=== PATIENT | female | born 1960 | race Caucasian/White ===

== ENCOUNTER → 2017-12-16 13:56 | Outpatient (CLI) | payer OTHER, SELFPAY | PROVIDERS: Family Provider Family Medicine; PCP Family Medicine; Visit Provider Family Medicine | DX: R42 Dizziness and giddiness (principal); R53.1 Weakness; D64.9 Anemia, unspecified ==

== ENCOUNTER → 2017-12-17 09:29 | Outpatient (CLI) | payer OTHER, SELFPAY ==
[2017-12-17 12:10] LABS: Hemoglobin 9.2 g/dl (12.0-15.0); Mean Corp Hgb Conc 31.7 g/gl (32-36); Mean Corpuscular Hgb 28.9 pg (27.0-32.0); Mean Corpuscular Volume 91.2 fL (81-99); Mean Platelet Vol. 8.9 fl (6.2-12.0); Platelet Count 584 K/mm3 (150-450); RBC Distribution Width CV 14.3 % (11.6-14.6); Red Blood Count 3.18 M/mm3 (4.2-5.4); White Blood Count 8.4 K/mm3 (4.4-11.0)
[2017-12-17 12:11] LABS: ALB/GLOB Ratio 0.7 RATIO (0.9-2.4); AST(SGOT) 22 U/L (15-37); Alanine Aminotransfer ALT/SGPT 26 U/L (13-56); Albumin, Serum 2.9 g/dL (3.2-5.0); Alkaline Phosphatase 78 U/L (45-117); Anion Gap 8 (5-15); BUN 7 mg/dL (7-18); BUN/Creat Ratio 10.5 RATIO (10-20); Calcium,Total 8.9 mg/dL (8.5-10.1); Chloride 101 mmol/L (98-107); Creatinine, Serum 0.67 mg/dL (0.55-1.02); EST Glomerular Filtration Rate 96 mL/min (>60); Est Glom Filt Rate - Afr Amer 116 mL/min (>60); Glucose 115 mg/dL (74-106); Potassium 3.9 mmol/L (3.5-5.1); Protein, Total 6.9 g/dL (6.4-8.2); Sodium Level 139 mmol/L (136-145)
[2017-12-17 12:12] LABS: Differential Indicated MANUAL DIFF; POSITIVE COUNT YES; POSITIVE DIFFERENTIAL NO; POSITIVE MORPHOLOGY YES
[2017-12-17 12:50] LABS: Lymphocyte 36 % (19-41); Monocyte 8 % (0-10); Neutrophil-Segmented 56 % (47-70); Total Cells Counted 100 (MANUAL DIFF)
[2017-12-17 12:51] LABS: Hypochromasia 1+; Platelet Estimate ADEQUATE (ADEQ)
[2017-12-17 12:53] LABS: Absolute Neutrophil Count 4.7 X10^3/uL (2.0-7.7)
[2017-12-18 14:52] LABS: Pathologist Review Reviewed
== END ==
PROVIDERS: Family Provider Family Medicine; PCP Family Medicine; Visit Provider Family Medicine
DX: R42 Dizziness and giddiness (principal); D64.9 Anemia, unspecified; R53.1 Weakness
CPT/HCPCS: 36415; 80053; 85025

== ENCOUNTER → 2018-03-07 16:25 | Outpatient (CLI) | payer OTHER, SELFPAY ==
--- NOTE | 2018-03-07 16:30 | RAD_ITS ---
STUDY: X-RAY - LEFT KNEE REASON FOR EXAM: Female, 58 years old. Pain TECHNIQUE: Four view(s) of the knee were obtained. COMPARISON: None. FINDINGS: The distal femur is unremarkable. The proximal tibia is unremarkable. Normal medial femorotibial compartment. Normal lateral femorotibial compartment. Normal patellofemoral articulation. There is no fullness above the patella. The soft tissue structures are unremarkable. RAD/Knee 4 or More Views IMPRESSION: No significant abnormalities are seen radiographically in the left knee. Electronically Signed: Ann Moralez MD at 19:34 EDT Tel Direct: [phone], Service support ,
--- NOTE | 2018-03-07 16:30 | RAD_ITS ---
STUDY: X-RAY - RIGHT KNEE REASON FOR EXAM: Female, 58 years old. Pain TECHNIQUE: Four view(s) of the knee were obtained. COMPARISON: None. FINDINGS: The distal femur is unremarkable. The proximal tibia is unremarkable. Normal medial femorotibial compartment. Normal lateral femorotibial compartment. Normal patellofemoral articulation. There is no fullness above the patella. The soft tissue structures are unremarkable. RAD/Knee 4 or More Views IMPRESSION: No significant abnormalities are seen radiographically in the right knee. Electronically Signed: Ann Moralez MD at 19:33 EDT Tel Direct: [phone], Service support ,
== END ==
PROVIDERS: Family Provider Family Medicine; PCP Family Medicine; Referring Provider Family Medicine; Visit Provider Family Medicine
DX: M25.561 Pain in right knee (principal); M25.562 Pain in left knee
CPT/HCPCS: 73564

== ENCOUNTER → 2018-03-28 14:31 | Outpatient (CLI) | payer OTHER, SELFPAY ==
--- NOTE | 2018-03-28 14:36 | RAD_ITS ---
STUDY: X-RAY - LUMBAR SPINE REASON FOR EXAM: Female, 58 years old. Low back pain TECHNIQUE: 5 view(s) of the lumbar spine were obtained. COMPARISON: None FINDINGS: Normal lumbar lordosis. There is no substantial scoliosis. There is a normal alignment of the vertebrae. Normal vertebral bodies and endplates. Normal disc space heights. The soft tissue structures are unremarkable. RAD/L/S Spine Min 4 Views IMPRESSION: Normal x-ray examination of the lumbar spine. Electronically Signed: Klever Aldrich MD at 17:02 EST , Service support ,
== END ==
PROVIDERS: Family Provider Family Medicine; PCP Family Medicine; Referring Provider Family Medicine; Visit Provider Family Medicine
DX: M54.5 Low back pain (principal)
CPT/HCPCS: 72110

== ENCOUNTER → 2018-04-09 07:10 | Outpatient (CLI) | payer OTHER, SELFPAY ==
--- NOTE | 2018-04-09 07:12 | CT_ITS ---
STUDY: CT CHEST WITHOUT CONTRAST REASON FOR EXAM: Female, 58 years old. Pulmonary nodule follow-up RADIATION DOSAGE (If Supplied By Facility): CTDIvol = ( 16.55 ) mGy, DLP = ( 599.66 ) mGycm TECHNIQUE: Transaxial imaging was performed without the administration of intravenous contrast material. Multiplanar coronal and sagittal images were reformatted. Individualized dose optimization techniques were used for this CT. COMPARISON: 07/19/2016 FINDINGS: 3 mm partially calcified nodule in the right upper lobe on axial image 42 is compatible with a granuloma, stable. No noncalcified pulmonary nodules are detected. There is no demonstrated pleural abnormality. Normal heart and pericardium. Normal mediastinum. Normal hilar regions. Normal unenhanced pulmonary arteries. Normal aorta arch and descending thoracic aorta. There are multi-level degenerative changes of the thoracic spine. Diminished density throughout the visualized liver compatible with hepatic steatosis, stable. Probable parapelvic cyst of the left kidney is partially visualized. CT/Chest without Contrast IMPRESSION: 1. Since 07/19/2016, stable exam. No new or enlarging pulmonary nodule. Electronically Signed: Jon Briones MD at 6:38 EST , Service support ,
[2018-04-09 08:19] LABS: Erythrocyte Sedimentation Rate 5 mm/hr (0-30)
[2018-04-09 08:21] LABS: Absolute Lymphocyte Count 2.45 X10^3/ul (0.83-4.51); Absolute Neutrophil Count 2.7 X10^3/uL (2.0-7.7); Basophil# 0.06 X10^3/uL; Eosinophil# 0.12 X10^3/uL; Hematocrit 36.8 % (37-47); Hemoglobin 12.1 g/dl (12.0-15.0); Lymphocyte # 2.45 X10^3/ul (4.0); Lymphocyte % 41.2 % (19-41); Mean Corp Hgb Conc 32.9 g/gl (32-36); Mean Corpuscular Hgb 27.3 pg (27.0-32.0); Mean Corpuscular Volume 83.1 fL (81-99); Mean Platelet Vol. 9.7 fl (6.2-12.0); Monocyte# 0.57 X10^3/uL; Monocyte% 9.6 % (0-10); Neutrophil # 2.74 X10^3/uL (2.7-7.7); Platelet Count 358 K/mm3 (150-450); RBC Distribution Width CV 16.1 % (11.6-14.6); RBC Distribution Width SD 48.5 fl (35.1-43.9); Red Blood Count 4.43 M/mm3 (4.2-5.4)
[2018-04-09 08:22] LABS: POSITIVE COUNT NO; POSITIVE DIFFERENTIAL NO; POSITIVE MORPHOLOGY NO
[2018-04-09 08:34] LABS: Hemoglobin A1c 6.4 % (4.2-6.3)
[2018-04-09 09:14] LABS: BUN 16 mg/dL (7-18); Creatinine, Serum 0.66 mg/dL (0.55-1.02); Glucose 101 mg/dL (74-106)
[2018-04-09 09:15] LABS: AST(SGOT) 20 U/L (15-37); Alanine Aminotransfer ALT/SGPT 33 U/L (13-56); Albumin, Serum 3.5 g/dL (3.2-5.0); Alkaline Phosphatase 102 U/L (45-117); Anion Gap 10 (5-15); BUN/Creat Ratio 24.1 RATIO (10-20); CRP 6.37 mg/L (0.0-3.0); Calcium,Total 8.6 mg/dL (8.5-10.1); Chloride 111 mmol/L (98-107); Cholesterol 187 mg/dL (200); EST Glomerular Filtration Rate 97 mL/min (>60); Est Glom Filt Rate - Afr Amer 117 mL/min (>60); Ferritin 37 ng/mL (8-252); Globulin 3.5 g/dL (2.2-4.2); High Density Lipoprotein 58 mg/dL; Iron 85 ug/dL (50-170); Potassium 4.1 mmol/L (3.5-5.1); Sodium Level 144 mmol/L (136-145); T4 Free Direct 1.34 ng/dL (0.76-1.46); Thyroid Stim Hormone (TSH) 0.88 uIU/mL (0.358-3.74); Triglycerides 101 mg/dL; Very Low Density Lipoprotein 20 mg/dL (5-40)
[2018-04-09 10:00] LABS: T3 Total - Triiodothyronine 1.26 ng/mL (0.6-1.81); Vitamin B12 829 pg/mL (211-911); Vitamin D,25 Hydroxy 24.3 ng/mL (29.95-100.01)
== END ==
PROVIDERS: Family Provider Family Medicine; PCP Family Medicine; Referring Provider Family Medicine; Visit Provider Family Medicine
DX: R91.1 Solitary pulmonary nodule (principal); E03.9 Hypothyroidism, unspecified; E11.9 Type 2 diabetes mellitus without complications; R53.83 Other fatigue; M79.10 Myalgia, unspecified site; M25.50 Pain in unspecified joint
CPT/HCPCS: 36415; 71250; 80053; 80061; 82306; 82607; 82728; 82746; 83036; 83540; 84439; 84443; 84480; 85025; 85652; 86140

== ENCOUNTER 2018-04-28 17:00 | Outpatient (RCR) | payer OTHER, SELFPAY ==
--- NOTE | 2018-03-26 11:06 | HP.PTEVAL ---
Patient's Visit Information SHIVA JHAVERI is a 58 year old F referred to Physical Therapy by SUSAN Lagos with a diagnosis of B KRZYSZTOF. Date of Evaluation: 03/26/18 Physical Therapist: Bob Montes PT, - Visit Plan Frequency: 2-3x /Week Duration: 3 Weeks Plan: B LE strengthening, core stab ex's, stick roll out to B ant hips, and HEP - Subjective Subjective: Pt reports she had R THR performed in October of 2017, and then L THR performed in November of 2017. Pt reports she has had extensive PT until January of 2018. Pt reports she returned to work, and was doing well until recently. Pt reports pain has returned and is severe at this time. Pt reports she is constantly taking pain meds to control her pain, but it only takes the edge off her pain. Pt reports she had an anterior approach on B hips. Pt reports she is becoming weaker each day. Pt reports difficulty with car transfers, and rolling over in bed. Pt also notes difficulty with getting into her shower. Pt notes she has pain that begins at her incisions, and extends to her ankles. Pt reports she does have mild LBP on occasion. Pt reports she has had xrays to rule out B knee OA. Sleep diff secondary to pain. 5/10 pain at rest, but pain is usually a constant 8/10 - Pain B hips Pain Intensity (Out of 10): 5 Pain Intensity Range: 8 - Objective Neuro: B LE sensation is WNL to light touch. B patellar reflex= 2/3. MMT: B hip flex and abd= 4-/5 and are painful with testing. L knee flex= 4/5 and provokes L gluteal pain. All other LE MMT 5/5 throughout. ROM: B LE's are WFL. Gait: Pt ambulates with a wobble gait pattern. Pt is able to ambulate 640' until being limited by anterior hip pain B. L/S ROM: Repeated movements had NE on B LE pain. - Goals Goal 1:: Decrease B hip pain x 50% to aid with sleep Goal Time Frame: 2-4 Weeks Goal 2:: Increase B hip strength x 1 grade to aid with ambulation Goal Time Frame: 2-4 Weeks Goal 3:: I with HEP Goal Time Frame: 2-4 Weeks - Rehabilitation Potential Physical Therapy Diagnosis: Pt has B hip pain and weakness secondary to B KRZYSZTOF Rehabilitation Potential: Good - Anticipated Interventions Patient/Client Instruction: Educate patient on: Condition, Plan of Care For the Purpose of:: To improve self management Therapeutic Exercise to Include: Strength training, Endurance training, Balance training, Flexibilty training, Active ROM, Dynamic Lumbar Stabilization For the Purpose of:: To decrease pain, To improve muscle performance and motor function Cryotherapy (ice pack, ice massage): Yes For the Purpose of:: To decrease pain Thank you for the opportunity to evaluate your patient. For Medicare and Medicare HMO plans, please review the plan of care and approve it. It will need to be FAXED BACK to us at [phone] for Medicare purposes. Please let me know if there are questions or concerns regarding this plan of care. Physician Signature: Date:
--- NOTE | 2018-06-11 07:46 | HP.PT.NRP ---
HP - Discharge Summary (1) - Patient Information SHIVA JHAVERI was seen in my office for initial evaluation on 03/26/18. The following Plan of Care was established for this patient: Initial Frequency: 2-3x /Week Initial Duration: 3 Weeks - Anticipated Interventions Patient/Client Instruction: Educate patient on: Condition, Plan of Care For the Purpose of:: To improve self management Therapeutic Exercise to Include: Strength training, Endurance training, Balance training, Flexibilty training, Active ROM, Dynamic Lumbar Stabilization For the Purpose of:: To decrease pain, To improve muscle performance and motor function Cryotherapy (ice pack, ice massage): Yes For the Purpose of:: To decrease pain This patient was last seen in our office . Pertinent comments regarding their Physical therapy will appear below: Pt was treated for B KRZYSZTOF for 8 PT visits through the date of 04/28/18. Pt has not returned since that date and is therefore discontinued at this time. At this point I will be discontinuing this patient from physical therapy. I would be happy to see this patient again in the future if found appropriate by the physician. Thank you! Bob Montes, PT, ATC
== END 2018-04-28 19:00 | disposition home or self-care (01) ==
LOC: PT 17:00
PROVIDERS: Family Provider Family Medicine; PCP Family Medicine; Referring Provider Physician Assistant Surgical; Visit Provider Physician Assistant Surgical
DX: Z96.642 Presence of left artificial hip joint (principal); Z96.641 Presence of right artificial hip joint
CPT/HCPCS: 97110; 97162

== ENCOUNTER → 2018-06-06 07:28 | Outpatient (CLI) | payer OTHER, SELFPAY ==
--- NOTE | 2018-06-06 07:45 | MRI_ITS ---
STUDY: MR LOWER EXTREMITY JOINT WITHOUT CONTRAST LEFT REASON FOR EXAM: Female, 58 years old. Left hip pain status post THR. TECHNIQUE: Multiplanar acquisitions were performed without contrast. COMPARISON: None. FINDINGS: Evaluation of the hips is extremely limited due to the presence of bilateral hip replacements. Visualized pelvic structures are unremarkable. Susceptibility artifact degrades imaging of the proximal humeral shafts bilaterally. There is otherwise no marrow signal abnormality. There is no evidence of fracture or bone contusion. Muscle architecture about the left hip is normal. There is no mass, cyst, or hematoma. Biceps femoris, semitendinosus and semimembranosus tendon origins are unremarkable. Iliopsoas and gluteus muscles are unremarkable. There is no soft tissue mass or cyst. MRI/Lower Ext Joint Only (Routine) IMPRESSION: Limited due to artifact from bilateral hip replacements. There is no demonstrated abnormality. Electronically Signed: Hillary Hsu MD at 21:23 EST Tel , Service support ,
--- OUTSIDE RECORDS SUMMARY | 2018-08-10 14:33 | XMS RPT_ITS ---
:1960 Author Organization OHIP Care Team Providers Name Role Phone KENA SEGOVIA, MILAD Jeff Attending Unavailable MALYS DO, DR. NICOLE Jeff Primary Care Unavailable MILAD ESCUDERO MD Admitting Unavailable SHAJI BLUM MD Consulting Unavailable MD. JOEL COLÓN MD. Consulting Unavailable AURELIA MILTON DO Consulting Unavailable MILAD ECSUDERO MD Attending Unavailable MALYS DO, DR. NICOLE Jeff Primary Care Unavailable MILAD ESCUDERO MD Attending Unavailable JOANNAYS DO, DR. NICOLE Jeff Primary Care Unavailable KATARZYNA THOMPSON, . JOEL Lau Consulting Unavailable MILAD ESCUDERO MD Admitting Unavailable MILAD ESCUDERO MD Attending Unavailable MALYS DO, DR. NICOLE Jeff Primary Care Unavailable MILAD ESCUDERO MD Referring Unavailable Malys, Nicole Attending Unavailable Malys, Nicole Referring Unavailable Malys, Nicole Primary Care Unavailable Eshenaur, Edmundo PA-C Attending Unavailable Malys, Nicole Primary Care Unavailable Eshenaur, Edmundo PA-C Referring Unavailable Malys, Nicole Attending Unavailable Malys, Nicole Primary Care Unavailable Malys, Nicole Attending Unavailable Malys, Nicole Referring Unavailable Malys, Nicole Primary Care Unavailable Malys, Nicole Attending Unavailable Malys, Nicole Referring Unavailable Malys, Nicole Primary Care Unavailable Malys, Nicole Attending Unavailable Malys, Nicole Referring Unavailable Malys, Nicole Primary Care Unavailable Malys, Nicole Attending Unavailable Malys, Nicole Primary Care Unavailable PROBLEMS PROBLEMS DATE TYPE CONDITION / CODE ATTENDING STATUS SOURCE 06/11/2018 Unknown Z96.642 - Eshenaur, Active [place] [facility] Edmundo [facility]C [facility] Repository Z96.642(ICD-10) 06/11/2018 Unknown Z96.641 - Eshenaur, Active [place] [facility] Edmundo PA-C [facility] / Repository Z96.641(ICD-10) 03/28/2018 Unknown M54.5 - Low back Malys, Nicole Active [place] pain / Community M54.5(ICD-10) Hospital Repository 03/07/2018 Unknown M25.561 - Pain in Nicole Moreno Active [place] right knee / Community M25.561(ICD-10) Hospital Repository 03/07/2018 Unknown M25.562 - Pain in Josh, Nicole Active [place] left knee / Community M25.562(ICD-10) Hospital Repository 12/19/2017 Unknown R42 - Dizziness Malalberto, Nicole Active [place] and giddiness / Community R42(ICD-10) Hospital Repository 12/17/2017 Unknown R53.1 - Weakness Josh, Nicole Active [place] / R53.1(ICD-10) [facility] Repository 12/17/2017 Unknown D64.9 - Anemia, Joannays, Nicole Active [place] unspecified / Community D64.9(ICD-10) Hospital Repository PROCEDURES PROCEDURES No Procedure Records FoundRESULTS RESULTS LOWER EXT JOINT ONLY Observed: 06/06/2018 Status: F Source: [place] (ROUTINE) 7:40 AM [facility] REPOSITORY [facility] Imaging Services [address] [place] [id number] Lower Ext Joint Only (Routine) MR#: [id number] Acct: [id number] Name: SHIVA JHAVERI Rep #: [id number] : 1960 F 58 From: Hillary Hsu MD PCP: Nicole Moreno DO Status: REG CLI Study: Lower Ext Joint Only (Routine) Date of Exam: 06/06/18 Exam# [id number] Ordering Dr: Nicole Moreno DO STUDY: MR LOWER EXTREMITY JOINT WITHOUT CONTRAST LEFT REASON FOR EXAM: Female, 58 years old. Left hip pain status post THR. TECHNIQUE: Multiplanar acquisitions were performed without contrast. COMPARISON: None. FINDINGS: Evaluation of the hips is extremely limited due to the presence of bilateral hip replacements. Visualized pelvic structures are unremarkable. Susceptibility artifact degrades imaging of the proximal humeral shafts bilaterally. There is otherwise no marrow signal abnormality. There is no evidence of fracture or bone contusion. Muscle architecture about the left hip is normal. There is no mass, cyst, or hematoma. Biceps femoris, semitendinosus and semimembranosus tendon origins are unremarkable. Iliopsoas and gluteus muscles are unremarkable. There is no soft tissue mass or cyst. MRI/Lower Ext Joint Only (Routine) IMPRESSION: Limited due to artifact from bilateral hip replacements. There is no demonstrated abnormality. Electronically Signed: Hillary Hsu MD at 21:23 EST Tel , Service support , CC: Nicole Moreno DO Blindmaker: Signed ERYTHROCYTE SED RATE Collected: 04/09/2018 Status: F Source: [place] 7:36 AM [facility] REPOSITORY TYPE CODE TESTS RESULT OUT OF RANGE REFERENCE UNITS LAB L102.0000 0-30 mm/hr Normal SED RATE 5 Performed By: #### L101.9900, L100.0100 #### [facility] [address] [place], [address] CBC W/DIFF, AUTOMATED Collected: 04/09/2018 Status: F Source: [place] 7:36 AM [facility] REPOSITORY TYPE CODE TESTS RESULT OUT OF RANGE REFERENCE UNITS LAB L100.1000 4.4-11.0 K/mm3 Normal WBC 6.0 LAB L100.1200 4.2-5.4 M/mm3 Normal RBC 4.43 LAB L100.1300 12.0-15.0 g/dl Normal HGB 12.1 LAB L100.1400 37-47 % Low HCT 36.8 LAB L100.1500 81-99 fL Normal MCV 83.1 LAB L100.1600 27.0-32.0 pg Normal MCH 27.3 LAB L100.1700 32-36 g/gl Normal MCHC 32.9 LAB L100.1810 11.6-14.6 % High RDW CV 16.1 LAB L100.1820 35.1-43.9 fl High RDW SD 48.5 LAB L100.1900 150-450 K/mm3 Normal PLT 358 LAB L100.2000 6.2-12.0 fl Normal MPV 9.7 LAB L100.2100 47-70 % Low NEUT% 46.0 LAB L100.2200 19-41 % High LY% 41.2 LAB L100.2300 0-10 % Normal MONO% 9.6 LAB L100.2400 0-5 % Normal EO% 2.0 LAB L100.2500 0-1 % Normal BASO% 1.0 LAB L100.2550 0.0-0.9 % Normal IM GRAN % 0.200 Result Comment: IG% - Immature Granulocytes (promyelocytes, myelocytes and metamyelocytes) > 1% indicates that a LEFT SHIFT is Present. LAB L100.2620 2.0-7.7 X10 3/uL Normal Absolute Neut 2.7 LAB L100.2720 0.83-4.51 X10 3/ul Normal Absolute Lymph 2.45 Performed By: #### L101.9900, L100.0100 #### [facility] [address] [place], [place], [address] HEMOGLOBIN A1C Collected: 04/09/2018 Status: F Source: [place] 7:36 AM [facility] REPOSITORY TYPE CODE TESTS RESULT OUT OF RANGE REFERENCE UNITS LAB L501.9985 4.2-6.3 % High HGB A1C 6.4 Performed By: #### L501.9985 #### [facility] [address] [place], [address] COMPREHENSIVE METABOLIC Collected: 04/09/2018 Status: F Source: [facility] 7:36 AM [facility] REPOSITORY Order Comment: Is Patient Taking Vitamins or Folic Acid Supplements? N TYPE CODE TESTS RESULT OUT OF RANGE REFERENCE UNITS LAB L501.0100 74-106 mg/dL Normal GLU 101 Result Comment: Fasting Glucose result from 100 to 125 mg/dL suggests IMPAIRED HOMEOSTASIS per A.D.A. criteria. Please note revised GLUCOSE reference range effective 2017. LAB L501.1000 7-18 mg/dL Normal BUN 16 LAB L501.1100 0.55-1.02 mg/dL Normal CREAT,SERUM 0.66 Result Comment: The validity of the calculated GFR AND GFRAA in patients over 70 years has not been determined. Clinical correlation is essential. LAB L501.1110 >60 mL/min Normal EST GFR 97 Result Comment: Non- GFR Calc LAB L501.1115 >60 mL/min Normal EST GFR - AA 117 Result Comment: GFR Calc LAB L501.1300 10-20 RATIO High BUN/CRE 24.1 LAB L501.1500 6.4-8.2 g/dL T Normal PROT 7.0 LAB L501.1800 3.2-5.0 g/dL Normal ALB 3.5 LAB L501.1950 2.2-4.2 g/dL Normal GLOB 3.5 LAB L501.2000 0.9-2.4 RATIO Normal A/G 1.0 LAB L501.2200 8.5-10.1 mg/dL CA Normal 8.6 LAB L501.4100 15-37 U/L Normal AST 20 LAB L501.4305 45-117 U/L Normal ALK P 102 LAB L501.4405 13-56 U/L Normal ALT 33 LAB L501.4600 0.20-1.00 mg/dL T Normal BILI 0.40 LAB L501.5300 136-145 mmol/L NA Normal 144 LAB L501.5600 3.5-5.1 mmol/L K Normal 4.1 LAB L501.5900 98-107 mmol/L High CL 111 LAB L501.6100 21.0-32.0 mmol/L Normal CO2 23.0 LAB L501.6200 5-15 Normal GAP 10 Performed By: #### L500.4050, L500.4100, L501.6710, L501.9520, L503.6150, L503.6550, L506.0250, L506.0400 #### [facility] [address] [place], [address] LIPID PROFILE Collected: 04/09/2018 Status: F Source: [place] 7:36 AM [facility] REPOSITORY Order Comment: Is Patient Taking Vitamins or Folic Acid Supplements? N TYPE CODE TESTS RESULT OUT OF RANGE REFERENCE UNITS LAB L501.4900 200 mg/dL Normal CHOL 187 Result Comment: <200 mg/dL Desirable 200-240 mg/dL Borderline >240 mg/dL High Risk LAB L501.5000 mg/dL Normal TRIG 101 Result Comment: The drugs N-Acetylcysteine and Metamizole may falsely depress this assay. Serum Triglycerides Reference Interval Normal <150 mg/dL Borderline high 150 - 199 mg/dL High 200 - 499 mg/dL Very High > or = 500 mg/dL LAB L501.6400 mg/dL Normal HDL 58 Result Comment: The drugs N-Acetylcysteine and Metamizole may falsely depress this assay. Reference Range HDL <40 mg/dL Low HDL Cholesterol HDL >or= 60 mg/dL High HDL Cholesterol LAB L501.6500 0-130 mg/dL Normal LDL 109 LAB L501.6600 5-40 mg/dL Normal VLDL 20 Performed By: #### L500.4050, L500.4100, L501.6710, L501.9520, L503.6150, L503.6550, L506.0250, L506.0400 #### [facility] [address] [place], [place], [id number] CRP Collected: 04/09/2018 Status: F Source: [place] 7:36 AM [facility] REPOSITORY Order Comment: Is Patient Taking Vitamins or Folic Acid Supplements? N TYPE CODE TESTS RESULT OUT OF RANGE REFERENCE UNITS LAB L501.6710 0.0-3.0 mg/L High 6.37 C-REACTIVE PROT Result Comment: C-Reactive Protein (CRP) provides useful information for the diagnosis, therapy and monitoring of inflammatory processes and associated diseases. For the evaluation of Relative Risk for Cardiovascular Disease, a High Sensitivity CRP (HSCRP) should be ordered. Performed By: #### L500.4050, L500.4100, L501.6710, L501.9520, L503.6150, L503.6550, L506.0250, L506.0400 #### [facility] [address] [place], [place], [id number] THYROID STIM HORMONE Collected: 04/09/2018 Status: F Source: [place] (TSH) 7:36 AM [facility] REPOSITORY Order Comment: Is Patient Taking Vitamins or Folic Acid Supplements? N TYPE CODE TESTS RESULT OUT OF RANGE REFERENCE UNITS LAB L501.9520 0.358-3.74 uIU/mL Normal TSH 0.88 Performed By: #### L500.4050, L500.4100, L501.6710, L501.9520, L503.6150, L503.6550, L506.0250, L506.0400 #### [facility] [address] [place], [address] IRON Collected: 04/09/2018 Status: F Source: [place] 7:36 AM [facility] REPOSITORY Order Comment: Is Patient Taking Vitamins or Folic Acid Supplements? N TYPE CODE TESTS RESULT OUT OF RANGE REFERENCE UNITS LAB L503.6150 50-170 ug/dL Normal IRON 85 Performed By: #### L500.4050, L500.4100, L501.6710, L501.9520, L503.6150, L503.6550, L506.0250, L506.0400 #### [facility] [address] [place], [address] FERRITIN Collected: 04/09/2018 Status: F Source: [place] 7:36 AM [facility] REPOSITORY Order Comment: Is Patient Taking Vitamins or Folic Acid Supplements? N TYPE CODE TESTS RESULT OUT OF RANGE REFERENCE UNITS LAB L503.6550 8-252 ng/mL Normal FERRITIN 37 Performed By: #### L500.4050, L500.4100, L501.6710, L501.9520, L503.6150, L503.6550, L506.0250, L506.0400 #### [facility] [place], [place], [phone] (784) FOLATES, (FOLIC ACID) Collected: 04/09/2018 Status: F Source: [place] 7:36 AM [facility] REPOSITORY Order Comment: Is Patient Taking Vitamins or Folic Acid Supplements? N TYPE CODE TESTS RESULT OUT OF RANGE REFERENCE UNITS LAB L506.0250 3.1-55.4 ng/mL Normal FOLATES 22.80 Performed By: #### L500.4050, L500.4100, L501.6710, L501.9520, L503.6150, L503.6550, L506.0250, L506.0400 #### [facility] [address] [place], [address] T4 FREE DIRECT Collected: 04/09/2018 Status: F Source: [place] 7:36 AM [facility] REPOSITORY Order Comment: Is Patient Taking Vitamins or Folic Acid Supplements? N TYPE CODE TESTS RESULT OUT OF RANGE REFERENCE UNITS LAB L506.0400 0.76-1.46 ng/dL Normal T4 FREE 1.34 DIRECT Performed By: #### L500.4050, L500.4100, L501.6710, L501.9520, L503.6150, L503.6550, L506.0250, L506.0400 #### [facility] [address] [place], [address] T3 TOTAL - TRIIODOTHYRONINE Collected: 04/09/2018 Status: F Source: [place] 7:36 AM [facility] REPOSITORY TYPE CODE TESTS RESULT OUT OF RANGE REFERENCE UNITS LAB L501.9186 0.6-1.81 ng/mL Normal T3 Total 1.26 Performed By: #### L501.9186, L503.0105, L506.1000 #### [facility] [address] [place], [address] VITAMIN B12 Collected: 04/09/2018 Status: F Source: [place] 7:36 AM [facility] REPOSITORY TYPE CODE TESTS RESULT OUT OF RANGE REFERENCE UNITS LAB L503.0105 211-911 pg/mL Normal Vitamin B12 829 Performed By: #### L501.9186, L503.0105, L506.1000 #### [facility] [address] [place], [address] VITAMIN D,25 HYDROXY Collected: 04/09/2018 Status: F Source: [place] 7:36 AM [facility] REPOSITORY TYPE CODE TESTS RESULT OUT OF REFERENCE UNITS RANGE LAB L506.1000 29.95-100.01 ng/mL Low Vitamin D 24.3 25-OH Result Comment: Vitamin D 25(OH) Status Range Deficiency <20 ng/mL (50nmol/L) Insuffciency 20 - 30 ng/mL (50 - 75 nmol/L) Sufficiency 30 - 100 ng/mL (75 - 250 nmol/L) Toxicity >100 ng/mL (>250 nmol/L) Performed By: #### L501.9186, L503.0105, L506.1000 #### [facility] [address] [place], [address] CHEST WITHOUT Observed: 04/09/2018 Status: F Source: [place] CONTRAST 7:12 AM [facility] REPOSITORY [facility] Imaging Services [address] [place] [address] Chest without Contrast MR#: [id number] Acct: [id number] Name: SHIVA JHAVERI Rep #: [id number] : 1960 F 58 From: Jon Briones MD PCP: Nicole Moreno DO Status: REG CLI Study: Chest without Contrast Date of Exam: 04/09/18 Exam# [id number] Ordering Dr: Nicole Moreno DO STUDY: CT CHEST WITHOUT CONTRAST REASON FOR EXAM: Female, 58 years old. Pulmonary nodule follow-up RADIATION DOSAGE (If Supplied By Facility): CTDIvol = ( 16.55 ) mGy, DLP = ( 599.66 ) mGycm TECHNIQUE: Transaxial imaging was performed without the administration of intravenous contrast material. Multiplanar coronal and sagittal images were reformatted. Individualized dose optimization techniques were used for this CT. COMPARISON: 07/19/2016 FINDINGS: 3 mm partially calcified nodule in the right upper lobe on axial image 42 is compatible with a granuloma, stable. No noncalcified pulmonary nodules are detected. There is no demonstrated pleural abnormality. Normal heart and pericardium. Normal mediastinum. Normal hilar regions. Normal unenhanced pulmonary arteries. Normal aorta arch and descending thoracic aorta. There are multi-level degenerative changes of the thoracic spine. Diminished density throughout the visualized liver compatible with hepatic steatosis, stable. Probable parapelvic cyst of the left kidney is partially visualized. CT/Chest without Contrast IMPRESSION: 1. Since 07/19/2016, stable exam. No new or enlarging pulmonary nodule. Electronically Signed: Jon Briones MD at 6:38 EST , Service support , CC: Nicole Moreno DO Blindmaker: Signed L/S SPINE MIN 4 Observed: 03/28/2018 Status: F Source: [place] VIEWS 2:41 PM [facility] REPOSITORY [facility] Imaging Services [address] [place] [address] L/S Spine Min 4 Views MR#: [id number] Acct: [id number] Name: SHIVA JHAVERI Rep #: [id number] : 1960 F 58 From: Kaitlin Aldrich MD PCP: Nicole Moreno DO Status: REG CLI Study: L/S Spine Min 4 Views Date of Exam: 03/28/18 Exam# [id number] Ordering Dr: Nicole Moreno DO STUDY: X-RAY - LUMBAR SPINE REASON FOR EXAM: Female, 58 years old. Low back pain TECHNIQUE: 5 view(s) of the lumbar spine were obtained. COMPARISON: None FINDINGS: Normal lumbar lordosis. There is no substantial scoliosis. There is a normal alignment of the vertebrae. Normal vertebral bodies and endplates. Normal disc space heights. The soft tissue structures are unremarkable. RAD/L/S Spine Min 4 Views IMPRESSION: Normal x-ray examination of the lumbar spine. Electronically Signed: Klever Aldrich MD at 17:02 EST , Service support , CC: Nicole Moreno DO Blindmaker: Signed INITAL EVALUATION (1) Observed: 03/26/2018 Status: F Source: [place] - PT 11:06 AM [facility] REPOSITORY [facility] [address] [place] [address] Fax REHABILITATION SERVICES INITIAL EVALUATION MR#: [id number] Acct: [id number] Name: SHIVA JHAVERI Rep #: [id number] : 1960 58 From: Bob Montes PT, ATC Referring Dr.: Edmundo DAVIS Status: REG RCR Insurance: [employer] SELF PAY INSURANCE Patient's Visit Information SHIVA JHAVERI is a 58 year old F referred to Physical Therapy by SUSAN Lagos with a diagnosis of B KRZYSZTOF. Date of Evaluation: 03/26/18 Physical Therapist: Bob Montes PT, - Visit Plan Frequency: 2-3x /Week Duration: 3 Weeks Plan: B LE strengthening, core stab ex's, stick roll out to B ant hips, and HEP - Subjective Subjective: Pt reports she had R THR performed in October of 2017, and then L THR performed in November of 2017. Pt reports she has had extensive PT until January of 2018. Pt reports she returned to work, and was doing well until recently. Pt reports pain has returned and is severe at this time. Pt reports she is constantly taking pain meds to control her pain, but it only takes the edge off her pain. Pt reports she had an anterior approach on B hips. Pt reports she is becoming weaker each day. Pt reports difficulty with car transfers, and rolling over in bed. Pt also notes difficulty with getting into her shower. Pt notes she has pain that begins at her incisions, and extends to her ankles. Pt reports she does have mild LBP on occasion. Pt reports she has had xrays to rule out B knee OA. Sleep diff secondary to pain. 5/10 pain at rest, but pain is usually a constant 8/10 - Pain B hips Pain Intensity (Out of 10): 5 Pain Intensity Range: 8 - Objective Neuro: B LE sensation is WNL to light touch. B patellar reflex= 2/3. MMT: B hip flex and abd= 4-/5 and are painful with testing. L knee flex= 4/5 and provokes L gluteal pain. All other LE MMT 5/5 throughout. ROM: B LE's are WFL. Gait: Pt ambulates with a wobble gait pattern. Pt is able to ambulate 640' until being limited by anterior hip pain B. L/S ROM: Repeated movements had NE on B LE pain. - Goals Goal 1:: Decrease B hip pain x 50% to aid with sleep Goal Time Frame: 2-4 Weeks Goal 2:: Increase B hip strength x 1 grade to aid with ambulation Goal Time Frame: 2-4 Weeks Goal 3:: I with HEP Goal Time Frame: 2-4 Weeks - Rehabilitation Potential Physical Therapy Diagnosis: Pt has B hip pain and weakness secondary to B KRZYSZTOF Rehabilitation Potential: Good - Anticipated Interventions Patient/Client Instruction: Educate patient on: Condition, Plan of Care For the Purpose of:: To improve self management Therapeutic Exercise to Include: Strength training, Endurance training, Balance training, Flexibilty training, Active ROM, Dynamic Lumbar Stabilization For the Purpose of:: To decrease pain, To improve muscle performance and motor function Cryotherapy (ice pack, ice massage): Yes For the Purpose of:: To decrease pain Thank you for the opportunity to evaluate your patient. For Medicare and Medicare HMO plans, please review the plan of care and approve it. It will need to be FAXED BACK to us at [phone] for Medicare purposes. Please let me know if there are questions or concerns regarding this plan of care. Physician Signature: Date: <Electronically signed by Bob Montes PT, ATC> 03/26/18 1106 CC: Nicole DAVIS [facility] Signed For Medicare only, by signing this I certify the plan of care. Physicians Signature Date KNEE 4 OR MORE Observed: 03/07/2018 Status: F Source: [place] VIEWS 4:30 PM [facility] Imaging Services [address] [place] [address] Knee 4 or More Views MR#: [id number] Acct: [id number] Name: SHIVA JHAVERI Rep #: [id number] : 1960 F 58 From: Ann Moralez MD PCP: Nicole Moreno DO Status: REG CLI Study: Knee 4 or More Views Date of Exam: 03/07/18 Exam# [id number] Ordering Dr: Nicole Moreno DO STUDY: X-RAY - RIGHT KNEE REASON FOR EXAM: Female, 58 years old. Pain TECHNIQUE: Four view(s) of the knee were obtained. COMPARISON: None. FINDINGS: The distal femur is unremarkable. The proximal tibia is unremarkable. Normal medial femorotibial compartment. Normal lateral femorotibial compartment. Normal patellofemoral articulation. There is no fullness above the patella. The soft tissue structures are unremarkable. RAD/Knee 4 or More Views IMPRESSION: No significant abnormalities are seen radiographically in the right knee. Electronically Signed: Ann Moralez MD at 19:33 EDT Tel Direct: [phone], Service support , CC: Nicole Moreno DO Blindmaker: Signed KNEE 4 OR MORE Observed: 03/07/2018 Status: F Source: [place] VIEWS 4:30 PM [facility] REPOSITORY [facility] Imaging Services [address] [place] [address] Knee 4 or More Views MR#: [id number] Acct: [id number] Name: SHIVA JHAVERI Rep #: [id number] : 1960 F 58 From: Ann Moralez MD PCP: Nicole Moreno DO Status: REG CLI Study: Knee 4 or More Views Date of Exam: 03/07/18 Exam# [id number] Ordering Dr: Nicole Moreno DO STUDY: X-RAY - LEFT KNEE REASON FOR EXAM: Female, 58 years old. Pain TECHNIQUE: Four view(s) of the knee were obtained. COMPARISON: None. FINDINGS: The distal femur is unremarkable. The proximal tibia is unremarkable. Normal medial femorotibial compartment. Normal lateral femorotibial compartment. Normal patellofemoral articulation. There is no fullness above the patella. The soft tissue structures are unremarkable. RAD/Knee 4 or More Views IMPRESSION: No significant abnormalities are seen radiographically in the left knee. Electronically Signed: Ann Moralez MD at 19:34 EDT Tel Direct: [phone], Service support , CC: Nicole Moreno DO Blindmaker: Signed COMPREHENSIVE METABOLIC Collected: 12/17/2017 Status: F Source: [place] 9:43 AM [facility] REPOSITORY TYPE CODE TESTS RESULT OUT OF RANGE REFERENCE UNITS LAB L501.0100 74-106 mg/dL High GLU 115 Result Comment: Fasting Glucose result from 100 to 125 mg/dL suggests IMPAIRED HOMEOSTASIS per A.D.A. criteria. Please note revised GLUCOSE reference range effective 2017. LAB L501.1000 7-18 mg/dL Normal BUN 7 LAB L501.1100 0.55-1.02 mg/dL Normal CREAT,SERUM 0.67 Result Comment: The validity of the calculated GFR AND GFRAA in patients over 70 years has not been determined. Clinical correlation is essential. LAB L501.1110 >60 mL/min Normal EST GFR 96 Result Comment: Non- GFR Calc LAB L501.1115 >60 mL/min Normal EST GFR - AA 116 Result Comment: GFR Calc LAB L501.1300 10-20 RATIO Normal BUN/CRE 10.5 LAB L501.1500 6.4-8.2 g/dL T Normal PROT 6.9 LAB L501.1800 3.2-5.0 g/dL Low ALB 2.9 LAB L501.1950 2.2-4.2 g/dL Normal GLOB 4.0 LAB L501.2000 0.9-2.4 RATIO Low A/G 0.7 LAB L501.2200 8.5-10.1 mg/dL CA Normal 8.9 LAB L501.4100 15-37 U/L Normal AST 22 LAB L501.4305 45-117 U/L Normal ALK P 78 LAB L501.4405 13-56 U/L Normal ALT 26 LAB L501.4600 0.20-1.00 mg/dL T Normal BILI 0.30 LAB L501.5300 136-145 mmol/L NA Normal 139 LAB L501.5600 3.5-5.1 mmol/L K Normal 3.9 LAB L501.5900 98-107 mmol/L CL Normal 101 LAB L501.6100 21.0-32.0 mmol/L Normal CO2 30.0 LAB L501.6200 5-15 Normal GAP 8 Performed By: #### L500.4050 #### [facility] [address] [place], [place], [address] CBC W/DIFF, AUTOMATED Collected: 12/17/2017 Status: C Source: [place] 9:43 AM [facility] REPOSITORY TYPE CODE TESTS RESULT OUT OF REFERENCE UNITS RANGE LAB L100.1000 4.4-11.0 K/mm3 WBC Normal 8.4 LAB L100.1200 4.2-5.4 M/mm3 Low RBC 3.18 LAB L100.1300 12.0-15.0 g/dl Low HGB 9.2 LAB L100.1400 37-47 % Low HCT 29.0 LAB L100.1500 81-99 fL MCV Normal 91.2 LAB L100.1600 27.0-32.0 pg MCH Normal 28.9 LAB L100.1700 32-36 g/gl Low MCHC 31.7 LAB L100.1810 11.6-14.6 % RDW CV Normal 14.3 LAB L100.1820 35.1-43.9 fl RDW SD High 46.0 LAB L100.1900 150-450 K/mm3 PLT High 584 LAB L100.2000 6.2-12.0 fl MPV Normal 8.9 LAB L100.3100 MANUAL DIFF CELLS COUNTED Normal 100 LAB L100.3200 47-70 % SEGS Normal 56 LAB L100.3800 19-41 % LYMPH Normal 36 LAB L100.3900 0-10 % MONOCYTE Normal 8 LAB L100.5500 ADEQ PLT EST Normal ADEQUATE LAB L100.7600 HYPOCHROMASIA Normal 1+ LAB L100.2620 2.0-7.7 X10 3/uL Absolute Neut Normal 4.7 LAB L100.2720 0.83-4.51 X10 3/ul Absolute Lymph Normal 3.00 LAB L100.9900 PATH REV Normal Reviewed Result Comment: Neutrophilic left shift. Normocytic anemia. Thrombocytosis. Clinical correlation necessary. Darci Motta M.D. 12/18/17 AMENDED REPORT 12/18/17 1452 PATH REV previously reported as: September miles Performed By: #### L100.0100 #### [facility] [address] [place] [address]. [place], [address] CBC Collected: 12/11/2017 Status: F Source: [facility] 5:19 AM [facility] EMERGENCY DEPARTMENT REPOSITORY TYPE CODE TESTS RESULT OUT OF REFERENCE UNITS RANGE LAB WBC(LOINC) 4.60-10.80 10 3/mcL WBC 9.70 LAB RBCCT(LOINC 4.20-5.40 10 6/mcL ) Low RBC 2.85 LAB HGB(LOINC) 12.0-16.0 G/dL Low Hgb 8.7 LAB HCT(LOINC) 37.0-47.0 % Low Hct 24.7 LAB MCV(LOINC) 80.0-94.0 fL MCV 86.6 LAB MCH(LOINC) 27.0-31.2 pg MCH 30.5 LAB MCHC(LOINC) 33.0-37.0 G/dL MCHC 35.2 LAB RDW(LOINC) 11.5-14.5 % RDW 14.2 LAB PLT(LOINC) 130-400 10 3/mcL Platelet 296 LAB MPV(LOINC) 7.4-10.4 fL Low MPV 7.1 Performed By: #### CBC, ADIFF, ANEU #### [address] [address] #### BMP, GFR #### [place] [address] .AUTO DIFF Collected: 12/11/2017 Status: F Source: [facility] 5:19 AM [facility] EMERGENCY DEPARTMENT REPOSITORY TYPE CODE TESTS RESULT OUT OF REFERENCE UNITS RANGE LAB MORAIMA(LOINC) 37.0-80.0 % Neutrophil % 75.2 LAB LYM(LOINC) 10.0-50.0 % Lymphocyte % 14.5 LAB MON(LOINC) 1.7-13.0 % Monocyte % 9.8 LAB EO(LOINC) 0.0-7.0 % Eosinophil % 0.2 LAB BAS(LOINC) 0.0-2.5 % Basophil % 0.3 LAB ABLYM(LOIN 0.77-3.85 10 3/mcL C) Lymphocyte, 1.40 Absolute LAB MORRIS(LOINC 0.15-1.00 10 3/mcL ) Monocyte, 0.90 Absolute LAB AEOS(LOINC 0.00-0.40 10 3/mcL ) Eosinophil, 0.00 Absolute LAB ABAS(LOINC 0.00-0.19 10 3/mcL ) Basophil, 0.00 Absolute Performed By: #### CBC, ADIFF, ANEU #### [place] [address] #### BMP, GFR #### [place] [address] .NEUABS Collected: 12/11/2017 Status: F Source: [facility] 5:19 AM [facility] EMERGENCY DEPARTMENT REPOSITORY TYPE CODE TESTS RESULT OUT OF REFERENCE UNITS RANGE LAB ANEU(LOINC) 2.85-6.16 10 3/mcL High Neutrophil, 7.30 Absolute Performed By: #### CBC, ADIFF, ANEU #### [place] [id number] #### BMP, GFR #### [place] [address] BMP Collected: 12/11/2017 Status: F Source: [facility] 5:19 AM [facility] EMERGENCY DEPARTMENT REPOSITORY TYPE CODE TESTS RESULT OUT OF REFERENCE UNITS RANGE LAB GLU(LOINC) 70-105 mg/dL Glucose High Level 135 LAB NA(LOINC) 136-145 mmol/L Sodium Level 142 LAB K(LOINC) 3.5-5.1 mmol/L Potassium Level 3.8 LAB CL(LOINC) 98-107 mmol/L Chloride 106 LAB CO2(LOINC) 22-29 mmol/L CO2 27 LAB EBAL(LOINC mEq/L ) Electrolyte Balance 9.0 LAB BUN(LOINC) 7-18 mg/dL BUN 13 LAB CRE(LOINC) 0.55-1.02 mg/dL Creatinine Lvl (s) 0.62 LAB BC(LOINC) 7-27 ratio BUN/Creatinine 21 Ratio LAB CA(LOINC) 8.4-10.2 mg/dL Calcium Lvl 8.4 Performed By: #### CBC, ADIFF, ANEU #### [facility] [address] [place], [place] [address] #### BMP, GFR #### [facility] [address] [place] [address] .GFR Collected: 12/11/2017 Status: F Source: [facility] 5:19 AM [facility] REPOSITORY TYPE CODE TESTS RESULT OUT OF REFERENCE UNITS RANGE LAB GFRAA(LOINC ml/min/1.73 ) sqm GFR 120 Hong Konger Result Comment: GFR Population mean for , Non- Americans Ages 20-29 = 116 mL/min/1.73 sq.m. Ages 30-39 = 107 mL/min/1.73 sq.m. Ages 40-49 = 99 mL/min/1.73 sq.m. Ages 50-59 = 93 mL/min/1.73 sq.m. Ages 60-69 = 85 mL/min/1.73 sq.m. Ages 70+ = 75 mL/min/1.73 sq.m. Chronic Kidney Disease: Less than 60 mL/min/1.73 square meters End Stage Renal Disease: Less than 15 mL/min/1.73 square meters LAB GFRNO(LOINC) ml/min/1.73sqm GFR Non- 99 Result Comment: GFR Population mean for , Non- Americans Ages 20-29 = 116 mL/min/1.73 sq.m. Ages 30-39 = 107 mL/min/1.73 sq.m. Ages 40-49 = 99 mL/min/1.73 sq.m. Ages 50-59 = 93 mL/min/1.73 sq.m. Ages 60-69 = 85 mL/min/1.73 sq.m. Ages 70+ = 75 mL/min/1.73 sq.m. Chronic Kidney Disease: Less than 60 mL/min/1.73 square meters End Stage Renal Disease: Less than 15 mL/min/1.73 square meters Performed By: #### CBC, ADIFF, ANEU #### [facility] [address] [place], [place] [address] #### BMP, GFR #### [address] [address] XR HIP LEFT W/PELVIS Observed: 12/10/2017 Status: F Source: [employer] 4 VIEWS 11:30 AM [facility] EMERG[facility]PARTMENT REPOSITORY ORIGINAL XR HIP LEFT W/PELVIS 4 VIEWS CLINICAL STATEMENT: Status Post Arthroplasty COMPARISON: None FINDINGS: AP view pelvis: The iliopectineal and ilioischial lines are intact. Bilateral hip arthroplasties noted. There is no fracture. 2 views LEFT hip: The arthroplasty is intact. No malalignment. No osseous abnormality is seen in the [place] LEFT hip. IMPRESSION: 1. Intact LEFT hip arthroplasty. 2. No fracture Interpreted By: Margarito Grewal MD Preliminary Report By: Margarito Grewal MD Electronically Signed By: Margarito Grewal MD Dictated Date: 12/10/2017 11:51:43 AM Prelim Date: 12/10/2017 11:51:43 AM Sign Date: 12/10/2017 11:53:16 AM XR FLUORO 1-2 HRS Observed: 12/10/2017 Status: F Source: [employer] TIME 7:41 AM [facility] EMERGENCY DEPARTMENT REPOSITORY ORIGINAL Images acquired, not reported on this accession number. XR FLUORO 1-2 HRS Observed: 11/13/2017 Status: F Source: [employer] TIME 10:00 AM [facility] EMERGENCY DEPARTMENT REPOSITORY ORIGINAL Images acquired, not reported on this accession number. CBC Collected: 11/13/2017 Status: F Source: [employer] 5:03 AM [facility] EMERGENCY DEPARTMENT REPOSITORY TYPE CODE TESTS RESULT OUT OF REFERENCE UNITS RANGE LAB WBC(LOINC) 4.60-10.80 10 3/mcL High WBC 11.90 LAB RBCCT(LOINC 4.20-5.40 10 6/mcL ) Low RBC 3.27 LAB HGB(LOINC) 12.0-16.0 G/dL Low Hgb 9.7 LAB HCT(LOINC) 37.0-47.0 % Low Hct 28.6 LAB MCV(LOINC) 80.0-94.0 fL MCV 87.3 LAB MCH(LOINC) 27.0-31.2 pg MCH 29.8 LAB MCHC(LOINC) 33.0-37.0 G/dL MCHC 34.1 LAB RDW(LOINC) 11.5-14.5 % RDW 13.9 LAB PLT(LOINC) 130-400 10 3/mcL Platelet 285 LAB MPV(LOINC) 7.4-10.4 fL MPV 7.7 Performed By: #### CBC, ADIFF, ANEU, GFR, BMP #### [address] [address] .AUTO DIFF Collected: 11/13/2017 Status: F Source: [facility] 5:03 [facility] REPOSITORY TYPE CODE TESTS RESULT OUT OF REFERENCE UNITS RANGE LAB MORAIMA(LOINC) 37.0-80.0 % High Neutrophil % 81.6 LAB LYM(LOINC) 10.0-50.0 % Low Lymphocyte % 9.7 LAB MON(LOINC) 1.7-13.0 % Monocyte % 8.6 LAB EO(LOINC) 0.0-7.0 % Eosinophil % 0.0 LAB BAS(LOINC) 0.0-2.5 % Basophil % 0.1 LAB ABLYM(LOIN 0.77-3.85 10 3/mcL C) Lymphocyte, 1.20 Absolute LAB MORRIS(LOINC 0.15-1.00 10 3/mcL ) Monocyte, 1.00 Absolute LAB AEOS(LOINC 0.00-0.40 10 3/mcL ) Eosinophil, 0.00 Absolute LAB ABAS(LOINC 0.00-0.19 10 3/mcL ) Basophil, 0.00 Absolute Performed By: #### CBC, ADIFF, ANEU, GFR, BMP #### [address] [address] .NEUABS Collected: 11/13/2017 Status: F Source: [facility] 5:03 AM [facility] EMERGENCY DEPARTMENT REPOSITORY TYPE CODE TESTS RESULT OUT OF REFERENCE UNITS RANGE LAB ANEU(LOINC) 2.85-6.16 10 3/mcL High Neutrophil, 9.70 Absolute Performed By: #### CBC, ADIFF, ANEU, GFR, BMP #### [facility] [address] [address] .GFR Collected: 11/13/2017 Status: F Source: [employer] 5:03 AM [facility] EMERGENCY DEPARTMENT REPOSITORY TYPE CODE TESTS RESULT OUT OF REFERENCE UNITS RANGE LAB GFRAA(LOINC ml/min/1.73 ) sqm GFR 135 [place]er Result Comment: GFR Population mean for , Non- Americans Ages 20-29 = 116 mL/min/1.73 sq.m. Ages 30-39 = 107 mL/min/1.73 sq.m. Ages 40-49 = 99 mL/min/1.73 sq.m. Ages 50-59 = 93 mL/min/1.73 sq.m. Ages 60-69 = 85 mL/min/1.73 sq.m. Ages 70+ = 75 mL/min/1.73 sq.m. Chronic Kidney Disease: Less than 60 mL/min/1.73 square meters End Stage Renal Disease: Less than 15 mL/min/1.73 square meters LAB GFRNO(LOINC) ml/min/1.73sqm GFR Non- >60 Result Comment: GFR Population mean for , Non- Americans Ages 20-29 = 116 mL/min/1.73 sq.m. Ages 30-39 = 107 mL/min/1.73 sq.m. Ages 40-49 = 99 mL/min/1.73 sq.m. Ages 50-59 = 93 mL/min/1.73 sq.m. Ages 60-69 = 85 mL/min/1.73 sq.m. Ages 70+ = 75 mL/min/1.73 sq.m. Chronic Kidney Disease: Less than 60 mL/min/1.73 square meters End Stage Renal Disease: Less than 15 mL/min/1.73 square meters Performed By: #### CBC, ADIFF, ANEU, GFR, BMP #### [facility] [address] [address] BMP Collected: 11/13/2017 Status: F Source: [facility] 5:03 AM [facility] EMERGENCY DEPARTMENT REPOSITORY TYPE CODE TESTS RESULT OUT OF REFERENCE UNITS RANGE LAB GLU(LOINC) 70-105 mg/dL Glucose High Level 161 LAB NA(LOINC) 136-146 mEq/L Sodium Level 143 LAB K(LOINC) 3.5-5.1 mEq/L Potassium Level 4.3 LAB CL(LOINC) 98-107 mEq/L Chloride High 108 LAB CO2(LOINC) 22-29 mEq/L CO2 29 LAB EBAL(LOINC mEq/L ) Electrolyte Balance 6.0 LAB BUN(LOINC) 7.0-18.0 mg/dL BUN 12.1 LAB CRE(LOINC) 0.6-1.2 mg/dL Creatinine Lvl (s) 0.6 LAB BC(LOINC) 7-27 ratio BUN/Creatinine 20 Ratio LAB CA(LOINC) 8.4-10.2 mg/dL Calcium Lvl 8.6 Performed By: #### CBC, ADIFF, ANEU, GFR, BMP #### [place] [address] XR HIP RIGHT W/PELVIS Observed: 11/12/2017 Status: F Source: [employer] 4 VIEWS 11:50 AM [facility] EMERGENCY DEPARTMENT REPOSITORY ORIGINAL XR HIP RIGHT W/PELVIS 4 VIEWS CLINICAL STATEMENT: Status Post Arthroplasty COMPARISON: None FINDINGS:There is a RIGHT hip prosthesis present. No acute fracture or dislocation is identified. There are postoperative changes to the soft tissues IMPRESSION:Post prosthesis placement Interpreted By: Kelsey Marin MD Preliminary Report By: Kelsey Marin MD Electronically Signed By: Kelsey Marin MD Dictated Date: 11/12/2017 12:02:57 PM Prelim Date: 11/12/2017 12:02:57 PM Sign Date: 11/12/2017 12:03:15 PM CBC Collected: 10/30/2017 Status: F Source: [employer] 4:13 PM [facility] EMERGENCY DEPARTMENT REPOSITORY TYPE CODE TESTS RESULT OUT OF REFERENCE UNITS RANGE LAB WBC(LOINC) 4.60-10.80 10 3/mcL WBC 7.70 LAB RBCCT(LOINC 4.20-5.40 10 6/mcL ) RBC 4.35 LAB HGB(LOINC) 12.0-16.0 G/dL Hgb 12.9 LAB HCT(LOINC) 37.0-47.0 % Hct 38.1 LAB MCV(LOINC) 80.0-94.0 fL MCV 87.4 LAB MCH(LOINC) 27.0-31.2 pg MCH 29.6 LAB MCHC(LOINC) 33.0-37.0 G/dL MCHC 33.9 LAB RDW(LOINC) 11.5-14.5 % RDW 14.3 LAB PLT(LOINC) 130-400 10 3/mcL Platelet 334 LAB MPV(LOINC) 7.4-10.4 fL MPV 7.6 Performed By: #### CBC, ADIFF, ANEU, GFR, BMP #### [address] [address] .AUTO DIFF Collected: 10/30/2017 Status: F Source: [facility] 4:13 PM [facility] EMERGENCY DEPARTMENT REPOSITORY TYPE CODE TESTS RESULT OUT OF REFERENCE UNITS RANGE LAB MORAIMA(LOINC) 37.0-80.0 % Neutrophil % 50.2 LAB LYM(LOINC) 10.0-50.0 % Lymphocyte % 40.2 LAB MON(LOINC) 1.7-13.0 % Monocyte % 7.1 LAB EO(LOINC) 0.0-7.0 % Eosinophil % 1.1 LAB BAS(LOINC) 0.0-2.5 % Basophil % 1.4 LAB ABLYM(LOIN 0.77-3.85 10 3/mcL C) Lymphocyte, 3.10 Absolute LAB MORRIS(LOINC 0.15-1.00 10 3/mcL ) Monocyte, 0.50 Absolute LAB AEOS(LOINC 0.00-0.40 10 3/mcL ) Eosinophil, 0.10 Absolute LAB ABAS(LOINC 0.00-0.19 10 3/mcL ) Basophil, 0.10 Absolute Performed By: #### CBC, ADIFF, ANEU, GFR, BMP #### [address] [address] .NEUABS Collected: 10/30/2017 Status: F Source: [facility] 4:13 PM [facility] EMERGENCY DEPARTMENT REPOSITORY TYPE CODE TESTS RESULT OUT OF REFERENCE UNITS RANGE LAB ANEU(LOINC) 2.85-6.16 10 3/mcL Neutrophil, 3.90 Absolute Performed By: #### CBC, ADIFF, ANEU, GFR, BMP #### [address] [address] .GFR Collected: 10/30/2017 Status: F Source: [employer] 4:13 PM [facility] EMERGENCY DEPARTMENT REPOSITORY TYPE CODE TESTS RESULT OUT OF REFERENCE UNITS RANGE LAB GFRAA(LOINC ml/min/1.73 ) sqm GFR 129 [place] Result Comment: GFR Population mean for , Non- Americans Ages 20-29 = 116 mL/min/1.73 sq.m. Ages 30-39 = 107 mL/min/1.73 sq.m. Ages 40-49 = 99 mL/min/1.73 sq.m. Ages 50-59 = 93 mL/min/1.73 sq.m. Ages 60-69 = 85 mL/min/1.73 sq.m. Ages 70+ = 75 mL/min/1.73 sq.m. Chronic Kidney Disease: Less than 60 mL/min/1.73 square meters End Stage Renal Disease: Less than 15 mL/min/1.73 square meters LAB GFRNO(LOINC) ml/min/1.73sqm GFR Non- >60 Result Comment: GFR Population mean for , Non- Americans Ages 20-29 = 116 mL/min/1.73 sq.m. Ages 30-39 = 107 mL/min/1.73 sq.m. Ages 40-49 = 99 mL/min/1.73 sq.m. Ages 50-59 = 93 mL/min/1.73 sq.m. Ages 60-69 = 85 mL/min/1.73 sq.m. Ages 70+ = 75 mL/min/1.73 sq.m. Chronic Kidney Disease: Less than 60 mL/min/1.73 square meters End Stage Renal Disease: Less than 15 mL/min/1.73 square meters Performed By: #### CBC, ADIFF, ANEU, GFR, BMP #### [facility] [address] [address] BMP Collected: 10/30/2017 Status: F Source: [facility] [employer] 4:13 PM [facility] EMERGENCY DEPARTMENT REPOSITORY TYPE CODE TESTS RESULT OUT OF REFERENCE UNITS RANGE LAB GLU(LOINC) 70-105 mg/dL Glucose Level 103 LAB NA(LOINC) 136-146 mEq/L Sodium Level 138 LAB K(LOINC) 3.5-5.1 mEq/L Potassium Level 3.8 LAB CL(LOINC) 98-107 mEq/L Chloride 102 LAB CO2(LOINC) 22-29 mEq/L CO2 27 LAB EBAL(LOINC mEq/L ) Electrolyte Balance 9.0 LAB BUN(LOINC) 7.0-18.0 mg/dL BUN 12.8 LAB CRE(LOINC) 0.6-1.2 mg/dL Creatinine Lvl (s) 0.6 LAB BC(LOINC) 7-27 ratio BUN/Creatinine 21 Ratio LAB CA(LOINC) 8.4-10.2 mg/dL Calcium Lvl 9.5 Performed By: #### CBC, ADIFF, ANEU, GFR, BMP #### [facility] [place] [address] ALLERGIES ALLERGIES DATE TYPE / CODE NAME / CODE REACTION SEVERITY SOURCE 04/14/2015 Drug hydrocodone Vomiting Unknown [place] Allergy/416 bitartrate/[id number] [facility] 191740([place] [address]([facility] ED CT) Repository 04/14/2015 Drug acetaminophen/F006 Vomiting Unknown [place] Allergy/416 420364(RXNORM) [facility] 421687([facility] ED CT) Repository ENCOUNTERS ENCOUNTERS ADMIT/DISCHARGE ACCOUNT NUMBER ADMITTING ENCOUNTER LOCATION SOURCE CLASS 06/06/2018 [id number] [facility] ding:MRI Repository 04/28/2018/04/28/[id number] ding:PT Repository 04/09/2018 [id number] [facility] ding:CT Repository 03/28/2018 [id number] [facility] ding:RAD.FUT Repository URE 03/07/2018 [id number] [facility] ding:RAD.FUT Repository URE 12/17/2017 [id number] [facility] ding:BFHLAB Repository 12/16/2017 [id number] [facility] ding:LAB.FUT Repository URE 12/13/2017/02/07/20 [id number] Ambulatory BBuilding:ÁNGELA Duckworth [address] [place] [address] Repository 12/10/2017/07/25 [id number] KENA SEGOVIA, Inpatient BBuilding:[facility] [place]. Encounter URRoom: Health 0221Bed: [facility] Repository 11/12/2017/11/14/19 [id number] KENA SEGOVIA, Inpatient BBuilding:[facility] [place]. Encounter URRoom: Health 0231Bed: [facility] Repository 10/30/2017/10/31/19 [id number] Ambulatory [facility] ding:OPRS [facility] Repository PAYERS PAYERS ENCOUNTER GUARANTOR PAYER SUBSCRIBER SOURCE 06/06/2018 SHIVA L Primary SHIVA L [place] [id number] [place] Insurance:AETNAPolicy VANMETERDOB: [facility] [place] Number: [id number] [facility] [address]Wdh: 330 [id number] Repository [phone] () Date:[id number] [address] [place] [address]MF: 06/06/2018 Secondary SHIVA L Red Insurance:[facility] VANMETERDOB: [facility] Number: [id number] [facility] [id number] Repository Date:2018-05-30 06/06/2018 Tertiary NOT GIVENUNK Red Insurance:SELF PAY [facility] ([place], [place]) Number: Effective Repository Date:2018-05-30 04/28/2018 SHIVA L Primary SHIVA L [place] [id number] [place] Insurance:AETNAPolicy [facility]ANMETERDOB[facility] [place] Number: [id number] Hospital [address]Rbk: 330 [id number] Repository [phone] (HP) Date:[id number] [address] [place] [address]HF: 04/28/2018 Secondary NOT GIVENUNK Red Insurance:SELF PAY [facility] ([place], [place]) Number: Effective Repository Date:2018-03-21 04/09/2018 SHIVA L Primary SHIVA L [place] [id number] [place] Insurance:AETNAPolicy VANMETERDOB: [facility] [place] Number: [id number] Hospital [address]Mhr: (330) [id number] Repository [phone] (HP) Date:5229-41-73UA [address] [facility] [place] [address]ZV: 04/09/2018 Secondary NOT GIVENUNK Red Insurance:SELF PAY [facility] Hospital Number: Effective Repository Date:2018-04-02 03/28/2018 SHIVA L Primary SHIVA L [place] [id number] [place] Insurance:AETNAPolicy VANMETERDOB: [facility] [place] Number: [id number] Hospital [address]Xjh: (330) [id number] Repository [phone] (HP) Date:3795-87-79DF [address] [address]ET: 03/28/2018 Secondary NOT GIVENUNK Red Insurance:SELF PAY [facility] Hospital Number: Effective Repository Date:2018-03-12 03/07/2018 SHIVA L Primary SHIVA L [place] [id number] [place] Insurance:AETNAPolicy VANMETERDOB: [facility] [place] Number: [id number] Hospital [address]Gvp: (330) [id number] Repository [phone] (HP) Date:7281-08-18VQ [address] [place] [address]ZJ: 03/07/2018 Secondary NOT GIVENUNK Red Insurance:SELF PAY [facility] Hospital Number: Effective Repository Date:2018-02-28 12/17/2017 SHIVA L Primary SHIVA L [place] [id number] [place] Insurance:AETNAPolicy VANMETERDOB: [facility] [place] Number: [id number] Hospital [address]Rga: (330) [id number] Repository [phone] (HP) Date:6204-92-66LZ [address] [place] [address]LU: 12/17/2017 Secondary NOT GIVENUNK Red Insurance:SELF PAY [facility] ([place], [place]) Number: Effective Repository Date:2017-12-17 12/16/2017 SHIVA L Primary SHIVA L [place] [id number] [place] Insurance:[facility] [place] Number: [id number] Hospital [address]Oib: [phone]) [id number] Repository [phone] (HP) Date:0597-99-77GZ [address] [place] [address]UX: 12/16/2017 Secondary NOT GIVENUNK Red Insurance:SELF PAY [facility] ([place], [place]) Number: Effective Repository Date:2017-12-16 12/13/2017 SHIVA L [facility] Insurance:AETNA VANMETERDOB: [facility] NACPolicy Number: [id number] Repository [place], [id number] [place], [place] [address]Chu: Date:2017-12-11 - [place] [address]Vps: [id number] (HP) Name: [address] ()Tel: [phone] [place], [place] [phone] () [address]RY: 12/10/2017 SHIVA L Primary [facility]IVA L [facility]: Insurance:AETNA VANMETERDOB: [facility] NACPolicy Number: [id number] Repository [place], [id number] [place] [address]Dpo: Date:2017-10-18 - [place] [address]Swh: [id number] (HP) Name:AP [address] ()Tel: [phone] [place], [place] [phone] (WP) [address]XZ: 11/12/2017 SHIVA L Primary SHIVA L [facility]: Insurance:[facility]: [facility] NACPolicy Number: [id number] Repository [place], [id number] [place], [place] [address]Ehe: Date:2017-10-18 - [place] [address]Gat: [id number] (HP) Name:JULY [address] (HP)Tel: [phone] [place] [phone] (WP) [address]GX: 10/30/2017 SHIVA R Primary SHIVA R [facility]: Insurance:[facility]: [facility] NACPolicy Number: [id number] Repository [place], [id number] [place] [address]Doz: Date:2017-10-18 - [place] [address]Bmn: [id number] (HP) Name:JULY [address] BOX (HP)Tel: [phone] [place] [phone] (WP) [address]SO:
== END ==
PROVIDERS: Family Provider Family Medicine; PCP Family Medicine; Referring Provider Family Medicine; Visit Provider Family Medicine
DX: M25.552 Pain in left hip (principal)
CPT/HCPCS: 73721

== ENCOUNTER → 2018-10-01 | Outpatient (CLI) | payer OTHER, SELFPAY ==
[2018-10-01 16:13] LABS: Hemoglobin A1c 6.3 % (4.2-6.3); T4 Free Direct 1.12 ng/dL (0.76-1.46)
[2018-10-01 16:33] LABS: Vitamin B12 875 pg/mL (211-911); Vitamin D,25 Hydroxy 16.6 ng/mL (29.95-100.01)
== END | disposition home or self-care (01) ==
LOC: LAB.FUTURE 14:06
PROVIDERS: Family Provider Family Medicine; PCP Family Medicine; Visit Provider Family Medicine
DX: E03.9 Hypothyroidism, unspecified (principal); E55.9 Vitamin D deficiency, unspecified; E11.9 Type 2 diabetes mellitus without complications; E53.8 Deficiency of other specified B group vitamins
CPT/HCPCS: 36415; 82306; 82607; 83036; 84439; 84443; 84481

== ENCOUNTER → 2018-10-15 | Outpatient (CLI) | payer OTHER, SELFPAY ==
--- NOTE | 2018-10-15 09:05 | RAD_ITS ---
STUDY: X-RAY - LEFT KNEE REASON FOR EXAM: Female, 58 years old. Pain TECHNIQUE: 4 view(s) of the knee. COMPARISON: X-Ray Knee March 07, 2018 FINDINGS: There is no evidence of fracture or dislocation. There are no significant degenerative changes. There are no radiodense foreign bodies. RAD/Knee 4 or More Views IMPRESSION: No fracture or dislocation. Electronically Signed: Keny Govea, at 19:06 EDT Tel , Service support ,
== END | disposition home or self-care (01) ==
LOC: HPRAD 09:04
PROVIDERS: Family Provider Family Medicine; PCP Family Medicine; Referring Provider Orthopaedic Surgery; Visit Provider Orthopaedic Surgery
DX: M25.562 Pain in left knee (principal)
CPT/HCPCS: 73564

== ENCOUNTER → 2018-11-15 | Outpatient (CLI) | payer OTHER, SELFPAY ==
--- NOTE | 2018-11-15 07:27 | MRI_ITS ---
STUDY: MRI LEFT KNEE REASON FOR EXAM: Female, 58 years old. Left knee pain. Previous surgery TECHNIQUE: Standardized fat and water weighted pulse sequences were obtained in all 3 orthogonal planes. COMPARISON: X-ray October 15, 2018 FINDINGS: Normal medial meniscus. Normal hyaline cartilage of the medial femorotibial compartment. Normal medial femoral condyle and tibial plateau. Normal medial collateral ligamentous complex (MCL). Normal distal semimembranosus, gracilis and semitendinosus tendons. There is lateral meniscus tear the posterior horn of the inferior articular surface, series 3 image 31/42. There is truncation and tearing of the body of the lateral meniscus, series 5 image 16/32. There is diffuse, less than 50% thickness articular cartilage loss of the lateral femorotibial compartment. Normal lateral femoral condyle and tibial plateau. Normal proximal tibiofibular articulation. Normal lateral collateral (fibular) ligament. Normal popliteus tendon. Normal biceps femoris tendon. Normal anterior cruciate ligament (ACL). Normal posterior cruciate ligament (PCL). Normal congruent patellofemoral articulation. Normal hyaline cartilage of the patellofemoral compartment. Normal medial and lateral patellar retinaculum. Normal quadriceps tendon. Normal patellar tendon. Normal Hoffa's fat pad. There is a moderate volume joint effusion. There is a 2.8 cm popliteal cyst. There is subcutaneous edema. The otherwise visualized osseous structures are unremarkable. MRI/Lower Ext Joint Only (Routine) IMPRESSION: Lateral meniscus tears. Degenerative changes of the lateral compartment. Joint effusion with popliteal cyst. Electronically Signed: Holger Luciano MD at 14:24 EDT , Service support ,
== END | disposition home or self-care (01) ==
LOC: MRI 07:26
PROVIDERS: Family Provider Family Medicine; PCP Family Medicine; Referring Provider Orthopaedic Surgery; Visit Provider Orthopaedic Surgery
DX: M25.562 Pain in left knee (principal); G90.523 Complex regional pain syndrome I of lower limb, bilateral
CPT/HCPCS: 73721

== ENCOUNTER 2019-01-08 08:15 | Day surgery (SDC) | payer OTHER, SELFPAY ==
[2018-12-29 13:16] VITALS: BMI 40.4
[2019-01-08] VITALS (7 sets, daily range): BP systolic 128–159; BP diastolic 71–85; PULSE 58–77; RESP 16–18; TEMP 36.2–37.2; O2SAT 94–100; BMI 38.7
[2019-01-08] MEDS: Lactated Ringers 1,000 ML 100 ML IV ×2 (08:51→10:50)
--- NOTE | 2019-01-08 09:01 | EKG12_ITS ---
Test Reason : AM EKG Blood Pressure : / mmHG Vent. Rate : 072 BPM Atrial Rate : 072 BPM P-R Int : 178 ms QRS Dur : 152 ms QT Int : 452 ms P-R-T Axes : 054 -08 148 degrees QTc Int : 494 ms Normal sinus rhythm Left bundle branch block Abnormal ECG When compared with ECG of 16-OCT-2009 17:09, Left bundle branch block is now Present Confirmed by REHAN SEGOVIA, CORNELIA ([id number]), department editor ANTONIETTA YEUNG ([id number]) on 01/12/2019 1:38:39 PM Referred By: Rocky Yu Confirmed By:CORNELIA VAN MD
[2019-01-08] MEDS: Cefazolin 2 GM in 0.9% Normal Saline 100 ML IV (10:02)
[2019-01-08] MEDS: Bupiv/Epi 0.25% 30 ML Vial (10:22)
[2019-01-08] MEDS: MethylPREDNISolone Acetate 80 MG/ML Vial (10:40)
[2019-01-08] MEDS: Bupivacaine 0.5% PF 10 ML VIAL (10:40)
[2019-01-08] MEDS: Morphine 4 MG/ML Syringe (10:40)
--- NOTE | 2019-01-08 10:42 | DCINST_ITS ---
Discharge Diet: No Restrictions Weight Bearing Status: Weight bearing as tolerated Call your doctor if you observe: Fever of 101 or Higher, Shortness of breath, Chest pain Suture Line Care: Avoid Pulling/Pushing Additional Instructions: Ice and elevate next 72 hours .keep dressing on clean and dry for 48 hours then may remove begin showering daily but do not submerge in tub or pool. After shower may apply Band-Aids . Encourage knee range of motion weightbearing as tolerated, use crutches until confident in knee then may discontinue. No strenuous activity. When not ambulating keep iced and elevated next 72 hours. Allergies/Adverse Reactions: Allergies hydrocodone Adverse Reaction (Mild, Verified 01/08/19 08:38) unknown angry acetaminophen [From Vicodin] Adverse Reaction (Verified 01/08/19 08:38) Unknown Medications to take at Discharge Albuterol Inhaler [Ventolin Hfa] 1 - 2 puff INHALATION Q4H PRN PRN #1 inhaler 04/17/15 bupropion HCl SR 150 mg tablet,12 hr sustained-release 150 mg PO BID 10/15/18 oxycodone 10 mg tablet 10 mg PO PRN PRN 12/31/18 Cholecalciferol (Vitamin D3) [Vitamin D3] 1,000 unit PO DAILY 01/07/19 Dextroamphetamine/Amphetamine [Adderall 30 mg Tablet] 30 mg PO DAILY 01/07/19 Levalbuterol Tartrate [Xopenex Hfa (SP)] 2 puff INHALATION Q4H 01/07/19 Levothyroxine [Synthroid] 137 mcg PO DAILY 01/07/19 Multivitamin [Daily Multiple Vitamin] 1 ea PO DAILY 01/07/19 Primary Care Physician: Nicole Moreno DO [Primary Care Provider] - Test Results: Test results from this visit will be discussed in further detail at your follow- up appointment, if applicable. Please Follow Up With: Rocky Yu DO - 2 weeks
--- NOTE | 2019-01-08 10:43 | OP.PCM_ITS ---
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 Risk benefits and alternatives of the procedure were reviewed including risk of bleeding infection nerve artery tissue damage need for further surgery continued pain and expected postoperative course. Procedure: The patient was met in the preoperative holding area. The operative extremity was identified by both patient and physician and family and marked. Patient was brought back to the operating room on a wheeled cart and transferred to the operating table in the supine position. Anesthesia was started. A well- padded tourniquet was placed on the operative extremity. A lower extremity leg baker was secured to the operative extremity. The contralateral extremity was well-padded and the end of the bed was flexed to 90 degrees. The patient was prepped and draped in the usual sterile fashion. A timeout was called to ensure the proper patient, procedure, and extremity were being contemplated. 0.5% Marcaine with epinephrine was injected into the planned incisional areas under the skin only. An Esmarch was used to exsanguinate the extremity and the tourniquet was inflated. An 11 blade scalpel was used to make a stab incision in the anterior lateral portal. The arthroscope was inserted into the intercondylar notch and inflow and outflow tubes were attached. Arthroscopic visualization began. The medial compartment was entered. An 18-gauge spinal needle was used to establish the placement for anterior medial portal. An 11 blade scalpel was used to make a stab incision. Blunt probe was inserted followed by a meniscal probe. Small area of grade III chondromalacia medial femoral condyle no meniscal pathology the ACL was found to be intact. The lateral compartment was entered horizontal tearing in the anterior horn body which partial meniscectomy was performed with a shaver small undersurface flap of the posterior horn which was debrided with a shaver there was some degenerative appearance to the posterior root The arthroscope was switched to the medial portal to complete the procedure. The medial and lateral gutters were inspected and were free of loose bodies. The patellofemoral joint was inspected and was free of cartilage pathology. There was good patellar tracking. The knee was thoroughly irrigated and drained. An intra-articular injection with 5 cc 0.5% Marcaine plain 4 mg of morphine and 40 mg of Depo- Medrol was injected intra-articularly. The arthroscope was removed the portals were closed with 3-0 nylon arthroscopic stitches. Followed by Xeroform 4 x 4's ABDs web roll and an Reed wrap. The tourniquet was let down and the drapes were removed. All counts were correct. The patient was brought back to the PACU in stable condition.
--- NOTE | 2019-01-08 10:47 | PCM.HP.BLA ---
History and Physical Date of Admission: 01/08/19 Intake Vital Signs 12/29/18 Body Mass Index (BMI) 40.4 Intake Visit Reasons: left knee Is patient in pain?: Yes Allergies hydrocodone Adverse Reaction (Mild, Verified 12/31/18 15:36) unknown Medications Levothyroxine [Synthroid] 125 mcg PO DAILY 04/14/15 [History Confirmed 12/31/18] Albuterol Inhaler [Ventolin Hfa] 1 - 2 puff INHALATION Q4H PRN PRN #1 inhaler 04/17/15 [Rx Confirmed 12/31/18] Budesonide/Formoterol 80-4.5 [Symbicort 80-4.5 Mcg Inhaler] 1 puff INHALATION BID #1 inhaler 04/17/15 [Rx Confirmed 12/31/18] bupropion HCl SR 150 mg tablet,12 hr sustained-release 150 mg PO BID 10/15/18 [History Confirmed 12/31/18] dextroamphetamine-amphetamine ER 30 mg 24hr capsule,extend release PO #60 cap 12/31/18 [History Confirmed 12/31/18] oxycodone 10 mg tablet 10 mg PO DAILY 12/31/18 [History Confirmed 12/31/18] PFSH Social History (Updated 12/31/18 @ 15:55 by Rocky Yu DO) Smoking Status: Former smoker HPI left knee: Details: Parts of this documentation were recorded by a scribe, this documentation accurately reflects the service provided and the decisions made by me, Rocky Yu DO 12/29/18 0751. SHIVA JHAVERI is a 58 year old F here today for surgery consent. She continues to have pain and weakness. She does have complaints of instability and pain that she can not get relief from. Ortho Exam Right Knee Patella Translation: 1 Left Knee Skin/Wound: No ecchymosis, No erythema, No swelling Homans Sign: No Knee ROM: Yes ROM-Extension -20 to 0, Yes ROM-Flexion 0-140 Examination: No med jt line tenderness, No Lat jt line tenderness, Yes Mihaela's Test (pain with medial) Stability: NML: Anterior Drawer, NML: Valgus 30, NML: Varus 30 Patella Translation: 1 Apprehension with Lateral Translation: No KNEE: unable to preform left hip flexion d/t weakness/pain which also causes pain into her left knee. collateral ligaments intact. Left Hip Skin/Wound: Yes healed (well healed no s/sx of infection), No Ecchymosis, No soft tissue swelling, No Erythema Hip: Absent eccymosis, soft tissue swelling or erythema HIP: Has groin pain with standing light touch causes hypersensitivity shooting up to thigh. Supplemental Info 11/15/2018 MRI left knee: Less than 50% cartilage wear lateral compartment lateral meniscus tear posterior horn and body Assessment & Plan Problems 1. Tear of lateral meniscus of left knee, current, unspecified tear type, subsequent encounter S83.852J Plan Explained that cartilage is not replaceable but surgery will debride the tears and allow for better rom. Gave PT script today to be able to begin after the post op appt. Reviewed the pre-operative plans with the patient. Risks and benefits of the procedure were fully explained, including but not limited to infection, neurovascular injury, continued pain, arthritis, stiffness, need for further surgery, re-injury, DVT, PE, general risks of anesthesia, and loss of limb or life. The patient understands all the risks and does wish to proceed with written consent. Follow up two weeks post op or sooner if pain, swelling, numbness or associated symptoms, or concerns develop. All questions answered. Patient in agreement of plan. Medications New: oxycodone 10 mg PO DAILY dextroamphetamine-amphetamine 30 mg PO Coding Level of Care Code Off vis,est,level 3 Diagnoses Tear of lateral meniscus of left knee, current, unspecified tear type, subsequent encounter S89.192D ??Encounter type: subsequent encounter ??Meniscus of knee: lateral ??Meniscus tear of knee type: unspecified type ??Tear current or old: current I have re-examined the patient. There are no clinical changes since date of exam
== END 2019-01-08 14:21 | disposition home or self-care (01) ==
LOC: SDC 08:15 → AC 08:17
PROVIDERS: Family Provider Family Medicine; PCP Family Medicine; Referring Provider Orthopaedic Surgery; Visit Provider Orthopaedic Surgery
PROC: (CPT 29870; principal; 2019-01-08 09:20)
DX: S83.282A Other tear of lateral meniscus, current injury, left knee, initial encounter (principal); M94.262 Chondromalacia, left knee; X58.XXXA Exposure to other specified factors, initial encounter; Y93.9 Activity, unspecified; Y92.9 Unspecified place or not applicable; J45.909 Unspecified asthma, uncomplicated; G47.30 Sleep apnea, unspecified; G43.909 Migraine, unspecified, not intractable, without status migrainosus; F32.9 Major depressive disorder, single episode, unspecified; E06.9 Thyroiditis, unspecified; Z78.0 Asymptomatic menopausal state; Z86.2 Personal history of diseases of the blood and blood-forming organs and certain disorders involving the immune mechanism; Z87.01 Personal history of pneumonia (recurrent); Z79.899 Other long term (current) drug therapy; Z87.891 Personal history of nicotine dependence
CPT/HCPCS: 01400; 29881; 93005; J7120; J2405

== ENCOUNTER 2019-05-07 17:30 | Outpatient (RCR) | payer OTHER, SELFPAY ==
[2018-12-29 13:16] VITALS: BMI 40.4
[2019-01-23 09:51] VITALS: BMI 38.7
--- NOTE | 2019-01-26 11:58 | HP.PTEVAL ---
Patient's Visit Information SHIVA JHAVERI is a 59 year old F referred to Physical Therapy by Rocky Yu DO with a diagnosis of L knee lateral menisectomy. Date of Evaluation: 01/26/19 Physical Therapist: Bob Montes PT, ATC - Visit Plan Frequency: 2-3x /Week Duration: 4-6 Weeks Plan: L LE stretching and strengthening, balance and proprio, core stab ex's, bike, and HEP - Subjective Findings: DOS: 01/08/19. Pt reports she had L knee pain for approxdimately one year prior to having her L knee partial menisectomy performed. Pt reports she is doing very well since the surgery with the exception of L calf pain which is worsening. No tingling or numbness in in L LE. Sleep difficulty secondary to pain. 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 Pt reports she has significant difficulty with stairs secondary to pain. Pt reports she had B hip replacements years ago. Sleep difficulty secondary to pain. 7/10 pain at rest, 10/10 pain at worst - Pain L knee pain Pain Intensity (Out of 10): 7 Pain Intensity Range: 10 - Objective Neuro: B LE sensation is WNL to light touch. Girth at joint line: R knee 44 cm, L knee 46.5 cm. Observation: Incision's have healed well. No obvious signs of infection. ROM: R knee 0-115, L knee 0-88 degrees. MMT: L knee is 3-/5 and painful. R LE 5/5 throughout - Goals Goal 1:: Decrease L knee pain x 50% to aid with sleep Goal Time Frame: 4-6 Weeks Goal 2:: Increase L knee strength x 1 grade to aid with RTW Goal Time Frame: 4-6 Weeks Goal 3:: Increase L knee flexion ROM x 20 degrees to aid with restoring a more normalized gait pattern Goal Time Frame: 4-6 Weeks Goal 4:: I with HEP Goal Time Frame: 4-6 Weeks - Rehabilitation Potential Physical Therapy Diagnosis: L knee pain, swelling, and weakness secondary to L lateral menisectomy Rehabilitation Potential: Good - Anticipated Interventions Patient/Client Instruction: Educate patient on: Condition, Plan of Care For the Purpose of:: To improve self management Therapeutic Exercise to Include: Strength training, Endurance training, Balance training, Flexibilty training, Gait and locomotor training, Active ROM, Dynamic Lumbar Stabilization For the Purpose of:: To decrease pain, To increase ROM, To improve muscle performance and motor function Cryotherapy (ice pack, ice massage): Yes For the Purpose of:: To decrease pain Thank you for the opportunity to evaluate your patient. For Medicare and Medicare HMO plans, please review the plan of care and approve it. It will need to be FAXED BACK to us at [phone] for Medicare purposes. For Medicare only, by signing this I certify the plan of care. Please let me know if there are questions or concerns regarding this plan of care. Physician Signature: Date:
--- NOTE | 2019-08-04 15:16 | HP.PT.NRP ---
SHIVA JHAVERI was seen in my office for initial evaluation on 01/26/19. The following Plan of Care was established for this patient: Initial Frequency: 2-3x /Week Initial Duration: 4-6 Weeks Patient/Client Instruction: Educate patient on: Condition, Plan of Care For the Purpose of:: To improve self management Therapeutic Exercise to Include: Strength training, Endurance training, Balance training, Flexibilty training, Gait and locomotor training, Active ROM, Dynamic Lumbar Stabilization For the Purpose of:: To decrease pain, To increase ROM, To improve muscle performance and motor function Cryotherapy (ice pack, ice massage): Yes For the Purpose of:: To decrease pain This patient was last seen in our office . Pertinent comments regarding their Physical therapy will appear below: Pt was treated for 18 visits for L knee pain through the date of 05/07/2019. Pt has not returned through todays date, and is therefore discontinued at this time At this point I will be discontinuing this patient from physical therapy. I would be happy to see this patient again in the future if found appropriate by the physician. Thank you! Bob Montes, PT, ATC
== END 2019-05-07 19:00 | disposition home or self-care (01) ==
LOC: PT 17:30
PROVIDERS: Family Provider Family Medicine; PCP Family Medicine; Referring Provider Orthopaedic Surgery; Visit Provider Orthopaedic Surgery
DX: Z98.890 Other specified postprocedural states (principal)
CPT/HCPCS: 97110; 97161

== ENCOUNTER → 2019-05-22 09:48 | Outpatient (CLI) | payer BC, SELFPAY ==
[2019-02-18 15:41] VITALS: BMI 38.7
--- NOTE | 2019-05-22 09:48 | RAD_ITS ---
STUDY: X-RAY - LEFT KNEE REASON FOR EXAM: Female, 59 years old. KNEE PAIN, FALL ONE WEEK AGO TECHNIQUE: 4 view(s) of the knee. COMPARISON: 10/15/2018 FINDINGS: Normal visualized distal femur. Normal visualized proximal tibia and fibula. Normal proximal tibiofibular articulation. Normal medial femorotibial compartment. Normal lateral femorotibial compartment. Normal patellofemoral articulation. There is no demonstrated joint effusion. The soft tissue structures are unremarkable. RAD/Knee 4 or More Views IMPRESSION: Normal x-ray examination of the knee. Electronically Signed: Jon Briones MD ([place]) at 14:26 EST , Service support ,
== END ==
PROVIDERS: Family Provider Family Medicine; PCP Family Medicine; Referring Provider Orthopaedic Surgery; Visit Provider Orthopaedic Surgery
DX: M25.562 Pain in left knee (principal)
CPT/HCPCS: 73564

== ENCOUNTER → 2019-06-11 12:30 | Outpatient (CLI) | payer BC, SELFPAY ==
[2019-06-03 10:27] VITALS: BMI 38.7
[2019-06-11 13:31] LABS: Absolute Lymphocyte Count 3.16 X10^3/uL (0.83-4.51); Absolute Neutrophil Count 4.5 X10^3/uL (2.0-7.7); Basophil# 0.08 X10^3/uL; Basophil% 0.9 % (0-1); Eosinophils% 2.3 % (0-5); Hematocrit 40.8 % (37-47); Hemoglobin 12.9 g/dL (12.0-15.0); Lymphocyte # 3.16 X10^3/ul (4.0); Lymphocyte % 36.9 % (19-41); Mean Corp Hgb Conc 31.6 g/dL (32-36); Mean Corpuscular Hgb 28.5 pg (27.0-32.0); Mean Corpuscular Volume 90.3 fL (81-99); Mean Platelet Vol. 9.7 fl (6.2-12.0); Monocyte# 0.64 X10^3/uL; Monocyte% 7.5 % (0-10); NRBC Flagged by Analyzer 0 % (0-5); Neutrophil # 4.45 X10^3/uL (2.7-7.7); Platelet Count 361 K/mm3 (150-450); RBC Distribution Width CV 14.1 % (11.6-14.6); RBC Distribution Width SD 46.6 fl (35.1-43.9); Red Blood Count 4.52 M/mm3 (4.2-5.4); White Blood Count 8.6 K/mm3 (4.4-11.0)
[2019-06-11 13:48] LABS: Microalbumin,Random Urine 15.3 mg/L (NO RANGE EST.); Microalbumin:Creatinine Ratio 6.3 mg/g CRE (<30 mg/g CRE)
[2019-06-11 14:00] LABS: Hemoglobin A1c 6.6 % (4.2-6.3)
[2019-06-11 14:03] LABS: ALB/GLOB Ratio 1.1 RATIO (0.9-2.4); AST(SGOT) 29 U/L (15-37); Alanine Aminotransfer ALT/SGPT 41 U/L (13-56); Albumin, Serum 3.9 g/dL (3.2-5.0); Alkaline Phosphatase 93 U/L (45-117); Anion Gap 5 (5-15); BUN 15 mg/dL (7-18); BUN/Creat Ratio 17.5 RATIO (10-20); Calcium,Total 9.6 mg/dL (8.5-10.1); Chloride 109 mmol/L (98-107); Cholesterol 279 mg/dL (200); Creatinine, Serum 0.86 mg/dL (0.55-1.02); EST Glomerular Filtration Rate 72 mL/min (>60); Est Glom Filt Rate - Afr Amer 87 mL/min (>60); Free T3 2.2 pg/mL (2.18-3.98); Globulin 3.6 g/dL (2.2-4.2); Glucose 107 mg/dL (74-106); High Density Lipoprotein 87 mg/dL; Protein, Total 7.5 g/dL (6.4-8.2); Sodium Level 142 mmol/L (136-145); Thyroid Stim Hormone (TSH) 9.77 uIU/mL (0.358-3.74); Triglycerides 121 mg/dL; Very Low Density Lipoprotein 24 mg/dL (5-40); Vitamin D,25 Hydroxy 20.4 ng/mL (29.95-100.01)
== END ==
PROVIDERS: PCP Family Medicine; Referring Provider Family Medicine; Visit Provider Family Medicine
DX: E03.9 Hypothyroidism, unspecified (principal); E11.9 Type 2 diabetes mellitus without complications; E55.9 Vitamin D deficiency, unspecified; Z51.81 Encounter for therapeutic drug level monitoring
CPT/HCPCS: 36415; 80053; 80061; 82043; 82306; 82570; 83036; 84443; 84481; 85025

== ENCOUNTER → 2019-10-29 08:29 | Outpatient (CLI) | payer BC, SELFPAY ==
[2019-06-11 17:15] VITALS: BMI 38.7
[2019-10-29 12:36] LABS: AST(SGOT) 22 U/L (15-37); Alanine Aminotransfer ALT/SGPT 53 U/L (13-56); Albumin, Serum 3.4 g/dL (3.2-5.0); Alkaline Phosphatase 77 U/L (45-117); Anion Gap 6 (5-15); BUN 18 mg/dL (7-18); BUN/Creat Ratio 27.3 RATIO (10-20); Chloride 108 mmol/L (98-107); Creatinine, Serum 0.66 mg/dL (0.55-1.02); EST Glomerular Filtration Rate 97 mL/min (>60); Est Glom Filt Rate - Afr Amer 117 mL/min (>60); Free T3 1.8 pg/mL (2.18-3.98); Globulin 3.3 g/dL (2.2-4.2); Glucose 147 mg/dL (74-106); Potassium 3.9 mmol/L (3.5-5.1); Protein, Total 6.7 g/dL (6.4-8.2); Sodium Level 143 mmol/L (136-145); T4 Free Direct 1.37 ng/dL (0.76-1.46); Thyroid Stim Hormone (TSH) 0.03 uIU/mL (0.358-3.74)
== END ==
LOC: BFHLAB 08:31
PROVIDERS: PCP Family Medicine; Visit Provider Family Medicine
DX: E03.9 Hypothyroidism, unspecified (principal); E55.9 Vitamin D deficiency, unspecified; E11.9 Type 2 diabetes mellitus without complications
CPT/HCPCS: 36415; 80053; 82306; 83036; 84439; 84443; 84481

== ENCOUNTER → 2019-11-05 15:29 | Outpatient (CLI) | payer BC, SELFPAY ==
[2019-06-11 17:15] VITALS: BMI 38.7
--- NOTE | 2019-11-05 15:34 | CT_ITS ---
HISTORY: LEFT HIP AND KNEE PAIN S/P HIP REPLACEMENT AND KNEE ARTHROSCOPY TECHNIQUE: Noncontrast bone protocol CT of the left lower extremity without contrast was performed without contrast, imaging from above the hip through the proximal tibia. 2D reformats were performed by the technologist. Number of images including paperwork: [phone]. A radiation dose optimization technique was used for this scan. COMPARISON: Left knee 05/22/2019 FINDINGS: BONES: No acute fracture. JOINTS: No subluxation. Left hip prosthesis. There is some cortical thickening about the femoral stem with some lucency around the lateral aspect of the femoral stem proximally. Findings could be related to loosening or other cause of stress reaction. No periostitis. Small left knee joint effusion. Mild to moderate tricompartmental degenerative changes of the left knee. SOFT TISSUES: Unremarkable. FOREIGN BODY: No radiopaque foreign body. CT/Extremity Lower without Contra IMPRESSION: No acute fracture or subluxation. Cortical thickening about the tip of the femoral stem with some lucency along the lateral aspect of the proximal femoral stem. Correlate for evidence of loosening or stress reaction. Degenerative changes of the left knee. Small left knee joint effusion. Individualized dose optimization techniques were used for this CT. at 0759 Reported and signed by: Lesley Medina MD Electronically Signed: Lesley Medina MD at 7:59 EDT Tel , Service support ,
== END ==
LOC: CT 15:30
PROVIDERS: PCP Family Medicine; Visit Provider Family Medicine
DX: T84.84XA Pain due to internal orthopedic prosthetic devices, implants and grafts, initial encounter (principal); Z96.642 Presence of left artificial hip joint; G89.18 Other acute postprocedural pain; M25.562 Pain in left knee
CPT/HCPCS: 73700

== ENCOUNTER → 2019-11-16 10:34 | Outpatient (CLI) | payer BC, SELFPAY ==
[2019-11-16 07:47] VITALS: BMI 38.7
--- NOTE | 2019-11-16 10:34 | RAD_ITS ---
STUDY: X-RAY - LUMBOSACRAL SPINE REASON FOR EXAM: Female, 59 years old. BILAT HIP PAIN TECHNIQUE: 6 view(s) of the lumbosacral spine were obtained including flexion and extension and oblique views. COMPARISON: None FINDINGS: Normal lumbar lordosis. There is no substantial scoliosis. There is normal alignment of the vertebrae. Spondylolysis at the L1-L2 and L3-L4 levels. Moderate degree of disc space narrowing at the L4-L5 and L5-S1 levels. Facet joint osteoarthritis. Normal bilateral sacral ala, sacroiliac joints, and visualized sacrum. Normal visualized soft tissue structures. RAD/L/S Spine w Bend Min 6 Vw IMPRESSION: Degenerative changes of the spine, as detailed above. Electronically Signed: Ramiro Jang, at 8:44 EDT , Service support ,
== END ==
LOC: HPRAD 10:34
PROVIDERS: PCP Family Medicine; Referring Provider Orthopaedic Surgery; Visit Provider Orthopaedic Surgery
DX: M79.605 Pain in left leg (principal)
CPT/HCPCS: 72114

== ENCOUNTER → 2019-11-26 16:28 | Outpatient (CLI) | payer BC, SELFPAY ==
[2019-11-16 07:47] VITALS: BMI 38.7
[2019-11-26 17:04] LABS: Absolute Lymphocyte Count 3.56 X10^3/uL (0.83-4.51); Absolute Neutrophil Count 3.3 X10^3/uL (2.0-7.7); Basophil# 0.07 X10^3/uL; Basophil% 0.9 % (0-1); Eosinophil# 0.13 X10^3/uL; Eosinophils% 1.7 % (0-5); Hematocrit 38.9 % (37-47); Hemoglobin 12.2 g/dL (12.0-15.0); Lymphocyte # 3.56 X10^3/ul (4.0); Lymphocyte % 45.9 % (19-41); Mean Corp Hgb Conc 31.4 g/dL (32-36); Mean Corpuscular Volume 92.4 fL (81-99); Mean Platelet Vol. 9.3 fl (6.2-12.0); Monocyte# 0.64 X10^3/uL; Monocyte% 8.3 % (0-10); NRBC Flagged by Analyzer 0 % (0-5); Neutrophil # 3.32 X10^3/uL (2.7-7.7); Neutrophil % 42.8 % (47-70); Platelet Count 346 K/mm3 (150-450); RBC Distribution Width SD 50.3 fl (35.1-43.9); Red Blood Count 4.21 M/mm3 (4.2-5.4); White Blood Count 7.8 K/mm3 (4.4-11.0)
[2019-11-26 17:34] LABS: Erythrocyte Sedimentation Rate 7 mm/hr (0-30)
[2019-11-26 17:46] LABS: CRP 5.36 mg/L (0.0-3.0)
== END ==
PROVIDERS: Specialist; PCP Family Medicine; Visit Provider Family Medicine
DX: Z96.642 Presence of left artificial hip joint (principal)
CPT/HCPCS: 36415; 85025; 85652; 86140

== ENCOUNTER → 2019-12-03 09:04 | Outpatient (CLI) | payer BC, SELFPAY ==
[2019-11-16 07:47] VITALS: BMI 38.7
--- NOTE | 2019-12-03 10:00 | RAD_ITS ---
PROCEDURE: Fluoroscopic guided Hip aspiration. DATE: December 03, 2019. INDICATION: Female, 59 years old. Painful prosthetic left hip. PHYSICIAN: Ramiro Jang M.D. MEDICATIONS: 2% lidocaine administered subcutaneously for local anesthesia. ACCESS SITE: Left hip. NEEDLE: 22-gauge spinal needle. FLUOROSCOPY TIME (if supplied): (0:36) minutes/seconds FINDINGS: The risks, benefits, and alternatives to the procedure were explained to the patient. The specific risks of bleeding, infection, and neurovascular injury were detailed and accepted. Witnessed informed consent was obtained. A 22-gauge spinal needle was positioned on the radiographic fluoroscopic localization. Approximately 2 cc of Isovue-300 instilled for localization purposes. No aspirate was obtained. The patient tolerated the procedure well without any immediate complications. RAD/Inj/Asp Jackson Jt Should/Hip/Knee IMPRESSION: No aspirate was obtained from the hip joint. Electronically Signed: Ramiro Jang, at 11:18 EDT , Service support ,
== END ==
PROVIDERS: PCP Family Medicine; Referring Provider Specialist; Visit Provider Specialist
DX: Z96.642 Presence of left artificial hip joint (principal)
CPT/HCPCS: 20610; 77002; Q9967

== ENCOUNTER → 2019-12-09 15:23 | Outpatient (CLI) | payer BC, SELFPAY ==
[2019-11-16 07:47] VITALS: BMI 38.7
[2019-12-09 16:58] LABS: Absolute Lymphocyte Count 2.59 X10^3/uL (0.83-4.51); Absolute Neutrophil Count 3.4 X10^3/uL (2.0-7.7); Basophil# 0.07 X10^3/uL; Eosinophil# 0.14 X10^3/uL; Hematocrit 37.9 % (37-47); Hemoglobin 12.1 g/dL (12.0-15.0); Lymphocyte # 2.59 X10^3/ul (4.0); Lymphocyte % 37.8 % (19-41); Mean Corp Hgb Conc 31.9 g/dL (32-36); Mean Corpuscular Hgb 29.2 pg (27.0-32.0); Mean Corpuscular Volume 91.3 fL (81-99); Mean Platelet Vol. 9.5 fl (6.2-12.0); Monocyte# 0.65 X10^3/uL; Monocyte% 9.5 % (0-10); NRBC Flagged by Analyzer 0 % (0-5); Neutrophil # 3.38 X10^3/uL (2.7-7.7); Neutrophil % 49.3 % (47-70); Platelet Count 340 K/mm3 (150-450); RBC Distribution Width CV 14.1 % (11.6-14.6); RBC Distribution Width SD 47.5 fl (35.1-43.9); Red Blood Count 4.15 M/mm3 (4.2-5.4); White Blood Count 6.9 K/mm3 (4.4-11.0)
[2019-12-09 17:23] LABS: ALB/GLOB Ratio 1.1 RATIO (0.9-2.4); AST(SGOT) 29 U/L (15-37); Alanine Aminotransfer ALT/SGPT 41 U/L (13-56); Albumin, Serum 3.6 g/dL (3.2-5.0); Alkaline Phosphatase 91 U/L (45-117); Anion Gap 3 (5-15); BUN 13 mg/dL (7-18); BUN/Creat Ratio 18.2 RATIO (10-20); Calcium,Total 8.8 mg/dL (8.5-10.1); Chloride 105 mmol/L (98-107); Creatinine, Serum 0.71 mg/dL (0.55-1.02); EST Glomerular Filtration Rate 88 mL/min (>60); Est Glom Filt Rate - Afr Amer 107 mL/min (>60); Free T3 2.9 pg/mL (2.18-3.98); Globulin 3.2 g/dL (2.2-4.2); Glucose 102 mg/dL (74-106); Potassium 3.7 mmol/L (3.5-5.1); Protein, Total 6.8 g/dL (6.4-8.2); Sodium Level 139 mmol/L (136-145); Thyroid Stim Hormone (TSH) 0.33 uIU/mL (0.358-3.74)
[2019-12-10 10:26] LABS: Magnesium 2.1 mg/dL (1.6-2.6)
== END ==
LOC: BFHLAB 15:24
PROVIDERS: PCP Family Medicine; Visit Provider Family Medicine
DX: E03.9 Hypothyroidism, unspecified (principal); D64.9 Anemia, unspecified; Z51.81 Encounter for therapeutic drug level monitoring
CPT/HCPCS: 36415; 80053; 83735; 84443; 84481; 85025

== ENCOUNTER 2019-12-16 09:33 | Inpatient (IN) | payer BC, SELFPAY ==
[2019-11-16 07:47] VITALS: BMI 38.7
--- NOTE | 2019-12-03 23:03 | PCM.HP.BLA ---
History and Physical History and Physical [facility] Patient Name: Altagracia Covarrubias : 1960 From: NOE MILLER PA-C DATE OF SURGERY: 12/16/2019 SCHEDULED PROCEDURE: revision left total hip arthroplasty (posterior approach) HISTORY OF PRESENT ILLNESS: Preoperative history and physical exam was performed on December 03, 2019. 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 Patient also underwent a right total hip arthroplasty on November 12, 2017. Patient appears to be doing okay with her right hip but has had continued pain since postop with her left total hip arthroplasty. Direct anterior approach was used. Patient was in extensive physical therapy with no relief. Patient did undergo cutaneous nerve block by pain management for the hyperparesthesia with the left hip. Patient states she has had continued pain since surgery. There is been no fevers, chills, infections. CT scan was ordered by her primary care physician. X-rays do reveal concern for loosening/subsidence. She continues to get left groin pain that radiates into the knee. She did attempt gabapentin with no relief in symptoms and did not tolerate the medication very well. She has continued pain with weightbearing as well as difficulty with work. She states her right hip is becoming more sore as she is relying on this due to the left hip pain. Patient has also had a second opinion from another provider. After failing conservative measures and discussing treatment options, patient does wish to proceed with a revision left total hip arthroplasty. Aspiration of the left hip was attempted with no aspirate abled to be obtained. Patient currently denies chest pain, fevers chills, shortness of breath, recent infections. REVIEW OF SYSTEMS: ROS: Const: Denies anorexia, anxiety, change in appetite, fever, difficulty sleeping, weight change. CV: Reports irregular heartbeat, but denies chest pain, heart murmur and peripheral vascular disease. Resp: Reports asthma, pneumonia and sleep apnea, but denies cough, shortness of breath, tuberculosis and wheezing. GI: Denies constipation, diarrhea, heartburn, nausea, rectal itching, bloody stools and vomiting. : Denies incontinence. Musculo: Reports leg swelling, pain, trouble walking and weakness. Skin: Reports tattoo, but denies Raynaud's and history of shingles. Neuro: Reports numbness/tingling but denies ambulatory dysfunction, dizziness and tremor. Psych: Denies anxiety, depression, insomnia, mental illness and stress. Kiet/Lymph: Reports bleeding/bruising tendency, but denies anemia and past transfusion. Reviewed and updated. PAST MEDICAL HISTORY: Advance Care Plan: No Advance Directives Effective Date: 10/18/2017 PMH: Medical Problems: Thyroid Disease, Asthma Accidents: None Surgical Hx: Hernia Repair - (1988) Plantar Faciotomy-RT - (2005) LT Knee Arthroscopy - (2014) Hip Replacement RT - (11/12/2017) ANTERIOR [email or web address] LT Meniscus Repair - (01/2019) Anesthesia Complications: Nausea Assistive Devices: Glasses Reviewed and updated. 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 Personal Habits: Cigarette Use: Former.Alcohol: Occasionally.Drug Use: Denies Use.Enjoy Exercising: Exercises 1-3 X/Week. Reviewed, no changes. VITALS: Ht: 62.5 Wt: 226lb 2oz Wt k.570 BMI: 40.7 BP: 150/73 Pulse: 82 Resp: 20 T: 97.8 T: 36.6C ALLERGIES: Vicodin Gabapentin Morphine Codeine MEDICATIONS: Levothyroxine Sodium 125 mcg 1po qday, Voltaren 1 % uad, Oxycodone HCL 10 mg 1po every 6 hours, as needed pain, Tylenol 325 mg prn, Advil 200 mg 4 tablets 1-2x daily as needed, Motrin Ib 200 mg 1 by mouth three times a day, Prozac 40 mg 1po bid PRE-OP EXAM: General appearance:NORMAL Other: Eyes: Conjunctivae and lids: NORMAL Pupils: ERR Ears, Nose, Mouth, and Throat: NORMAL Other: Inspection of lips, teeth and gums: NORMAL Other: Neck: Examination of neck: no masses noted. Respiratory: Assessment of respiratory effort: NORMAL Other: Auscultation of lungs: clear to auscultation no wheezes, rhonchi or rales. Cardiovascular: Auscultation of heart: regular rate and rhythm, no murmurs, gallops or rubs. Exam of carotid arteries: NORMAL Other: Gastrointestinal: Exam of abdomen: soft, nontender, nondistended bowel sounds present. PHYSICAL EXAMINATION: Previous left hip incision is well-healed with no redness or signs of infection. Patient is unable to perform straight single-leg stance on the left side. She has pain with range of motion with pain down the thigh. She does have increased warmth of the left thigh. No significant atrophy appreciated. IMAGING STUDIES: Previous x-rays of the left hip reveal subsidence and gross loosening of the femoral component on the left side. AP pelvis the right hip appears to be stable and well aligned. IMPRESSION: 1. Presence of left total hip arthroplasty with continued pain with aseptic loosening versus infection 2. Asthma 3. Thyroid disease PLAN: Dr. Dylon Wise did discuss and review with the patient all treatment options including surgical versus nonsurgical options. Patient does wish to proceed with the above-stated procedure. Potential risks, benefits, and complications of the procedure were discussed in detail including but not limited to , infection, nerve and blood vessel damage, persistent pain, numbness, tingling, paresthesias, blood clot, pulmonary embolism, and requirement for possible further surgery. The patient expressed full understanding and has no further questions for the doctor. Patient does agree to proceed with the above-stated procedure and has signed the surgery consent form. We discussed the current risks associated with COVID 19. This does include the risk of exposure while in the hospital. Patient was reassured local hospitals have low infection rates and are taking all necessary precautions to avoid exposure to patients. In addition, we discussed strategies that can be used to help limit exposure including those that limit the patient's time in the hospital. Also using strategies to limit the patient's need for continued inpatient services after being discharged from the hospital. Patient was notified that we will need to comply with any screening or testing the hospital wishes to perform or that surgery may be delayed for any positive results. This dictation was created using voice recognition software. Phonetic and/or grammatical errors may exist. ___ I have re-examined the patient. There are no clinical changes since date of exam. ___ See progress notes for changes. ___ Dictated on admission Date: Time: Signature:
[2019-12-16] VITALS (15 sets, daily range): BP systolic 110–199; BP diastolic 45–112; PULSE 76–122; RESP 14–24; TEMP 36.4–36.8; O2SAT 95–100; BMI 40.4
[2019-12-16] MEDS: Celecoxib 200 MG Capsule 400 MG PO (10:19)
[2019-12-16 10:20] LABS: Bedside Glucose 139 mg/dL (70-110)
[2019-12-16] MEDS: Acetaminophen 500 MG Tablet 1000 MG PO ×2 (10:20→21:03)
[2019-12-16] MEDS: Lactated Ringers 1,000 ML 999 ML IV ×2 (10:28→16:05)
[2019-12-16] MEDS: Scopolamine 1mg/72hr Patch 1 PATCH TD (10:30)
[2019-12-16] MEDS: Scopolamine 1mg/72hr Patch 1 PATCH TRANSDERM. (10:31)
[2019-12-16] MEDS: dexAMETHasone 10 MG/ML Vial IV (11:00)
[2019-12-16] MEDS: Cefazolin 2 GM in 0.9% Normal Saline 100 ML IV (11:51)
[2019-12-16] MEDS: Heparin 10,000 UNITS/10 ML Vial 10000 UNITS (14:36)
--- NOTE | 2019-12-16 15:25 | OP.PCM_ITS ---
Report of Operation Date of Procedure: 12/16/19 Pre-Operative Diagnosis: Painful left total hip, aseptic loosening Post-Operative Diagnosis: Painful left total hip, aseptic loosening Surgery/Procedure Performed:: Revision left total hip replacement femoral and acetabular component Description of Surgical Findings:: Stable hip with equal leg lengths on the table. calender machine operator helper: Timur Meyer Type of Anesthesia:: Spinal Anesthesiologist: Edgar Zuñiga Special Medications: 2 g Ancef, 1 g TXA at incision, 1 g TXA closure, 10 mg Decadron, joint cocktail (5 mg Duramorph, 30 mL of 0.5% Ropivicaine, 1000 units of epinephrine, 30 mg of Toradol). Ancef was redosed after 2-1/2 hours from incision Specimen's removed: 3 separate specimens were sent to microbiology Estimated Blood Loss (mL): 400 Fluids Replaced: 1100 mL crystalloid, 125 mL Cell Saver Description of Procedure: Findings: Adequate reduction with stability of the hip and equal leg lengths measured intraoperatively. Components used: 1. Mely mandaeism modular 155 mm x 15 mm stem 2. Fedscreek mandaeism modular 23 mm +10 mm cone body 3. Fedscreek X3 polyethylene liner, alpha code D for MDM liner 4. Mely cobalt-chromium 22.2 mm, +3 mm neck femoral head 5. Fedscreek MDM metal liner Brief history operative indications: 59-year-old female 2 years status post left total replacement. Patient had continued pain. X-rays were consistent with loosening. Infectious work-up was negative. Risks and benefits were discussed with the patient which included but were not limited to blood loss, DVTs, PEs, infection, neurovascular damage, and dislocation. In light of all this patient did agree to proceed with a total hip arthroplasty. Procedure: On the date of procedure the patient's L hip was marked in the preoperative area. Patient was then taken back to the operating room where anesthesia assumed control of the C-spine and airway and administered anesthetic. Patient was transferred to the operating table and placed in the lateral decubitus position with the affected hip up. The patient was secured in the bed with the lateral positioners and leg lengths were checked. The L lower extremity was then prepped out in a sterile fashion using chlorhexidine while the surgeon scrubbed. Upon reentering the room the L lower extremity was draped in the standard orthopedic fashion and the incision was marked. A timeout was called and everyone agreed upon the side, the site, the procedure be performed, antibiotics given, and patient's identity. At this time incision was made through skin, subcutaneous tissue, and fat down to fascia. The fascia was then incised and a Charley retractor was placed. The soft tissue was then cleared from the posterior external rotators and the piriformis was identified. Posterior capsule and structures were then taken down and tagged with a #1 Vicryl. We were careful to follow along the neck of the femur and then along the neck of the prosthesis. The femoral nerve was protected throughout. The retractors were then placed inside the capsule. A complete synovectomy was performed. The hip was then dislocated and the bone trunnion were dissociated using a bone tamp. We then removed the tissue from the shoulder and we were able to remove the femoral stem with pliers. There was no evidence of ingrowth on the ingrowth surface. At this time tissue from the synovectomy and femoral canal were removed and sent for culture. We then directed our attention towards the acetabulum where the acetabular liner was removed as we plan to place an MDM liner for increased ability after the revision posteriorly. Acetabular membrane was then removed. At this time we again directed our attention back towards the femur. And thoroughly debriding the femur we reamed distally to 15 mm for a 15 mm 155 stem. Once this was done we copiously irrigated out the wound with 6 L of normal saline under low-pressure lavage. Once this was completed the 15 mm stem was open and impacted into place. We reamed to 23 mm for the cone body. A +10 cone body was selected based on the depth of the stem. We trialed a 23 mm +10 cone body with a +3 mm femoral head. This gave us adequate leg lengths and stability of the hip. Hip was again dislocated with the help of my therapy administrative assistant. Trial components were removed. Wound was copiously got normal saline. Final components were opened and impacted into place. Trunnion was cleaned and the femoral head was impacted into place. Hip was again reduced. Remained stable with minimal shuck. Leg lengths appeared equal in the lateral cubitus position. 3-minute Betadine lavage was performed. 1 minute chlorhexidine lavage was performed. The posterior capsule and piriformis were repaired through drill holes to the greater trochanter . Closure was then done using #1 Vicryl to close the fascia. The deep fatty tissue was closed with #1 Vicryl interrupted sutures. A 2-0 Vicryl interrupted sutures were used to close the subcutaneous skin. Skin katya were used for final skin closure. A sterile dressing was placed. Patient was awakened by anesthesia and transferred to the [facility]edic [facility]. Patient was then transferred to the PACU for recovery. Postoperative plan: Patient will get 24 hours postop antibiotics. Patient will get in-house physical therapy and will be weight-bear as tolerated. Patient will follow up in office in 2 weeks for a wound check and x-rays. Aspirin 81 mg twice daily for DVT prophylaxis. - Complications No intraoperative complications - Admit VTE Documentation VTE Present on Admission: No VTE Mechan Device Prophylaxis: SCD's, Thigh High JOVAN Hose VTE Pharm Prophylaxis ordered?: Yes
--- NOTE | 2019-12-16 16:00 | RAD_ITS ---
STUDY: X-RAY - PELVIS AND LEFT HIP REASON FOR EXAM: Female, 59 years old. post op left total hip revision TECHNIQUE: 3 views of the pelvis and hip. COMPARISON: None. FINDINGS: There is a non-specific bowel gas pattern. Normal visualized soft tissue structures. Normal bilateral iliac wings, sacroiliac joints and visualized sacrum. Normal bilateral superior and inferior pubic rami. Normal pubic symphysis. Normal bilateral ischial tuberosities. Status post recent left hip arthroplasty with skin katya and subcutaneous emphysema.. RAD/Hip Min 2 Views (Portable) IMPRESSION: Status post recent left hip arthroplasty appear Electronically Signed: Carter Ramos MD at 16:20 EDT Tel , Service support ,
--- NOTE | 2019-12-16 16:36 | EKG12_ITS ---
Test Reason : EKG CHANGE Blood Pressure : / mmHG Vent. Rate : 086 BPM Atrial Rate : 086 BPM P-R Int : 156 ms QRS Dur : 146 ms QT Int : 448 ms P-R-T Axes : 057 -13 138 degrees QTc Int : 536 ms Normal sinus rhythm Left bundle branch block Abnormal ECG When compared with ECG of 08-JAN-2019 09:22, No significant change was found Confirmed by TOMASZ SEGOVIA, HYUN ([id number]), editor school photograph GILBERT LIEBERMAN ([id number]) on 12/23/2019 8:38:51 AM Referred By: Dylon Wise Confirmed By:DHARMESH TOLBERT MD
[2019-12-16] MEDS: Ketorolac 15 MG/ML Vial IV (17:13)
[2019-12-16] MEDS: Lactated Ringers 1,000 ML 125 ML IV (17:21)
--- NOTE | 2019-12-16 18:08 | PCM.PN.HOSP ---
Reason for Visit: Post op revision of left total hip Subjective: Pt is a 59 yo female with pmhx of asthma and hypothyroidism, who underwent a left total hip revision with Dr. Wise today. She had a prolonged operation and her nerve block wore off early in her PACU stay. PACU has had difficulty controlling her pain. She states that the pain is now tolerable and much improved from before, however she still grades it a 10/10. The patient is otherwise doing well. No SOB, cough, fever, chills, nausea, lightheaded, or dizzy. She denies numbness/tingling. Vitals/I&O's: Vital Signs Temp Pulse Resp BP Pulse Ox 97.6 F L 88 16 127/69 H 98 12/16/19 17:45 12/16/19 17:45 12/16/19 17:45 12/16/19 17:45 12/16/19 17:45 Oxygen Flow Rate (L/min) 2 Oxygen Delivery Method Nasal Cannula Weight: 220 lb 14.451 oz Body Mass Index (BMI) 40.4 Intake and Output for Last 24 Hours 12/14/19 12/15/19 12/16/19 23:59 23:59 23:59 Intake Total 2436.00 / 2436.00 Balance 2436.00 / 2436.00 General: Alert, Oriented x3, Cooperative, - - pt in obvious discomfort HEENT: Atraumatic, PERRLA, EOMI, Normocephalic Neck: Supple, No JVD, Negative Carotid Bruits Lungs: Clear to auscultation, Normal air movement Cardiovascular: Regular rate, No murmurs Abdomen: Bowel Sounds Present, Soft, Non Tender Extremities: No edema, Capillary Refill Less than 3 Seconds Skin: No rashes, No breakdown Musculoskeletal: No Tenderness to Palpation of Joints or Extremities, - - distal PMS intact Neurological: Cranial nerves II-XII grossly intact Psych/Mental Status: Normal Affect, Appropriate, Alert and oriented to time, place, person, mood and affect Laboratory Results 12/16/19 10:12: POC Glucose 139 H Current Medications Acetaminophen (Tylenol) 1,000 mg PO Q8 [facility] Albuterol Sulfate (Ventolin Aerosols) 2.5 mg INHALATION Q6HWA.RT [facility] Albuterol Sulfate (Ventolin Aerosols) 2.5 mg INHALATION Q2H PRN PRN PRN Reason: dyspnea, wheezing Aspirin (Aspirin, Baby) 81 mg PO B[facility] Enteral Nutritional Formula (Ensure Surgery) 237 ml PO TIDCM [facility] Famotidine (Pepcid) 20 mg PO DAILY [facility] Fluoxetine HCl (Prozac) 40 mg PO BID [facility] Hydralazine HCl (Apresoline Iv) 10 mg IV Q4H PRN PRN PRN Reason: SBP > 160 Lactated Ringer's () 1,000 mls @ 125 mls/hr IV .Q8H [facility] Last Admin: 12/16/19 17:21 Dose: 125 mls/hr Documented by: Cefazolin Sodium () 1 gm in 50 mls @ 150 mls/hr IV Q8H [facility] Stop: 12/17/19 04:19 Insulin Human Lispro (Humalog Kwikpen (Bk)) 1 - 6 unit SC Q4H PRN PRN; Protocol PRN Reason: BG>/= 180, SEE PROTOCOL Ketorolac Tromethamine (Toradol (Bkc)) 15 mg IV Q6H PRN PRN PRN Reason: Pain Score 1-5/10 Stop: 12/17/19 15:11 Last Admin: 12/16/19 17:13 Dose: 15 mg Documented by: Levothyroxine Sodium (Synthroid) 175 mcg PO DAILY@0600 [facility] Meloxicam (Mobic) 7.5 mg PO BID [facility] Non-Formulary Medication (Cholecalciferol (Vitamin D3) [D3-50]) 50,000 unit PO QWEEK [facility] Ondansetron HCl (Zofran) 4 mg IV Q8H PRN PRN PRN Reason: NAUSEA Promethazine HCl (Phenergan) 12.5 mg IM Q6H PRN PRN; Protocol PRN Reason: NAUSEA/VOMITING Senna/Docusate Sodium (Senokot-S, Antoinette-Colace) 2 tablet PO BID [facility] STROKE Vital Signs/Narrative: Vital Signs Temp Pulse Resp BP Pulse Ox 12/16/19 17:45 97.6 F L 88 16 127/69 H 98 12/16/19 17:30 83 16 142/80 H 100 12/16/19 17:15 82 16 135/68 H 100 12/16/19 17:00 83 16 134/76 H 100 12/16/19 16:45 87 18 151/71 H 100 12/16/19 16:30 91 20 H 154/88 H 100 12/16/19 16:15 95 20 H 137/82 H 100 12/16/19 16:00 93 22 H 183/78 H 100 12/16/19 15:45 122 H 24 H 175/112 H 100 12/16/19 15:39 97.7 F L 83 16 199/100 H 98 Medical Necessity - Tobacco Use Smoking Status: Former smoker Tobacco Use: Non-smoker Assessment/Plan All Active Problems (Last Reviewed 06/11/19 @ 17:[address] Dajuan Call MD) Pneumonia (Acute) 1. osteoarthritis s/p left total hip revision - severe pain. otherwise doing well. care as per dr. Wise. Received periop cefazolin. Recent labs unremarkable 2. Asthma - no exacerbation. Lungs clear. PRN aerosols. Incentive spirometer. 3. Hypothyroidism - synthroid 4. Morbid obesity - will complicate recovery, senior training and development rep consult. DVT ppx: per ortho aspirin 81 bid Thank you for the opportunity to participate in the care of this patient. This patient was seen by Gallo Daniel PA-C under the supervision of Dr. Lai
[2019-12-16] MEDS: HYDROmorphone 1 MG/ML Syringe IV (18:30)
[2019-12-16] MEDS: Ensure Surgery 237 ML LIQUID PO (18:35)
[2019-12-16] MEDS: Albuterol 2.5 MG/3 ML VIAL.NEB. INHALATION (18:55)
[2019-12-16] MEDS: Cefazolin 1 GM/50 ML BAG IV (20:09)
[2019-12-16] MEDS: Famotidine 20 MG Tablet PO (21:01)
[2019-12-16] MEDS: FLUoxetine 20 MG Capsule 40 MG PO (21:03)
[2019-12-16] MEDS: Senna/Docusate Sodium 1 Tablet 2 TABLET PO (21:03)
[2019-12-16] MEDS: Aspirin 81 MG TAB.CHEW PO (21:04)
[2019-12-16] MEDS: fentaNYL 25 MCG Patch TRANSDERM. (21:09)
[2019-12-17] MEDS: Ketorolac 15 MG/ML Vial 30 MG IV ×2 (02:06→08:44)
[2019-12-17 02:10] VITALS: BP 129/55; PULSE 83; RESP 16; TEMP 36.8; O2SAT 98
[2019-12-17] MEDS: Lactated Ringers 1,000 ML 125 ML IV (02:15)
[2019-12-17] MEDS: Cefazolin 1 GM/50 ML BAG IV (04:23)
[2019-12-17 05:40] VITALS: BP 134/47; PULSE 91; RESP 16; TEMP 36.9; O2SAT 93
[2019-12-17] MEDS: Acetaminophen 500 MG Tablet 1000 MG PO ×2 (05:49→13:17)
[2019-12-17] MEDS: Levothyroxine 175 MCG Tablet PO (05:49)
[2019-12-17 06:38] VITALS: PULSE 78; RESP 18; O2SAT 94
[2019-12-17] MEDS: Albuterol 2.5 MG/3 ML VIAL.NEB. INHALATION (06:38)
[2019-12-17 06:49] LABS: Hematocrit 28.9 % (37-47); Hemoglobin 9.5 g/dL (12.0-15.0); Mean Corp Hgb Conc 32.9 g/dL (32-36); Mean Corpuscular Hgb 29.6 pg (27.0-32.0); Mean Platelet Vol. 9.6 fl (6.2-12.0); Platelet Count 277 K/mm3 (150-450); RBC Distribution Width CV 13.9 % (11.6-14.6); RBC Distribution Width SD 45.4 fl (35.1-43.9); Red Blood Count 3.21 M/mm3 (4.2-5.4); White Blood Count 15.3 K/mm3 (4.4-11.0)
[2019-12-17 07:05] LABS: Anion Gap 2 (5-15); BUN 11 mg/dL (7-18); BUN/Creat Ratio 19.9 RATIO (10-20); Calcium,Total 8.1 mg/dL (8.5-10.1); Chloride 106 mmol/L (98-107); Creatinine, Serum 0.55 mg/dL (0.55-1.02); EST Glomerular Filtration Rate 119 mL/min (>60); Est Glom Filt Rate - Afr Amer 143 mL/min (>60); Estimated Creatinine Clearance 86.03 ml/min; Glucose 153 mg/dL (74-106); Potassium 4.1 mmol/L (3.5-5.1); Sodium Level 138 mmol/L (136-145)
--- NOTE | 2019-12-17 07:36 | PCM.PN.ORT ---
Subjective: Patient sitting in chair next to bed sleeping. Patient easy to awake. Patient states her pain is very well managed. Patient denies any chest pain, shortness of breath, calf pain, nausea vomiting. Patient has no other complaints at this time. Patient is ready for discharge home today. Objective: Was clean dry intact. Patient has good plantar flexion dorsiflexion of the bilateral feet. Good flexion-extension of bilateral knees. Neurovascular is otherwise intact. Vital signs labs reviewed noted in the medical record. Patient is afebrile. Patient is in no respiratory distress, speaking in full sentences. - Physical Exam Vitals/I&O's: Vital Signs Temp Pulse Resp BP Pulse Ox 98.5 F 78 18 134/47 H 94 12/17/19 05:40 12/17/19 06:38 12/17/19 06:38 12/17/19 05:40 12/17/19 06:38 Oxygen Flow Rate (L/min) 2 Oxygen Delivery Method Room Air Weight: 100.2 kg Body Mass Index (BMI) 40.4 Intake and Output for Last 24 Hours 12/15/19 12/16/19 12/17/19 23:59 23:59 23:59 Intake Total 2886.00 / 2886.00 2104 / 2104 Output Total 150 / 150 1100 / 1100 Balance 2736.00 / 2736.00 1004 / 1004 General: Alert, Oriented x3, Cooperative HEENT: PERRLA Oral: Moist Mucosa Cardiovascular: Regular rate Neurological: Cranial nerves II-XII grossly intact Psych/Mental Status: Normal Affect, Alert and oriented to time, place, person, mood and affect Laboratory Results 12/16/19 10:12: POC Glucose 139 H 12/17/19 06:22: WBC 15.3 H, RBC 3.21 L, Hgb 9.5 L, Hct 28.9 L, MCV 90.0, MCH 29.6, MCHC 32.9, RDW Std Deviation 45.4 H, RDW Coeff of Annemarie 13.9, Plt Count 277, MPV 9.6 12/17/19 06:22: Sodium 138, Potassium 4.1, Chloride 106, Carbon Dioxide 30.0, Anion Gap 2 L, BUN 11, Creatinine 0.55, Estim Creat Clear Calc 86.03, Est GFR (MDRD) Af Amer 143, Est GFR (MDRD) Non-Af 119, BUN/Creatinine Ratio 19.9, Glucose 153 H, Calcium 8.1 L Current Medications Acetaminophen (Tylenol) 1,000 mg PO Q8 [facility] Last Admin: 12/17/19 05:49 Dose: 1,000 mg Documented by: Albuterol Sulfate (Ventolin Aerosols) 2.5 mg INHALATION Q6HWA.RT [facility] Last Admin: 12/17/19 06:38 Dose: 2.5 mg Documented by: Albuterol Sulfate (Ventolin Aerosols) 2.5 mg INHALATION Q2H PRN PRN PRN Reason: dyspnea, wheezing Aspirin (Aspirin, Baby) 81 mg PO BIDCM [facility] Last Admin: 12/16/19 21:04 Dose: 81 mg Documented by: Enteral Nutritional Formula (Ensure Surgery) 237 ml PO TIDCM [facility] Last Admin: 12/16/19 18:35 Dose: 237 ml Documented by: Ergocalciferol (Vitamin D) 50,000 unit PO Q7D [facility] Famotidine (Pepcid) 20 mg PO BID [facility] Last Admin: 12/16/19 21:01 Dose: 20 mg Documented by: Fentanyl (Duragesic Patch) 25 mcg TRANSDERM. Q3D [facility] Last Admin: 12/16/19 21:09 Dose: 25 mcg Documented by: Fluoxetine HCl (Prozac) 40 mg PO BID [facility] Last Admin: 12/16/19 21:03 Dose: 40 mg Documented by: Hydralazine HCl (Apresoline Iv) 10 mg IV Q4H PRN PRN PRN Reason: SBP > 160 Hydromorphone HCl (Dilaudid Inj) 1 mg IV Q3H PRN PRN PRN Reason: severe pain 6-10/10 Last Admin: 12/16/19 18:30 Dose: 1 mg Documented by: Sodium Chloride () 250 mls @ 15 mls/hr IV .[id number] PRN PRN Reason: Saline Flush Insulin Human Lispro (Humalog Kwikpen (Bkc)) 1 - 6 unit SC Q4H PRN PRN; Protocol PRN Reason: BG>/= 180, SEE PROTOCOL Ketorolac Tromethamine (Toradol (Bkc)) 30 mg IV Q6H PRN PRN PRN Reason: Pain Score 1-5/10 Stop: 12/17/19 21:01 Last Admin: 12/17/19 02:06 Dose: 30 mg Documented by: Levothyroxine Sodium (Synthroid) 175 mcg PO DAILY@0600 [facility] Last Admin: 12/17/19 05:49 Dose: 175 mcg Documented by: Meloxicam (Mobic) 7.5 mg PO BID [facility] Ondansetron HCl (Zofran) 4 mg IV Q8H PRN PRN PRN Reason: NAUSEA Oxycodone HCl (Oxyir) 10 mg PO Q4H PRN PRN PRN Reason: Pain Score 6-10/10 Promethazine HCl (Phenergan) 12.5 mg IM Q6H PRN PRN; Protocol PRN Reason: NAUSEA/VOMITING Senna/Docusate Sodium (Senokot-S, Antoinette-Colace) 2 tablet PO BID [facility] Last Admin: 12/16/19 21:03 Dose: 2 tablet Documented by: Sodium Chloride () 10 - 40 ml IV UD PRN PRN Reason: SALINE FLUSH Medical Necessity - Tobacco Use Smoking Status: Former smoker Tobacco Use: Non-smoker Assessment/Plan All Active Problems (Last Reviewed 06/11/19 @ 17:[address] Dajuan Call MD) Pneumonia (Acute) Status post revision left total hip Plan 1. Continue all pain medications as prescribed 2. Continue physical therapy, weight-bear as tolerated with walker 3. Aspirin 81 mg 1 p.o. every 12 hours x30 days for postop DVT prophylaxis 4. Encourage incentive spirometry 5. Follow-up with Dr. Wise as scheduled 6. Continue outpatient physical therapy at [facility] [place] 7. Discharge after p.m. therapy
[2019-12-17] MEDS: oxyCODONE 5 MG Tablet 10 MG PO ×2 (07:39→11:28)
[2019-12-17] MEDS: Famotidine 20 MG Tablet PO (07:40)
[2019-12-17] MEDS: Ensure Surgery 237 ML LIQUID PO ×2 (07:40→11:30)
[2019-12-17] MEDS: Aspirin 81 MG TAB.CHEW PO (07:40)
[2019-12-17] MEDS: Senna/Docusate Sodium 1 Tablet 2 TABLET PO (07:40)
[2019-12-17] MEDS: FLUoxetine 20 MG Capsule 40 MG PO (07:40)
--- NOTE | 2019-12-17 07:43 | PCM.DC.THR ---
Discharge Diet: No Restrictions Discharge Activity: May Drive, May Shower, Use Walker May shower in (days): 3 - only if incision is dry and without drainage. Do NOT soak/submerge in tub/pool/rodriguez/stream/hot tub. May resume sexual activity in: No Restrictions Ice area for (Minutes): 20 - every hour while awake Weight Bearing Status: Weight bearing as tolerated Lifting Restrictions: 20 pounds Elevate: Operative Extremity Call your doctor if your incision/area has: Continuous Slow Oozing, Sudden Increased Bleeding, Increased Pain/ Swelling, Increased Redness, Foul Smelling Discharge Call your doctor if you observe: Fever of 101 or Higher, Inability to urinate, Inability to have a bowel movement, Shortness of breath, Fainting spells, Chest pain, Increased palpitations (irregular heartbeat), Calf discomfort, Uncontrolled pain Change Dressing in (Days):: 0 - Change daily and as needed. Remove Dressing in (days):: 8 Cleanse incision/area with: Soap & Water Allergies/Adverse Reactions: Allergies gabapentin Allergy (Unknown, Verified 12/16/19 10:03) Shortness of breath Disorientation hydrocodone Adverse Reaction (Mild, Verified 12/16/19 18:39) Nausea morphine Adverse Reaction (Verified 12/16/19 18:38) mental status changes MENTAL STATUS CHANGES Medications to take at Discharge Albuterol Inhaler [Ventolin Hfa] 1 - 2 puff INHALATION Q4H PRN PRN #1 inhaler 04/17/15 Multivitamin [Daily Multiple Vitamin] 1 ea PO DAILY 01/07/19 dextroamphetamine-amphetamine 30 mg tablet 30 mg PO DAILY 06/11/19 levalbuterol tartrate 45 mcg/actuation aerosol inhaler 2 puff INHALATION Q4H 06/11/19 levothyroxine 175 mcg tablet 175 mcg PO DAILY tab 11/16/19 Cholecalciferol (Vitamin D3) [D3-50] 50,000 unit PO QWEEK 12/10/19 Fluoxetine HCl 40 mg PO BID 12/10/19 Acetaminophen [Tylenol] 1,000 mg PO Q8 #90 tab 12/17/19 Aspirin [Aspirin, Baby] 81 mg PO BIDCM #60 tab.chew 12/17/19 Meloxicam [Mobic] 7.5 mg PO BID #60 tab 12/17/19 Oxycodone [Oxyir] 10 mg PO Q4H PRN PRN 7 Days #56 tablet 12/17/19 The following prescriptions were given: Aspirin [Aspirin, Baby] 81 mg PO BIDCM #60 tab.chew Transmission Status: Pending to [facility] #30 Meloxicam [Mobic] 7.5 mg PO BID #60 tab Transmission Status: Pending to [facility] #30 Oxycodone [Oxyir] 10 mg PO Q4H PRN PRN 7 Days #56 tablet PRN Reason: Pain Score 6-10/10 Transmission Status: Sent to [facility]30 Acetaminophen [Tylenol] 1,000 mg PO Q8 #90 tab Transmission Status: Pending to [facility]30 Orders to be completed after discharge: Magnesium Time Frame: 12/09/19, Facility: [facility], Location: Laboratory Primary Care Physician: Nicole Moreno DO [Primary Care Provider] - Test Results: Test results from this visit will be discussed in further detail at your follow-up appointment, if applicable. Please Follow Up With: Dylon Wise MD When: as scheduled
[2019-12-17 07:51] VITALS: BP 137/48; PULSE 92; RESP 16; TEMP 36.9; O2SAT 97
[2019-12-17] MEDS: 0.9% Saline Lock 10 ML Syringe IV (08:45)
--- NOTE | 2019-12-17 11:30 | CASEMGMT ---
ADELAIDA RECINOS Face to Face with patient for initial transition planning/care coordination assessment. ADELAIDA RECINOS introduced self and role at [facility]. Patient lying in bed, alert and oriented, at bedside. Patient willing to participate in assessment and is able to answer all questions appropriately. Care providers, pharmacy, and demographics verified. Patient wishes to discharge home, and is setup with [facility]. Patient states she has no further needs or concerns at this time. CM to follow for discharge planning needs that may arise. PCP: Josh Specialists: satinder Wise Pharmacy: [facility] Insurance: [place] Prescription Benefit: yes Living Will/HPOA: none LNOK: Living Arrangements: Patient lives with in a 1 story home with bed and bath on the first floor. Patient states she was independent at home prior to surgery Transportation: DME/HHC: Patient states she has cane, walker, grab bars, bipap at home. Patient states she received message that her outpatient therapy appt on Saturday needs rescheduled. ADELAIDA RECINOS called [facility] to confirm appt, [employer] states that her time needs changed from 11am. New appt for Wednesday 12/20 at 1330. ADELAIDA RECINOS updated the patient. Disposition Plan: Patient to discharge home with outpatient therapy, family support, and follow-up plans in place. Denise SANTOS, RN, CM
[2019-12-17 11:35] VITALS: BP 110/45; PULSE 97; RESP 16; TEMP 37.4; O2SAT 96
--- NOTE | 2019-12-17 12:06 | PHA.DC.MC ---
Pharmacy Service has performed discharge medication reconciliation and counseling for this patient. 1. ACETAMINOPHEN 1000MG PO Q8H 2. ASPIRIN 81MG PO BIDCM 3. MELOXICAM 7.5MG PO BID 4. OXYCODONE 10MG PO Q4H PRN PAIN X 7 DAYS The patient's discharge medication list was reviewed for discrepancies and discrepancies were resolved. Home Medications Albuterol Inhaler [Ventolin Hfa] 1 - 2 puff INHALATION Q4H PRN PRN #1 inhaler 04/17/15 Multivitamin [Daily Multiple Vitamin] 1 ea PO DAILY 01/07/19 dextroamphetamine-amphetamine 30 mg tablet 30 mg PO DAILY 06/11/19 levalbuterol tartrate 45 mcg/actuation aerosol inhaler 2 puff INHALATION Q4H 06/11/19 levothyroxine 175 mcg tablet 175 mcg PO DAILY tab 11/16/19 Cholecalciferol (Vitamin D3) [D3-50] 50,000 unit PO QWEEK 12/10/19 Fluoxetine HCl 40 mg PO BID 12/10/19 Acetaminophen [Tylenol] 1,000 mg PO Q8 #90 tab 12/17/19 Aspirin [Aspirin, Baby] 81 mg PO BIDCM #60 tab.chew 12/17/19 Meloxicam [Mobic] 7.5 mg PO BID #60 tab 12/17/19 Oxycodone [Oxyir] 10 mg PO Q4H PRN PRN 7 Days #56 tab 12/17/19 The patient was counseled on the following discharge medications and changes in medications for homegoing were reviewed. The Reason for Use, instructions for use, and potential side effects were reviewed for all new medications. The patient's questions regarding all of their medications were answered. The patient was able to verbally demonstrate an understanding of their discharge medications. Patient counseled by pharmacy care coordinatorChau.
--- NOTE | 2019-12-17 14:22 | PN_ITS ---
Subjective: Seen and examined. Mild low-grade temperature 99.3 ?F. Patient had severe headache in the morning feels like a migraine headache. Frontal headache, 10/10 intensity with no visual symptoms or disturbances. Tylenol 1 g was given. Physical exam General: Alert, Oriented x3, Cooperative HEENT: Atraumatic, PERRLA, EOMI, Normocephalic Oral: No Gingival or Mucosal Lesions/ Ulcerations Neck: Supple, No JVD, Negative Carotid Bruits Lungs: Air entry diminished in bilateral lung bases. No crepitation/rhonchi Cardiovascular: Regular rate, Regular Rhythm, Normal S1, Normal S2, No murmurs Abdomen: Bowel Sounds Present, Soft, Non Tender, Non-Distended : No renal angle tenderness. No suprapubic tenderness. Extremities: Surgical dressing is dry. Neurovascular bundle is intact. No edema, Capillary Refill Less than 3 Seconds Skin: No rashes, No breakdown Musculoskeletal: no Tenderness to Palpation of Joints or Extremities Neurological: Cranial nerves II-XII grossly intact, Deep Tendon Reflexes 2+/4 and Symmetrical, Neuro grossly intact Psych/Mental Status: Normal Affect, Appropriate. Vitals/I&O's: Vital Signs Temp Pulse Resp BP Pulse Ox 99.3 F H 97 16 110/45 L 96 12/17/19 11:35 12/17/19 11:35 12/17/19 11:35 12/17/19 11:35 12/17/19 11:35 Oxygen Flow Rate (L/min) 2 Oxygen Delivery Method Room Air Weight: 220 lb 14.451 oz Body Mass Index (BMI) 40.4 Intake and Output for Last 24 Hours 12/15/19 12/16/19 12/17/19 23:59 23:59 23:59 Intake Total 2886.00 / 2886.00 2504 / 2504 Output Total 150 / 150 1700 / 1700 Balance 2736.00 / 2736.00 804 / 804 Microbiology Past 72 Hours 12/16/19 15:51 Other - Hip Wound Culture - Preliminary Gram negative vicki 12/16/19 15:51 Other - Hip Wound Culture - Preliminary No growth-Final to follow 12/16/19 15:51 Other - Hip Wound Culture - Preliminary No growth-Final to follow Laboratory Results 12/17/19 06:22: WBC 15.3 H, RBC 3.21 L, Hgb 9.5 L, Hct 28.9 L, MCV 90.0, MCH 29.6, MCHC 32.9, RDW Std Deviation 45.4 H, RDW Coeff of Annemarie 13.9, Plt Count 277, MPV 9.6 12/17/19 06:22: Sodium 138, Potassium 4.1, Chloride 106, Carbon Dioxide 30.0, Anion Gap 2 L, BUN 11, Creatinine 0.55, Estim Creat Clear Calc 86.03, Est GFR (MDRD) Af Amer 143, Est GFR (MDRD) Non-Af 119, BUN/Creatinine Ratio 19.9, Glucose 153 H, Calcium 8.1 L Current Medications Acetaminophen (Tylenol) 1,000 mg PO Q8 [facility] Last Admin: 12/17/19 13:17 Dose: 1,000 mg Documented by: Albuterol Sulfate (Ventolin Aerosols) 2.5 mg INHALATION Q6HWA.RT [facility] Last Admin: 12/17/19 13:31 Dose: Not Given Documented by: Albuterol Sulfate (Ventolin Aerosols) 2.5 mg INHALATION Q2H PRN PRN PRN Reason: dyspnea, wheezing Aspirin (Aspirin, Baby) 81 mg PO BIDCM [facility] Last Admin: 12/17/19 07:40 Dose: 81 mg Documented by: Enteral Nutritional Formula (Ensure Surgery) 237 ml PO TIDCM [facility] Last Admin: 12/17/19 11:30 Dose: 237 ml Documented by: Ergocalciferol (Vitamin D) 50,000 unit PO Q7D [facility] Famotidine (Pepcid) 20 mg PO BID [facility] Last Admin: 12/17/19 07:40 Dose: 20 mg Documented by: Fentanyl (Duragesic Patch) 25 mcg TRANSDERM. Q3D [facility] Last Admin: 12/16/19 21:09 Dose: 25 mcg Documented by: Fluoxetine HCl (Prozac) 40 mg PO BID [facility] Last Admin: 12/17/19 07:40 Dose: 40 mg Documented by: Hydralazine HCl (Apresoline Iv) 10 mg IV Q4H PRN PRN PRN Reason: SBP > 160 Hydromorphone HCl (Dilaudid Inj) 1 mg IV Q3H PRN PRN PRN Reason: severe pain 6-10/10 Last Admin: 12/16/19 18:30 Dose: 1 mg Documented by: Sodium Chloride () 250 mls @ 15 mls/hr IV .[id number] PRN PRN Reason: Saline Flush Insulin Human Lispro (Humalog Kwikpen (Bkc)) 1 - 6 unit SC Q4H PRN PRN; Protocol PRN Reason: BG>/= 180, SEE PROTOCOL Levothyroxine Sodium (Synthroid) 175 mcg PO DAILY@0600 [facility] Last Admin: 12/17/19 05:49 Dose: 175 mcg Documented by: Meloxicam (Mobic) 7.5 mg PO BID [facility] Ondansetron HCl (Zofran) 4 mg IV Q8H PRN PRN PRN Reason: NAUSEA Oxycodone HCl (Oxyir) 10 mg PO Q4H PRN PRN PRN Reason: Pain Score 6-10/10 Last Admin: 12/17/19 11:28 Dose: 10 mg Documented by: Promethazine HCl (Phenergan) 12.5 mg IM Q6H PRN PRN; Protocol PRN Reason: NAUSEA/VOMITING Senna/Docusate Sodium (Senokot-S, Antoinette-Colace) 2 tablet PO BID [facility] Last Admin: 12/17/19 07:40 Dose: 2 tablet Documented by: Sodium Chloride () 10 - 40 ml IV UD PRN PRN Reason: SALINE FLUSH Last Admin: 12/17/19 08:45 Dose: 10 ml Documented by: STROKE Vital Signs/Narrative: Vital Signs Temp Pulse Resp BP Pulse Ox 12/17/19 11:35 99.3 F H 97 16 110/45 L 96 Medical Necessity - Tobacco Use Smoking Status: Former smoker Tobacco Use: Non-smoker Assessment/Plan All Active Problems (Last Reviewed 06/11/19 @ 17:[address] Dajuan Call MD) Pneumonia (Acute) There is a 59-year-old female with history of asthma and hypothyroidism was admitted with left total hip revision, both acetabular and hip component. She complained of loosening or joint. 1. Primary osteoarthritis with aseptic loosening of implant: Patient had revision of left total hip replacement, femoral and acetabular component. Surgical dressing is dry. Patient has flexion and extension of knee joints and ankle. Plan is for discharge if headache is controlled. 2. Acute migraine headache episode with history of chronic migraine: Tylenol 1 g given. Patient on at home, Relpax triptan class. Patient can take 1 tablet. Mild temperature 99.3 probably due to diurnal variation or due to headache 3. Asthma - no exacerbation. Lungs clear. PRN aerosols. Incentive spirometer. 4. Hypothyroidism - synthroid 5. Morbid obesity -advised weight loss and follow-up with dwarf tree grower. DVT ppx: per ortho aspirin 81 bid Patient headache gets better, patient is medically stable to be discharged home. Inpatient E&M: 18207 Subs Hosp L2
== END 2019-12-17 15:06 | disposition home or self-care (01) | DRG 467 ==
LOC: ACINP 09:34 → MS3 12-17 07:15
PROVIDERS: Admitting Provider Specialist; PCP Family Medicine; Referring Provider Specialist; Visit Provider Internal Medicine
PROC: 0SRB02Z Replacement of Left Hip Joint with Metal on Polyethylene Synthetic Substitute, Open Approach (ICD-10-PCS; CPT 27134; principal; 2019-12-16 11:35)
DX: T84.031A Mechanical loosening of internal left hip prosthetic joint, initial encounter (principal); Z68.41 Body mass index [BMI] 40.0-44.9, adult; T84.84XA Pain due to internal orthopedic prosthetic devices, implants and grafts, initial encounter; Y83.1 Surgical operation with implant of artificial internal device as the cause of abnormal reaction of the patient, or of later complication, without mention of misadventure at the time of the procedure; M16.12 Unilateral primary osteoarthritis, left hip; G43.909 Migraine, unspecified, not intractable, without status migrainosus; J45.909 Unspecified asthma, uncomplicated; E03.9 Hypothyroidism, unspecified; Z87.891 Personal history of nicotine dependence; G47.30 Sleep apnea, unspecified; Z86.2 Personal history of diseases of the blood and blood-forming organs and certain disorders involving the immune mechanism; F41.9 Anxiety disorder, unspecified; F32.9 Major depressive disorder, single episode, unspecified; F90.9 Attention-deficit hyperactivity disorder, unspecified type; E66.01 Morbid (severe) obesity due to excess calories; Z78.0 Asymptomatic menopausal state; Z79.899 Other long term (current) drug therapy; Z79.82 Long term (current) use of aspirin; Z96.641 Presence of right artificial hip joint
CPT/HCPCS: 36415; 73502; 80048; 82962; 85027; 87015; 87070; 87075; 87077; 87081; 87102; 87116; 87186; 87205; 87206; 93005; 94640; 97161; 97166; 99251; C1776; J7120; A4216; G0463; J2405; J3490

== ENCOUNTER → 2019-12-30 09:47 | Outpatient (CLI) | payer BC, SELFPAY ==
[2019-12-16 10:05] VITALS: BMI 40.4
[2019-12-30 12:43] LABS: Erythrocyte Sedimentation Rate 17 mm/hr (0-30)
[2019-12-30 12:45] LABS: Absolute Neutrophil Count 5.9 X10^3/uL (2.0-7.7); Basophil# 0.14 X10^3/uL; Basophil% 1.6 % (0-1); Eosinophil# 0.23 X10^3/uL; Eosinophils% 2.6 % (0-5); Hematocrit 31.5 % (37-47); Hemoglobin 9.9 g/dL (12.0-15.0); Lymphocyte % 20.2 % (19-41); Mean Corp Hgb Conc 31.4 g/dL (32-36); Mean Corpuscular Hgb 29.4 pg (27.0-32.0); Mean Corpuscular Volume 93.5 fL (81-99); Mean Platelet Vol. 8.7 fl (6.2-12.0); Monocyte# 0.74 X10^3/uL; Monocyte% 8.3 % (0-10); NRBC Flagged by Analyzer 0 % (0-5); Neutrophil # 5.93 X10^3/uL (2.7-7.7); Neutrophil % 66.3 % (47-70); Platelet Count 647 K/mm3 (150-450); RBC Distribution Width CV 15.6 % (11.6-14.6); RBC Distribution Width SD 52.4 fl (35.1-43.9); Red Blood Count 3.37 M/mm3 (4.2-5.4); White Blood Count 8.9 K/mm3 (4.4-11.0)
[2019-12-30 13:06] LABS: ALB/GLOB Ratio 0.9 RATIO (0.9-2.4); AST(SGOT) 24 U/L (15-37); Alanine Aminotransfer ALT/SGPT 29 U/L (13-56); Albumin, Serum 3.4 g/dL (3.2-5.0); Alkaline Phosphatase 94 U/L (45-117); Anion Gap 6 (5-15); BUN 21 mg/dL (7-18); BUN/Creat Ratio 23.7 RATIO (10-20); CRP 4.51 mg/L (0.0-3.0); Calcium,Total 8.6 mg/dL (8.5-10.1); Chloride 107 mmol/L (98-107); Creatinine, Serum 0.89 mg/dL (0.55-1.02); EST Glomerular Filtration Rate 69 mL/min (>60); Est Glom Filt Rate - Afr Amer 83 mL/min (>60); Globulin 3.6 g/dL (2.2-4.2); Glucose 118 mg/dL (74-106); Potassium 4.1 mmol/L (3.5-5.1); Sodium Level 138 mmol/L (136-145)
== END ==
PROVIDERS: PCP Family Medicine; Visit Provider Family Medicine
DX: R11.2 Nausea with vomiting, unspecified (principal); R50.9 Fever, unspecified; D64.9 Anemia, unspecified; T81.40XA Infection following a procedure, unspecified, initial encounter
CPT/HCPCS: 36415; 80053; 85025; 85652; 86140

== ENCOUNTER → 2020-01-18 10:50 | Outpatient (CLI) | payer BC, SELFPAY ==
[2019-12-16 10:05] VITALS: BMI 40.4
--- NOTE | 2020-01-18 | IMM_PTH ---
PATIENT: SHIVA JHAVERI LOC: [facility] U#:[id number] AGE/SX: 65/F ROOM: RE01/18/[address]: Dr. Nicole Moreno DO : 1960 BED: DIS: SPEC #: [id number] RECD: 01/20/20 13:26 STATUS: AMY REQ #: [id number] SARAH: 01/18/20 00:[address]: Nicole Moreno DEPT: IMMUNOHISTOCHEMISTRY RECD BY: Abigail Cooper Tissues: Axilla, NOS Procedures: SMA (add) Nolberto Ret (add) CD34 (add) CD56 (add) DESMIN (add) EUGENIE (add) MACRO (add) Vimentin (add) SMM (add) NEUROFIL (add) Pankeratin (initial) NSE (add) S-100 (add) PHYSICIAN & INSTITUTION [place] [address] SPECIMEN INFORMATION: Tissue Source: Right infraclavicular area near axilla Clinical Info: Rule out lipoma vs lymph node Specimen Number: [id number] CPT code: 18035, 15102 x12 METHODOLOGY: Deparaffinized sections of prefer/formalin-fixed tissue or PAP/DQ stained slides are incubated with monoclonal/polyclonal antibodies/oligonucleotide probes. Localization is made via biotin free immunoperoxidase method. Appropriate controls are performed and reacted as expected. Results on target cell population are indicated in the following table: RESULTS: ANTIBODY / CLONE RESULT AE1-3 (AE1/AE3/PCK26) negative Vimentin (V9) positive CD34 (QBEnd-10) positive, focal Macro (HAM-56) negative Actin (1A4) negative Myosin (simms1) negative Desmin (CE-R-11) negative S-100 (4C4.9) positive Neurofil (2F11) negative CD56 (123C3.D5) positive NSE Neuron Specific Enolase positive, dim CALRET (polyclonal) positive, focal EUGENIE (E29) positive, capsular These tests were developed and their performance characteristics determined by [facility]. They may not have been cleared or approved by the U.S. Food and Drug Administration. The FDA has determined that such clearance or approval is not necessary. The above immunohistochemical/dualISH markers are ordered and reviewed by the Pathologist. INTERPRETATION: Right infraclavicular area near axilla: Consistent with schwannoma. AM:marshall 01/21/20 Case has been reviewed in consultation with Dr. Motta who concurs with the above diagnosis. IDC:SJ
--- NOTE | 2020-01-18 10:00 | LES_PTH ---
PATIENT: SHIVA JHAVERI LOC: [facility] U#:[id number] AGE/SX: 65/F ROOM: RE01/18/[address]: Dr. Nicole Moreno DO : 1960 BED: DIS: SPEC #: [id number] RECD: 01/18/20 15:06 STATUS: AMY SANTIAGO #: [id number] SARAH: 01/18/20 10:[address]: Nicole Moreno DEPT: SURGICAL PATHOLOGY RECD BY: Dex Pollock Tissues: Skin of axilla, NOS Procedures: Surgery Specimen Level IV HEADER OPERATION: Excision lesion PRE-OP DIAGNOSIS: Rule out lipoma vs lymph node TISSUE SUBMITTED: Right infraclavicular area near axilla MICROSCOPIC DIAGNOSIS Right infraclavicular lesion, biopsy: Consistent with schwannoma. See comment. AM:marshall 01/20/20 COMMENT Immunohistochemistry ([id number]) supports the above diagnosis. Case has been reviewed in consultation with Dr. Motta who concurs with the above diagnosis. IDC:SJ MICROSCOPIC DESCRIPTION Slides are reviewed. GROSS DESCRIPTION Received is one container labeled with the patient's name and not further designated. The specimen consists of a piece of garcia-light yellow nodule measuring 1.1 x 1.1 x 1 cm. The specimen is inked, serially sectioned and reveals garcia-light yellow, solid cut surfaces. The entire specimen is submitted in one cassette. / SHREYA:marshall 01/19/20 TC:1 CPT: 19356
[2020-01-18 22:43] LABS: Thyroid Stim Hormone (TSH) 3.06 uIU/mL (0.358-3.74)
== END ==
PROVIDERS: PCP Family Medicine; Visit Provider Family Medicine
DX: E03.9 Hypothyroidism, unspecified (principal); L98.9 Disorder of the skin and subcutaneous tissue, unspecified
CPT/HCPCS: 36415; 84439; 84443; 84481; 88305; 88341; 88342

== ENCOUNTER → 2020-01-22 11:24 | Outpatient (CLI) | payer BC, SELFPAY ==
[2019-12-16 10:05] VITALS: BMI 40.4
[2020-01-22 15:22] LABS: Absolute Lymphocyte Count 1.75 X10^3/uL (0.83-4.51); Absolute Neutrophil Count 3.4 X10^3/uL (2.0-7.7); Basophil# 0.07 X10^3/uL; Basophil% 1.2 % (0-1); Eosinophils% 1.7 % (0-5); Hematocrit 34.4 % (37-47); Hemoglobin 10.5 g/dL (12.0-15.0); Lymphocyte # 1.75 X10^3/ul (4.0); Lymphocyte % 29.1 % (19-41); Mean Corp Hgb Conc 30.5 g/dL (32-36); Mean Corpuscular Hgb 28.1 pg (27.0-32.0); Mean Platelet Vol. 9.4 fl (6.2-12.0); Monocyte# 0.66 X10^3/uL; NRBC Flagged by Analyzer 0 % (0-5); Neutrophil # 3.42 X10^3/uL (2.7-7.7); Neutrophil % 56.7 % (47-70); Platelet Count 441 K/mm3 (150-450); RBC Distribution Width CV 14.6 % (11.6-14.6); RBC Distribution Width SD 49.1 fl (35.1-43.9); Red Blood Count 3.74 M/mm3 (4.2-5.4)
[2020-01-22 15:39] LABS: CRP 7.24 mg/L (0.0-3.0); Erythrocyte Sedimentation Rate 12 mm/hr (0-30)
== END ==
PROVIDERS: PCP Family Medicine; Visit Provider Specialist
DX: Z96.642 Presence of left artificial hip joint (principal)
CPT/HCPCS: 36415; 85025; 85652; 86140

== ENCOUNTER 2020-01-24 18:33 | Emergency (ER) | payer BC, SELFPAY ==
[2019-12-16 10:05] VITALS: BMI 40.4
[2020-01-24 18:34] VITALS: BP 138/88; PULSE 87; RESP 18; TEMP 37; O2SAT 98; BMI 39.4
--- NOTE | 2020-01-24 18:46 | RAD_ITS ---
STUDY: X-RAY - PELVIS AND LEFT HIP REASON FOR EXAM: Female, 60 years old. FALL ON LEFT HIP TODAY, PREV HIP SURGERY 12/15 TECHNIQUE: 3 views of the pelvis and hip. COMPARISON: None. FINDINGS: There is a non-specific bowel gas pattern. Normal visualized soft tissue structures. Normal bilateral iliac wings, sacroiliac joints and visualized sacrum. Normal bilateral superior and inferior pubic rami. Normal pubic symphysis. Normal bilateral ischial tuberosities. There are bilateral total hip arthroplasties with satisfactory appearances. No evidence for dislocations, fractures, or implant failures. RAD/HIP, UNI W/ Pelvis 2-3 Views IMPRESSION: No definite acute or significant abnormality seen. Electronically Signed: Donavon Joiner MD at 19:13 EDT , Service support ,
--- NOTE | 2020-01-24 18:46 | ED.VIS.FALL ---
History of Present Illness Chief Complaint: Fall Informant: Patient Occurred: Hours - 1 Mechanism/Context: Trip - landed on concrete vs. left hip Location: L hip Quality of Pain: Aching Current Severity: 7/10 Maximum Severity: 7/10 Worsened by: weight bearing, although able Relieved by: rest Associated Symptoms: Negative for: Parasthesias, Weakness, Loss of function, Inability to ambulate, Loss of consciousness, Amnesia Narrative: Patient was carrying something outdoors, she accidentally tripped and fell, landing on her left hip versus concrete. She had a left hip replacement revision performed 1-2 months ago and wants to make sure the revision is okay. The pain is lateral left hip, radiates into her groin somewhat. She has been having persistent erythema and swelling around her incision, she has an outpatient CT scheduled for later this week for evaluation of that. - Past Medical History (1) Hypothyroid Status: Chronic Past Medical History - Allergies and Home Meds Allergies/Adverse Reactions: Allergies gabapentin Allergy (Unknown, Verified 01/24/20 18:37) Shortness of breath Disorientation hydrocodone Adverse Reaction (Mild, Verified 01/24/20 18:37) Nausea morphine Adverse Reaction (Verified 01/24/20 18:37) mental status changes MENTAL STATUS CHANGES Primary Care Physician: Nicole Moreno DO [Primary Care Provider] - Surgical History: total hip arthroplasty, - - tumor removed from neck, tonsils removed 7 total hysterectemy Lives: Spouse/ Significant Other Smoking Status: Former smoker - Family History Maternal Family History: Family History (Last Reviewed 06/11/19 @ 17:[address] Dajuan Call MD) Sister Alcoholism Father Arthritis Bleeding disorder H/O transfusion of whole blood Diabetes Mother Thyroid disorder Family History: Reports: - Paternal Family History: Family History (Last Reviewed 06/11/19 @ 17:[address] Dajuan Call MD) Sister Alcoholism Father Arthritis Bleeding disorder H/O transfusion of whole blood Diabetes Mother Thyroid disorder Family History: Reports: - Review of Systems General: Denies: Chills, Fever, Sweats Gastrointestinal: Denies: Abdominal pain, Nausea, Vomiting, Diarrhea Musculoskeletal: Reports: Extremity Pain. Denies: Neck pain, Back pain Neurological: Denies: Headache, Weakness, Numbness Physical Exam Vital Signs/Narrative: Vital Signs Temp Pulse Resp BP Pulse Ox 01/24/20 18:34 98.6 F 87 18 138/88 H 98 Inital Vital Signs reviewed: Yes General: Well nourished, Well developed, Obese, - - NAD Head: Normocephalic, Atraumatic Extremeties: Patient able to bear weight on the left hip but with pain. No deformity. Tender throughout the lateral aspect of the left hip. Pelvis stable APC. Femur compartments soft nondistended. Skin: No Trauma, - - Tender mild blanching erythema surrounding left hip incision which is intact and well-healed. No other abnormal skin lesions. Neurological: Alert, Oriented x3, Cranial nerves II-XII grossly intact, Normal Strength, Normal Sensation, - - Antalgic gait Diagnostic/Tx/Re-eval - Medical Decision Making On my interpretation 3 views of the left hip including the pelvis are negative for any acute pathology, including fractures or dislocations. Patient was offered ice pack and analgesics, she declined all of the above. She is comfortable being discharged, she understands supportive care advised, and will get her CT later this week as scheduled, which I think is reasonable. I do not think she needs it right now for any emergent reason. My suspicion is that she irritated whatever process was going on before by falling on it, and it is more painful now. She states that before the fall, she was not having increasing pain, and the redness was not worsening or spreading, so my suspicion for an acute infection is low. ED Disposition - Plan for ED Patient: Disposition: Home or Assisted Living Diagnosis: Contusion of left hip, Fall from slip, trip, or stumble Instructions: ED CONTUSION Hip Referrals: Dylon Wise MD [STAFF PHYSICIAN] - Keep Donnie appointment
[2020-01-24 19:12] VITALS: BP 138/88; PULSE 87; RESP 18; O2SAT 98
== END 2020-01-24 19:13 | disposition home or self-care (01) ==
LOC: ED 19:10
PROVIDERS: Emergency Provider Emergency Medicine; PCP Family Medicine
DX: S70.02XA Contusion of left hip, initial encounter (principal); Z96.642 Presence of left artificial hip joint; W01.0XXA Fall on same level from slipping, tripping and stumbling without subsequent striking against object, initial encounter; Y93.9 Activity, unspecified; Y92.9 Unspecified place or not applicable; E66.9 Obesity, unspecified; E03.9 Hypothyroidism, unspecified; Z79.899 Other long term (current) drug therapy; Z87.891 Personal history of nicotine dependence
CPT/HCPCS: 73502; 99282

== ENCOUNTER → 2020-01-29 11:00 | Outpatient (CLI) | payer BC, SELFPAY ==
[2019-12-16 10:05] VITALS: BMI 40.4
[2020-01-24 18:34] VITALS: BMI 39.4
--- NOTE | 2020-01-29 11:07 | CT_ITS ---
STUDY: CT LEFT FEMUR WITHOUT CONTRAST REASON FOR EXAM: Female, 60 years old. LT HIP PAIN, hurts to touch. Prior bilateral hip replacements. RADIATION DOSAGE (If Supplied By Facility): CTDIvol = ( 31.40 ) mGy, DLP = ( 1270.44 ) mGycm TECHNIQUE: Transaxial CT imaging of the femur was performed. Sagittal and coronal images were reconstructed. Individualized dose optimization techniques were used for this CT. COMPARISON: Comparison made with prior examination dated 11/05/2019. FINDINGS: The patient is status post left total hip replacement. There is good alignment. There is a 9.3 cm x 4 cm fluid collection in the subcutaneous tissues overlying the lateral aspect of the proximal femur. This extends posteriorly. This most likely represents a postoperative seroma or resolving hematoma. CT/Extremity Lower without Contra IMPRESSION: Status post left hip replacement with the subcutaneous seroma versus resolving hematoma measuring 9.3 cm x 4 cm. Electronically Signed: Ramiro Jang, at 11:51 EDT , Service support ,
== END ==
PROVIDERS: PCP Family Medicine; Referring Provider Specialist; Visit Provider Specialist
DX: Z96.642 Presence of left artificial hip joint (principal)
CPT/HCPCS: 73700

== ENCOUNTER → 2020-02-01 10:26 | Outpatient (CLI) | payer BC, SELFPAY ==
[2020-01-24 18:34] VITALS: BMI 39.4
[2020-02-01 12:50] LABS: Body Fluid QC Type(s) BF1Q
[2020-02-03 13:23] LABS: AUTO B FLUID DILUENT BKGD CT WBC <0.1 RBC <0.01 (W<.1,R<.01); Appearance /Synovial Fluid CLOUDY (CLEAR); Color / Synovial Fluid RED (Pale Yellow); Source / Synovial Fluid LEFT HIP
[2020-02-03 13:24] LABS: RBC /Synovial Fluid 0.022 10^6/uL (0); Synovial Fld Polynuclear WBC % 24.7 %
[2020-02-03 13:25] LABS: Lymph 37 %; Monocyte /Synovial Fluid 45 %; Neutrophil 16 % (0-25); Other Cell /Synovial Fluid 2 %; Synovial Fld Mononuclear WBC # 0.186 10^3/ul; Synovial Fld Mononuclear WBC % 75.3 %; Synovial Fld Polynuclear WBC # 0.061 10^3/uL
[2020-02-03 13:27] LABS: Pathologist Comment Reviewed
== END ==
PROVIDERS: PCP Family Medicine; Referring Provider Specialist; Visit Provider Specialist
DX: Z96.642 Presence of left artificial hip joint (principal)
CPT/HCPCS: 87015; 87070; 87075; 87077; 87101; 87116; 87186; 87205; 87206; 89050; 89051

== ENCOUNTER 2020-02-04 12:00 | Outpatient (RCR) | payer BC, SELFPAY ==
[2019-11-16 07:47] VITALS: BMI 38.7
[2019-12-16 10:05] VITALS: BMI 40.4
--- NOTE | 2019-12-21 15:22 | HP.PTEVAL ---
Patient's Visit Information SHIVA JHAVERI is a 59 year old F referred to Physical Therapy by Dr. Dylon Wise MD with a diagnosis of PRESENCE OF LEFT ARTIFICAIL HIP REPLACEMENT,UNILATERAL PRIMARY OA. Date of Evaluation: 12/21/19 Physical Therapist: Gavin Xiong, PT, Cert MDT, OCS - Visit Plan Frequency: 2-3x /Week Duration: 4-6 Weeks Plan: S/P REVISION THR ON 12/15 POSTERIOR LATERAL AT [facility] BY DR WISE. PT INTERVENTIONS ROM/STRENGTHENING LEFT HIP KNEE,BALANCE/GAIT TRAINING AND FUNCTIONAL STRENGTHENING - Subjective This 59 y/o female presents to physical therapy with revision left hip .Patient intially had intial surgery 2 years ago anterior approach every since had pain.After one year pain management. Patient eventually had x-rays showed that impairment with THR left loosening. Thus patient had revision of left THR posterior lateral done d/c on . Staple intact. Denies parathesia/tingling. Patient is WBAT with posterior lateral precautions . Patient lives in 1 story home with one step to enter. Tub /shower. Patient surgery of THR impairs ADSL ,walking and RTW. Patient condition affects QOL.Patient to. VOCATION: [facility]. SOCAIL: - Pain Left Hip Pain Intensity (Out of 10): 5 Pain Intensity Range: 10 - Objective POSTURE: mild foward posture. GAIT: reciprocal pattern with decrease stance time. BALANCE: fair + with fww. SKIN : well approximate staple intact. AROM: knee flexion 100 degrees ,hip flexon 70 degrees,abd 0 degrees. MMT: quad/hams 4-/5,hip abd 2/5,hip flexion 2/5 ankle 4/5. EDEMA: 2+ LLE LOWER LEG. STAIRS: one step at [place] with rail - Goals Goal 1:: Patient to be I with HEP and hip precautions Goal Time Frame: 4-6 Weeks Goal 2:: Normalalize gait with no device for community distances Goal Time Frame: 4-6 Weeks Goal 3:: Improve dynamic balance good- Goal Time Frame: 4-6 Weeks Goal 4:: Increase strength hip 4-/5 and quad/hams 4/5 to improve gait Goal Time Frame: 4-6 Weeks Goal 5:: Patient improve LFES score by 10 points or > to improve function. Goal Time Frame: 4-6 Weeks Goal 6:: Ascend/dscend steps alteranating mod I Goal Time Frame: 4-6 Weeks - Rehabilitation Potential Physical Therapy Diagnosis: Patient underwemt s/p left revision left THR on 12/15 at [facility] with decrease gait,balance stairs,strength thus benifit from skilled PT Rehabilitation Potential: Good - Anticipated Interventions Patient/Client Instruction: Educate patient on: Condition, Plan of Care For the Purpose of:: To decrease pain, To increase ROM, To improve muscle performance and motor function, To improve ability to perform ADL's, To increase tolerance to activity/condition/position, To improve ability of physical actions for home/community/work/leisure, To improve gait and locomotor functions, To increase flexibility/ROM, To improve endurance, To improve balance, To improve safety with gait, To improve ability to perform tasks related to life management Therapeutic Exercise to Include: Strength training, Gait and locomotor training, Active ROM For the Purpose of:: To decrease pain, To increase ROM, To improve muscle performance and motor function, To improve ability to perform ADL's, To increase tolerance to activity/condition/position, To improve ability of physical actions for home/community/work/leisure, To improve gait and locomotor functions, To increase flexibility/ROM, To improve endurance, To improve balance, To improve safety, To improve ability to perform tasks related to life management Thank you for the opportunity to evaluate your patient. For Medicare and Medicare HMO plans, please review the plan of care and approve it. It will need to be FAXED BACK to us at [phone] for Medicare purposes. For Medicare only, by signing this I certify the plan of care. Please let me know if there are questions or concerns regarding this plan of care. Physician Signature: Date:
--- NOTE | 2020-06-10 12:48 | HP.PT.NRP ---
SHIVA JHAVERI was seen in my office for initial evaluation on 12/21/19. The following Plan of Care was established for this patient: Initial Frequency: 2-3x /Week Initial Duration: 4-6 Weeks Patient/Client Instruction: Educate patient on: Condition, Plan of Care For the Purpose of:: To decrease pain, To increase ROM, To improve muscle performance and motor function, To improve ability to perform ADL's, To increase tolerance to activity/condition/position, To improve ability of physical actions for home/community/work/leisure, To improve gait and locomotor functions, To increase flexibility/ROM, To improve endurance, To improve balance, To improve safety with gait, To improve ability to perform tasks related to life management Therapeutic Exercise to Include: Strength training, Gait and locomotor training, Active ROM For the Purpose of:: To decrease pain, To increase ROM, To improve muscle performance and motor function, To improve ability to perform ADL's, To increase tolerance to activity/condition/position, To improve ability of physical actions for home/community/work/leisure, To improve gait and locomotor functions, To increase flexibility/ROM, To improve endurance, To improve balance, To improve safety, To improve ability to perform tasks related to life management This patient was last seen in our office . Pertinent comments regarding their Physical therapy will appear below: Patient was seen for THR with ROM/strength/gait/function thus is d/c. At this point I will be discontinuing this patient from physical therapy. I would be happy to see this patient again in the future if found appropriate by the physician. Thank you! Gavin Xiong, PT, Cert MDT, OCS
== END 2020-02-04 19:00 | disposition home or self-care (01) ==
LOC: PT 12:00
PROVIDERS: Anesthesiology; PCP Family Medicine; Referring Provider Specialist; Visit Provider Specialist
DX: M16.12 Unilateral primary osteoarthritis, left hip (principal); Z96.642 Presence of left artificial hip joint; Z11.59 Encounter for screening for other viral diseases
CPT/HCPCS: 87635; 97110; 97162; G2023; U0003

== ENCOUNTER → 2020-02-15 | Outpatient (CLI) | payer BC, SELFPAY ==
[2020-01-24 18:34] VITALS: BMI 39.4
[2020-02-15 13:32] LABS: Body Fluid Mononuclear WBC % 84.5 %; Body Fluid Polynuclear WBC # 0.053 10^3/uL; Body Fluid Polynuclear WBC % 15.5 %; Body Fluid Total Cells Counted 0.357 10^3/ul; Red Cell Count/Body Fluid 0.013 10^6/ul; White Blood Count/Body Fluid 0.343 10^3/uL
[2020-02-15 14:50] LABS: Auto B Fluid Analyzer BKGD Ct COUNTS W/IN LIMITS (W/IN LIMITS)
[2020-02-15 14:52] LABS: Appearance/Body Fluid CLOUDY; Body Fluid QC Type(s) BF1Q; Color/Body Fluid YELLOW; Lymphocytes 38 %; Monocytes 21 %; Neutrophil (Segs) 14 %; Other Cell Type/BF 27 %; Source- Body Fluid OTHER
[2020-02-16 15:35] LABS: Pathologist Comment/Body Fluid Reviewed
== END | disposition home or self-care (01) ==
LOC: LABSPEC 12:41
PROVIDERS: Visit Provider Specialist
DX: Z96.642 Presence of left artificial hip joint (principal)
CPT/HCPCS: 87015; 87070; 87075; 87101; 87116; 87205; 87206; 89050

== ENCOUNTER → 2020-04-13 13:21 | Outpatient (CLI) | payer BC, SELFPAY ==
[2020-04-13 15:37] LABS: Absolute Lymphocyte Count 2.23 X10^3/uL (0.83-4.51); Absolute Neutrophil Count 3.7 X10^3/uL (2.0-7.7); Basophil# 0.08 X10^3/uL; Basophil% 1.2 % (0-1); Eosinophil# 0.05 X10^3/uL; Eosinophils% 0.8 % (0-5); Hematocrit 39.9 % (37-47); Hemoglobin 12.6 g/dL (12.0-15.0); Lymphocyte # 2.23 X10^3/ul (4.0); Lymphocyte % 34.1 % (19-41); Mean Corp Hgb Conc 31.6 g/dL (32-36); Mean Corpuscular Hgb 27.6 pg (27.0-32.0); Mean Corpuscular Volume 87.5 fL (81-99); Mean Platelet Vol. 9.4 fl (6.2-12.0); Monocyte# 0.48 X10^3/uL; Monocyte% 7.3 % (0-10); NRBC Flagged by Analyzer 0 % (0-5); Neutrophil # 3.67 X10^3/uL (2.7-7.7); Neutrophil % 56.1 % (47-70); Platelet Count 386 K/mm3 (150-450); RBC Distribution Width CV 17.2 % (11.6-14.6); RBC Distribution Width SD 55.3 fl (35.1-43.9); Red Blood Count 4.56 M/mm3 (4.2-5.4); White Blood Count 6.5 K/mm3 (4.4-11.0)
[2020-04-13 15:56] LABS: Hemoglobin A1c 6.2 % (3.8-5.6)
[2020-04-13 16:03] LABS: ALB/GLOB Ratio 1.1 RATIO (0.9-2.4); AST(SGOT) 25 U/L (15-37); Alanine Aminotransfer ALT/SGPT 39 U/L (13-56); Albumin, Serum 3.7 g/dL (3.2-5.0); Alkaline Phosphatase 108 U/L (45-117); Anion Gap 3 (5-15); BUN 13 mg/dL (7-18); BUN/Creat Ratio 17.5 RATIO (10-20); Calcium,Total 8.8 mg/dL (8.5-10.1); Chloride 108 mmol/L (98-107); Cholesterol 244 mg/dL (200); Creatinine, Serum 0.74 mg/dL (0.55-1.02); EST Glomerular Filtration Rate 84 mL/min (>60); Est Glom Filt Rate - Afr Amer 102 mL/min (>60); Free T3 1.9 pg/mL (2.18-3.98); Globulin 3.4 g/dL (2.2-4.2); Glucose 90 mg/dL (74-106); High Density Lipoprotein 67 mg/dL; Protein, Total 7.1 g/dL (6.4-8.2); Sodium Level 139 mmol/L (136-145); T4 Free Direct 0.91 ng/dL (0.76-1.46); Thyroid Stim Hormone (TSH) 5.34 uIU/mL (0.358-3.74); Triglycerides 163 mg/dL; Very Low Density Lipoprotein 33 mg/dL (5-40)
== END ==
PROVIDERS: PCP Family Medicine; Visit Provider Family Medicine
DX: E55.9 Vitamin D deficiency, unspecified (principal); E03.9 Hypothyroidism, unspecified; E11.9 Type 2 diabetes mellitus without complications; Z51.81 Encounter for therapeutic drug level monitoring; E78.5 Hyperlipidemia, unspecified
CPT/HCPCS: 36415; 80053; 80061; 82306; 83036; 84439; 84443; 84481; 85025

== ENCOUNTER → 2021-05-02 11:48 | Outpatient (CLI) | payer OTHER, SELFPAY | PROVIDERS: PCP Family Medicine; Referring Provider Family Medicine; Visit Provider Family Medicine | DX: R00.2 Palpitations (principal) | CPT/HCPCS: 93225; 93226 ==

== ENCOUNTER 2021-06-29 07:45 | Outpatient (CLI) | payer OTHER, SELFPAY ==
--- NOTE | 2021-06-29 07:53 | RDU_ITS ---
Reason For Study: HTN Right Renal Artery Left Renal Artery Right renal artery ostium Left renal artery ostium 105.9/17.9 162.9/28.2 RSV/EDV. PSV/EDV. Right renal artery proximal Left renal artery proximal PSV/EDV 144.8/30.8 PSV/EDV. 131.5/28.3 . Right renal artery mid 157.7/38.6 Left renal artery mid 142.5/32.7 PSV/EDV. PSV/EDV . Right renal artery distal 157.7/36 Left renal artery distal 122.7/26.1 PSV/EDV. PSV/EDV. Right Renal Parenchyma Left Renal Parenchyma Upper Pole Medula 37.2/10.9 Left upper pole medulla 33.9/9.8 PSV/EDV. PSV/EDV . Right upper pole medulla EDR 0.29 . Left upper pole medulla EDR 0.29 . Right upper pole medulla R.I. Left upper pole medulla R.I. 0.71 . 0.71 . UP Cortex 24/7.6 PSV/EDV. Upper Javy Cortx 27.3/8.7 PSV/EDV. Left upper pole cortex EDR 0.32 . Right upper pole cortex EDR 0.32 . Left upper pole cortex R.I. 0.68 . Right upper pole cortex R.I. 0.68 . Left lower Pole medulla 38.3/10.9 Right lower Pole medulla 33.9/9.8 PSV/EDV . PSV/EDV . Left lower pole medulla EDR 0.28 . Right lower pole medulla EDR 0.29 . Left lower pole medulla R.I. 0.72 . Right lower pole medulla R.I. Lower Pole Cortx 25.1/7.6 PSV/EDV. 0.71 . Left lower pole cortex EDR 0.30 . Lower Pole Cortex 27.3/7.6 PSV/EDV. Left lower pole cortex R.I. 0.70 . Right lower pole cortex EDR 0.28 . Left Renal Hilar Right lower pole cortex R.I. 0.72 . LT Hilar avg 75.6/16.4 PSV/EDV . Right Renal Hilar Left hilar acceleration time 60 Right Hilar avg 86.7/19.3 PSV/EDV. m/sec. Right hilar acceleration time 50 Left Renal Dimensions m/sec. Left kidney size 12.37 cm . Right Renal Dimensions Left cortical dimension 1.54 cm . Right kidney size 10.72 cm . Right cortical dimension 1.53 cm . Aorta Proximal abdominal aorta 1.75 x 1.75 cm . Proximal abdominal aorta peak systolic velocity is 134.5 cm/sec . Distal abdominal aorta 1.33 x 1.32 cm . Distal abdominal aorta peak systolic velocity is 106 cm/sec . VL/Renal Artery Duplex Ultrasound Interpretation Summary Maximal aortic diameter proximally at 1.75 x 1.75 cm diameter which is normal. Proximal abdominal aortic systolic velocity slightly elevated 134.5 cm/s. This does invalidate renal artery to aortic ratios. Less than 60% stenosis bilateral renal arteries based upon velocity. Right renal length maintained at 10.72 cm Left renal length maintained at 12.37 cm Ordering Physician: Tho Rodriguez Referring Physician: Nicole Moreno Performed By: Denise Carrillo RVT
--- NOTE | 2021-06-29 07:53 | ECHOD_ITS ---
Reason For Study: Palps Procedure This was a 2D Doppler, Color Flow transthoracic echocardiogram. The exam was of adequate technical quality. Exam performed in department. Left Ventricle Normal LV size. Mild global left ventricular systolic dysfunction. The estimated ejection fraction is 45 %. Septal motion consistent with IVCD. Diastolic function is indeterminate. Right Ventricle Normal RV size. Normal systolic function. Atria The left atrium is mildly enlarged. Normal right atrium. No doppler evidence for ASD. Mitral Valve There is no mitral annular calcification. Mild focal mitral valve calcification of the posterior leaflet. Trivial mitral valve insufficiency. Tricuspid Valve Normal tricuspid valve. Trivial tricuspid valve insufficiency. Right ventricular systolic pressure estimated to be 28 mmHg. Aortic Valve Trisinus/trileaflet aortic valve. Normal aortic valve. Pulmonic Valve The pulmonic valve is not well visualized. Trivial pulmonic valve insufficiency. Great Vessels Normal sized aortic root. Pericardium/Pleural No pericardial effusion. MMode/2D Measurements & Calculations LVIDd: 4.7 cm IVSd: 1.0 cm Ao root diam: 3.2 cm LVIDs: 3.9 cm LVPWd: 0.99 cm RVDd: 3.7 cm FS: 18.2 % LAV(MOD-bp): 67.4 ml LVAd ap4: 38.4 cm2 LVAd ap2: 43.5 cm2 LAV(MOD-bp) Indexed: 32.2 ml/m2 LVLd ap4: 9.4 cm LVLd ap2: 9.8 cm LAV(MOD-sp2): 60.3 ml EDV(MOD-sp4): 127.6 ml EDV(MOD-sp2): 163.1 ml LAV(MOD-sp4): 73.5 ml EDV(sp4-el): 133.6 ml EDV(sp2-el): 164.3 ml LVAs ap4: 26.8 cm2 LVAs ap2: 27.5 cm2 LVLs ap4: 8.3 cm LVLs ap2: 8.4 cm ESV(MOD-sp4): 72.2 ml ESV(MOD-sp2): 74.1 ml ESV(sp4-el): 73.1 ml ESV(sp2-el): 76.3 ml EF(MOD-sp4): 43.4 % EF(MOD-sp2): 54.6 % EF(sp4-el): 45.3 % SV(MOD-sp4): 55.4 ml SV(MOD-sp2): 89.0 ml SV(sp4-el): 60.5 ml LA dimension(2D): 3.6 cm LA A4 area: 22.3 cm2 RA A4 area: 16.1 cm2 Doppler Measurements & Calculations MV E max barney: 83.9 cm/sec Lat Peak E' Barney: 8.1 cm/sec Med Peak E' Barney: 5.9 cm/sec MV A max barney: 95.2 cm/sec E/E' lat: 10.4 E/E' med: 14.1 MV E/A: 0.88 Ao V2 max: 130.6 cm/sec LV V1 max: 97.2 cm/sec PA V2 max: 114.4 cm/sec Ao max P.8 mmHg LV V1 max P.8 mmHg TR max barney: 250.0 cm/sec TR max P.0 mmHg ECHO/Echo Complete Interpretation Summary Mild global left ventricular systolic dysfunction. The estimated ejection fraction is 45 %. Septal motion consistent with IVCD. The left atrium is mildly enlarged. Mild focal mitral valve calcification of the posterior leaflet. Trivial mitral valve insufficiency. Trivial tricuspid valve insufficiency. Trivial pulmonic valve insufficiency. Right ventricular systolic pressure estimated to be 28 mmHg. Diastolic function is indeterminate. Ordering Physician: Tho Rodirguez Referring Physician: Nicole Moreno Performed By: Nay Baxter RDCS
[2021-06-29 10:56] LABS: BUN 15 mg/dL (7-18); BUN/Creat Ratio 23.1 RATIO (10-20); Creatinine, Serum 0.65 mg/dL (0.55-1.02); EST Glomerular Filtration Rate 98 mL/min (>60); Est Glom Filt Rate - Afr Amer 119 mL/min (>60); Glucose 107 mg/dL (74-106); Protein, Total 7.3 g/dL (6.4-8.2)
[2021-06-29 10:57] LABS: AST(SGOT) 30 U/L (15-37); Alanine Aminotransfer ALT/SGPT 42 U/L (13-56); Albumin, Serum 3.6 g/dL (3.2-5.0); Alkaline Phosphatase 103 U/L (45-117); Anion Gap 4 (5-15); Bilirubin, Direct 0.07 mg/dL (0.00-0.30); Calcium,Total 9.1 mg/dL (8.5-10.1); Chloride 106 mmol/L (98-107); Cholesterol 238 mg/dL (200); Globulin 3.7 g/dL (2.2-4.2); High Density Lipoprotein 58 mg/dL; Sodium Level 141 mmol/L (136-145); Triglycerides 125 mg/dL; Very Low Density Lipoprotein 25 mg/dL (5-40)
== END 2021-06-29 23:59 | disposition home or self-care (01) ==
PROVIDERS: PCP Family Medicine; Referring Provider Internal Medicine Cardiovascular Disease; Visit Provider Internal Medicine Cardiovascular Disease
DX: I44.7 Left bundle-branch block, unspecified (principal); I49.3 Ventricular premature depolarization; I49.1 Atrial premature depolarization; R00.2 Palpitations; E78.2 Mixed hyperlipidemia; I10 Essential (primary) hypertension
CPT/HCPCS: 36415; 80048; 80061; 80076; 93306; 93975

== ENCOUNTER 2021-08-01 07:12 | Outpatient (CLI) | payer OTHER, SELFPAY ==
--- NOTE | 2021-08-01 13:43 | STRESSREP_ITS ---
Stress Test Report Date: 08-01-2021 Procedure: Pharmacologic stress nuclear imaging study Indications: Abnormal ECG/left bundle branch block Consent: Per the patient Procedure: The patient underwent pharmacologic (Regadenoson 0.4mg ) evaluation with a peak heart rate of 73 beats per minute (46%predicted maximal heart rate) and a peak blood pressure of 142/76 mmHg. The baseline ECG demonstrated sinus bradycardia; left bundle branch block. The peak pharmacologic ECG demonstrated continued sinus rhythm with left bundle branch block. There were no cardiac dysrhythmias pretest, during pharmacologic infusion, or recovery. There was no complaint of chest discomfort during pharmacologic infusion or recovery. The examination was discontinued secondary to completion of protocol. Impression: 1. Pharmacologic (Regadenoson) evaluation 2. Peak pharmacologic ECG with continued sinus rhythm with left bundle branch block. 3. There were no cardiac dysrhythmias pretest, during pharmacologic infusion, or recovery. 4. Nuclear images pending Myocardial perfusion imaging study: Technique: The patient was injected with 14.0 millicuries of technetium 99m Cardiolite and subsequently rest SPECT Cardiolite nuclear imaging was obtained in the horizontal long, vertical long, and short axis views. The patient underwent pharmacologic (Regadenoson) evaluation with a peak heart rate of 73 beats per minute (46% percent predicted maximal heart rate) and a peak blood pressure of 142/76 mmHg. The patient was injected with 43.9 millicuries of technetium 99m Cardiolite and subsequently stress SPECT Cardiolite nuclear imaging was obtained in the horizontal long, vertical long, and short axis views. A gated Cardiolite study at peak stress was obtained. Interpretation: Rest and stress SPECT Cardiolite nuclear imaging status post realignment, normalization, and attenuation correction demonstrate relative uniform tracer uptake and myocardial perfusion appearing within normal limits. There is end systolic thickening and brightening. The gated Cardiolite study demonstrates myocardial thickening and inward wall motion. The reported LVEF is 49%. Impression: 1. Rest and stress SPECT Cardiolite nuclear imaging demonstrate relative uniform tracer uptake and myocardial perfusion appearing within normal limits. 2. The gated Cardiolite study reports an LVEF of 49=%. This note was generated with Citizengineation software. It may contain incorrect words, spelling, and punctuation that were not noted in checking the note before signing.
== END 2021-08-01 23:59 | disposition home or self-care (01) ==
LOC: CVS 07:15
PROVIDERS: PCP Family Medicine; Referring Provider Internal Medicine Cardiovascular Disease; Visit Provider Internal Medicine Cardiovascular Disease
DX: I44.7 Left bundle-branch block, unspecified (principal); R94.31 Abnormal electrocardiogram [ECG] [EKG]
CPT/HCPCS: 78452; 93017; A9500; A4216; J2785

== ENCOUNTER 2021-08-30 11:18 | Outpatient (CLI) | payer OTHER, SELFPAY ==
[2021-08-30 11:59] LABS: Absolute Lymphocyte Count 1.07 X10^3/uL (0.83-4.51); Absolute Neutrophil Count 13.2 X10^3/uL (2.0-7.7); Basophil# 0.06 X10^3/uL; Basophil% 0.4 % (0-1); Eosinophil# 0.08 X10^3/uL; Eosinophils% 0.5 % (0-5); Hematocrit 39.9 % (37-47); Hemoglobin 13.4 g/dL (12.0-15.0); Lymphocyte # 1.07 X10^3/ul (0.83-4.51); Mean Corp Hgb Conc 33.6 g/dL (32-36); Mean Corpuscular Hgb 29.9 pg (27.0-32.0); Mean Corpuscular Volume 89.1 fL (81-99); Mean Platelet Vol. 9.7 fl (6.2-12.0); Monocyte# 0.75 X10^3/uL; Monocyte% 4.9 % (0-10); NRBC Flagged by Analyzer 0 % (0-5); Neutrophil # 13.18 X10^3/uL (2.7-7.7); Neutrophil % 85.8 % (47-70); Platelet Count 349 K/mm3 (150-450); RBC Distribution Width CV 13.7 % (11.6-14.6); RBC Distribution Width SD 44.7 fl (35.1-43.9); Red Blood Count 4.48 M/mm3 (4.2-5.4); White Blood Count 15.4 K/mm3 (4.4-11.0)
[2021-08-30 12:11] LABS: Anion Gap 4 (5-15); BUN 33 mg/dL (7-18); BUN/Creat Ratio 38.6 RATIO (10-20); Calcium,Total 9.2 mg/dL (8.5-10.1); Chloride 104 mmol/L (98-107); Creatinine, Serum 0.86 mg/dL (0.55-1.02); EST Glomerular Filtration Rate 71 mL/min (>60); Est Glom Filt Rate - Afr Amer 86 mL/min (>60); Glucose 161 mg/dL (74-106); Potassium 4.5 mmol/L (3.5-5.1); Sodium Level 137 mmol/L (136-145)
[2021-08-30 15:13] LABS: Erythrocyte Sedimentation Rate 8 mm/hr (0-30)
== END 2021-08-30 23:59 | disposition home or self-care (01) ==
PROVIDERS: PCP Family Medicine; Visit Provider Physician Assistant Medical
DX: M16.9 Osteoarthritis of hip, unspecified (principal)
CPT/HCPCS: 36415; 80048; 85025; 85652; 86140

== ENCOUNTER → 2022-03-15 | Outpatient (CLI) | payer OTHER, SELFPAY ==
[2022-03-15 12:36] LABS: Erythrocyte Sedimentation Rate 3 mm/hr (0-30)
[2022-03-15 12:40] LABS: Absolute Lymphocyte Count 3.15 X10^3/uL (0.83-4.51); Absolute Neutrophil Count 4.3 X10^3/uL (2.0-7.7); Basophil# 0.11 X10^3/uL; Basophil% 1.3 % (0-1); Eosinophil# 0.22 X10^3/uL; Eosinophils% 2.6 % (0-5); Hematocrit 36.1 % (37-47); Hemoglobin 12.1 g/dL (12.0-15.0); Lymphocyte # 3.15 X10^3/ul (0.83-4.51); Mean Corp Hgb Conc 33.5 g/dL (32-36); Mean Corpuscular Volume 89.6 fL (81-99); Monocyte# 0.65 X10^3/uL; Monocyte% 7.6 % (0-10); NRBC Flagged by Analyzer 0 % (0-5); Neutrophil # 4.33 X10^3/uL (2.7-7.7); Neutrophil % 50.9 % (47-70); Platelet Count 337 K/mm3 (150-450); RBC Distribution Width CV 14.6 % (11.6-14.6); RBC Distribution Width SD 48.1 fl (35.1-43.9); Red Blood Count 4.03 M/mm3 (4.2-5.4); White Blood Count 8.5 K/mm3 (4.4-11.0)
[2022-03-15 12:49] LABS: Vitamin D,25 Hydroxy 36.2 ng/mL
[2022-03-15 12:58] LABS: ALB/GLOB Ratio 1.1 RATIO (0.9-2.4); AST(SGOT) 25 U/L (15-37); Alanine Aminotransfer ALT/SGPT 37 U/L (13-56); Albumin, Serum 3.7 g/dL (3.2-5.0); Alkaline Phosphatase 65 U/L (45-117); Anion Gap 4 (5-15); BUN 31 mg/dL (7-18); BUN/Creat Ratio 27.2 RATIO (10-20); CRP < 2.90 mg/L (0.0-3.0); Calcium,Total 9.3 mg/dL (8.5-10.1); Chloride 108 mmol/L (98-107); Cholesterol 217 mg/dL (200); Creatinine, Serum 1.14 mg/dL (0.55-1.02); EST Glomerular Filtration Rate 51 mL/min (>60); Est Glom Filt Rate - Afr Amer 62 mL/min (>60); Free T3 2.1 pg/mL (2.18-3.98); Globulin 3.4 g/dL (2.2-4.2); Glucose 108 mg/dL (74-106); High Density Lipoprotein 58 mg/dL; Potassium 5.1 mmol/L (3.5-5.1); Protein, Total 7.1 g/dL (6.4-8.2); Sodium Level 140 mmol/L (136-145); T4 Free Direct 1.13 ng/dL (0.76-1.46); Thyroid Stim Hormone (TSH) 6.35 uIU/mL (0.358-3.74); Triglycerides 183 mg/dL; Very Low Density Lipoprotein 37 mg/dL (5-40)
== END | disposition home or self-care (01) ==
PROVIDERS: PCP Family Medicine; Visit Provider Family Medicine
DX: E03.9 Hypothyroidism, unspecified (principal); E11.9 Type 2 diabetes mellitus without complications; E55.9 Vitamin D deficiency, unspecified; M25.50 Pain in unspecified joint; E78.5 Hyperlipidemia, unspecified
CPT/HCPCS: 36415; 80053; 80061; 82306; 84439; 84443; 84481; 85025; 85652; 86140

== ENCOUNTER 2022-04-13 13:17 | Outpatient (CLI) | payer BC, SELFPAY ==
--- NOTE | 2022-04-13 13:26 | CT_ITS ---
EXAM: CT CHEST, LUNG CANCER SCREENING WITHOUT INTRAVENOUS CONTRAST CLINICAL INDICATION: LUNG CANCER SCREENING TECHNIQUE: Helically acquired images were obtained of the chest without intravenous contrast using low dose (LDCT) lung cancer screening protocol. This CT exam was performed using one or more of the following dose reduction techniques: automated exposure control, adjustment of the mA and/or kV according to patient size, and/or use of iterative reconstruction technique. This report was created using [employer] report generation technology. COMPARISON: CT chest 04/09/2018 FINDINGS: LUNGS AND PLEURAL SPACES: Stable 3 mm right upper lobe pulmonary nodule on image 120 of sequence 2. 2 mm calcified granulomata within the right upper and left lower lobes. Lungs are otherwise clear. No pleural effusion or thickening. No pneumothorax. HEART: Normal. Heart size is normal. No pericardial effusion. No significant coronary artery calcifications. MEDIASTINUM: Normal. No mediastinal or hilar adenopathy. Esophagus is unremarkable. No hiatal hernia. THYROID: Normal. No thyroid lesions. BONES/JOINTS: Normal. No suspicious lytic or blastic abnormality. VASCULATURE: Normal. Thoracic aorta is non-dilated. LYMPH NODES: Normal. No enlarged lymph nodes. CT/Low Dose CT Lung Screening IMPRESSION: 1. Stable 3 mm right upper lobe pulmonary nodule. 2. ACR Lung CT Screening Reporting T Data System (Lung-RADS) score: 2 - Benign Appearance or Behavior. Recommend continued annual screening with low-dose CT (LDCT) in 12 months. Electronically Signed: Romario Paredes MD at 14:07 EST ,
== END 2022-04-13 23:59 | disposition home or self-care (01) ==
PROVIDERS: PCP Family Medicine; Visit Provider Family Medicine
DX: Z12.2 Encounter for screening for malignant neoplasm of respiratory organs (principal); R91.1 Solitary pulmonary nodule
CPT/HCPCS: 71271

== ENCOUNTER 2022-07-10 05:15 | Day surgery (SDC) | payer BC, SELFPAY ==
[2022-07-10] VITALS (8 sets, daily range): BP systolic 90–134; BP diastolic 62–69; PULSE 88–110; RESP 14–18; TEMP 36.3–37.2; O2SAT 95–100; BMI 37.2
[2022-07-10] MEDS: Lactated Ringers 1,000 ML 15 ML IV (05:57)
[2022-07-10 06:25] LABS: Bedside Glucose 128 mg/dL (74-106)
--- NOTE | 2022-07-10 06:30 | EGD_PTH ---
PATIENT: SHIVA JHAVERI LOC: EN U#:[id number] AGE/SX: 62/F ROOM: RE07/10/[address]: Dr. Seng Mason DO : 1960 BED: DIS: 07/10/2022 SPEC #: [id number] RECD: 07/10/22 08:38 STATUS: AMY REClemente #: [id number] SARAH: 07/10/22 06:[address]: Seng Mason DEPT: SURGICAL PATHOLOGY RECD BY: Lizbeth Coronado ENTERED: 07/10/22 10:12 SP TYPE: EGD BIOPSY OT DR: Dr. Nicole Moreno DO Tissues: A - Esophagus, NOS B - Duodenum, NOS C - Descending colon Procedures: Special Stain Group II Surgery Specimen Level IV Alcian Blue/PAS (control) HEADER OPERATION: Colonoscopy with polypectomy, EGD with biopsy [place] [place] PRE-OP DIAGNOSIS: Esophageal pain, colon polyp, constipation TISSUE SUBMITTED: A ? Distal esophagus biopsy, B ? Duodenal biopsy, C ? Descending colon polyp MICROSCOPIC DIAGNOSIS A. Distal esophagus, biopsy: Gastroesophageal junctional mucosa with mild chronic inflammation. Focal changes of reflux. No evidence of goblet cell metaplasia. See comment. B. Duodenum, biopsy: No pathologic change. C. Descending colon polyp, biopsy: Tubular adenoma. AM:marshall 07/11/2022 COMMENT A. Alcian blue/PAS stain with matched control supports the above diagnosis. MICROSCOPIC DESCRIPTION Slides are reviewed. GROSS DESCRIPTION A - Received in fixative is one container labeled with the patient's name and designated distal esophagus biopsy. The specimen consists of multiple irregular fragments of light garcia soft tissue that in aggregate measure 1.0 x 0.4 x 0.1 cm. The specimen is totally submitted in one cassette. B - Received in fixative is one container labeled with the patient's name and designated duodenal biopsy. The specimen consists of two irregular fragments of light garcia soft tissue that in aggregate measure 0.6 x 0.3 x 0.1 cm. The specimen is totally submitted in one cassette. C - Received in fixative is one container labeled with the patient's name and designated descending colon polyp. The specimen consists of multiple irregular fragments of light garcia soft tissue mixed with fecal material that in aggregate measure 1.0 x 0.5 x 0.1 cm. The specimen is totally submitted in one cassette. / SJ:rg 07/10/2022 TC:5 CPT: 61906 x3, 27001
--- NOTE | 2022-07-10 07:06 | HP.PCM_ITS ---
History and Physical Date of Admission: 07/10/22 SHIVA JHAVERI, is a 62 F who presents to the office today to establish with GI for knifelike pain when swallowing food, doesn't matter what she eats, doesn't happen every time she eats, doesn't occur with liquids, occurs most days. May have started years ago but worse since Summer 2021. She is now taking pantoprazole but no relief of the esophageal pain. Doesn't feel like esophagus is spasming. Rarely has heartburn or acid reflux. No choking. Frequent nausea and dry heaves, good relief with ondansetron, thinks related to stress. Started before being on Ozempic, not worse on Ozempic, not better when not taking Ozempic (due to shortage). Always bloated, worse after eating. Currently having BM every 3 days. Doesn't take anything for constipation. Stool is hard, has to strain. No recent diarrhea. Wakes in night with pain across lower abd, feels need to have BM, has tenesmus. No melena or hematochezia. No prior EGD Hx colon polyp, says she's overdue for colonoscopy, at least 5 yrs ago ROS Const Constitutional: Positive for fatigue, frequent falls, headache(s) and weakness ENT ENT: Positive for headache(s) and difficulty swallowing Gastro GI: Positive for abdominal pain, bloating, change in bowel habits, constipation, diarrhea, heartburn, difficulty swallowing, excessive flatus, nausea/dyspepsia and vomiting; No belching, change in stool character, coffee ground emesis, cramping, feeling full early, incontinent of stools, Vomiting blood/hematemesis, Blood in stool, loose stools, Black,tarry stools, pain with swallowing or other Musc Musculoskeletal: Positive for abnormal gait, joint pain, joint swelling, muscle cramps, muscle weakness and stiffness Skin Skin: No yellowing of the eye or itchy eyes Neuro Neurology: Positive for abnormal gait, weakness, frequent falls and headache(s) Psych Psychiatric: Positive for anxiety and Positive for depression Endo Endocrine: Positive for fatigue Aller/Imm Allergy/Immunologic: No itchy eyes Kiet/Lymp Hematologic/Lymphatic: No easy bleeding or easy bruising Exam Const General: cooperative and comfortable Nutritional Appearance: obese Orientation: alert, awake and oriented x3 HENMT Head: normal to inspection Eyes Sclera: sclerae normal Resp Effort & Inspection: normal respiratory effort GI Inspection: obesity Palpation: soft and nontender Quality Reporting Tobacco Screening ([facility]) Smoking Status: Never smoker Assessment and Plan Assessment and Plan (1) Esophageal pain: ?Status:?Chronic ?Plan: 62 yr old female with esophageal pain with eating, chronic nausea, constipation DDx includes esophagitis, Javier's, esophageal dysmotility, gastroparesis Consider gastric emptying study Continue pantoprazole 40 mg daily Add sucralfate liquid Schedule EGD and colonoscopy, with office f/u 2 wks later (2) Colon polyp: ?Status:?Acute ?Plan: Colonoscopy (3) Constipation: ?Status:?Chronic ?Plan: We discussed a variety of options including miralax, fiber choice tablets, aloe vera gel capsules ? ? ? Medications: New sucralfate 10 mL? PO QAC 1,000 mL 0RF ? ? I have examined the patient and the H&P has been reviewed. There are no clinical changes since date of exam.
--- NOTE | 2022-07-10 07:12 | OP.EGD_ITS ---
Patient Name: Altagracia Covarrubias Procedure Date: 07/10/2022 6:32 AM Date of : 1960 Age: 62 Procedure: Upper GI endoscopy Indications: Persistent vomiting of unknown cause, Epigastric abdominal pain Providers: Seng Mason DO Referring MD: Seng Mason DO Medicines: Monitored Anesthesia Care Patient Profile: This is a 62 year old female. Refer to note in patient chart for documentation of history and physical. Patient has symptoms of chronic dyspepsia, chronic nausea and chronic vomiting. Complications: No immediate complications. Procedure: Pre-Anesthesia Assessment: - Prior to the procedure, a History and Physical was performed, and patient medications and allergies were reviewed. The risks and benefits of the procedure and the sedation options and risks were discussed with the patient. All questions were answered and informed consent was obtained. Patient identification and proposed procedure were verified by the physician in the pre-procedure area. Mental Status Examination: alert and oriented. Airway Examination: normal oropharyngeal airway and neck mobility. CV Examination: normal. Prophylactic Antibiotics: The patient does not require prophylactic antibiotics. Prior Anticoagulants: The patient has taken no previous anticoagulant or antiplatelet agents. ASA Grade Assessment: II - A patient with mild systemic disease. After reviewing the risks and benefits, the patient was deemed in satisfactory condition to undergo the procedure. The anesthesia plan was to use monitored anesthesia care (MAC). Immediately prior to administration of medications, the patient was re-assessed for adequacy to receive sedatives. The heart rate, respiratory rate, oxygen saturations, blood pressure, adequacy of pulmonary ventilation, and response to care were monitored throughout the procedure. The physical status of the patient was re-assessed after the procedure. After obtaining informed consent, the endoscope was passed under direct vision. Throughout the procedure, the patient's blood pressure, pulse, and oxygen saturations were monitored continuously. The Colonoscope was introduced through the mouth, and advanced to the second part of duodenum. The upper GI endoscopy was accomplished without difficulty. The patient tolerated the procedure well. Scope In: 6:46:02 AM Scope Out: 6:50:06 AM Total Procedure Duration Time 0 hours 4 minutes 4 seconds Findings: Non-severe esophagitis with no bleeding was found 35 to 37 cm from the incisors. Biopsies were taken with a cold forceps for histology. Verification of patient identification for the specimen was done. Estimated blood loss was minimal. A medium amount of food (residue) was found in the gastric body. Bilious fluid was found in the gastric body. Patchy mildly erythematous mucosa without active bleeding and with no stigmata of bleeding was found in the duodenal bulb. Biopsies were taken with a cold forceps for histology. Verification of patient identification for the specimen was done. Estimated blood loss was minimal. Impression: - Non-severe reflux esophagitis. Biopsied. - A medium amount of food (residue) in the stomach. - Bilious gastric fluid. Bile gastritis - Erythematous duodenopathy. Biopsied. Recommendation: - Discharge patient to home. - Resume previous diet. - Continue present medications. - Await pathology results. Procedure Code(s): --- Professional --- 61402, Esophagogastroduodenoscopy, flexible, transoral; with biopsy, single or multiple CPT copyright 2017 [employer]. All rights reserved. The codes documented in this report are preliminary and upon plastic frame inserter review may be revised to meet current compliance requirements. Seng Mason DO 07/10/2022 7:11:54 AM This report has been signed electronically. Number of Addenda: 0 Note Initiated On: 07/10/2022 6:32 AM
--- NOTE | 2022-07-10 07:13 | OP.CCLET_ITS ---
07/10/2022 Nicole Moreno [address] [place] [address] Re : Upper GI endoscopy procedure for Altagracia Covarrubias Dear Dr. Moreno This procedure was performed on Sunday, July 10, 2022. My impressions and recommendations are as follows: Impressions : - Non-severe reflux esophagitis. Biopsied. - A medium amount of food (residue) in the stomach. - Bilious gastric fluid. Bile gastritis - Erythematous duodenopathy. Biopsied. Recommendations : - Discharge patient to home. - Resume previous diet. - Continue present medications. - Await pathology results. My findings are described in the full procedure note, which is enclosed. If I can be of further assistance, please feel free to contact me at . Sincerely, Seng Mason, 07/10/2022 7:11:54 AM This report has been signed electronically.
--- NOTE | 2022-07-10 07:17 | OP.COLON_ITS ---
Patient Name: Altagracia Covarrubias Procedure Date: 07/10/2022 6:50 AM Date of : 1960 Age: 62 Procedure: Colonoscopy Indications: Follow-up for history of adenomatous polyps in the colon Providers: Seng Mason DO Referring MD: Seng Mason DO Medicines: Monitored Anesthesia Care Patient Profile: This is a 62 year old female. Refer to note in patient chart for documentation of history and physical. Patient has symptoms of chronic dyspepsia, chronic nausea and chronic vomiting. Last Colonoscopy: 5 years ago. Complications: No immediate complications. Procedure: Pre-Anesthesia Assessment: - Prior to the procedure, a History and Physical was performed, and patient medications and allergies were reviewed. The risks and benefits of the procedure and the sedation options and risks were discussed with the patient. All questions were answered and informed consent was obtained. Patient identification and proposed procedure were verified by the physician in the pre-procedure area. Mental Status Examination: alert and oriented. Airway Examination: normal oropharyngeal airway and neck mobility. CV Examination: normal. Prophylactic Antibiotics: The patient does not require prophylactic antibiotics. Prior Anticoagulants: The patient has taken no previous anticoagulant or antiplatelet agents. ASA Grade Assessment: II - A patient with mild systemic disease. After reviewing the risks and benefits, the patient was deemed in satisfactory condition to undergo the procedure. The anesthesia plan was to use monitored anesthesia care (MAC). Immediately prior to administration of medications, the patient was re-assessed for adequacy to receive sedatives. The heart rate, respiratory rate, oxygen saturations, blood pressure, adequacy of pulmonary ventilation, and response to care were monitored throughout the procedure. The physical status of the patient was re-assessed after the procedure. After I obtained informed consent, the scope was passed under direct vision. Throughout the procedure, the patient's blood pressure, pulse, and oxygen saturations were monitored continuously. The Colonoscope was introduced through the anus and advanced to the cecum, identified by appendiceal orifice and ileocecal valve. The colonoscopy was performed without difficulty. The patient tolerated the procedure well. The quality of the bowel preparation was good. Scope In: 6:52:35 AM Scope Withdrawal Time 0 hours 4 minutes 45 seconds Scope Out: 7:02:28 AM Total Procedure Duration Time 0 hours 9 minutes 53 seconds Findings: The perianal and digital rectal examinations were normal. A moderate amount of stool was found in the rectum, in the recto-sigmoid colon, in the sigmoid colon, in the transverse colon, in the ascending colon and in the cecum, precluding visualization. A 5 mm polyp was found in the descending colon. The polyp was sessile. The polyp was removed with a hot snare. Resection and retrieval were complete. Verification of patient identification for the specimen was done. Estimated blood loss was minimal. Impression: - Stool in the rectum, in the recto-sigmoid colon, in the sigmoid colon, in the transverse colon, in the ascending colon and in the cecum. - One 5 mm polyp in the descending colon, removed with a hot snare. Resected and retrieved. Recommendation: - Repeat colonoscopy in 6 months because the bowel preparation was suboptimal. - Continue present medications. Procedure Code(s): --- Professional --- 86617, Colonoscopy, flexible; with removal of tumor(s), polyp(s), or other lesion(s) by snare technique CPT copyright 2017 [employer]. All rights reserved. The codes documented in this report are preliminary and upon pig iron loader review may be revised to meet current compliance requirements. Seng Mason DO 07/10/2022 7:17:16 AM This report has been signed electronically. Number of Addenda: 0 Note Initiated On: 07/10/2022 6:50 AM
--- NOTE | 2022-07-10 07:18 | OP.CCLET_ITS ---
07/10/2022 Nicole Moreno [address] [place] [address] Re : Colonoscopy procedure for Altagracia Covarrubias Dear Dr. Moreno This procedure was performed on Sunday, July 10, 2022. My impressions and recommendations are as follows: Impressions : - Stool in the rectum, in the recto-sigmoid colon, in the sigmoid colon, in the transverse colon, in the ascending colon and in the cecum. - One 5 mm polyp in the descending colon, removed with a hot snare. Resected and retrieved. Recommendations : - Repeat colonoscopy in 6 months because the bowel preparation was suboptimal. - Continue present medications. My findings are described in the full procedure note, which is enclosed. If I can be of further assistance, please feel free to contact me at . Sincerely, Seng Mason, 07/10/2022 7:17:16 AM This report has been signed electronically.
== END 2022-07-10 08:13 | disposition home or self-care (01) ==
LOC: EN 05:16 → AC 05:17
PROVIDERS: PCP Family Medicine; Referring Provider Family Medicine; Visit Provider Internal Medicine Gastroenterology
PROC: 0DJD8ZZ Inspection of Lower Intestinal Tract, Via Natural or Artificial Opening Endoscopic (ICD-10-PCS; CPT 45378; principal; 2022-07-10 06:25)
DX: K29.70 Gastritis, unspecified, without bleeding (principal); K59.00 Constipation, unspecified; K21.00 Gastro-esophageal reflux disease with esophagitis, without bleeding; K63.5 Polyp of colon; Z86.010 Personal history of colon polyps; R11.0 Nausea
CPT/HCPCS: 45385; 43239; 82962; 88305; 88313; J7120; J2405

== ENCOUNTER → 2022-10-05 | Outpatient (CLI) | payer BC, SELFPAY ==
[2022-10-05 18:04] LABS: Erythrocyte Sedimentation Rate 6 mm/hr (0-30)
[2022-10-05 18:06] LABS: Absolute Neutrophil Count 3.6 X10^3/uL (2.0-7.7); Basophil# 0.06 X10^3/uL; Basophil% 0.7 % (0-1); Eosinophil# 0.19 X10^3/uL; Eosinophils% 2.2 % (0-5); Hematocrit 35.4 % (37-47); Hemoglobin 11.4 g/dL (12.0-15.0); Lymphocyte % 47.1 % (19-41); Mean Corp Hgb Conc 32.2 g/dL (32-36); Mean Corpuscular Hgb 29.2 pg (27.0-32.0); Mean Corpuscular Volume 90.8 fL (81-99); Mean Platelet Vol. 10.2 fl (6.2-12.0); Monocyte# 0.65 X10^3/uL; Monocyte% 7.7 % (0-10); NRBC Flagged by Analyzer 0 % (0-5); Neutrophil # 3.55 X10^3/uL (2.7-7.7); Neutrophil % 41.8 % (47-70); Platelet Count 359 K/mm3 (150-450); RBC Distribution Width CV 14.2 % (11.6-14.6); RBC Distribution Width SD 47.2 fl (35.1-43.9); White Blood Count 8.5 K/mm3 (4.4-11.0)
[2022-10-05 18:38] LABS: Hemoglobin A1c 5.5 % (3.8-5.6)
[2022-10-05 18:39] LABS: Vitamin D,25 Hydroxy 60.4 ng/mL
[2022-10-05 18:50] LABS: AST(SGOT) 29 U/L (15-37); Alanine Aminotransfer ALT/SGPT 34 U/L (13-56); Albumin, Serum 3.8 g/dL (3.2-5.0); Alkaline Phosphatase 44 U/L (45-117); Anion Gap 4 (5-15); BUN 24 mg/dL (7-18); BUN/Creat Ratio 23.8 RATIO (10-20); CRP < 2.90 mg/L (0.0-3.0); Calcium,Total 9.5 mg/dL (8.5-10.1); Chloride 108 mmol/L (98-107); Creatinine, Serum 1.01 mg/dL (0.55-1.02); EST Glomerular Filtration Rate 59 mL/min (>60); Est Glom Filt Rate - Afr Amer 71 mL/min (>60); Globulin 3.7 g/dL (2.2-4.2); Glucose 103 mg/dL (74-106); Microalbumin,Random Urine 11.6 mg/L (NO RANGE EST.); Microalbumin:Creatinine Ratio 5.9 mg/g CRE (<30 mg/g CRE); Potassium 4.1 mmol/L (3.5-5.1); Protein, Total 7.5 g/dL (6.4-8.2); Sodium Level 140 mmol/L (136-145); T4 Free Direct 1.89 ng/dL (0.76-1.46); Thyroid Stim Hormone (TSH) 0.07 uIU/mL (0.358-3.74)
== END | disposition home or self-care (01) ==
LOC: BFHLAB 14:56
PROVIDERS: PCP Family Medicine; Referring Provider Family Medicine; Visit Provider Family Medicine
DX: E03.9 Hypothyroidism, unspecified (principal); E11.9 Type 2 diabetes mellitus without complications; E55.9 Vitamin D deficiency, unspecified; M25.50 Pain in unspecified joint; Z51.81 Encounter for therapeutic drug level monitoring
CPT/HCPCS: 80053; 82043; 82306; 82570; 83036; 84439; 84443; 84481; 85025; 85652; 86140

== ENCOUNTER → 2022-10-30 | Outpatient (CLI) | payer BC, SELFPAY ==
--- NOTE | 2022-10-30 15:33 | BI_ITS ---
MAMMOGRAPHY - BILATERAL SCREENING REASON FOR EXAM: Female, 62 years old. Routine annual screening examination. PERTINENT HISTORY: Aunt with breast cancer. TECHNIQUE: Digital bilateral breast nasra (3D mammographic acquisition) in the CC and MLO projections. 2-D mediolateral oblique (MLO) and craniocaudad (CC) views of both breasts were obtained. CAD: Full Field Digital Mammography with Computer Added Detection was performed. COMPARISON: Comparison is made with prior outside examination dated May 11, 2010 and March 25, 2015. FINDINGS: Breast Composition: The breasts are almost entirely fatty. There are no dominant masses or suspicious calcifications. Stable benign appearing bilateral axillary nodes. No other significant abnormalities are identified. There has been no significant change since the prior study. BI/SCRN MAMM (CAD)W/NASRA BILAT IMPRESSION: Stable bilateral screening mammogram. Yearly follow-up mammogram recommended. (A) ASSESSMENT CATEGORY: BIRADS Category 2: Benign. A letter regarding these results will be sent to the patient by the facility within 30 days. Approximately 10% of breast cancers are not detected by mammography. A normal mammogram should not delay biopsy of a clinically suspicious abnormality. [id number] Electronically Signed: Ramiro Jang MD at 12:59 EDT ,
== END | disposition home or self-care (01) ==
LOC: OPBI 15:32
PROVIDERS: PCP Family Medicine; Referring Provider Family Medicine; Visit Provider Family Medicine
DX: Z12.31 Encounter for screening mammogram for malignant neoplasm of breast (principal); Z80.3 Family history of malignant neoplasm of breast
CPT/HCPCS: 77063; 77067

== ENCOUNTER 2022-12-09 13:34 | Emergency (ER) | payer BC, SELFPAY ==
[2022-12-09 13:36] VITALS: BP 163/78; PULSE 135; RESP 18; TEMP 38.4; O2SAT 95; BMI 34.0
--- NOTE | 2022-12-09 13:48 | EDS_ITS ---
HPI History of Present Illness Chief Complaint: General Illness Detail of Chief Complaint: Fever, cough and body aches and sore throat. Informant: patient Onset/Context/Timing Onset: Today and Yesterday Context: Gradual Onset Timing: Continuous Current Severity: Mild Maximum Severity: Mild Narrative Narrative: 62-year-old female history of diabetes and left bundle branch block. Yesterday started feeling poorly with a sore throat. Today developed a fever as high as 104. Some nausea and vomiting. No diarrhea. No dysuria. Sore throat and nonproductive cough. No recent exposure. Prior tonsillectomy. Able to swallow. Prior similar symptoms: Yes Recent Illness/Hospitalization: No PFSH PFSH Medical History ADHD (attention deficit hyperactivity disorder) Anemia Anxiety Asthma BiPAP (biphasic positive airway pressure) dependence Cancer Cardiology follow-up encounter Cardiomyopathy Carpal tunnel syndrome Cataracts, bilateral Depression Diabetes Dietary restriction Difficulty swallowing Easy bruising Essential hypertension Fatty liver Former smoker History of echocardiogram History of edema History of irregular heartbeat History of pain when walking History of stress test Hypertension Hypothyroidism Hypothyroidism Injury of head and neck LBBB (left bundle branch block) LBBB (left bundle branch block) Leg cramps Migraine headache Mixed hyperlipidemia Nausea Nerve damage Neuropathy NATY (obstructive sleep apnea) Premature atrial contraction Premature ventricular contraction Shortness of breath on exertion Wears glasses Home Medications levalbuterol tartrate 45 mcg/actuation aerosol inhaler (Xopenex HFA) 2 inh inhalation Q6H PRN SOB 06/12/21 [History Last Taken Unknown] levothyroxine 100 mcg tablet 125 mcg PO DAILY 06/12/21 [History Last Taken 07/10/22] oxycodone 10 mg tablet 10 mg PO Q4H PRN Pain 06/12/21 [History Last Taken Unknown] metoprolol tartrate 25 mg tablet 25 mg PO BID #60 tabs 07/06/21 [Rx Last Taken 07/10/22] hydrochlorothiazide 25 mg tablet 25 mg PO DAILY 04/17/22 [History Last Taken Unknown] lisinopril 10 mg tablet 10 mg PO QHS 04/17/22 [History Last Taken Unknown] mecobalamin (vitamin B12) 10,000 mcg solution for injection 10,000 mcg IM MONTHLY 04/17/22 [History Last Taken Unknown] metformin 500 mg tablet,extended release 24 hr 500 mg PO DAILY 04/17/22 [History Last Taken Unknown] pantoprazole 40 mg tablet,delayed release (Protonix) 40 mg PO DAILY 04/17/22 [History Last Taken Unknown] semaglutide 1 mg/dose (2 mg/1.5 mL) subcutaneous pen injector (Ozempic) 0.5 mg subcut FR 04/17/22 [History Last Taken Unknown] azithromycin 250 mg tablet (Zithromax) 250 mg PO DAILY 4 days #4 tabs 12/09/22 [Rx Last Taken Unknown] ondansetron 4 mg disintegrating tablet 4 mg PO Q8H PRN nausea and vomiting #7 tabs 12/09/22 [Rx Last Taken Unknown] Allergy/AdvReac Type Severity Reaction Status Date / Time gabapentin Allergy Unknown Shortness Verified 10/23/22 14:56 of breath hydrocodone AdvReac Mild Nausea Verified 10/23/22 14:56 codeine AdvReac Unknown unknown Verified 10/23/22 14:56 morphine AdvReac mental Verified 10/23/22 14:56 status changes Family History Sister Alcoholism Father Arthritis Bleeding disorder H/O transfusion of whole blood Diabetes Heart disease Mother Thyroid disorder Grandfather Myocardial infarction, Onset Age: 46 Surgical History Carcinoma in situ of skin of neck H/O bilateral hip replacements H/O left knee surgery H/O total hysterectomy History of cardiac catheterization History of colonoscopy History of left heart catheterization (LHC) (~09/24/13) Hx of colonoscopy Hx of esophagogastroduodenoscopy plantar fasciotomy Social History Smoking Status: Former smoker alcohol intake: current alcohol intake frequency: holidays/special occasions only substance use type: does not use caffeine: Yes what type of physical activity do you participate in: walking frequency: 3-4 times per week ROS ROS ED ROS Narrative Fever, cough and vomiting. Review of Systems ROS Unobtainable: Denies due to encephalopathy Constitutional Constitutional ED: Reports fever(s) Eyes Eyes: Denies blurry vision ENT ENT ED: Reports sore throat; Denies ear pain or rhinorrhea Cardiovascular Cardiovascular: Denies chest pain Respiratory/Chest Respiratory/Chest: Reports cough Gastrointestinal Gastrointestinal: Reports nausea and vomiting; Denies abdominal pain Genitourinary Genitourinary ED: Denies dysuria or hematuria Musculoskeletal Musculoskeletal: Reports myalgias; Denies arthralgias Integumentary Denies abscess Neurologic Neurologic: Denies headache(s) Psychiatric Psychiatric: Denies anxiety Endocrine Endocrinology: Denies cold intolerance Hematologic/Lymphatic Hematologic/Lymphatic: Reports none Allergic/Immunologic Allergic/Immunologic ED: Denies mouth swelling, tongue swelling or urticaria EXAM Physical Exam Narrative Exam Narrative: 62-year-old female no acute distress. Clinically looks like she does not feel well does not look septic or toxic. Fever one 1.2. Blood pressure 163/78. Pulse ox 95% on room air no signs hypoxia. HEENT exam TMs normal. Posterior pharynx is without erythema or exudate. No trouble swallowing or breathing. She has had a prior tonsillectomy. No stridor or drooling. Neck nontender no meningismus. No lymphadenopathy. Lungs clear to auscultation bilaterally. Dry cough. Equal symmetrical. No rales, rhonchi or wheezing. Heart tachycardic no murmur. Abdomen soft nontender normal bowel sounds no peritoneal signs. Moving all 4 extremities. Nontender no edema. Skin no rashes. Back nontender. Neurologically she is awake and alert with no focal motor deficits. Const Vital Signs: 12/09/22 13:36 12/09/22 13:56 Temperature 101.2 F H Temperature Source Temporal Pulse Rate 135 H Respiratory Rate 18 Respiratory Effort Normal Blood Pressure 163/78 H Blood Pressure Mean 106 Pulse Ox 95 Oxygen Delivery Method Room Air Positive well nourished and well developed; Negative for cachectic, contractures or unkempt General Appearance ED: well developed and NAD; Negative for unkempt, cachectic, contractures, cyanotic or diaphoretic Nutritional Appearance: Negative for cachectic HEENT Reports moist mucous membranes; Denies dry mucous membranes Negative for trauma or tenderness Mouth ED: No dry mucous membranes Mouth: No dry mucous membranes Eyes PERRL and EOMs intact bilaterally General Eye ED: Negative for pale conjunctiva or scleral icterus Neck no lymphadenopathy, supple and no JVD General: Negative for tenderness Lymph Lymphatic: Negative for other Chest Wall inspection of chest normal and palpation of chest normal Resp normal respiratory effort and clear to auscultation bilaterally Resp Narrative: Dry cough. Effort and Inspection: Negative for retractions Auscultation: Negative for rales or rhonchi Cardio regular rhythm, S1 normal heart sound, S2 normal heart sound and no murmurs; Negative for regular rate Rate: tachycardic Rhythm: Negative for abnormal rhythm GI normal to inspection, nondistended, normoactive bowel sounds, non-tender, non- distended and no masses Inspection: Negative for abdominal distention Auscultation: normoactive bowel sounds Palpation: soft; Negative for tender or guarding Bladder / Kidney Exam: No other Back/Spine no CVA tenderness General Back: Negative for CVA tenderness Cervical Spine: Negative for cervical spine tenderness Thoracic Spine / Upper Back: Negative for thoracic spinal tenderness Lumbar Spine / Lower Back: Negative for lumbar spinal tenderness Extremity normal to inspection General Extremety ED: Negative for edema or tenderness General Extremity: Negative for edema Neuro oriented x3 and CN's II-XII intact bilaterally Sensorium / Orientation: alert; Negative for orientation impaired, lethargic or stuporous Motor Exam: strength 5/5 throughout Psych mental status grossly normal Appearance: Negative for unkempt Attitude: No agitated Mood & Affect: Negative for depressed, anxious or tearful Skin no rashes or lesions noted, no wounds and skin turgor normal General Skin Exam: elasticity normal; Negative for jaundice Lesions: No lesion noted Rashes: No rashes noted Trauma: Negative for abrasion Wounds: Negative for wounds noted MDM MDM MDM Narrative Medical decision making narrative: 62-year-old female with fever cough and sore throat. Exam benign. COVID and flu test being obtained. Chest x-ray to rule out pneumonia. Rapid strep. Clinically I suspect this to be a viral syndrome. She did not want an IV or IV fluids. She will be given p.o. Zofran for nausea. She did not want Tylenol or Motrin she said they hurt her stomach. Repeat exam patient is resting comfortably at 2:45 PM. Discussed all test results with patient and family. She will be started on Zithromax Z-Pavel given first dose here in 250 mg a day for the next 4 days starting tomorrow. Alternate Tylenol and Motrin for fever. Fluids and rest. Return if worse. Follow-up if she is not improving. Off work next several days. History & Record Review Discussion w/independent historian: Patient Lab Data Attestation: I reviewed the patient's lab results. Lab results narrative: COVID and flu swabs are both negative. Rapid strep negative. Chest x-ray shows a right upper lobe pneumonia. I went over all test results with patient and family. Radiography Chest X-Ray - ED: 2 View, Read by ED Physician, Normal, Heart, Lungs, Mediastinum, Bony Structures, No Acute Disease and Chronic Changes Diagnostic Testing: Clinical Impression(s) from Imaging Studies Chest X-Ray 12/09/22 14:14 IMPRESSION: Right upper lobe infiltrate without effusion. Right upper lobe infiltrates can often due to aspiration. Follow-up recommended to assure resolution Electronically Signed: Klever Aldrich MD at 14:36 EDT , Chest x-ray, 2 views, interpreted by myself and radiologist shows right upper lobe pneumonia. Discharge Plan Triage Chief Complaint: General Illness ED Provider: Timur Frost Dx/Rx/DC Orders Clinical Impression: Pneumonia Instructions: ED Pneumonia (Adult) Prescriptions: New azithromycin [Zithromax] 250 mg tablet 250 mg PO DAILY 4 Days Qty: 4 0RF Rx Instructions: start on day 2 of therapy ondansetron 4 mg tablet,disintegrating 4 mg PO Q8H PRN (Reason: nausea and vomiting) Qty: 7 0RF No Action levalbuterol tartrate [Xopenex HFA] 45 mcg/actuation HFA aerosol inhaler 2 inh inhalation Q6H PRN (Reason: SOB) mecobalamin (vitamin B12) 10,000 mcg recon soln 10,000 mcg IM MONTHLY hydrochlorothiazide 25 mg tablet 25 mg PO DAILY lisinopril 10 mg tablet 10 mg PO QHS metformin 500 mg tablet extended release 24 hr 500 mg PO DAILY Patient Comments: One tablet by mouth daily pantoprazole [Protonix] 40 mg tablet,delayed release (DR/EC) 40 mg PO DAILY Ozempic 1 mg/dose (2 mg/1.5 mL) pen injector 0.5 mg subcut FR levothyroxine 100 mcg tablet 125 mcg PO DAILY oxycodone 10 mg tablet 10 mg PO Q4H PRN (Reason: Pain) metoprolol tartrate 25 mg tablet 25 mg PO BID Qty: 60 11RF Primary Care Provider: Nicole Moreno Referrals: Nicole Moreno, [Primary Care Provider] - 3-5 Days if not improving Activity Restrictions/Additional Instructions: Plenty of liquids and rest. Motrin and Tylenol for fever. Off work next 3 days. Zithromax 1 pill daily starting tomorrow either after breakfast or lunch. Follow-up with your doctor if not improving or return if worse. You have a right upper lobe pneumonia. Disposition Disposition: Home, Self Care
[2022-12-09] MEDS: Ondansetron ODT 4 MG Tablet PO (13:54)
--- NOTE | 2022-12-09 14:14 | RAD_ITS ---
STUDY: X-RAY CHEST REASON FOR EXAM: Female, 62 years old. Cough and fever TECHNIQUE: PA and lateral views of the chest. COMPARISON: 2014 FINDINGS: Lungs are expanded with superimposed right upper lobe infiltrate, no demonstrated effusion. Follow-up recommended to recommend complete resolution. There is no demonstrated pleural abnormality. Normal size heart. Normal mediastinum and valdemar. Normal visualized pulmonary arteries. Normal visualized aortic arch and descending thoracic aorta. There are diffuse degenerative changes of the visualized thoracic spine. Normal visualized ribs, clavicles, and shoulders. There is no demonstrated abnormality of the visualized soft tissue structures of the upper abdomen. RAD/Chest PA and Lateral IMPRESSION: Right upper lobe infiltrate without effusion. Right upper lobe infiltrates can often due to aspiration. Follow-up recommended to assure resolution Electronically Signed: Klever Aldrich MD at 14:36 EDT ,
[2022-12-09] MEDS: Azithromycin 250 MG Tablet 500 MG PO (15:00)
== END 2022-12-09 15:02 | disposition home or self-care (01) ==
PROVIDERS: Emergency Provider Emergency Medicine; PCP Family Medicine; Visit Provider Emergency Medicine
DX: J18.9 Pneumonia, unspecified organism (principal); E11.40 Type 2 diabetes mellitus with diabetic neuropathy, unspecified; Z87.891 Personal history of nicotine dependence; E78.2 Mixed hyperlipidemia; I10 Essential (primary) hypertension; J45.909 Unspecified asthma, uncomplicated; E03.9 Hypothyroidism, unspecified; Z79.899 Other long term (current) drug therapy; Z79.84 Long term (current) use of oral hypoglycemic drugs; Z79.85 Long-term (current) use of injectable non-insulin antidiabetic drugs; Z96.643 Presence of artificial hip joint, bilateral; Z85.828 Personal history of other malignant neoplasm of skin; Z90.710 Acquired absence of both cervix and uterus
CPT/HCPCS: 71046; 87428; 87880; 99283; A4216

== ENCOUNTER → 2023-03-20 | Outpatient (CLI) | payer BC, SELFPAY ==
[2023-03-20 12:53] LABS: Erythrocyte Sedimentation Rate 3 mm/hr (0-30)
[2023-03-20 12:54] LABS: Absolute Lymphocyte Count 2.73 X10^3/uL (0.83-4.51); Absolute Neutrophil Count 2.6 X10^3/uL (2.0-7.7); Basophil# 0.08 X10^3/uL; Basophil% 1.3 % (0-1); Eosinophil# 0.15 X10^3/uL; Eosinophils% 2.4 % (0-5); Hematocrit 35.1 % (37-47); Hemoglobin 11.1 g/dL (12.0-15.0); Lymphocyte # 2.73 X10^3/ul (0.83-4.51); Mean Corp Hgb Conc 31.6 g/dL (32-36); Mean Corpuscular Hgb 28.5 pg (27.0-32.0); Mean Platelet Vol. 10.3 fl (6.2-12.0); Monocyte% 9.7 % (0-10); NRBC Flagged by Analyzer 0 % (0-5); Neutrophil # 2.62 X10^3/uL (2.7-7.7); Neutrophil % 42.3 % (47-70); Platelet Count 352 K/mm3 (150-450); RBC Distribution Width CV 14.6 % (11.6-14.6); RBC Distribution Width SD 48.3 fl (35.1-43.9); White Blood Count 6.2 K/mm3 (4.4-11.0)
[2023-03-20 13:16] LABS: ALB/GLOB Ratio 1.2 RATIO (0.9-2.4); AST(SGOT) 19 U/L (15-37); Alanine Aminotransfer ALT/SGPT 23 U/L (13-56); Albumin, Serum 3.6 g/dL (3.2-5.0); Alkaline Phosphatase 58 U/L (45-117); Anion Gap 3 (5-15); BUN 17 mg/dL (7-18); BUN/Creat Ratio 17.5 RATIO (10-20); CRP < 2.90 mg/L (0.0-3.0); Calcium,Total 9.3 mg/dL (8.5-10.1); Chloride 107 mmol/L (98-107); Cholesterol 192 mg/dL (200); Creatinine, Serum 0.97 mg/dL (0.55-1.02); EST Glomerular Filtration Rate 61 mL/min (>60); Est Glom Filt Rate - Afr Amer 74 mL/min (>60); Ferritin 192 ng/mL (8-252); Free T3 2.3 pg/mL (2.18-3.98); Globulin 3.1 g/dL (2.2-4.2); Glucose 94 mg/dL (74-106); High Density Lipoprotein 64 mg/dL; Iron 62 ug/dL (50-170); Potassium 4.3 mmol/L (3.5-5.1); Protein, Total 6.7 g/dL (6.4-8.2); Sodium Level 141 mmol/L (136-145); T4 Free Direct 1.31 ng/dL (0.76-1.46); Triglycerides 85 mg/dL; Very Low Density Lipoprotein 17 mg/dL (5-40)
== END | disposition home or self-care (01) ==
LOC: BFHLAB 09:29
PROVIDERS: PCP Family Medicine; Referring Provider Family Medicine; Visit Provider Family Medicine
DX: E03.9 Hypothyroidism, unspecified (principal); E11.9 Type 2 diabetes mellitus without complications; M25.50 Pain in unspecified joint; Z51.81 Encounter for therapeutic drug level monitoring; E78.5 Hyperlipidemia, unspecified
CPT/HCPCS: 36415; 80053; 80061; 82728; 83540; 84439; 84443; 84481; 85025; 85652; 86140

== ENCOUNTER → 2023-04-18 | Outpatient (CLI) | payer BC, SELFPAY ==
--- NOTE | 2023-04-18 18:51 | CT_ITS ---
STUDY: LOW DOSE CT LUNG CANCER SCREENING REASON FOR EXAM: Female, 63 years old. ENCOUNTER FOR SCREENING FOR MALIGNANT NEOPLASM OF LUNGS. The patient smoked half a pack per day for 20 years. RADIATION DOSAGE (If Supplied By Facility): CTDIvol = ( 2.39 ) mGy, DLP = ( 78.32 ) mGycm TECHNIQUE: No contrast was administered. Low dose technique was utilized (average mAS-38 and kVp 120). 1.25 mm axial source images with a slice interval of 1.25-mm were reconstructed in lung windows. 2.5 mm axial source images with a slice interval of 2.5-mm were reconstructed in lung windows. 5.0 mm axial source images with a slice interval of 5.0-mm were reconstructed in soft tissue windows. COMPARISON: Comparison is made with prior study April 13, 2022. NODULES: Faint 5.4 mm nodule in the posterior left upper lobe. This measured 3.4 mm on prior study. Stable 3 mm noncalcified nodule in the right upper lobe. Stable calcified granuloma in the left lower lobe and upper right frontal lobe. Emphysema: No significant emphysema is seen. Endobronchial lesion: None Aorta: Unremarkable CORONARY ARTERIES: Coronary artery calcification is not seen. Heart: Unremarkable Pulmonary artery: Unremarkable Mediastinal nodes: Unremarkable. Other chest and abdominal findings: CT/Low Dose CT Lung Screening IMPRESSION: Lung-RADS category 2 - Continue annual screening with LDCT in 12 months. IMPORTANT NOTES FOR USE: ACR Lung-RADS Version 1.1 Assessment Categories Release Date: 2018 Category: Coded 0-4 bases on nodule(s) with highest degree of suspicion. Negative screen is defined as categories 1 and 2; a positive screen is defined as categories 3 and 4. Category 3 and 4A nodules that are unchanged on interval CT should be coded as category 2, and individuals returned to screening in 12 months. Category 4X: Category 3 or 4 nodules with additional imaging findings that increase the suspicion of lung cancer, such as spiculation, GGN that doubles in size in 1 year, enlarged lymph notes, etc. Category Modifiers: S (significant finding unrelated to lung cancer) Electronically Signed: Ramiro Jang MD at 14:32 EST ,
== END | disposition home or self-care (01) ==
LOC: CT 18:46
PROVIDERS: PCP Family Medicine; Visit Provider Family Medicine
DX: Z12.2 Encounter for screening for malignant neoplasm of respiratory organs (principal); R91.1 Solitary pulmonary nodule; R91.8 Other nonspecific abnormal finding of lung field
CPT/HCPCS: 71271

== ENCOUNTER → 2023-05-30 | Outpatient (CLI) | payer BC, SELFPAY ==
--- OUTSIDE RECORDS SUMMARY | 2023-05-30 16:23 | XMS RPT_ITS | CCD ---
Author Name Unknown Address [address] [place] [address] Organization [facility] Care Team Providers Care Reporter Name Role Phone Yensho RN CHRONIC, Denise A Unavailable Unavailab le Yensho RN CHRONIC, Denise A Unavailable Unavailab le KENA, MILAD A. Unavailable Unavailable MALYS, DAMARIS A. Unavailable Unavailable KENA, MILAD A. Unavailable Unavailable KENA, MILAD A. Unavailable Unavailable MALANGIE, DAMARIS A. Unavailable Unavailable JOEL COLÓN Unavailable Unavailable KENA, MILAD A. Unavailable Unavailable KENA, MILAD A. Unavailable Unavailable MALYS, DAMARIS A. Unavailable Unavailable KENA, MILAD A. Unavailable Unavailable MALYS, DAMARIS A. Unavailable Unavailable KENA, MILAD A. Unavailable Unavailable SHAJI BLUM Unavailable Unavailable JOEL COLÓN Unavailable Unavailable AURELIA MILTON Unavailable Unavailable Yensho RN CHRONIC, Denise A Unavailable Unavailab le Yensho RN CHRONIC, Denise A Unavailable Unavailab le Allergies Allergy Classification Reported Allergen(s) Allergy Type Date of Onset Reaction(s) Facility (4 sources) acetaminophen / HYDROcodone drug allergy 6 [facility] Work Phone: [phone] (4 sources) gabapentin drug allergy 6 Hallucinations [facility] Work Phone: [phone] (4 sources) morphine drug allergy 7 Mental Status Change [facility] Phone: [phone] Medications Completed/Discontinued Medications Medication Drug Class(es) Dates Sig (Normalized) Sig (Original) acetaminophen 325 mg / oxyCODONE hydrochloride 5 mg oral tablet (4 sources) Opioid Agonist Start: 05-10-2016 OXYCODONE-ACETAMIN OPHEN 5-325 MG TABS One tab three times a day as needed OXYCODONE-ACETAMIN OPHEN [id number] Alexandra Chung [place] ALBUTEROL SULFATE (8 sources) beta2-Adrenergic Agonist Start: 04-17-2015 VENTOLIN HFA 108 (90 Base) MCG/ACT AERS two puffs every four hours as needed ALBUTEROL SULFATE [id number] Zana Hardwick DO Problems Active Problems Problem Classification Problem Date Documented Da te Episodic/Chronic Asthma (4 sources) Asthma; Translations: [Unspecified asthma, uncomplicated] Onset: 05-31-2016 05-31-2016 Chronic Miscellaneous mental health disorders (4 sources) Psychogenic vocal cord dysfunction; Translations: [Other somatoform disorders] Onset: 05-31-2016 05-31-2016 Chronic Residual codes; unclassified (4 sources) Obstructive sleep apnea syndrome; Translations: [Obstructive sleep apnea (adult) (pediatric)] Onset: 05-31-2016 05-31-2016 Chronic Past or Other Problems Problem Classification Problem Date Documented Da te Episodic/Chronic Other lower respiratory disease (4 sources) Solitary nodule of lung; Translations: [Solitary pulmonary nodule] Onset: 05-31-2016 05-31-2016 Episodic Results Test Name Value Interpretation Reference Range Facil ity Vital Signs Date Time Vital Sign Value Performing Clinician Facility 07-26-2016 14:09-0500 BMI (Body Mass Index) 34.87 kg/m2 Denise Au LPN [facility] Work Phone: 07-26-2016 14:09-0500 Body Temperature 99.4 [degF] Denise Au LPN [facility] Work Phone: 07-26-2016 14:09-0500 BP Diastolic 71 mm[Hg] Denise Au LPN [facility] Work Phone: 07-26-2016 14:09-0500 BP Systolic 149 mm[Hg] Denise Au LPN [facility] Work Phone: 07-26-2016 14:09-0500 Height 161.29 cm Denise Yensho RN CHRONIC [facility] Phone: 07-26-2016 14:09-0500 Pulse (Heart Rate) 98 /min Denise Fritznsho RN CHRONIC [facility] Work Phone: 07-26-2016 14:09-0500 Respiratory Rate 18 /min Denise Yensho RN CHRONIC [facility] Phone: 07-26-2016 14:09-0500 Weight 90.72 kg Denise Yensho RN CHRONIC [facility] Phone: 05-31-2016 13:39-0500 Body Temperature 98.06 [degF] Denise Yensho RN CHRONIC [facility] Phone: 05-31-2016 13:39-0500 BSA (Body Surface Area) 2.01 m2 Denise Yensho RN CHRONIC [facility] Phone: 05-31-2016 13:39-0500 Height 161.29 cm Denise Yensho RN CHRONIC [facility] Phone: Encounters Encounter Date Encounter Type Care Provider Facility Start: 12-13-2017 End: 02-06-2018 Patient encounter MILAD ALevi ESCUDERO Facility:[facility] Start: 12-10-2017 End: 12-11-2017 Evaluation and management of inpatient MILAD MukundLevi ESCUDERO Facility:[facility] Start: 11-12-2017 End: 11-13-2017 Evaluation and management of inpatient MILAD Jeff KENA Facility:[facility] Start: 10-30-2017 End: 10-31-2017 Patient encounter MILAD ESCUDERO Facility:[facility] Procedures Date Procedure Procedure Detail Performing Clinician Start: 05-31-2016 End: 07-24-2016 Brncspsm provocation 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 w/admn agt Zana Hardwick DO Work Phone: Start: 05-31-2016 End: 07-24-2016 Cholesterol Zana Hardwick DO Work Phone: Start: 05-31-2016 End: 07-24-2016 Ct thorax w/o dye Zana Hardwick DO Work Phone: Plan of Treatment Date Care Activity Detail Author Start: 07-26-2016 End: 07-26-2016 DMB DMB [facility] Work Phone: Start: 07-26-2016 End: 07-26-2016 Follow Up Appt 2 months Follow Up Appt 2 months [facility] Phone: Start: 07-26-2016 End: 07-26-2016 Retitration with follow up (patient on CPAP currently) Retitration with follow up (patient on CPAP currently) [facility] Phone: Start: 05-31-2016 End: 07-24-2016 Cholesterol Methylcholine inhalation challenge [facility] Phone: Start: 05-31-2016 End: 07-24-2016 Ct thorax w/o dye CT Chest without contrast [facility] Phone: Start: 05-31-2016 End: 05-31-2016 SAMUEL BAKER [facility] Work Phone: Start: 05-31-2016 End: 05-31-2016 Follow Up Appt 2 months Follow Up Appt 2 months [facility] Phone: Payers Date Payer Category Payer Private Health Insurance [id number] Summary Purpose Family History No Family History Records Found Advance Directives No Advanced Directives Records Found Additional Source Comments INFORMATION SOURCE (unrecogn ized section and content) FOR RECORDS PERTAINING TO PATIENTS WHO ARE OR HAVE BEEN ENROLLED IN A CHEMICAL DEPENDENCY/SUBSTANCEABUSE PROGRAM, SOME INFORMATION MAY BE OMITTED. This clinical summary was aggregated from multiple sources. Caution should be exercised in using it in the provision of clinical care. This summary normalizes information from multiple sources, and as a consequence, information in this document may materially change the coding, format and clinical context of patient data. In addition, data may be omitted in some cases. CLINICAL DECISIONS SHOULD BE BASED ON THE PRIMARY CLINICAL RECORDS. [facility]. provides no warranty or guarantee of the accuracy or completeness of information in this document.
[2023-05-30 17:40] LABS: Absolute Lymphocyte Count 3.38 X10^3/uL (0.83-4.51); Absolute Neutrophil Count 3.4 X10^3/uL (2.0-7.7); Basophil# 0.06 X10^3/uL; Basophil% 0.8 % (0-1); Eosinophil# 0.07 X10^3/uL; Eosinophils% 0.9 % (0-5); Hematocrit 35.5 % (37-47); Hemoglobin 11.3 g/dL (12.0-15.0); Lymphocyte # 3.38 X10^3/ul (0.83-4.51); Lymphocyte % 45.6 % (19-41); Mean Corp Hgb Conc 31.8 g/dL (32-36); Mean Corpuscular Hgb 28.7 pg (27.0-32.0); Mean Corpuscular Volume 90.1 fL (81-99); Mean Platelet Vol. 9.6 fl (6.2-12.0); Monocyte# 0.51 X10^3/uL; Monocyte% 6.9 % (0-10); NRBC Flagged by Analyzer 0 % (0-5); Neutrophil # 3.36 X10^3/uL (2.7-7.7); Neutrophil % 45.4 % (47-70); Platelet Count 357 K/mm3 (150-450); RBC Distribution Width CV 13.5 % (11.6-14.6); RBC Distribution Width SD 44.8 fl (35.1-43.9); Red Blood Count 3.94 M/mm3 (4.2-5.4); White Blood Count 7.4 K/mm3 (4.4-11.0)
[2023-05-30 18:14] LABS: ALB/GLOB Ratio 1.1 RATIO (0.9-2.4); AST(SGOT) 24 U/L (15-37); Alanine Aminotransfer ALT/SGPT 27 U/L (13-56); Albumin, Serum 3.5 g/dL (3.2-5.0); Alkaline Phosphatase 62 U/L (45-117); Anion Gap 6 (5-15); BUN 20 mg/dL (7-18); BUN/Creat Ratio 19.4 RATIO (10-20); Calcium,Total 8.8 mg/dL (8.5-10.1); Chloride 107 mmol/L (98-107); Cholesterol 190 mg/dL (200); Creatinine, Serum 1.03 mg/dL (0.55-1.02); EST Glomerular Filtration Rate 57 mL/min (>60); Est Glom Filt Rate - Afr Amer 69 mL/min (>60); Free T3 2.3 pg/mL (2.18-3.98); Globulin 3.1 g/dL (2.2-4.2); Glucose 94 mg/dL (74-106); High Density Lipoprotein 58 mg/dL; Protein, Total 6.6 g/dL (6.4-8.2); Sodium Level 142 mmol/L (136-145); T4 Free Direct 1.46 ng/dL (0.76-1.46); Thyroid Stim Hormone (TSH) 0.06 uIU/mL (0.358-3.74); Triglycerides 146 mg/dL; Very Low Density Lipoprotein 29 mg/dL (5-40)
== END | disposition home or self-care (01) ==
LOC: BFHLAB 16:14
PROVIDERS: PCP Family Medicine; Visit Provider Family Medicine
DX: E03.9 Hypothyroidism, unspecified (principal); I10 Essential (primary) hypertension; E78.5 Hyperlipidemia, unspecified
CPT/HCPCS: 36415; 80053; 80061; 84439; 84443; 84481; 85025

== ENCOUNTER → 2023-09-02 | Outpatient (CLI) | payer BC, SELFPAY ==
[2023-09-02 17:43] LABS: Absolute Neutrophil Count 2.5 X10^3/uL (2.0-7.7); Basophil# 0.05 X10^3/uL; Basophil% 0.8 % (0-1); Eosinophil# 0.12 X10^3/uL; Hematocrit 33.9 % (37-47); Hemoglobin 11.2 g/dL (12.0-15.0); Lymphocyte % 45.5 % (19-41); Mean Corpuscular Hgb 29.2 pg (27.0-32.0); Mean Corpuscular Volume 88.3 fL (81-99); Mean Platelet Vol. 9.4 fl (6.2-12.0); Monocyte# 0.51 X10^3/uL; Monocyte% 8.6 % (0-10); NRBC Flagged by Analyzer 0 % (0-5); Neutrophil # 2.53 X10^3/uL (2.7-7.7); Neutrophil % 42.8 % (47-70); Platelet Count 324 K/mm3 (150-450); RBC Distribution Width CV 13.7 % (11.6-14.6); RBC Distribution Width SD 44.5 fl (35.1-43.9); Red Blood Count 3.84 M/mm3 (4.2-5.4); White Blood Count 5.9 K/mm3 (4.4-11.0)
[2023-09-02 18:56] LABS: ALB/GLOB Ratio 1.1 RATIO (0.9-2.4); AST(SGOT) 17 U/L (15-37); Alanine Aminotransfer ALT/SGPT 21 U/L (13-56); Albumin, Serum 3.5 g/dL (3.2-5.0); Alkaline Phosphatase 65 U/L (45-117); Anion Gap 4 (5-15); BUN 16 mg/dL (7-18); BUN/Creat Ratio 21.8 RATIO (10-20); Calcium,Total 9.1 mg/dL (8.5-10.1); Chloride 107 mmol/L (98-107); Creatinine, Serum 0.73 mg/dL (0.55-1.02); EST Glomerular Filtration Rate 85 mL/min (>60); Est Glom Filt Rate - Afr Amer 103 mL/min (>60); Free T3 2.9 pg/mL (2.18-3.98); Globulin 3.1 g/dL (2.2-4.2); Glucose 111 mg/dL (74-106); Potassium 3.6 mmol/L (3.5-5.1); Protein, Total 6.6 g/dL (6.4-8.2); Sodium Level 143 mmol/L (136-145); T4 Free Direct 1.46 ng/dL (0.76-1.46); Thyroid Stim Hormone (TSH) 0.09 uIU/mL (0.358-3.74)
== END | disposition home or self-care (01) ==
LOC: BFHLAB 16:41
PROVIDERS: PCP Family Medicine; Referring Provider Family Medicine; Visit Provider Family Medicine
DX: Z51.81 Encounter for therapeutic drug level monitoring (principal); E03.9 Hypothyroidism, unspecified
CPT/HCPCS: 36415; 80053; 84439; 84443; 84481; 85025

== ENCOUNTER → 2023-09-09 | Outpatient (CLI) | payer BC, SELFPAY ==
--- NOTE | 2023-09-09 10:55 | RAD_ITS ---
INDICATION: COCCYX PAIN EXAMINATION/TECHNIQUE: X-RAY - XR Sacrum/Coccyx Min 2 Views COMPARISON: FINDINGS: SACRUM/COCCYX: No displaced fracture, destructive or sclerotic lesions. Note that overlapping bowel shadows may however obscure fine detail in the frontal view. SACRO-ILIAC JOINTS: The articular structures are unremarkable. SOFT TISSUES: No soft tissue swelling or gas. Bilateral hip prosthesis in place. RAD/Sacrum-Coccyx min 2 Views IMPRESSION: No acute bony injury sacro-coccygeal spine. Electronically Signed: Steve Pina DO at 23:57 EDT Reading Location ID and State: [facility] / [place] Tel [phone], Service support ,
== END | disposition home or self-care (01) ==
LOC: MTRAD 10:54
PROVIDERS: PCP Family Medicine; Referring Provider Family Medicine; Visit Provider Family Medicine
DX: M53.3 Sacrococcygeal disorders, not elsewhere classified (principal)
CPT/HCPCS: 72220

== ENCOUNTER → 2024-03-06 | Outpatient (CLI) | payer BC, SELFPAY ==
[2024-03-06 12:13] LABS: Absolute Lymphocyte Count 2.64 X10^3/uL (0.83-4.51); Absolute Neutrophil Count 3.1 X10^3/uL (2.0-7.7); Basophil# 0.07 X10^3/uL; Basophil% 1.1 % (0-1); Eosinophils% 1.6 % (0-5); Hematocrit 35.5 % (37-47); Hemoglobin 11.7 g/dL (12.0-15.0); Lymphocyte # 2.64 X10^3/ul (0.83-4.51); Lymphocyte % 41.2 % (19-41); Mean Corpuscular Hgb 29.9 pg (27.0-32.0); Mean Corpuscular Volume 90.8 fL (81-99); Mean Platelet Vol. 9.8 fl (6.2-12.0); Monocyte# 0.51 X10^3/uL; NRBC Flagged by Analyzer 0 % (0-5); Neutrophil # 3.08 X10^3/uL (2.7-7.7); Neutrophil % 47.9 % (47-70); Platelet Count 352 K/mm3 (150-450); RBC Distribution Width CV 13.2 % (11.6-14.6); RBC Distribution Width SD 43.4 fl (35.1-43.9); Red Blood Count 3.91 M/mm3 (4.2-5.4); White Blood Count 6.4 K/mm3 (4.4-11.0)
[2024-03-06 13:12] LABS: ALB/GLOB Ratio 1.1 RATIO (0.9-2.4); AST(SGOT) 19 U/L (15-37); Alanine Aminotransfer ALT/SGPT 24 U/L (13-56); Albumin, Serum 3.5 g/dL (3.2-5.0); Alkaline Phosphatase 65 U/L (45-117); Anion Gap 4 (5-15); BUN 16 mg/dL (7-18); BUN/Creat Ratio 20.5 RATIO (10-20); Calcium,Total 9.8 mg/dL (8.5-10.1); Chloride 106 mmol/L (98-107); Creatinine, Serum 0.78 mg/dL (0.55-1.02); EST Glomerular Filtration Rate 79 mL/min (>60); Est Glom Filt Rate - Afr Amer 95 mL/min (>60); Free T3 2.4 pg/mL (2.18-3.98); Globulin 3.2 g/dL (2.2-4.2); Glucose 97 mg/dL (74-106); Potassium 4.5 mmol/L (3.5-5.1); Protein, Total 6.7 g/dL (6.4-8.2); Sodium Level 139 mmol/L (136-145); T4 Free Direct 1.27 ng/dL (0.76-1.46); Thyroid Stim Hormone (TSH) 0.366 uIU/mL (0.358-3.740)
== END | disposition home or self-care (01) ==
LOC: BFHLAB 10:43
PROVIDERS: PCP Family Medicine; Visit Provider Family Medicine
DX: E03.9 Hypothyroidism, unspecified (principal); Z51.81 Encounter for therapeutic drug level monitoring
CPT/HCPCS: 36415; 80053; 84439; 84443; 84481; 85025

== ENCOUNTER → 2024-07-29 | Outpatient (CLI) | payer OTHER, SELFPAY ==
[2024-07-29 17:53] LABS: Absolute Lymphocyte Count 2.73 X10^3/uL (0.83-4.51); Absolute Neutrophil Count 5.1 X10^3/uL (2.0-7.7); Basophil# 0.08 X10^3/uL; Basophil% 0.9 % (0-1); Eosinophil# 0.11 X10^3/uL; Eosinophils% 1.3 % (0-5); Hematocrit 35.7 % (37-47); Hemoglobin 11.4 g/dL (12.0-15.0); Lymphocyte # 2.73 X10^3/ul (0.83-4.51); Mean Corp Hgb Conc 31.9 g/dL (32-36); Mean Corpuscular Hgb 29.1 pg (27.0-32.0); Mean Corpuscular Volume 91.1 fL (81-99); Mean Platelet Vol. 9.6 fl (6.2-12.0); Monocyte% 5.9 % (0-10); NRBC Flagged by Analyzer 0 % (0-5); Neutrophil # 5.08 X10^3/uL (2.7-7.7); Neutrophil % 59.5 % (47-70); Platelet Count 405 K/mm3 (150-450); RBC Distribution Width SD 46.1 fl (35.1-43.9); Red Blood Count 3.92 M/mm3 (4.2-5.4); White Blood Count 8.5 K/mm3 (4.4-11.0)
[2024-07-29 18:13] LABS: Erythrocyte Sedimentation Rate 5 mm/hr (0-30)
[2024-07-29 18:33] LABS: Hemoglobin A1c 5.5 % (<=5.6)
[2024-07-29 18:38] LABS: ALB/GLOB Ratio 1.6 RATIO (0.9-2.4); AST(SGOT) 18 U/L (<=31); Alanine Aminotransfer ALT/SGPT 10 U/L (<=34); Alkaline Phosphatase 58 U/L (35-104); Anion Gap 11 (5-15); BUN 18 mg/dL (4-19); BUN/Creat Ratio 20.2 RATIO (10-20); Calcium,Total 9.6 mg/dL (7.6-11.0); Carbon Dioxide 25.9 mmol/L (21.0-32.0); Chloride 106 mmol/L (98-108); Cholesterol 206 mg/dL (<=200); Creatinine, Serum 0.88 mg/dL (0.70-1.20); EST Glomerular Filtration Rate 73 (>60); Free T3 2.7 pg/mL (2.18-3.98); Globulin 2.6 g/dL (2.2-4.2); Glucose 89 mg/dL (70-99); High Density Lipoprotein 66 mg/dL; Low Density Lipoprotein Calc. 124 mg/dL; Protein, Total 6.6 g/dL (5.9-8.4); Sodium Level 143 mmol/L (133-145); Total Bilirubin 0.24 mg/dL (0.00-1.30); Triglycerides 82 mg/dL; Very Low Density Lipoprotein 16 mg/dL (5-40); cholesterol:hdl ratio screen 3.13
[2024-07-29 21:20] LABS: CRP < 3.00 mg/L (0.0-3.0); LDH 149 U/L (84-246)
== END | disposition home or self-care (01) ==
PROVIDERS: PCP Family Medicine; Referring Provider Family Medicine; Visit Provider Family Medicine
DX: E03.9 Hypothyroidism, unspecified (principal); E11.9 Type 2 diabetes mellitus without complications; G89.4 Chronic pain syndrome; E78.5 Hyperlipidemia, unspecified; Z51.81 Encounter for therapeutic drug level monitoring; M25.50 Pain in unspecified joint; M79.10 Myalgia, unspecified site
CPT/HCPCS: 36415; 80053; 80061; 83036; 83615; 84439; 84443; 84481; 85025; 85652; 86140

== ENCOUNTER → 2024-09-22 | Outpatient (CLI) | payer OTHER, SELFPAY ==
--- NOTE | 2024-09-22 07:50 | BI_ITS ---
EXAM: SCRN MAMM (CAD)W/NASRA BILAT DATE: 09/22/2024 CLINICAL HISTORY: F, Age 64 y/o , SCREENING BREAST CANCER RISK ASSESSMENT: Not reported TECHNIQUE: Bilateral screening digital breast tomosynthesis with 2D and 3D images. Computer aided detection. COMPARISON: Prior exam(s) were compared FINDINGS: TISSUE DENSITY: The breast tissue is heterogenously dense, which may obscure small masses. Bilateral Breast Mammographic Findings: No suspicious masses, calcifications or other abnormalities are identified. BI/SCRN MAMM (CAD)W/NASRA BILAT IMPRESSION: OVERALL FINAL ASSESSMENT: BIRADS 1 NEGATIVE RECOMMENDATION: Routine annual follow-up in 1 Year A letter with findings and recommendations will be mailed to the patient. Reading Location: [id number]
--- NOTE | 2024-09-22 07:52 | BD_ITS ---
PROCEDURE: DEXA BONE DENSITY STUDY 09/22/2024 REASON FOR EXAM: F, age 64 y/o . Postmenopausal. TECHNIQUE: DEXA scan of sites with data reported below. Scanner utilized: [employer] REFERENCE LINKS: [facility] Position[facility] COMPARISON: None FINDINGS: BMD and T-SCORES Lumbar spine: 1.055 g/cm2, T-score 0.1 Levels: L1 through L4 Left 1/3 radius: 0.735 g/cm2, T-score 0.7 The World Health Organization has defined the following categories based on bone density: Normal bone density: T-score equal to or greater than -1.0 Osteopenia: T-score between -1.0 and -2.5 Osteoporosis: T-score equal to or less than -2.5 FRAX (or Comparable) Fracture Risk Assessment: 10 Year Probability of Fracture: FRAX not reported due to no comparable hip (Note: FRAX is not to be reported in setting of normal range bone density, osteoporosis on DEXA, known history of osteoporosis, prior osteoporotic hip or vertebral fracture, or for any patient undergoing pharmacological treatment for bone loss.) The National Osteoporosis Foundation (NOF) recommends pharmacological treatment for patients with a FRAX 10-year risk of 3% or higher for a hip fracture, or 20% or higher for a major osteoporotic fracture, to prevent osteoporosis and reduce fracture risk. The patient does not meet the pharmacological treatment recommendations for prevention of osteoporosis. BD/Dexa Bone Density Study IMPRESSION: NORMAL T-SCORES. Recommend follow-up as clinically warranted. Reading Location: [id number]
== END | disposition home or self-care (01) ==
LOC: OPBD 07:48
PROVIDERS: PCP Family Medicine; Referring Provider Family Medicine; Visit Provider Family Medicine
DX: Z12.31 Encounter for screening mammogram for malignant neoplasm of breast (principal); M81.0 Age-related osteoporosis without current pathological fracture
CPT/HCPCS: 77063; 77067; 77080

== ENCOUNTER → 2024-12-28 | Outpatient (CLI) | payer OTHER, SELFPAY ==
[2024-12-28 18:01] LABS: Free T3 3.2 pg/mL (2.18-3.98)
--- OUTSIDE RECORDS SUMMARY | 2024-12-28 21:25 | XMS RPT_ITS | CCD ---
Author Organization [facility] Team Providers Care Proteomics Scientist Name Role Phone Yensho EQUITY HOLDER, Denise A Unavailable Unavailab le Yensho EQUITY HOLDER, Denise A Unavailable Unavailab le KENA, MILAD A. Unavailable Unavailable MALYS, NICOLE A. Unavailable Unavailable KENA, MILAD A. Unavailable Unavailable KENA, MILAD A. Unavailable Unavailable MALYS, NICOLE A. Unavailable Unavailable SABOTA, JOEL W Unavailable Unavailable KENA, MILAD A. Unavailable Unavailable KENA, MILAD A. Unavailable Unavailable MALYS, NICOLE A. Unavailable Unavailable KENA, MILAD A. Unavailable Unavailable MALYS, NICOLE A. Unavailable Unavailable KENA, MILAD A. Unavailable Unavailable KULWANT, SHAJI W Unavailable Unavailable SABOTA, JOEL W Unavailable Unavailable YOANAURELIA Unavailable Unavailable Yensho EQUITY HOLDER, Denise A Unavailable Unavailab le Yensho EQUITY HOLDER, Denise A Unavailable Unavailab le Dr. Nicole Moreno Primary Care Provider Dr. Nicole Moreno Referring Provider [phone] Tho Rodriguez Attending Provider [phone] Dr. Joel Cavanaugh Attending Provider Dr. Tho Rodriguez Referring Provider [phone] Dr. Tho Rodriguez Other Provider Adams MODELING ANALYST, MODELING ANALYST-C Viky Attending Provider Dr. Nicole Moreno Primary Care Provider Dr. Nicole Moreno Referring Provider Rose MODELING ANALYST, MODELING ANALYST-C Ruth Ann Galvan Attending Provider FriendDr. Ellsworth Attending Provider [phone] Dr. Celina Masonn Other Provider [phone] Josh, Dr. Rivera Primary Care Provider Josh, Dr. Rivera Referring Provider Friend, Dr. Ellsworth Attending Provider [phone] Friend, Dr. Ellsworth Other Provider [phone] Rose MODELING ANALYST, MODELING ANALYSTJuan ManuelC Ruth Ann Galvan Attending Provider [phone] Josh, Dr. Rivera Primary Care Provider Josh, Dr. Rivera Referring Provider Aimee, Dr. Hidalgo Attending Provider [phone] Hodan, Dr. Maciel Attending Provider Malys DO, Dr. Rivera Primary Care Provider Cedrickys DO, Dr. Rivera Attending Provider Josh DO, Dr. Rivera Referring Provider [phone] Malys, Nicole Primary Care Unavailable Malys, Nicole Attending Unavailable Malys, Nicole Attending Unavailable Malys, Nicole Primary Care Unavailable Malys, Nicole Referring Unavailable Malys, Nicole Primary Care Unavailable Malys, Nicole Referring Unavailable Malys, Nicole Attending Unavailable Allergies Allergy Classification Reported Allergen(s) Allergy Type Date of Onset Reaction(s) Facility (4 sources) acetaminophen / HYDROcodone drug allergy 05-10-20 16 [facility] Work Phone: (4 sources) gabapentin drug allergy 05-10-20 16 Hallucinations [facility] Work Phone: (4 sources) morphine drug allergy 05-31-19 17 Mental Status Change [facility] Work Phone: (12 sources) gabapentin Drug Allergy 08-03-19 22 Shortness of breath [facility] Comment on above: Disorientation (12 sources) HYDROcodone Drug Allergy 08-03-19 22 Nausea [facility] (12 sources) Morphine Drug Allergy 08-03-19 22 mental status changes [facility] Comment on above: MENTAL STATUS CHANGE S (9 sources) Codeine Drug Allergy 07-10-19 23 unknown [facility] (1 source) Codeine Drug Allergy 03-29-20 [facility] Repository (1 source) gabapentin Drug Allergy 03-29-20 [facility] Repository (1 source) HYDROcodone Drug Allergy 03-29-20 [facility] Repository (1 source) Morphine Drug Allergy 03-29-20 [facility] Repository Medications Current Medications Medication Drug Class(es) Dates Sig (Normalized) Sig (Original) azithromycin 250 mg oral tablet (15 sources) Macrolide Antimicrobial Start: 12-09-2022 take 2 tablets by mouth once daily Azithromycin (Zithromax) 250 mg tablet Active 250 mg PO DAILY 4 December 09, 2022 12:00am start on day 2 of therapy Start: 07-31-2022 End: 08-07-2022 take 1 tablet by mouth once daily Azithromycin 250 mg tablet Discontinued 250 mg PO DAILY 7 July 31, 2022 12:00am August 06, 2022 12:00am August 07, 2022 12:04am hydroCHLOROthiazide 25 mg oral tablet (20 sources) Thiazide Diuretic Start: 04-17-2022 take 1 tablet by mouth once daily Hydrochlorothiazide 25 mg tablet Active 25 mg PO DAILY April 17, 2022 1:00am Start: 06-12-2021 End: 08-30-2021 take 1 tablet by mouth once daily Hydrochlorothiazide 25 mg tablet Discontinued 25 mg PO DAILY July 06, 2021 4:58pm August 30, 2021 8:35am 200 actuat levalbuterol 0.045 mg/actuat metered dose inhaler (20 sources) beta2-Adrenergic Agonist Start: 06-12-2021 Leval buterol Tartrate (Xopenex Hfa) 45 mcg/actuation HFA aerosol inhaler Active 2 NMA INHALATION EVERY 6 HOURS as needed for SOB June 12, 2021 1:00am Start: 06-12-2021 Levalbuterol T artrate (Xopenex Hfa) 45 mcg/actuation HFA aerosol inhaler Active 2 INH INHALATION EVERY 6 HOURS June 12, 2021 1:00am Start: 01-07-2019 End: 06-12-2021 Levalbuterol Tartrate 45 mcg/actuation HFA aerosol inhaler Discontinued 2 NMA INHALATION Q4H June 11, 2019 5:21pm June 12, 2021 12:53pm Start: 01-07-2019 End: 06-12-2021 take 1 puff(s) by inhalation every four hours Levalbuterol Tartrate Discontinued 2 PUFF INHALATION Q4H June 11, 2019 5:21pm June 12, 2021 12:53pm levothyroxine sodium 0.1 mg oral tablet (20 sources) l-Thyroxine Start: 06-12-2021 Levothyroxine 100 mcg tablet Active 125 ug PO DAILY June 12, 2021 1:00am Start: 06-12-2021 take 125 ug by mouth once daily Levothyroxine Active 125 MCG PO DAILY June 12, 2021 1:00am Start: 06-12-2021 take 100 ug by mouth once daily Levothyroxine Active 100 MCG PO DAILY June 12, 2021 12:00am Start: 11-16-2019 End: 06-12-2021 take 1 tablet by mouth once daily Levothyroxine 175 mcg tablet Discontinued 175 ug PO DAILY November 16, 2019 12:00am June 12, 2021 12:52pm Start: 06-11-2019 End: 11-16-2019 take 1 tablet by mouth once daily Levothyroxine 150 mcg tablet Discontinued 150 ug PO DAILY June 11, 2019 1:00am November 16, 2019 10:26am Start: 01-07-2019 End: 11-16-2019 take 1 tablet by mouth once daily Levothyroxine 137 MCG tablet Discontinued 137 ug PO DAILY January 07, 2019 12:00am November 16, 2019 10:25am Start: 03-07-2016 LEVOTHYROXINE SODIUM 125 MCG TABS One tab daily LEVOTHYROXINE SODIUM [id number] Alexandra Lazcano lisinopril 10 mg oral tablet (20 sources) Angiotensin Converting Enzyme Inhibitor Start: 04-17-2022 take 1 tablet by mouth at bedtime Lisinopril 10 mg tablet Active 10 mg PO AT BEDTIME April 17, 2022 1:00am Start: 07-19-2021 End: 04-17-2022 take 1 tablet by mouth twice daily Lisinopril 20 mg tablet Discontinued 20 mg PO TWICE A DAY 60 August 04, 2021 11:35am April 17, 2022 11:40am Start: 07-12-2021 End: 07-19-2021 take 1 tablet by mouth twice daily Lisinopril 10 mg tablet Discontinued 10 mg PO TWICE A DAY 60 July 12, 2021 4:56pm July 19, 2021 4:42pm Start: 06-30-2021 End: 07-12-2021 take 1 tablet by mouth once daily Lisinopril 10 mg tablet Discontinued 10 mg PO DAILY June 30, 2021 5:20pm July 12, 2021 4:57pm mecobalamin (7 sources) Start: 04-17-2022 inject 31909 ug by intramuscular injection every month Mecobalamin (Vitamin B12) Active 99122 MCG IM MONTHLY April 17, 2022 1:00am Start: 04-17-2022 inject 37376 ug by i ntramuscular injection every month Mecobalamin (Vitamin B12) Active 22216 MCG IM MONTHLY April 17, 2022 12:00am Mecobalamin (Vitamin B12) 10,000 mcg recon soln (2 sources) Start: 04-17-2022 inject 93778 ug by intramuscular injection every month Mecobalamin (Vitamin B12) 10,000 mcg recon soln Active 96865 ug IM MONTHLY April 17, 2022 1:00am 24 hr metFORMIN hydrochloride 500 mg extended release oral tablet (9 sources) Biguanide Start: 04-17-2022 take 1 tablet by mouth once daily Metformin 500 mg tablet extended release 24 hr Active 500 mg PO DAILY April 17, 2022 1:00am metoprolol tartrate 25 mg oral tablet (20 sources) beta-Adrenergic Alexis Start: 06-12-2021 End: 07-06-2021 take 1 tablet by mouth twice daily Metoprolol Tartrate 25 mg tablet Active 25 mg PO TWICE A DAY 60 July 06, 2021 5:32pm ondansetron 4 mg disintegrating oral tablet (7 sources) Serotonin-3 Receptor Antagonist Start: 12-09-2022 take 1 tablet by mouth every eight hours as needed for nausea and vomiting Ondansetron 4 mg tablet,disintegr ating Active 4 mg PO Q8H as needed for nausea and vomiting December 09, 2022 12:00am oxyCODONE hydrochloride 10 mg oral tablet (20 sources) Opioid Agonist Start: 06-12-2021 take 1 tablet by mouth every four hours as needed for pain Oxycodone 10 mg tablet Active 10 mg PO Q4H as needed for Pain June 12, 2021 1:00am Start: 12-17-2019 End: 12-24-2019 take 2 tablets by mouth every four hours as needed for pain Oxycodone 5 MG tablet Discontinued 10 mg PO EVERY 4 HOURS NEEDED as needed for Pain Score 6-10/10 56 7 December 17, 2019 December 23, 2019 12:00am December 24, 2019 12:02am Start: 12-17-2019 End: 12-24-2019 take 10 mg by mouth every four hours as needed Oxycodone Discontinued 10 MG PO EVERY 4 HOURS NEEDED 56 7 December 17, 2019 December 24, 2019 12:02am Start: 12-31-2018 End: 12-17-2019 Oxycodone 10 mg tablet Disco ntinued 10 mg PO NEEDED as needed for Pain December 31, 2018 12:00am December 17, 2019 7:42am Start: 10-15-2018 End: 12-31-2018 take 1 tablet by mouth every six hours as needed Oxycodone 10 mg tablet Discontinued 10 mg PO EVERY 6 HOURS as needed October 15, 2018 12:00am December 31, 2018 3:21pm Start: 05-10-2016 End: 05-31-2016 OXYCONTIN 10 MG T12A One tab every twelve hours OXYCODONE HCL [id number] Alexandra Lazcano Start: 05-10-2016 OXYCONTIN 10 M G T12A One tab every twelve hours OXYCODONE HCL [id number] Alexandra Lazcano Start: 05-10-2016 End: 05-31-2016 OXYCONTIN 10 MG T12A One tab every twelve hours OXYCODONE HCL [id number] Denise Au LPN pantoprazole 40 mg delayed release oral tablet (9 sources) Proton Pump Inhibitor Start: 04-17-2022 take 1 tablet by mouth once daily Pantoprazole (Protonix) 40 mg tablet,delayed release (DR/EC) Active 40 mg PO DAILY April 17, 2022 1:00am 1 mg dose 1.5 ml semaglutide 1.34 mg/ml pen injector (7 sources) Start: 04-17-2022 Semaglutide (Ozempic) 1 mg/dose (2 mg/1.5 mL) pen injector Active 0.5 MG SC FR April 17, 2022 1:00am Semaglutide (Ozempic) 1 mg/dose (2 mg/1.5 mL) pen injector (2 sources) Start: 04-17-2022 Semaglutide (Ozempic) 1 mg/dose (2 mg/1.5 mL) pen injector Active 0.5 mg SC FR April 17, 2022 1:00am Completed/Discontinued Medications Medication Drug Class(es) Dates Sig (Normalized) Sig (Original) acetaminophen 325 mg / oxyCODONE hydrochloride 5 mg oral tablet (4 sources) Opioid Agonist Start: 05-10-2016 OXYCODONE-ACETAMIN OPHEN 5-325 MG TABS One tab three times a day as needed OXYCODONE-ACETAMIN OPHEN [id number] Alexandra Lazcano Albuterol Sulfate (20 sources) beta2-Adrenergic Agonist Start: 04-17-2015 End: 06-12-2021 take 1 puff(s) by inhalation every four hours as needed Albuterol Sulfate Discontinued 1 - 2 PUFF INHALATION EVERY 4 HOURS NEEDED April 17, 2015 10:21am June 12, 2021 12:53pm dispence a spacer too please Start: 04-17-2015 End: 06-12-2021 Albuterol Sulfate 1 INHALER inhaler Discontinued 1 - 2 NMA INHALATION EVERY 4 HOURS NEEDED as needed for Wheezing April 17, 2015 1:00am June 12, 2021 12:53pm dispence a spacer too please Start: 04-17-2015 End: 06-12-2021 take 1 puff(s) by inhalation every four hours as needed Albuterol Sulfate Discontinued 1 - 2 PUFF INHALATION EVERY 4 HOURS NEEDED April 17, 2015 1:00am June 12, 2021 12:53pm dispence a spacer too please Start: 04-17-2015 VENTOLIN HFA 1 08 (90 Base) MCG/ACT AERS two puffs every four hours as needed ALBUTEROL SULFATE [id number] Zana Hardwick DO Start: 04-17-2015 VENTOLIN HFA 1 08 (90 Base) MCG/ACT AERS two puffs every four hours as needed ALBUTEROL SULFATE [id number] Zana Hardwick DO Start: 04-17-2015 VENTOLIN HFA 1 08 (90 Base) MCG/ACT AERS two puffs every four hours as needed ALBUTEROL SULFATE [id number] Alexandra Lazcano amphetamine aspartate 7.5 mg / amphetamine sulfate 7.5 mg / dextroamphetamine saccharate 7.5 mg / dextroamphetamine sulfate 7.5 mg oral tablet (20 sources) Central Nervous System Stimulant Start: 01-07-2019 End: 06-12-2021 take 1 tablet by mouth once daily Dextroamphetamine-Amphetamine 30 mg tablet Discontinued 30 mg PO DAILY June 11, 2019 5:21pm June 12, 2021 12:53pm Start: 05-10-2016 End: 05-31-2016 AMPHETAMINE-DEXTROAMPHET ER 15 MG [id number] One cap daily AMPHETAMINE-DEXTROAMPHETAMINE [id number] Alexandra Lazcano 24 hr amphetamine aspartate 3.75 mg / amphetamine sulfate 3.75 mg / dextroamphetamine saccharate 3.75 mg / dextroamphetamine sulfate 3.75 mg extended release oral capsule (4 sources) Central Nervous System Stimulant Start: 05-10-2016 End: 05-31-2016 AMPHETAMINE-DEXTROAMPHET ER 15 MG [id number] One cap daily AMPHETAMINE-DEXTROAMPHETAMINE [id number] Alexandra Lazcano BUDESONIDE-FORMOTEROL FUMARATE (8 sources) Corticosteroid , beta2-Adrenerg ic Agonist Start: 06-14-2015 End: 05-31-2016 SYMBICORT 80-4.5 MCG/ACT AER O Two puffs twice daily BUDESONIDE-FORMOTEROL FUMARATE [id number] Zana Hardwick DO Start: 06-14-2015 End: 05-31-2016 SYMBICORT 80-4.5 MCG/ACT AER O Two puffs twice daily BUDESONIDE-FORMOTEROL FUMARATE [id number] Zana Hardwick DO Start: 06-14-2015 SYMBICORT 80-4 .5 MCG/ACT AERO Two puffs twice daily BUDESONIDE-FORMOTEROL FUMARATE [id number] Alexandra Lazcano 12 hr buPROPion hydrochloride 150 mg extended release oral tablet (12 sources) Aminoketone Start: 10-15-2018 End: 06-11-2019 take 1 tablet by mouth twice daily Bupropion Hcl (Wellbutrin Sr) 150 mg tablet sustained-release 12 hr Discontinued 150 mg PO TWICE A DAY October 15, 2018 12:00am June 11, 2019 5:21pm celecoxib 200 mg oral capsule (12 sources) Nonsteroidal Anti-inflammatory Drug Start: 02-18-2019 End: 06-11-2019 take 1 capsule by mouth once daily Celecoxib (Celebrex) 200 mg capsule Discontinued 200 mg PO DAILY February 18, 2019 12:00am June 11, 2019 5:21pm Do not take with other NSAID cholecalciferol 1.25 mg oral capsule (20 sources) Vitamin D Start: 12-10-2019 End: 06-12-2021 Cholecalciferol (Vitamin D3) 1,250 MCG capsule Discontinued 80141 U PO EVERY WEEK December 10, 2019 10:41am June 12, 2021 12:53pm Start: 06-11-2019 End: 06-12-2021 take 1 capsule by mouth every week Cholecalciferol (Vitamin D3) 1,250 mcg (50,000 unit) capsule Discontinued 41439 U PO EVERY WEEK June 11, 2019 1:00am December 10, 2019 10:41am codeine phosphate 2 mg/ml / guaiFENesin 20 mg/ml oral solution (12 sources) Opioid Agonist Start: 04-17-2015 End: 10-15-2018 take 1 mL by mouth every six hours as needed for cough Codeine-Guaifenesin 5 ML liquid Discontinued 10 mL PO EVERY 6 HOURS NEEDED as needed for WHEEZING OR COUGH April 17, 2015 1:00am October 15, 2018 8:57am Start: 04-17-2015 End: 10-15-2018 take 1 mL by mouth every six hours as needed Codeine-Guaifenesin Discontinued 10 ML PO EVERY 6 HOURS NEEDED April 17, 2015 1:00am October 15, 2018 8:57am diclofenac sodium 0.01 mg/mg topical gel (12 sources) Nonsteroidal Anti-inflammatory Drug Start: 12-10-2019 End: 12-17-2019 Diclofenac Sodium 100 GM gel Discontinued 100 g TP DAILY December 10, 2019 12:00am December 17, 2019 7:42am 24 hr dilTIAZem hydrochloride 120 mg extended release oral tablet (20 sources) Calcium Channel Alexis Start: 06-12-2021 End: 07-12-2021 Diltiazem Hcl (Cardizem La) 120 mg tablet extended release 24 hr Discontinued 360 mg PO DAILY June 12, 2021 4:07pm July 12, 2021 4:56pm Start: 06-12-2021 End: 06-12-2021 take 1 tablet by mouth once daily Diltiazem Hcl (Cardizem La) 120 mg tablet extended release 24 hr Discontinued 120 mg PO DAILY June 12, 2021 1:00am June 12, 2021 4:08pm FLUoxetine 40 mg oral capsule (12 sources) Serotonin Reuptake Inhibitor Start: 12-10-2019 End: 06-12-2021 take 1 capsule by mouth twice daily Fluoxetine 40 MG capsule Discontinued 40 mg PO TWICE A DAY December 10, 2019 12:00am June 12, 2021 12:53pm furosemide 20 mg oral tablet (8 sources) Loop Diuretic Start: 02-21-2016 End: 05-31-2016 FUROSEMIDE 20 MG TABS One tab daily as needed for swelling FUROSEMIDE [id number] Alexandra Lazcano 2 ml sodium hyaluronate 10 mg/ml prefilled syringe (3 sources) Start: 06-03-2019 End: 06-03-2019 Euflexxa (sodium hyaluronate (viscosup)) Discontinued 10 MG INTRAARTIC ONCE June 03, 2019 11:17am June 03, 2019 11:27am Start: 05-27-2019 End: 05-27-2019 Euflexxa (sodium hyaluronate (viscosup)) Discontinued 10 MG INTRAARTIC ONCE May 27, 2019 4:50pm May 27, 2019 5:00pm Start: 05-22-2019 End: 05-22-2019 Euflexxa (sodium hyaluronate (viscosup)) Discontinued 10 MG INTRAARTIC ONCE May 22, 2019 10:29am May 22, 2019 11:16am ibuprofen 800 mg oral tablet (8 sources) Nonsteroidal Anti-inflammatory Drug Start: 03-08-2016 End: 05-31-2016 IBUPROFEN 800 MG TABS One tab daily as needed for pain IBUPROFEN [id number] Denise Au EQUITY HOLDER levoFLOXacin 750 mg oral tablet (12 sources) Quinolone Antimicrobial Start: 04-17-2015 End: 10-15-2018 take 1 tablet by mouth once daily in the morning Levofloxacin 750 MG tablet Discontinued 750 mg PO DAILY 2 April 17, 2015 1:00am October 15, 2018 8:58am next dose 04/18/15 am methylPREDNISolone acetate 40 mg/ml injectable suspension (18 sources) Corticosteroid Start: 05-22-2019 End: 05-22-2019 Depo-Medrol (methylprednisol one acetate) 40 mg/mL suspension for injection Discontinued 40 MG INTRAARTIC ONCE May 22, 2019 10:29am May 22, 2019 11:16am Start: 02-18-2019 End: 02-18-2019 Depo-Medrol (methylprednisol one acetate) 40 mg/mL suspension for injection Discontinued 40 MG INTRAARTIC ONCE February 18, 2019 4:03pm February 18, 2019 4:28pm Start: 05-10-2016 MEDROL 4 MG TB PK daily METHYLPREDNISOLONE [id number] Alexandra Sheldon Lazcano Start: 05-10-2016 MEDROL 4 MG TB PK daily METHYLPREDNISOLONE [id number] Alexandra Lazcano Start: 04-17-2015 End: 10-15-2018 take 2 tablets by mouth twice daily Methylprednisolone 16 MG tablet Discontinued 32 mg PO TWICE A DAY 7 April 17, 2015 1:00am October 15, 2018 8:58am Start: 04-17-2015 End: 10-15-2018 take 32 mg by mouth twice daily Methylprednisolone Discontinued 32 MG PO TWICE A DAY April 17, 2015 1:00am October 15, 2018 8:58am Multivitamin 1 EACH tablet (2 sources) Start: 01-07-2019 End: 06-12-2021 Multivitamin 1 EACH tablet Discontinued 1 NMA PO DAILY January 07, 2019 12:00am June 12, 2021 12:53pm Multivitamin preparation (10 sources) Start: 01-07-2019 End: 06-12-2021 Multivitamin Discontinued 1 EACH PO DAILY January 07, 2019 9:17am June 12, 2021 12:53pm Start: 01-07-2019 End: 06-12-2021 Multivitamin Discontinued 1 EACH PO DAILY January 06, 2019 11:00pm June 12, 2021 11:53am Start: 01-07-2019 End: 06-12-2021 Multivitamin Discontinued 1 EACH PO DAILY January 07, 2019 12:00am June 12, 2021 12:53pm phentermine hydrochloride 37.5 mg oral tablet (8 sources) Sympathomimetic Amine Anorectic Start: 05-10-2016 End: 05-31-2016 PHENTERMINE HCL 37.5 MG TABS One tab daily in the morning PHENTERMINE HCL [id number] Alexandra Lazcano Problems Active Problems Problem Classification Problem Date Documented Da te Episodic/Chronic Asthma (4 sources) Asthma; Translations: [Unspecified asthma, uncomplicated] Onset: 05-31-2016 05-31-2016 Chronic Cardiac dysrhythmias (20 sources) Ventricular premature beats; Translations: [Ventricular premature depolarization] Chronic Cardiac dysrhythmias (13 sources) Palpitations; Translations: [Palpitations] Episodic Conduction disorders (13 sources) Left bundle branch block; Translations: [Left bundle-branch block, unspecified] Chronic Disorders of lipid metabolism (14 sources) Mixed hyperlipidemia; Translations: [Mixed hyperlipidemia] Chronic E Codes: Fall (12 sources) Fall on same level from slipping, tripping or stumbling ; Translations: [Fall on same level from slipping, tripping and stumbling without subsequent striking against object, initial encounter] 01-25-2020 Episodic Esophageal disorders (11 sources) Pain in esophagus; Translations: [Pain of esophagus] 05-31-2022 Episodic Essential hypertension (14 sources) Essential hypertension; Translations: [Essential (primary) hypertension] Chronic Genitourinary symptoms and ill-defined conditions (12 sources) Decreased urine output; Translations: [Anuria and oliguria] 08-30-2021 Episodic Miscellaneous mental health disorders (4 sources) Psychogenic vocal cord dysfunction; Translations: [Other somatoform disorders] Onset: 05-31-2016 05-31-2016 Chronic Nausea and vomiting (13 sources) Nausea; Translations: [Nausea] 08-30-2021 Episodic Osteoarthritis (8 sources) Osteoarthritis of left knee joint; Translations: [Unilateral primary osteoarthritis, left knee] 03-29-2023 Chronic Other and unspecified benign neoplasm (9 sources) Polyp of colon; Translations: [Polyp of colon] 05-31-2022 Episodic Other and unspecified benign neoplasm (1 source) Polyp of colon; Translations: [Benign neoplasm of colon] 05-31-2022 Episodic Other bone disease and musculoskeletal deformities (20 sources) Segmental and somatic dysfunction; Translations: [Segmental and somatic dysfunction of cervical region] 03-29-2020 Episodic Other circulatory disease (12 sources) Low blood pressure; Translations: [Hypotension, unspecified] 08-30-2021 Episodic Other disorders of stomach and duodenum (8 sources) Disorder of function of stomach; Translations: [Other diseases of stomach and duodenum] 07-31-2022 Episodic Other disorders of stomach and duodenum (1 source) Other diseases of stomach and duodenum; Translations: [Dyspepsia and other specified disorders of function of stomach] 07-31-2022 Episodic Other gastrointestinal disorders (9 sources) Constipation; Translations: [Constipation, unspecified] 05-31-2022 Episodic Other gastrointestinal disorders (1 source) Constipation, unspecified; Translations: [Constipation, unspecified] 05-31-2022 Episodic Other lower respiratory disease (12 sources) Dyspnea; Translations: [Shortness of breath] 08-30-2021 Episodic Other non-traumatic joint disorders (8 sources) Pain in left knee; Translations: [Left knee pain] 03-29-2023 Episodic Other screening for suspected conditions (not mental disorders or infectious disease) (1 source) Encounter for screening mammogram for malignant neoplasm of breast; Translations: [Encounter for screening mammogram for malignant neoplasm of breast] Onset: 09-28-2024 Episodic Antoinette-; endo-; and myocarditis; cardiomyopathy (except that caused by tuberculosis or sexually transmitted disease) (8 sources) Cardiomyopathy; Translations: [Cardiomyopathy, unspecified] 10-30-2022 Chronic Comment on above: 45% Pneumonia (except that caused by tuberculosis or sexually transmitted disease) (12 sources) Pneumonia; Translations: [Pneumonia, unspecified organism] 01-08-2019 Episodic Residual codes; unclassified (16 sources) Obstructive sleep apnea syndrome; Translations: [Obstructive sleep apnea (adult) (pediatric)] Onset: 05-31-2016 05-31-2016 Chronic Spondylosis; intervertebral disc disorders; other back problems (12 sources) Backache; Translations: [Dorsalgia, unspecified] 03-29-2020 Episodic Substance-related disorders (8 sources) Narcotic drug user; Translations: [Opioid use, unspecified, uncomplicated] 03-29-2023 Episodic Superficial injury; contusion (12 sources) Contusion of hip; Translations: [Contusion of left hip, initial encounter] 01-25-2020 Episodic Thyroid disorders (13 sources) Hypothyroidism; Translations: [Hypothyroidism, unspecified] Onset: 08-07-2024 06-12-2021 Chronic Past or Other Problems Problem Classification Problem Date Documented Date Episodic/Chronic Other lower respiratory disease (4 sources) Solitary nodule of lung; Translations: [Solitary pulmonary nodule] Onset: 05-31-2016 05-31-2016 Episodic Residual codes; unclassified (12 sources) History of cardiac catheterization; Translations: [Other specified postprocedural states] Onset: 09-17-2013 06-15-2021 Episodic Comment on above: Left main coronary l arge-no disease reported; LAD large wraparound vessel which was reported as normal; LCx large nondominant vessel which was reported as normal, and RCA large dominant vessel reported as normal per cardiac cath 09/24/14 @ [facility] Unclassified (11 sources) plantar fasciotomy 12-15-2021 Results Test Name Value Interpretation Reference Range Facility Bone density reportOrdered B y: Maye Solis on 09-22-2024 Study report Skeletal system DXA [facility] Services [address] [place] [address] Dexa Bone Density Study MR#: [id number] Acct: [id number] Name: SHIVA JHAVERI Rep #: [id number] : 1960 F 64 From: Marco Solis DO PCP: Dr. Nicole Moreno DO Status: REG CLI Study:Dexa Bone Density Study Date of Exam: 09/22/24 Exam# [id number] Ordering Dr: Brandy Moreno sa, DO PROCEDURE: DEXA BONE DENSITY STUDY 09/22/2024 REASON FOR EXAM: F, age 64 y/o . Postmenopausal. TECHNIQUE: DEXA scan of sites with data reported below. Scanner utilized: [email or web address] REFERENCE LINKS: [facility] Adult Positions COMPARISON: None FINDINGS: BMD and T-SCORES Lumbar spine: 1.055 g/cm2, T-score 0.1 Levels: L1 through L4 Left 1/3 radius: 0.735 g/cm2, T-score 0.7 The World Health Organization has defined the following categories based on bonedensity: Normal bone density: T-score equal to or greater than -1.0 Osteopenia: T-score between -1.0 and -2.5 Osteoporosis: T-score equal to or less than -2.5 FRAX (or Comparable) Fracture Risk Assessment: 10 Year Probability of Fracture: FRAX not reported due to no comparable hip (Note: FRAX is not to be reported in setting of normal range bone density, osteoporosis on DEXA, known history of osteoporosis, prior osteoporotic hip or vertebral fracture, or for any patient undergoing pharmacological treatment for bone loss.) The National Osteoporosis Foundation (NOF) recommends pharmacological treatment for patients with a FRAX 10-year risk of 3% or higher for a hip fracture, or 20% or higher for a major osteoporotic fracture, to prevent osteoporosis and reduce fracture risk. The patient does not meet the pharmacological treatment recommendations for prevention of osteoporosis. BD/Dexa Bone Density Study IMPRESSION: NORMAL T-SCORES. Recommend follow-up as clinically warranted. Reading Location: [id number] CC: Dr. Nicole Moreno DO ~ Medical Radiation Tech: Signed [facility] Breast imaging reportOrdered By: Rochelle Webb on 09-22-2024 Study report [facility] Services [address] [place], [place] [address] SCRN MAMM (CAD)W/NASRA BILAT MR#: [id number] Acct: [id number] Name: SHIVA JHAVERI Rep #: [id number] : 1960 F 64 From: Anthony Nichole MD PCP: Dr. Nicole Moreno DO Status: REG CLI Study:SCRN MAMM (CAD)W/NASRA BILAT Date of Exa m: 09/22/24 Exam# [id number] Ordering Dr: Brandy Moreno sa, DO EXAM: SCRN MAMM (CAD)W/NASRA BILAT DATE: 09/22/2024 CLINICAL HISTORY: F, Age 64 y/o , SCREENING BREAST CANCER RISK ASSESSMENT: Not reported TECHNIQUE: Bilateral screening digital breast tomosynthesis with 2D and 3D images. Computeraided detection. COMPARISON: Prior exam(s) were compared FINDINGS: TISSUE DENSITY: The breast tissue is heterogenously dense, which may obscure small masses. Bilateral Breast Mammographic Findings: No suspicious masses, calcifications or other abnormalities are identified. BI/SCRN MAMM (CAD)W/NASRA BILAT IMPRESSION: OVERALL FINAL ASSESSMENT: BIRADS 1 NEGATIVE RECOMMENDATION: Routine annual follow-up in 1 Year A letter with findings and recommendations will be mailed to the patient. Reading Location: [id number] CC: Dr. Nicole Moreno DO ~ Medical Radiation Tech: Signed [facility] Dexa Bone Density Studyon Dexa Bone Density Study [facility] Imaging Services [address] [place] [address] Dexa Bone Density Study MR#: [id number] Acct: [id number] Name: SHIVA JHAVERI Rep #: [id number] : 1960 F 64 From: Maye Sebastian PCP: Dr. Nicole Moreno DO Status: [facility] Study: Dexa Bone Density Study Date of Exam: 09/22/24 Exam# [id number] Ordering Dr: Nicole Moreno DO PROCEDURE: DEXA BONE DENSITY STUDY 09/22/2024 REASON FOR EXAM: F, age 64 y/o . Postmenopausal. TECHNIQUE: DEXA scan of sites with data reported below. Scanner utilized: [email or web address] REFERENCE LINKS: [facility] Adult Positions COMPARISON: None FINDINGS: BMD and T-SCORES Lumbar spine: 1.055 g/cm2, T-score 0.1 Levels: L1 through L4 Left 1/3 radius: 0.735 g/cm2, T-score 0.7 The World Health Organization has defined the following categories based on bone density: Normal bone density: T-score equal to or greater than -1.0 Osteopenia: T-score between -1.0 and -2.5 Osteoporosis: T-score equal to or less than -2.5 FRAX (or Comparable) Fracture Risk Assessment: 10 Year Probability of Fracture: FRAX not reported due to no comparable hip (Note: FRAX is not to be reported in setting of normal range bone density, osteoporosis on DEXA, known history of osteoporosis, prior osteoporotic hip or vertebral fracture, or for any patient undergoing pharmacological treatment for bone loss.) The National Osteoporosis Foundation (NOF) recommends pharmacological treatment for patients with a FRAX 10-year risk of 3% or higher for a hip fracture, or 20% or higher for a major osteoporotic fracture, to prevent osteoporosis and reduce fracture risk. The patient does not meet the pharmacological treatment recommendations for prevention of osteoporosis. BD/Dexa Bone Density Study IMPRESSION: NORMAL T-SCORES. Recommend follow-up as clinically warranted. Reading Location: [id number] CC: Dr. Nicole Moreno DO Medical Radiation Tech: Signed Normal [facility] SCRN MAMM (CAD)W/NASRA BILATo n 09-22-2024 SCRN MAMM (CAD)W/NASRA BILAT [facility] Imaging Services [address] [place], [place] [id number] SCRN MAMM (CAD)W/NASRA BILAT MR#: [id number] Acct: [id number] Name: SHIVA JHAVERI Rep #: [id number] : 1960 F 64 From: Rochelle Post i, MD PCP: Dr. Nicole Moreno DO Status: [facility] CLI Study: SCRN MAMM (CAD)W/NASRA BILAT Date of Exam: 11/11 Exam# [id number] Ordering Dr: Nicole Moreno DO EXAM: SCRN MAMM (CAD)W/NASRA BILAT DATE: 09/22/2024 CLINICAL HISTORY: F, Age 64 y/o , SCREENING BREAST CANCER RISK ASSESSMENT: Not reported TECHNIQUE: Bilateral screening digital breast tomosynthesis with 2D and 3D images. Computer aided detection. COMPARISON: Prior exam(s) were compared FINDINGS: TISSUE DENSITY: The breast tissue is heterogenously dense, which may obscure small masses. Bilateral Breast Mammographic Findings: No suspicious masses, calcifications or other abnormalities are identified. BI/SCRN MAMM (CAD)W/NASRA BILAT IMPRESSION: OVERALL FINAL ASSESSMENT: BIRADS 1 NEGATIVE RECOMMENDATION: Routine annual follow-up in 1 Year A letter with findings and recommendations will be mailed to the patient. Reading Location: [facility] CC: Dr. Nicole Moreno, Medical Radiation Tech: Signed Normal [facility] Absolute lymphocyte countOrd ered By: Nicole Moreno on 07-29-2024 Lymphocytes Auto (Unsp spec) [#/Vol] 2.73 10*3/uL 0.83-4.51 [facility] Absolute neutrophil countOrd ered By: Nicole Moreno on 07-29-2024 Neutrophils (Bld) [#/Vol] 5.1 10*3/uL 2.0-7.7 [facility] Anion gap in Serum or Plasma Ordered By: Nicole Moreno on 07-29-2024 Anion gap [Moles/Vol] 11 mmol/L 5-15 [facility] Automated lymphocyte count a s percentage of total leukocytesOrdered By: Nicole Moreno on 07-29-2024 Lymphocytes/100 WBC Auto (Unsp spec) 32.0 % 19-41 [facility] BUN/creatinine ratioOrdered By: Nicole Moreno on 07-29-2024 Urea nitrogen/Creatinine [Mass ratio] 20.2 mg/mg High 10-20 [facility] Basophil percentageOrdered B y: Nicole Moreno on 07-29-2024 Basophils/100 WBC (Bld) 0.9 % 0-1 [facility] Bilirubin, totalOrdered By: Nicole Moreno on 07-29-2024 Bilirubin [Mass/Vol] 0.24 mg/dL 0.00-1.30 [facility] CBC W/Diff, Automatedon 07-18 Absolute Lymph 2.73 X10 3/uL Normal 0.83-4.51 [facility] Comment on above: Performed By: #### L 501.9520, L501.73653, L500.4050, L500.4100, L501.6710, L100.0100, L506.0400, L501.9985, L504.2610, L101.9900 #### [facility] Laboratory [address] [place], [address] Absolute Neut 5.1 X10 3/uL Normal 2.0-7.7 [facility] Comment on above: Performed By: #### L 501.9520, L501.03330, L500.4050, L500.4100, L501.6710, L100.0100, L506.0400, L501.9985, L504.2610, L101.9900 #### [facility] [address] [place], [address] Basophils/100 WBC (Bld) 0.9 % Normal 0-1 [facility] Comment on above: Performed By: #### L 501.9520, L501.12856, L500.4050, L500.4100, L501.6710, L100.0100, L506.0400, L501.9985, L504.2610, L101.9900 #### [facility] [address] [place], [address] Eosinophils/100 WBC (Bld) 1.3 % Normal 0-5 [facility] Comment on above: Performed By: #### L 501.9520, L501.41843, L500.4050, L500.4100, L501.6710, L100.0100, L506.0400, L501.9985, L504.2610, L101.9900 #### [facility] [address] [place], [address] Erythrocyte distribution width (RBC) [Ratio] 14.0 % Normal 11.6-14.6 [facility] Comment on above: Performed By: #### L 501.9520, L501.95576, L500.4050, L500.4100, L501.6710, L100.0100, L506.0400, L501.9985, L504.2610, L101.9900 #### [facility] [address] [place], [address] Hematocrit (Bld) [Volume fraction] 35.7 % Low 37-47 [facility] Comment on above: Performed By: #### L 501.9520, L501.18011, L500.4050, L500.4100, L501.6710, L100.0100, L506.0400, L501.9985, L504.2610, L101.9900 #### [facility] [address] [place], [address] Hemoglobin (Bld) [Mass/Vol] 11.4 g/dL Low 12.0-15. 0 [facility] Comment on above: Performed By: #### L 501.9520, L501.56282, L500.4050, L500.4100, L501.6710, L100.0100, L506.0400, L501.9985, L504.2610, L101.9900 #### [facility] [address] [place], [address] IG% 0.400 Normal 0.0-0.9 [facility] Comment on above: Result Comment: IG% - Immature Granulocytes (promyelocytes, myelocytes and metamyelocytes) > 1% indicates that a LEFT SHIFT is Present. Performed By: #### L 501.9520, L501.28348, L500.4050, L500.4100, L501.6710, L100.0100, L506.0400, L501.9985, L504.2610, L101.9900 #### [facility] [address] [place], [address] Lymphocytes/100 WBC (Bld) 32.0 % Normal 19-41 [facility] Comment on above: Performed By: #### L 501.9520, L501.97927, L500.4050, L500.4100, L501.6710, L100.0100, L506.0400, L501.9985, L504.2610, L101.9900 #### [facility] [address] [place], [address] MCH (RBC) [Entitic mass] 29.1 pg Normal 27.0-32.0 [facility] Comment on above: Performed By: #### L 501.9520, L501.09276, L500.4050, L500.4100, L501.6710, L100.0100, L506.0400, L501.9985, L504.2610, L101.9900 #### [facility] [address] [place], [address] MCHC (RBC) [Mass/Vol] 31.9 g/dL Low 32-36 [facility] Comment on above: Performed By: #### L 501.9520, L501.75870, L500.4050, L500.4100, L501.6710, L100.0100, L506.0400, L501.9985, L504.2610, L101.9900 #### [facility] [address] [facility] [place], [address] MCV (RBC) [Entitic vol] 91.1 fL Normal 81-99 [facility] Comment on above: Performed By: #### L 501.9520, L501.51076, L500.4050, L500.4100, L501.6710, L100.0100, L506.0400, L501.9985, L504.2610, L101.9900 #### [facility] [address] [facility] [place], [address] Monocytes/100 WBC (Bld) 5.9 % Normal 0-10 [facility] Comment on above: Performed By: #### L 501.9520, L501.75573, L500.4050, L500.4100, L501.6710, L100.0100, L506.0400, L501.9985, L504.2610, L101.9900 #### [facility] [address] [facility] [place], [address] Neutrophils/100 WBC (Bld) 59.5 % Normal 47-70 [facility] Comment on above: Performed By: #### L 501.9520, L501.32006, L500.4050, L500.4100, L501.6710, L100.0100, L506.0400, L501.9985, L504.2610, L101.9900 #### [facility] [address] [place], [address] ( Nucleated RBC (Bld) [#/Vol] 0 10*3/uL Normal 0-5 [facility] Comment on above: Performed By: #### L 501.9520, L501.80939, L500.4050, L500.4100, L501.6710, L100.0100, L506.0400, L501.9985, L504.2610, L101.9900 #### [facility] [address] [place], [address] Platelet mean volume (Bld) [Entitic vol] 9.6 fL Normal 6.2-12.0 [facility] Comment on above: Performed By: #### L 501.9520, L501.43996, L500.4050, L500.4100, L501.6710, L100.0100, L506.0400, L501.9985, L504.2610, L101.9900 #### [facility] [address] [facility] [place], [address] ( Platelets (Bld) [#/Vol] 405 10*3/uL Normal 150-450 [facility] Comment on above: Performed By: #### L 501.9520, L501.30917, L500.4050, L500.4100, L501.6710, L100.0100, L506.0400, L501.9985, L504.2610, L101.9900 #### [facility] [address] [facility] [place], [place], [phone] (386) RBC (Bld) [#/Vol] 3.92 10*6/uL Low 4.2-5.4 [facility] Comment on above: Performed By: #### L 501.9520, L501.98677, L500.4050, L500.4100, L501.6710, L100.0100, L506.0400, L501.9985, L504.2610, L101.9900 #### [facility] [address] [facility] [place], [address] (224) RDW SD 46.1 fl High 35.1-43.9 [facility] Comment on above: Performed By: #### L 501.9520, L501.33058, L500.4050, L500.4100, L501.6710, L100.0100, L506.0400, L501.9985, L504.2610, L101.9900 #### [facility] [address] [facility] [place], [place], [phone] (470) WBC (Bld) [#/Vol] 8.5 10*3/uL Normal 4.4-11.0 [facility] Comment on above: Performed By: #### L 501.9520, L501.94796, L500.4050, L500.4100, L501.6710, L100.0100, L506.0400, L501.9985, L504.2610, L101.9900 #### [facility] [address] [place], [address] (517) CRPon 07-29-2024 C-REACTIVE PROT < 3.00 Normal 0.0-3.0 [facility] Comment on above: Performed By: #### L 100.0100, L501.38925, L500.4050, L501.9520, L506.0400 #### [facility] [address] [place], [place], [phone] CRP [Mass/Vol]Ordered By: Brandy Moreno on 07-29-2024 C-Reactive Protein Extended Range < 3.00 mg/L 0.0-3.0 [facility] Calculated very low density lipoprotein (VLDL) cholesterol measurementOrdered By: Nicole Moreno on 07-29-2024 Calculated very low density lipoprotein (VLDL) cholesterol measurement 16 mg/dL 5-40 [facility] VLDL Cholesterol 16 mg/dL -40 [facility] Carbon dioxide, total [Moles /volume] in Central venous bloodOrdered By: Nicole Moreno on 07-29-2024 CO2 [Moles/Vol] 25.9 mmol/L 21.0-32.0 [facility] Chloride assayOrdered By: Brandy Moreno on 07-29-2024 Chloride [Moles/Vol] 106 mmol/L 98-108 [facility] Comprehensive Metabolic Prof ilon 07-29-2024 Albumin [Mass/Vol] 4.0 g/dL Normal 3.4-4.8 [facility] Comment on above: Performed By: #### L 501.9520, L501.55389, L500.4050, L500.4100, L501.6710, L100.0100, L506.0400, L501.9985, L504.2610, L101.9900 #### [facility] [address] [place], [place], [phone] Albumin/Globulin [Mass ratio] 1.6 {ratio} Normal 0.9-2.4 [facility] Comment on above: Performed By: #### L 501.9520, L501.68625, L500.4050, L500.4100, L501.6710, L100.0100, L506.0400, L501.9985, L504.2610, L101.9900 #### [facility] [address] [place], [place], [phone] ALK PHOS 58 U/L Normal 35-104 [facility] Comment on above: Performed By: #### L 501.9520, L501.54878, L500.4050, L500.4100, L501.6710, L100.0100, L506.0400, L501.9985, L504.2610, L101.9900 #### [facility] [address] [place], [address] ALT [Catalytic activity/Vol] 10 U/L Normal <=34 [facility] Comment on above: Performed By: #### L 501.9520, L501.11159, L500.4050, L500.4100, L501.6710, L100.0100, L506.0400, L501.9985, L504.2610, L101.9900 #### [facility] [address] [place], [address] AST [Catalytic activity/Vol] 18 U/L Normal <=31 [facility] Comment on above: Performed By: #### L 501.9520, L501.82909, L500.4050, L500.4100, L501.6710, L100.0100, L506.0400, L501.9985, L504.2610, L101.9900 #### [facility] [address] [place], [address] Bilirubin [Mass/Vol] 0.24 mg/dL Normal 0.00-1.30 [facility] Comment on above: Performed By: #### L 501.9520, L501.20276, L500.4050, L500.4100, L501.6710, L100.0100, L506.0400, L501.9985, L504.2610, L101.9900 #### [facility] [address] [place], [address] BUN/CRE 20.2 RATIO High 10-20 [facility] Comment on above: Performed By: #### L 501.9520, L501.45132, L500.4050, L500.4100, L501.6710, L100.0100, L506.0400, L501.9985, L504.2610, L101.9900 #### [facility] [address] [place], [address] Calcium [Mass/Vol] 9.6 mg/dL Normal 7.6-11.0 [facility] Comment on above: Performed By: #### L 501.9520, L501.94106, L500.4050, L500.4100, L501.6710, L100.0100, L506.0400, L501.9985, L504.2610, L101.9900 #### [facility] [address] [place], [place], [phone] (116) Chloride [Moles/Vol] 106 mmol/L Normal 98-108 [facility] Comment on above: Performed By: #### L 501.9520, L501.50081, L500.4050, L500.4100, L501.6710, L100.0100, L506.0400, L501.9985, L504.2610, L101.9900 #### [facility] [address] [place], [address] CO2 [Moles/Vol] 25.9 mmol/L Normal 21.0-32.0 [facility] Comment on above: Performed By: #### L 501.9520, L501.90309, L500.4050, L500.4100, L501.6710, L100.0100, L506.0400, L501.9985, L504.2610, L101.9900 #### [facility] [address] [place], [place], [phone] (403) Creatinine [Mass/Vol] 0.88 mg/dL Normal 0.70-1.20 [facility] Comment on above: Performed By: #### L 501.9520, L501.95235, L500.4050, L500.4100, L501.6710, L100.0100, L506.0400, L501.9985, L504.2610, L101.9900 #### [facility] [address] [place], [place], [phone] GAP 11 Normal 5-15 [facility] Comment on above: Performed By: #### L 501.9520, L501.31665, L500.4050, L500.4100, L501.6710, L100.0100, L506.0400, L501.9985, L504.2610, L101.9900 #### [facility] [address] [place], [address] GFR/1.73 sq M.predicted among non-blacks MDRD (S/P/Bld) [Vol rate/Area] 73 mL/min/{1.73_m2} Normal >60 [facility] Comment on above: Result Comment: mL/m in/1.73m2 CKD-EPI Creatinine Equation (2020) Performed By: #### L 501.9520, L501.62512, L500.4050, L500.4100, L501.6710, L100.0100, L506.0400, L501.9985, L504.2610, L101.9900 #### [facility] [address] [place], [place], [phone] Globulin (S) [Mass/Vol] 2.6 g/dL Normal 2.2-4.2 [facility] Comment on above: Performed By: #### L 501.9520, L501.60176, L500.4050, L500.4100, L501.6710, L100.0100, L506.0400, L501.9985, L504.2610, L101.9900 #### [facility] [address] [place], [address] Glucose [Mass/Vol] 89 mg/dL Normal 70-99 [facility] Comment on above: Performed By: #### L 501.9520, L501.88078, L500.4050, L500.4100, L501.6710, L100.0100, L506.0400, L501.9985, L504.2610, L101.9900 #### [facility] [address] [place], [address] Potassium [Moles/Vol] 4.0 mmol/L Normal 3.3-5.1 [facility] Comment on above: Performed By: #### L 501.9520, L501.10540, L500.4050, L500.4100, L501.6710, L100.0100, L506.0400, L501.9985, L504.2610, L101.9900 #### [facility] [address] [place], [address] Sodium [Moles/Vol] 143 mmol/L Normal 133-145 [facility] Comment on above: Performed By: #### L 501.9520, L501.45241, L500.4050, L500.4100, L501.6710, L100.0100, L506.0400, L501.9985, L504.2610, L101.9900 #### [facility] [address] [place], [address] T PROT 6.6 g/dL Normal 5.9-8.4 [facility] Comment on above: Performed By: #### L 501.9520, L501.22319, L500.4050, L500.4100, L501.6710, L100.0100, L506.0400, L501.9985, L504.2610, L101.9900 #### [facility] [address] [place], [place], [id number] Urea nitrogen [Mass/Vol] 18 mg/dL Normal 4-19 [facility] Comment on above: Performed By: #### L 501.9520, L501.05946, L500.4050, L500.4100, L501.6710, L100.0100, L506.0400, L501.9985, L504.2610, L101.9900 #### [facility] [address] [place], [place], [address] Eosinophil percentageOrdered By: Nicole Moreno on 07-29-2024 Eosinophils/100 WBC (Bld) 1.3 % 0-5 [facility] Erythrocyte Sed Rateon 07-29 SED RATE 5 mm/hr Normal 0-30 [facility] Comment on above: Performed By: #### L 501.9520, L501.53941, L500.4050, L500.4100, L501.6710, L100.0100, L506.0400, L501.9985, L504.2610, L101.9900 #### [facility] [address] [place], [address] Erythrocyte distribution wid th ratioOrdered By: Nicole Moreno on 07-29-2024 Erythrocyte distribution width (RBC) [Ratio] 14.0 % 11.6-14.6 [facility] Erythrocyte distribution wid th standard deviationOrdered By: Nicole Moreno on 07-29-2024 Erythrocyte distribution width (RBC) [Entitic vol] 46.1 fL High 35.1-43.9 [facility] Erythrocyte distribution width (RBC) [Ratio] 46.1 fl High 35.1-43.9 [facility] Erythrocyte sedimentation ra teOrdered By: Nicole Moreno on 07-29-2024 ESR (Bld) [Velocity] 5 mm/h 0-30 [facility] Free T3on 07-29-2024 Free T3 [Mass/Vol] 2.7 pg/mL Normal 2.18-3.98 [facility] Comment on above: Performed By: #### L 100.0100, L501.19183, L500.4050, L501.9520, L506.0400 #### [facility] [address] [place], [place], [id number] Free [id number] By: Nicole moya on 07-29-2024 Free T3 [Mass/Vol] 2.7 pg/mL 2.18-3.98 [facility] Free Triiodothyronine (T3) pg/dL 2.7 pg/mL 2.18-3.98 [facility] GFR/1.73 sq M.predicted char g non-blacks MDRD (S/P/Bld) [Vol rate/Area]Ordered By: Nicole Moreno on 07-29-2024 Estimated GFR (MDRD) Non-Af Amer 73 >60 [facility] Comment on above: mL/min/1.73m2 CKD-EP I Creatinine Equation (2020) Glomerular filtration rate ( GFR) estimation/1.73 sq m using serum, plasma, or whole bOrdered By: Nicole Moreno on 07-29-2024 GFR/1.73 sq M.predicted among non-blacks MDRD (S/P/Bld) [Vol rate/Area] 73 mL/min/{1.73_m2} >60 [facility] Comment on above: mL/min/1.73m2 CKD-EP I Creatinine Equation (2020) Hematocrit Auto (Bld) [Volum e fraction]Ordered By: Nicole Moreno on 07-29-2024 Hematocrit (Bld) [Volume fraction] 35.7 % Low 37-47 [facility] Hemoglobin A1con 07-29-2024 HbA1c (Bld) [Mass fraction] 5.5 % Low <=5.6 [facility] Comment on above: Performed By: #### L 501.9520, L501.02027, L500.4050, L500.4100, L501.6710, L100.0100, L506.0400, L501.9985, L504.2610, L101.9900 #### [facility] [address] [place], [place], [id number] Hemoglobin A1c percentageOrd ered By: Nicole Moreno on 07-29-2024 HbA1c (Bld) [Mass fraction] 5.5 % Low >5.7 [facility] Hemoglobin measurementOrdere d By: Nicole Moreno on 07-29-2024 Hemoglobin (Bld) [Mass/Vol] 11.4 g/dL Low 12.0-15. 0 [facility] Immature granulocytes/100 WB C Auto (Bld)Ordered By: Nicole Moreno on 07-29-2024 Immature granulocytes/100 WBC (Bld) 0.400 % 0.0-0.9 [facility] Comment on above: IG% - Immature Granu locytes (promyelocytes, myelocytes and metamyelocytes) > 1% indicates that a LEFT SHIFT is Present. LDHon 07-29-2024 LDH 149 U/L Normal 84-246 [facility] Comment on above: Order Comment: 1 Performed By: #### L 100.0100, L501.18723, L500.4050, L501.9520, L506.0400 #### [facility] [address] [place], [place], [id number] LDL calc ser/plasOrdered By: Nicole Moreno on 07-29-2024 Cholesterol in LDL [Mass/Vol] 124 mg/dL [facility] Comment on above: Wdmbtizbgn=332-413 m g/dL & Higher Yibl=605 mg/dL or greater LDL Cholesterol, Calculated 124 mg/dL [facility] Comment on above: Awyiqhllls=372-889 m g/dL & Higher Zmqa=710 mg/dL or greater Laboratory - Chemistry and C hemistry - challengeOrdered By: Nicole Moreno on 07-29-2024 AST [Catalytic activity/Vol] 18 U/L <32 [facility] Lactate dehydrogenase (LDH) measurementOrdered By: Nicole Moreno on 07-29-2024 LDH [Catalytic activity/Vol] 149 U/L 84-246 [facility] Lipid Profileon 07-29-2024 CHOL:HDL 3.13 Normal [facility] Comment on above: Performed By: #### L 100.0100, L501.32432, L500.4050, L501.9520, L506.0400 #### [facility] [address] [place], [address] Cholesterol [Mass/Vol] 206 mg/dL High <=200 [facility] Comment on above: Result Comment: Chol esterol level, Desirable <200 mg/dL Borderline high cholesterol 200-239 mg/dL High cholesterol >=240 mg/dL Recommendations of the NCEP Adult Treatment Panel for the following risk-cutoff thresholds for the [place] population. Performed By: #### L 100.0100, L501.36231, L500.4050, L501.9520, L506.0400 #### [facility] [address] [place], [address] Cholesterol in HDL [Mass/Vol] 66 mg/dL Normal [facility] Comment on above: Result Comment: Leila onal Cholesterol Education Program (NCEP) guidelines: <40 mg/dL: Low HDL-cholesterol (major risk factor for CHD) >= 60 mg/dL: High HDL-cholesterol (negative risk factor for CHD) HDL-cholesterol is affected by a number of factors, e.g. smoking, exercise, hormones, sex and age. Performed By: #### L 100.0100, L501.62212, L500.4050, L501.9520, L506.0400 #### [facility] [address] [place], [address] Cholesterol in LDL [Mass/Vol] 124 mg/dL Normal [facility] Comment on above: Result Comment: Bord oxeoam=857-929 mg/dL Higher Jdmi=564 mg/dL or greater Performed By: #### L 100.0100, L501.10239, L500.4050, L501.9520, L506.0400 #### [facility] [address] [place], [address] Cholesterol in VLDL [Mass/Vol] 16 mg/dL Normal 5-40 [facility] Comment on above: Performed By: #### L 100.0100, L501.89753, L500.4050, L501.9520, L506.0400 #### [facility] [address] [place], [address] Triglyceride [Mass/Vol] 82 mg/dL Normal [facility] Comment on above: Result Comment: The drugs N-Acetylcysteine and Metamizole may falsely depress this assay. Normal range: <150 mg/dL Borderline High: 150-199 mg/dL High: 200-499 mg/dL Very High: >500 mg/dL Performed By: #### L 100.0100, L501.35843, L500.4050, L501.9520, L506.0400 #### [facility] [address] [place], [address] Lymphocytes Auto (Unsp spec) [#/Vol]Ordered By: Nicole Moreno on 07-29-2024 Lymphocytes (Bld) [#/Vol] 2.73 10*3/uL 0.83-4.5 1 [facility] Lymphocytes/100 WBC Auto (Un sp spec)Ordered By: Nicole Moreno on 07-29-2024 Lymphocytes/100 WBC (Bld) 32.0 % 19-41 [facility] MCV (mean corpuscular volume ) determinationOrdered By: Nicole Moreno on 07-29-2024 MCV (RBC) [Entitic vol] 91.1 fL 81-99 [facility] Mean corpuscular hemoglobin (MCH) determinationOrdered By: Nicole Moreno on 07-29-2024 MCH (RBC) [Entitic mass] 29.1 pg 27.0-32.0 [facility] Mean corpuscular hemoglobin concentration (MCHC) determinationOrdered By: Nicole Moreno on 07-29-2024 MCHC (RBC) [Mass/Vol] 31.9 g/dL Low 32-36 [facility] Mean platelet volume determi nationOrdered By: Nicole Moreno on 07-29-2024 Platelet mean volume (Bld) [Entitic vol] 9.6 fL 6.2-12.0 [facility] Monocyte percentageOrdered B y: Nicole Moreno on 07-29-2024 Monocytes/100 WBC (Bld) 5.9 % 0-10 [facility] Neutrophil percentageOrdered By: Nicole Moreno on 07-29-2024 Neutrophils/100 WBC (Bld) 59.5 % 47-70 [facility] Nucleated red blood cell per centageOrdered By: Nicole Moreno on 07-29-2024 Nucleated RBC/100 WBC (Bld) [Ratio] 0 % 0-5 [facility] Platelet countOrdered By: Brandy Moreno on 07-29-2024 Platelets (Bld) [#/Vol] 405 10*3/uL 150-450 [facility] Potassium (Unsp spec) [Mass/ Vol]Ordered By: Nicole Moreno on 07-29-2024 Potassium [Moles/Vol] 4.0 mmol/L 3.3-5.1 [facility] Potassium measurement (mass/ volume)Ordered By: Nicole Moreno on 07-29-2024 Potassium (Unsp spec) [Mass/Vol] 4.0 mmol/L 3.3-5.1 [facility] RBC Auto (Bld) [#/Vol]Ordere d By: Nicole Moreno on 07-29-2024 RBC (Bld) [#/Vol] 3.92 10*6/uL Low 4.2-5.4 [facility] Screening total cholesterol/ high density lipoprotein (HDL) cholesterol ratioOrdered By: Nicole Moreno on 07-29-2024 Cholesterol.total/Cholestero l in HDL [Mass ratio] 3.13 {ratio} [facility] Serum creatinine measurement (mass/volume)Ordered By: Nicole Moreno on 07-29-2024 Creatinine [Mass/Vol] 0.88 mg/dL 0.70-1.20 [facility] Serum globulin measurementOr dered By: Nicole Moreno on 07-29-2024 Globulin (S) [Mass/Vol] 2.6 g/dL 2.2-4.2 [facility] Serum glucose measurement (m ass/volume)Ordered By: Nicole Moreno on 07-29-2024 Glucose [Mass/Vol] 89 mg/dL 70-99 [facility] Serum or plasma C reactive p rotein measurement (mass/volume)Ordered By: Nicole Moreno on 07-29-2024 CRP [Mass/Vol] mg/L 0.0-3.0 [facility] Serum or plasma alanine mendoza otransferase (ALT) measurementOrdered By: Nicole Moreno on 07-29-2024 ALT [Catalytic activity/Vol] 10 U/L <35 [facility] Serum or plasma albumin amos urement (mass/volume)Ordered By: Nicole Moreno on 07-29-2024 Albumin [Mass/Vol] 4.0 g/dL 3.4-4.8 [facility] Serum or plasma albumin/glob ulin mass ratioOrdered By: Nicole Moreno on 07-29-2024 Albumin/Globulin [Mass ratio] 1.6 {ratio} 0.9-2.4 [facility] Serum or plasma alkaline yair sphatase measurementOrdered By: Nicole Moreno on 07-29-2024 ALP [Catalytic activity/Vol] 58 U/L 35-104 [facility] Serum or plasma calcium amos urement (mass/volume)Ordered By: Nicole Moreno on 07-29-2024 Calcium [Mass/Vol] 9.6 mg/dL 7.6-11.0 [facility] Serum or plasma cholesterol in HDL measurement (mass/volume)Ordered By: Nicole Moreno on 07-29-2024 Cholesterol in HDL [Mass/Vol] 66 mg/dL >40 [facility] Comment on above: National Cholesterol Education Program (NCEP) guidelines:<40 mg/dL: Low HDL-cholesterol (major risk factor for CHD)>= 60 mg/dL: High HDL-cholesterol (negative risk factor for CHD)HDL-cholesterol is affected by a number of factors, e.g. smoking, exercise, hormones, sex and age. Serum or plasma cholesterol measurement (mass/volume)Ordered By: Nicole Moreno on 07-29-2024 Cholesterol [Mass/Vol] 206 mg/dL High <201 [facility] Comment on above: Cholesterol level, D esirable <200 mg/dLBorderline high cholesterol 200-239 mg/dLHigh cholesterol >=240 mg/dLRecommendations of the NCEP Adult Treatment Panel for the following risk-cutoff thresholds for the [place] population. Serum or plasma urea nitroge n measurement (mass/volume)Ordered By: Nicole Moreno on 07-29-2024 Urea nitrogen [Mass/Vol] 18 mg/dL 4-19 [facility] Sodium levelOrdered By: Nicole Moreno on 07-29-2024 Sodium [Moles/Vol] 143 mmol/L 133-145 [facility] T4 Free Directon 07-29-2024 T4 FREE DIRECT 1.20 ng/dL Normal 0.76-1.46 [facility] Comment on above: Performed By: #### L 100.0100, L501.66976, L500.4050, L501.9520, L506.0400 #### [facility] [address] [place], [place], [id number] T4 freeOrdered By: Nicole Cordova s on 07-29-2024 Free T4 [Mass/Vol] 1.20 ng/dL 0.76-1.46 [facility] TSH DL <= 0.005 mIU/L QnOrde red By: Nicole Moreno on 07-29-2024 Thyroid Stimulating Hormone (TSH) 4.770 uIU/mL High 0.300-4.200 [facility] TSH Qn 4.770 uIU/mL High 0.300-4.200 [facility] Thyroid Stim Hormone (TSH)on 07-29-2024 TSH 4.770 uIU/mL High 0.300-4.200 [facility] Comment on above: Performed By: #### L 100.0100, L501.19863, L500.4050, L501.9520, L506.0400 #### [facility] [address] [place], [address] Total proteinOrdered By: Regina Moreno on 07-29-2024 Protein [Mass/Vol] 6.6 g/dL 5.9-8.4 [facility] Triglycerides measurementOrd ered By: Nicole Moreno on 07-29-2024 Triglyceride [Mass/Vol] 82 mg/dL <199 [facility] Comment on above: The drugs N-Acetylcy steine and Metamizole may falsely depress this assay. Normal range: <150 mg/dLBorderline High: 150-199 mg/dLHigh: 200-499 mg/dLVery High: >500 mg/dL White blood cell (WBC) count Ordered By: Nicole Moreno on 07-29-2024 WBC (Bld) [#/Vol] 8.5 10*3/uL 4.4-11.0 [facility] CBC W/Diff, Automatedon 02-17 Absolute Lymph 2.64 X10 3/uL Normal 0.83-4.51 [facility] Comment on above: Performed By: #### L 100.0100, L501.25614, L500.4050, L501.9520, L506.0400 #### [facility] [address] [place], [address] Absolute Neut 3.1 X10 3/uL Normal 2.0-7.7 [facility] Comment on above: Performed By: #### L 100.0100, L501.48605, L500.4050, L501.9520, L506.0400 #### [facility] [address] [place], [address] Basophils/100 WBC (Bld) 1.1 % High 0-1 [facility] Comment on above: Performed By: #### L 100.0100, L501.84628, L500.4050, L501.9520, L506.0400 #### [facility] [address] [place], [address] Eosinophils/100 WBC (Bld) 1.6 % Normal 0-5 [facility] Comment on above: Performed By: #### L 100.0100, L501.35446, L500.4050, L501.9520, L506.0400 #### [facility] [address] [place], [address] Erythrocyte distribution width (RBC) [Ratio] 13.2 % Normal 11.6-14.6 [facility] Comment on above: Performed By: #### L 100.0100, L501.61822, L500.4050, L501.9520, L506.0400 #### [facility] [address] [place], [address] Hematocrit (Bld) [Volume fraction] 35.5 % Low 37-47 [facility] Comment on above: Performed By: #### L 100.0100, L501.65623, L500.4050, L501.9520, L506.0400 #### [facility] [address] [place], [address] Hemoglobin (Bld) [Mass/Vol] 11.7 g/dL Low 12.0-15. 0 [facility] Comment on above: Performed By: #### L 100.0100, L501.25269, L500.4050, L501.9520, L506.0400 #### [facility] [address] [place], [address] IG% 0.200 Normal 0.0-0.9 [facility] Comment on above: Result Comment: IG% - Immature Granulocytes (promyelocytes, myelocytes and metamyelocytes) > 1% indicates that a LEFT SHIFT is Present. Performed By: #### L 100.0100, L501.77509, L500.4050, L501.9520, L506.0400 #### [facility] [address] [place], [address] Lymphocytes/100 WBC (Bld) 41.2 % High 19-41 [facility] Comment on above: Performed By: #### L 100.0100, L501.64736, L500.4050, L501.9520, L506.0400 #### [facility] [address] [place], [address] MCH (RBC) [Entitic mass] 29.9 pg Normal 27.0-32.0 [facility] Comment on above: Performed By: #### L 100.0100, L501.98640, L500.4050, L501.9520, L506.0400 #### [facility] [address] [place], [address] MCHC (RBC) [Mass/Vol] 33.0 g/dL Normal 32-36 [facility] Comment on above: Performed By: #### L 100.0100, L501.18999, L500.4050, L501.9520, L506.0400 #### [facility] [address] [place], [address] MCV (RBC) [Entitic vol] 90.8 fL Normal 81-99 [facility] Comment on above: Performed By: #### L 100.0100, L501.30043, L500.4050, L501.9520, L506.0400 #### [facility] [address] [place], [address] Monocytes/100 WBC (Bld) 8.0 % Normal 0-10 [facility] Comment on above: Performed By: #### L 100.0100, L501.33501, L500.4050, L501.9520, L506.0400 #### [facility] [address] [place], [address] Neutrophils/100 WBC (Bld) 47.9 % Normal 47-70 [facility] Comment on above: Performed By: #### L 100.0100, L501.01567, L500.4050, L501.9520, L506.0400 #### [facility] [address] [place], [address] Nucleated RBC (Bld) [#/Vol] 0 10*3/uL Normal 0-5 [facility] Comment on above: Performed By: #### L 100.0100, L501.88612, L500.4050, L501.9520, L506.0400 #### [facility] [address] [place], [address] Platelet mean volume (Bld) [Entitic vol] 9.8 fL Normal 6.2-12.0 [facility] Comment on above: Performed By: #### L 100.0100, L501.25469, L500.4050, L501.9520, L506.0400 #### [facility] [address] [place], [address] Platelets (Bld) [#/Vol] 352 10*3/uL Normal 150-450 [facility] Comment on above: Performed By: #### L 100.0100, L501.63487, L500.4050, L501.9520, L506.0400 #### [facility] [address] [place], [address] RBC (Bld) [#/Vol] 3.91 10*6/uL Low 4.2-5.4 [facility] Comment on above: Performed By: #### L 100.0100, L501.55451, L500.4050, L501.9520, L506.0400 #### [facility] [address] [place], [address] RDW SD 43.4 fl Normal 35.1-43.9 [facility] Comment on above: Performed By: #### L 100.0100, L501.70087, L500.4050, L501.9520, L506.0400 #### [facility] [address] [place], [address] WBC (Bld) [#/Vol] 6.4 10*3/uL Normal 4.4-11.0 [facility] Comment on above: Performed By: #### L 100.0100, L501.52449, L500.4050, L501.9520, L506.0400 #### [facility] [address] [place], [address] Comprehensive Metabolic Prof ilon 03-06-2024 Albumin [Mass/Vol] 3.5 g/dL Normal 3.2-5.0 [facility] Comment on above: Performed By: #### L 100.0100, L501.90764, L500.4050, L501.9520, L506.0400 #### [facility] [address] [place], [address] Albumin/Globulin [Mass ratio] 1.1 {ratio} Normal 0.9-2.4 [facility] Comment on above: Performed By: #### L 100.0100, L501.17876, L500.4050, L501.9520, L506.0400 #### [facility] [address] [place], [address] ALK P 65 U/L Normal 45-117 [facility] Comment on above: Performed By: #### L 100.0100, L501.02993, L500.4050, L501.9520, L506.0400 #### [facility] [address] [place], [address] ALT [Catalytic activity/Vol] 24 U/L Normal 13-56 [facility] Comment on above: Performed By: #### L 100.0100, L501.17735, L500.4050, L501.9520, L506.0400 #### [facility] [address] [place], [address] AST [Catalytic activity/Vol] 19 U/L Normal 15-37 [facility] Comment on above: Performed By: #### L 100.0100, L501.11602, L500.4050, L501.9520, L506.0400 #### [facility] [address] [place], [address] Bilirubin [Mass/Vol] 0.50 mg/dL Normal 0.20-1.00 [facility] Comment on above: Result Comment: For patients on eltrombopag therapy, use of Dimension [place] TBIL is not recommended. Performed By: #### L 100.0100, L501.73918, L500.4050, L501.9520, L506.0400 #### [facility] [address] [place], [address] BUN/CRE 20.5 RATIO High 10-20 [facility] Comment on above: Performed By: #### L 100.0100, L501.69227, L500.4050, L501.9520, L506.0400 #### [facility] [address] [place], [address] CA,Total 9.8 mg/dL Normal 8.5-10.1 [facility] Comment on above: Performed By: #### L 100.0100, L501.32409, L500.4050, L501.9520, L506.0400 #### [facility] [address] [place], [address] Chloride [Moles/Vol] 106 mmol/L Normal 98-107 [facility] Comment on above: Performed By: #### L 100.0100, L501.17693, L500.4050, L501.9520, L506.0400 #### [facility] [address] [place], [address] CO2 [Moles/Vol] 29.0 mmol/L Normal 21.0-32.0 [facility] Comment on above: Performed By: #### L 100.0100, L501.62730, L500.4050, L501.9520, L506.0400 #### [facility] [address] [place], [address] Creatinine [Mass/Vol] 0.78 mg/dL Normal 0.55-1.02 [facility] Comment on above: Result Comment: The validity of the calculated GFR GFRAA in patients over 70 years has not been determined. Clinical correlation is essential. Performed By: #### L 100.0100, L501.94081, L500.4050, L501.9520, L506.0400 #### [facility] [address] [place], [address] EST GFR - AA 95 mL/min Normal >60 [facility] Comment on above: Result Comment: Afri can Iranian GFR Calc Performed By: #### L 100.0100, L501.47832, L500.4050, L501.9520, L506.0400 #### [facility] [address] [place], [address] GAP 4 Low 5-15 [facility] Comment on above: Performed By: #### L 100.0100, L501.80534, L500.4050, L501.9520, L506.0400 #### [facility] [address] [place], [address] GFR/1.73 sq M.predicted among non-blacks MDRD (S/P/Bld) [Vol rate/Area] 79 mL/min/{1.73_m2} Normal >60 [facility] Comment on above: Result Comment: Non- GFR Calc Performed By: #### L 100.0100, L501.93306, L500.4050, L501.9520, L506.0400 #### [facility] [address] [place], [address] Globulin (S) [Mass/Vol] 3.2 g/dL Normal 2.2-4.2 [facility] Comment on above: Performed By: #### L 100.0100, L501.33332, L500.4050, L501.9520, L506.0400 #### [facility] [address] [place], [address] Glucose [Mass/Vol] 97 mg/dL Normal 74-106 [facility] Comment on above: Performed By: #### L 100.0100, L501.82732, L500.4050, L501.9520, L506.0400 #### [facility] [address] [place], [address] Potassium [Moles/Vol] 4.5 mmol/L Normal 3.5-5.1 [facility] Comment on above: Performed By: #### L 100.0100, L501.64601, L500.4050, L501.9520, L506.0400 #### [facility] [address] [place], [address] Sodium [Moles/Vol] 139 mmol/L Normal 136-145 [facility] Comment on above: Performed By: #### L 100.0100, L501.00816, L500.4050, L501.9520, L506.0400 #### [facility] [address] [place], [address] T PROT 6.7 g/dL Normal 6.4-8.2 [facility] Comment on above: Performed By: #### L 100.0100, L501.68245, L500.4050, L501.9520, L506.0400 #### [facility] [address] [place], [address] Urea nitrogen [Mass/Vol] 16 mg/dL Normal 7-18 [facility] Comment on above: Performed By: #### L 100.0100, L501.44282, L500.4050, L501.9520, L506.0400 #### [facility] [address] [place], [address] Free T3on 03-06-2024 Free T3 [Mass/Vol] 2.4 pg/mL Normal 2.18-3.98 [facility] Comment on above: Performed By: #### L 100.0100, L501.61275, L500.4050, [id number], [id number] #### [facility] [address] [place], [address] T4 Free Directon 03-06-2024 T4 FREE DIRECT 1.27 ng/dL Normal 0.76-1.46 [facility] Comment on above: Performed By: #### L 100.0100, [id number], [id number], [id number], [id number] #### [facility] [address] [place], [address] Thyroid Stim Hormone (TSH)on 03-06-2024 TSH 0.366 uIU/mL Normal 0.358-3.740 [facility] Comment on above: Performed By: #### L 100.0100, [id number], [id number], [id number], [id number] #### [facility] [address] [place], [address] Absolute lymphocyte countOrd ered By: Nicole Moreno on 09-02-2023 Lymphocytes Auto (Unsp spec) [#/Vol] 2.70 10*3/uL 0.83-4.51 [facility] Automated lymphocyte count a s percentage of total leukocytesOrdered By: Nicole Moreno on 09-02-2023 Lymphocytes/100 WBC Auto (Unsp spec) 45.5 % 19-41 [facility] Basophil percentageOrdered B y: Nicole Philipalberto on 09-02-2023 Basophils/100 WBC (Bld) 0.8 % 0-1 [facility] Bilirubin [Mass/Vol] 0.40 mg/dL 0.20-1.00 [facility] Comment on above: For patients on eltr ombopag therapy, use of Dimension [place] TBIL is not recommended. Chloride [Moles/Vol] 107 mmol/L 98-107 [facility] Eosinophils/100 WBC (Bld) 2.0 % 0-5 [facility] Glucose [Mass/Vol] 111 mg/dL 74-106 [facility] Comment on above: Fasting Glucose resu lt from 100 to 125 mg/dL suggests IMPAIRED HOMEOSTASIS per A.D.A. criteria. Hemoglobin (Bld) [Mass/Vol] 11.2 g/dL 12.0-15. 0 [facility] Monocytes/100 WBC (Bld) 8.6 % 0-10 [facility] Neutrophils (Bld) [#/Vol] 2.5 10*3/uL 2.0-7.7 [facility] Neutrophils/100 WBC (Bld) 42.8 % 47-70 [facility] Potassium [Moles/Vol] 3.6 mmol/L 3.5-5.1 [facility] Protein [Mass/Vol] 6.6 g/dL 6.4-8.2 [facility] Sodium [Moles/Vol] 143 mmol/L 136-145 [facility] WBC (Bld) [#/Vol] 5.9 10*3/uL 4.4-11.0 [facility] Determination of erythrocyte mean corpuscular volume (MCV)Ordered By: Nicole Moreno on 09-02-2023 MCV (RBC) [Entitic vol] 88.3 fL 81-99 [facility] Erythrocyte distribution wid th ratioOrdered By: Nicole Moreno on 09-02-2023 Erythrocyte distribution width (RBC) [Ratio] 13.7 % 11.6-14.6 [facility] Erythrocyte distribution wid th standard deviationOrdered By: Nicole Moreno on 09-02-2023 Erythrocyte distribution width (RBC) [Entitic vol] 44.5 fL 35.1-43.9 [facility] Hematocrit Auto (Bld) [Volum e fraction]Ordered By: Nicole Moreno on 09-02-2023 Hematocrit (Bld) [Volume fraction] 33.9 % 37-47 [facility] Immature granulocytes/100 WB C Auto (Bld)Ordered By: Nicole Moreno on 09-02-2023 Immature granulocytes/100 WBC (Bld) 0.300 % 0.0-0.9 [facility] Comment on above: IG% - Immature Granu locytes (promyelocytes, myelocytes and metamyelocytes) > 1% indicates that a LEFT SHIFT is Present. Laboratory - Chemistry and C hemistry - challengeOrdered By: Nicole Moreno on 09-02-2023 Albumin/Globulin [Mass ratio] 1.1 {ratio} 0.9-2.4 [facility] ALP [Catalytic activity/Vol] 65 U/L 45-117 [facility] ALT [Catalytic activity/Vol] 21 U/L 13-56 [facility] CO2 [Moles/Vol] 32.0 mmol/L 21.0-32.0 [facility] Globulin (S) [Mass/Vol] 3.1 g/dL 2.2-4.2 [facility] Urea nitrogen/Creatinine [Mass ratio] 21.8 mg/mg 10-20 [facility] Laboratory - Hematology and Cell countsOrdered By: Nicole Moreno on 09-02-2023 MCH (RBC) [Entitic mass] 29.2 pg 27.0-32.0 [facility] MCHC (RBC) [Mass/Vol] 33.0 g/dL 32-36 [facility] Nucleated RBC/100 WBC (Bld) [Ratio] 0 % 0-5 [facility] Platelet mean volume (Bld) [Entitic vol] 9.4 fL 6.2-12.0 [facility] Platelets (Bld) [#/Vol] 324 10*3/uL 150-450 [facility] No Panel InformationOrdered By: Nicole Moreno on 09-02-2023 Estimated GFR (MDRD) Amer 103 mL/min >60 [facility] Comment on above: GFR Calc Estimated GFR (MDRD) Non-Af Amer 85 mL/min >60 [facility] Comment on above: Non- GFR Calc Free Triiodothyronine (T3) pg/dL 2.9 pg/mL 2.18-3.98 [facility] RBC Auto (Bld) [#/Vol]Ordere d By: Nicole Moreno on 09-02-2023 RBC (Bld) [#/Vol] 3.84 10*6/uL 4.2-5.4 [facility] Serum or plasma calcium amos urement (mass/volume)Ordered By: Nicole Moreno on 09-02-2023 Calcium [Mass/Vol] 9.1 mg/dL 8.5-10.1 [facility] Serum or plasma creatinine m easurement (mass/volume)Ordered By: Nicole Moreno on 09-02-2023 Creatinine [Mass/Vol] 0.73 mg/dL 0.55-1.02 [facility] Comment on above: The validity of the calculated GFR & GFRAA in patients over 70 years has not been determined. Clinical correlation is essential. Serum or plasma thyroid stim ulating hormone (TSH) measurement (units/volume)Ordered By: Nicole Moreno on 09-02-2023 TSH Qn 0.09 uIU/mL 0.358-3.74 [facility] Serum or plasma urea nitroge n measurement (mass/volume)Ordered By: Nicole Moreno on 09-02-2023 Urea nitrogen [Mass/Vol] 16 mg/dL 7-18 [facility] Thin prep Papanicolaou smear with manual screeningOrdered By: Nicole Moreno on 09-02-2023 Thin prep Papanicolaou smear with manual screening 3.5 g/dL 3.2-5.0 [facility] Thin prep Papanicolaou smear with manual screening 17 U/L 15-37 [facility] Thin prep Papanicolaou smear with manual screening 4 5-15 [facility] Thin prep Papanicolaou smear with manual screening 1.46 ng/dL 0.76-1.46 [facility] Absolute lymphocyte countOrd ered By: Nicole Moreno on 05-30-2023 Lymphocytes Auto (Unsp spec) [#/Vol] 3.38 10*3/uL 0.83-4.51 [facility] Basophil percentageOrdered B y: Nicole Moreno on 05-30-2023 Basophils/100 WBC (Bld) 0.8 % 0-1 [facility] Bilirubin [Mass/Vol] 0.20 mg/dL 0.20-1.00 [facility] Comment on above: For patients on eltr ombopag therapy, use of Dimension [place] TBIL is not recommended. Chloride [Moles/Vol] 107 mmol/L 98-107 [facility] Cholesterol [Mass/Vol] 190 mg/dL <200 [facility] Comment on above: <200 mg/dL Desirable 200-240 mg/dL Borderline >240 mg/dL High Risk Eosinophils/100 WBC (Bld) 0.9 % 0-5 [facility] Glucose [Mass/Vol] 94 mg/dL 74-106 [facility] Neutrophils (Bld) [#/Vol] 3.4 10*3/uL 2.0-7.7 [facility] Neutrophils/100 WBC (Bld) 45.4 % 47-70 [facility] Potassium [Moles/Vol] 4.0 mmol/L 3.5-5.1 [facility] Protein [Mass/Vol] 6.6 g/dL 6.4-8.2 [facility] Sodium [Moles/Vol] 142 mmol/L 136-145 [facility] Triglyceride [Mass/Vol] 146 mg/dL <199 [facility] Comment on above: The drugs N-Acetylcy steine and Metamizole may falsely depress this assay.Serum Triglycerides Reference Interval Normal <150 mg/dL Borderline high 150 - 199 mg/dL High 200 - 499 mg/dL Very High > or = 500 mg/dL WBC (Bld) [#/Vol] 7.4 10*3/uL 4.4-11.0 [facility] Blood erythrocytes count (nu mber/volume)Ordered By: Nicole Moreno on 05-30-2023 RBC (Bld) [#/Vol] 3.94 10*6/uL 4.2-5.4 [facility] Blood hemoglobin measurement (mass/volume)Ordered By: Nicole Moreno on 05-30-2023 Hemoglobin (Bld) [Mass/Vol] 11.3 g/dL 12.0-15. 0 [facility] Blood lymphocytes/100 leukoc ytesOrdered By: Nicole Moreno on 05-30-2023 Lymphocytes/100 WBC (Bld) 45.6 % 19-41 [facility] Blood monocytes/100 leukocyt esOrdered By: Nicole Moreno on 05-30-2023 Monocytes/100 WBC (Bld) 6.9 % 0-10 [facility] Blood platelet mean volumeOr dered By: Nicole Moreno on 05-30-2023 Platelet mean volume (Bld) [Entitic vol] 9.6 fL 6.2-12.0 [facility] Determination of erythrocyte mean corpuscular volume (MCV)Ordered By: Nicole Moreno on 05-30-2023 MCV (RBC) [Entitic vol] 90.1 fL 81-99 [facility] Hematocrit Auto (Bld) [Volum e fraction]Ordered By: Nicole Moreno on 05-30-2023 Hematocrit (Bld) [Volume fraction] 35.5 % 37-47 [facility] Laboratory - Chemistry and C hemistry - challengeOrdered By: Nicole Moreno on 05-30-2023 ALP [Catalytic activity/Vol] 62 U/L 45-117 [facility] ALT [Catalytic activity/Vol] 27 U/L 13-56 [facility] CO2 [Moles/Vol] 29.0 mmol/L 21.0-32.0 [facility] Free T4 [Mass/Vol] 1.46 ng/dL 0.76-1.46 [facility] Globulin (S) [Mass/Vol] 3.1 g/dL 2.2-4.2 [facility] Urea nitrogen/Creatinine [Mass ratio] 19.4 mg/mg 10-20 [facility] - Hematology and Cell countsOrdered By: Nicole Moreno on 05-30-2023 Erythrocyte distribution width (RBC) [Entitic vol] 44.8 fL 35.1-43.9 [facility] Erythrocyte distribution width (RBC) [Ratio] 13.5 % 11.6-14.6 [facility] Immature granulocytes/100 WBC (Bld) 0.400 % 0.0-0.9 [facility] Comment on above: IG% - Immature Granu locytes (promyelocytes, myelocytes and metamyelocytes) > 1% indicates that a LEFT SHIFT is Present. MCH (RBC) [Entitic mass] 28.7 pg 27.0-32.0 [facility] Nucleated RBC/100 WBC (Bld) [Ratio] 0 % 0-5 [facility] MCHC Auto (RBC) [Mass/Vol]Or dered By: Nicole Moreno on 05-30-2023 MCHC (RBC) [Mass/Vol] 31.8 g/dL 32-36 [facility] No Panel InformationOrdered By: Nicole Moreno on 05-30-2023 Estimated GFR (MDRD) Amer 69 mL/min >60 [facility] Comment on above: GFR Calc Estimated GFR (MDRD) Non-Af Amer 57 mL/min >60 [facility] Comment on above: Non- GFR Calc Free Triiodothyronine (T3) pg/dL 2.3 pg/mL 2.18-3.98 [facility] Thyroid Stimulating Hormone (TSH) 0.06 uIU/mL 0.358-3.74 [facility] Platelets bldOrdered By: Regina Moreno on 05-30-2023 Platelets (Bld) [#/Vol] 357 10*3/uL 150-450 [facility] Serum or plasma albumin amos urement (mass/volume)Ordered By: Nicole Moreno on 05-30-2023 Albumin [Mass/Vol] 3.5 g/dL 3.2-5.0 [facility] Serum or plasma albumin/glob ulin mass ratioOrdered By: Nicole Moreno on 05-30-2023 Albumin/Globulin [Mass ratio] 1.1 {ratio} 0.9-2.4 [facility] Serum or plasma calcium amos urement (mass/volume)Ordered By: Nicole Moreno on 05-30-2023 Calcium [Mass/Vol] 8.8 mg/dL 8.5-10.1 [facility] Serum or plasma cholesterol in HDL measurement (mass/volume)Ordered By: Nicole Moreno on 05-30-2023 Cholesterol in HDL [Mass/Vol] 58 mg/dL >40 [facility] Comment on above: The drugs N-Acetylcy steine and Metamizole may falsely depress this assay. Reference Range HDL <40 mg/dL Low HDL Cholesterol HDL >or= 60 mg/dL High HDL Cholesterol Serum or plasma cholesterol in VLDL measurement (mass/volume)Ordered By: Nicole Moreno on 05-30-2023 Cholesterol in VLDL [Mass/Vol] 29 mg/dL 5-40 [facility] Serum or plasma creatinine m easurement (mass/volume)Ordered By: Nicole Moreno on 05-30-2023 Creatinine [Mass/Vol] 1.03 mg/dL 0.55-1.02 [facility] Comment on above: The validity of the calculated GFR & GFRAA in patients over 70 years has not been determined. Clinical correlation is essential. Serum or plasma low density lipoprotein (LDL) cholesterol measurement (mass/volume)Ordered By: Nicole Moreno on 05-30-2023 Cholesterol in LDL [Mass/Vol] 103 mg/dL 0-130 [facility] Serum or plasma urea nitroge n measurement (mass/volume)Ordered By: Nicole Philipalberto on 05-30-2023 Urea nitrogen [Mass/Vol] 20 mg/dL 7-18 [facility] Thin prep Papanicolaou smear with manual screeningOrdered By: Nicole Moreno on 05-30-2023 Thin prep Papanicolaou smear with manual screening 24 U/L 15-37 [facility] Thin prep Papanicolaou smear with manual screening 6 5-15 [facility] Absolute lymphocyte countOrd ered By: Niocle Moreno on 03-20-2023 Lymphocytes Auto (Unsp spec) [#/Vol] 2.73 10*3/uL 0.83-4.51 [facility] Basophil percentageOrdered B y: Nicole Moreno on 03-20-2023 Basophils/100 WBC (Bld) 1.3 % 0-1 [facility] Bilirubin [Mass/Vol] 0.60 mg/dL 0.20-1.00 [facility] Comment on above: For patients on eltr ombopag therapy, use of Dimension [place] TBIL is not recommended. Chloride [Moles/Vol] 107 mmol/L 98-107 [facility] Cholesterol [Mass/Vol] 192 mg/dL <200 [facility] Comment on above: <200 mg/dL Desirable 200-240 mg/dL Borderline >240 mg/dL High Risk Eosinophils/100 WBC (Bld) 2.4 % 0-5 [facility] Glucose [Mass/Vol] 94 mg/dL 74-106 [facility] Neutrophils (Bld) [#/Vol] 2.6 10*3/uL 2.0-7.7 [facility] Neutrophils/100 WBC (Bld) 42.3 % 47-70 [facility] Potassium [Moles/Vol] 4.3 mmol/L 3.5-5.1 [facility] Protein [Mass/Vol] 6.7 g/dL 6.4-8.2 [facility] Sodium [Moles/Vol] 141 mmol/L 136-145 [facility] Triglyceride [Mass/Vol] 85 mg/dL <199 [facility] Comment on above: The drugs N-Acetylcy steine and Metamizole may falsely depress this assay.Serum Triglycerides Reference Interval Normal <150 mg/dL Borderline high 150 - 199 mg/dL High 200 - 499 mg/dL Very High > or = 500 mg/dL WBC (Bld) [#/Vol] 6.2 10*3/uL 4.4-11.0 [facility] Blood erythrocytes count (nu mber/volume)Ordered By: Nicole Moreno on 03-20-2023 RBC (Bld) [#/Vol] 3.90 10*6/uL 4.2-5.4 [facility] Blood hemoglobin measurement (mass/volume)Ordered By: Nicole Moreno on 03-20-2023 Hemoglobin (Bld) [Mass/Vol] 11.1 g/dL 12.0-15. 0 [facility] Blood lymphocytes/100 leukoc ytesOrdered By: Nicole Moreno on 03-20-2023 Lymphocytes/100 WBC (Bld) 44.0 % 19-41 [facility] Blood monocytes/100 leukocyt esOrdered By: Nicole Moreno on 03-20-2023 Monocytes/100 WBC (Bld) 9.7 % 0-10 [facility] Blood platelet mean volumeOr dered By: Nicole Moreno on 03-20-2023 Platelet mean volume (Bld) [Entitic vol] 10.3 fL 6.2-12.0 [facility] Determination of erythrocyte mean corpuscular volume (MCV)Ordered By: Nicole Moreno on 03-20-2023 MCV (RBC) [Entitic vol] 90.0 fL 81-99 [facility] Erythrocyte sedimentation ra teOrdered By: Nicole Moreno on 03-20-2023 ESR (Bld) [Velocity] 3 mm/h 0-30 [facility] Hematocrit Auto (Bld) [Volum e fraction]Ordered By: Nicole Moreno on 03-20-2023 Hematocrit (Bld) [Volume fraction] 35.1 % 37-47 [facility] Iron measurement (mass/mass) Ordered By: Nicole Moreno on 03-20-2023 Iron (Unsp spec) [Mass/Mass] 62 ug/dL 50-170 [facility] Laboratory - Chemistry and C hemistry - challengeOrdered By: Nicole Moreno on 03-20-2023 ALP [Catalytic activity/Vol] 58 U/L 45-117 [facility] ALT [Catalytic activity/Vol] 23 U/L 13-56 [facility] CO2 [Moles/Vol] 31.0 mmol/L 21.0-32.0 [facility] Free T4 [Mass/Vol] 1.31 ng/dL 0.76-1.46 [facility] Globulin (S) [Mass/Vol] 3.1 g/dL 2.2-4.2 [facility] Urea nitrogen/Creatinine [Mass ratio] 17.5 mg/mg 10-20 [facility] - Hematology and Cell countsOrdered By: Nicole Moreno on 03-20-2023 Erythrocyte distribution width (RBC) [Entitic vol] 48.3 fL 35.1-43.9 [facility] Erythrocyte distribution width (RBC) [Ratio] 14.6 % 11.6-14.6 [facility] Immature granulocytes/100 WBC (Bld) 0.300 % 0.0-0.9 [facility] Comment on above: IG% - Immature Granu locytes (promyelocytes, myelocytes and metamyelocytes) > 1% indicates that a LEFT SHIFT is Present. MCH (RBC) [Entitic mass] 28.5 pg 27.0-32.0 [facility] Nucleated RBC/100 WBC (Bld) [Ratio] 0 % 0-5 [facility] MCHC Auto (RBC) [Mass/Vol]Or dered By: Nicole Moreno on 03-20-2023 MCHC (RBC) [Mass/Vol] 31.6 g/dL 32-36 [facility] No Panel InformationOrdered By: Nicole Moreno on 03-20-2023 Estimated GFR (MDRD) Amer 74 mL/min >60 [facility] Comment on above: GFR Calc Estimated GFR (MDRD) Non-Af Amer 61 mL/min >60 [facility] Comment on above: Non- GFR Calc Free Triiodothyronine (T3) pg/dL 2.3 pg/mL 2.18-3.98 [facility] Thyroid Stimulating Hormone (TSH) 0.30 uIU/mL 0.358-3.74 [facility] Platelets bldOrdered By: Regina Moreno on 03-20-2023 Platelets (Bld) [#/Vol] 352 10*3/uL 150-450 [facility] Serum or plasma C reactive p rotein measurement (mass/volume)Ordered By: Nicole Moreno on 03-20-2023 CRP [Mass/Vol] mg/L 0.0-3.0 [facility] Comment on above: C-Reactive Protein ( CRP) provides useful information for thediagnosis, therapy and monitoring of inflammatory processesand associated diseases. For the evaluation of Relative Riskfor Cardiovascular Disease, a High Sensitivity CRP (HSCRP)should be ordered. Serum or plasma albumin amos urement (mass/volume)Ordered By: Nicole Moreno on 03-20-2023 Albumin [Mass/Vol] 3.6 g/dL 3.2-5.0 [facility] Serum or plasma albumin/glob ulin mass ratioOrdered By: Nicole Moreno on 03-20-2023 Albumin/Globulin [Mass ratio] 1.2 {ratio} 0.9-2.4 [facility] Serum or plasma calcium amos urement (mass/volume)Ordered By: Nicole Moreno on 03-20-2023 Calcium [Mass/Vol] 9.3 mg/dL 8.5-10.1 [facility] Serum or plasma cholesterol in HDL measurement (mass/volume)Ordered By: Nicole Moreno on 03-20-2023 Cholesterol in HDL [Mass/Vol] 64 mg/dL >40 [facility] Comment on above: The drugs N-Acetylcy steine and Metamizole may falsely depress this assay. Reference Range HDL <40 mg/dL Low HDL Cholesterol HDL >or= 60 mg/dL High HDL Cholesterol Serum or plasma cholesterol in VLDL measurement (mass/volume)Ordered By: Nicole Moreno on 03-20-2023 Cholesterol in VLDL [Mass/Vol] 17 mg/dL 5-40 [facility] Serum or plasma creatinine m easurement (mass/volume)Ordered By: Nicole Moreno on 03-20-2023 Creatinine [Mass/Vol] 0.97 mg/dL 0.55-1.02 [facility] Comment on above: The validity of the calculated GFR & GFRAA in patients over 70 years has not been determined. Clinical correlation is essential. Serum or plasma ferritin mukesh surement (mass/volume)Ordered By: Nicole Moreno on 03-20-2023 Ferritin [Mass/Vol] 192 ng/mL 8-252 [facility] Serum or plasma low density lipoprotein (LDL) cholesterol measurement (mass/volume)Ordered By: Nicole Moreno on 03-20-2023 Cholesterol in LDL [Mass/Vol] 111 mg/dL 0-130 [facility] Serum or plasma urea nitroge n measurement (mass/volume)Ordered By: Nicole Moreno on 03-20-2023 Urea nitrogen [Mass/Vol] 17 mg/dL 7-18 [facility] Thin prep Papanicolaou smear with manual screeningOrdered By: Nicole Moreno on 03-20-2023 Thin prep Papanicolaou smear with manual screening 19 U/L 15-37 [facility] Thin prep Papanicolaou smear with manual screening 3 5-15 [facility] Influenza virus A and B and SARS-CoV-2 (COVID-19) Ag panel - Upper respiratory specimOrdered By: Timur Frost on 12-09-2022 SARS-CoV-2 (COVID-19) RNA DIMITRIS+probe Ql (Resp) [facility] Throat Streptococcus pyogene s antigen detection by immunofluorescenceOrdered By: Timur Frost on 12-09-2022 S. pyogenes Ag IF Ql (Throat) [facility] Absolute lymphocyte countOrd ered By: Dr. Moreno on 10-05-2022 Lymphocytes Auto (Unsp spec) [#/Vol] 4.00 10*3/uL 0.83-4.51 [facility] Basophil percentageOrdered B y: Dr. Moreno on 10-05-2022 Basophils/100 WBC (Bld) 0.7 % 0-1 [facility] Bilirubin [Mass/Vol] 0.50 mg/dL 0.20-1.00 [facility] Comment on above: For patients on eltr ombopag therapy, use of Dimension [place] TBIL is not recommended. Chloride [Moles/Vol] 108 mmol/L 98-107 [facility] Eosinophils/100 WBC (Bld) 2.2 % 0-5 [facility] Glucose [Mass/Vol] 103 mg/dL 74-106 [facility] Comment on above: Fasting Glucose resu lt from 100 to 125 mg/dL suggests IMPAIRED HOMEOSTASIS per A.D.A. criteria. Neutrophils (Bld) [#/Vol] 3.6 10*3/uL 2.0-7.7 [facility] Neutrophils/100 WBC (Bld) 41.8 % 47-70 [facility] Potassium [Moles/Vol] 4.1 mmol/L 3.5-5.1 [facility] Protein [Mass/Vol] 7.5 g/dL 6.4-8.2 [facility] Sodium [Moles/Vol] 140 mmol/L 136-145 [facility] WBC (Bld) [#/Vol] 8.5 10*3/uL 4.4-11.0 [facility] Blood erythrocytes count (nu mber/volume)Ordered By: Dr. Moreno on 10-05-2022 RBC (Bld) [#/Vol] 3.90 10*6/uL 4.2-5.4 [facility] Blood hemoglobin measurement (mass/volume)Ordered By: Dr. Moreno on 10-05-2022 Hemoglobin (Bld) [Mass/Vol] 11.4 g/dL 12.0-15. 0 [facility] Blood lymphocytes/100 leukoc ytesOrdered By: Dr. Moreno on 10-05-2022 Lymphocytes/100 WBC (Bld) 47.1 % 19-41 [facility] Blood monocytes/100 leukocyt esOrdered By: Dr. Moreno on 10-05-2022 Monocytes/100 WBC (Bld) 7.7 % 0-10 [facility] Blood platelet mean volumeOr dered By: Dr. Moreno on 10-05-2022 Platelet mean volume (Bld) [Entitic vol] 10.2 fL 6.2-12.0 [facility] Determination of erythrocyte mean corpuscular volume (MCV)Ordered By: Dr. Moreno on 10-05-2022 MCV (RBC) [Entitic vol] 90.8 fL 81-99 [facility] Erythrocyte sedimentation ra teOrdered By: Dr. Moreno on 10-05-2022 ESR (Bld) [Velocity] 6 mm/h 0-30 [facility] Hematocrit Auto (Bld) [Volum e fraction]Ordered By: Dr. Moreno on 10-05-2022 Hematocrit (Bld) [Volume fraction] 35.4 % 37-47 [facility] Laboratory - Chemistry and C hemistry - challengeOrdered By: Dr. Moreno on 10-05-2022 ALP [Catalytic activity/Vol] 44 U/L 45-117 [facility] ALT [Catalytic activity/Vol] 34 U/L 13-56 [facility] CO2 [Moles/Vol] 28.0 mmol/L 21.0-32.0 [facility] Free T4 [Mass/Vol] 1.89 ng/dL 0.76-1.46 [facility] Globulin (S) [Mass/Vol] 3.7 g/dL 2.2-4.2 [facility] Urea nitrogen/Creatinine [Mass ratio] 23.8 mg/mg 10-20 [facility] Laboratory - Hematology and Cell countsOrdered By: Dr. Moreno on 10-05-2022 Erythrocyte distribution width (RBC) [Entitic vol] 47.2 fL 35.1-43.9 [facility] Erythrocyte distribution width (RBC) [Ratio] 14.2 % 11.6-14.6 [facility] Immature granulocytes/100 WBC (Bld) 0.500 % 0.0-0.9 [facility] Comment on above: IG% - Immature Granu locytes (promyelocytes, myelocytes and metamyelocytes) > 1% indicates that a LEFT SHIFT is Present. MCH (RBC) [Entitic mass] 29.2 pg 27.0-32.0 [facility] Nucleated RBC/100 WBC (Bld) [Ratio] 0 % 0-5 [facility] MCHC Auto (RBC) [Mass/Vol]Or dered By: Dr. Moreno on 10-05-2022 MCHC (RBC) [Mass/Vol] 32.2 g/dL 32-36 [facility] No Panel InformationOrdered By: Dr. Moreno on 10-05-2022 Estimated GFR (MDRD) Amer 71 mL/min >60 [facility] Comment on above: GFR Calc Estimated GFR (MDRD) Non-Af Amer 59 mL/min >60 [facility] Comment on above: Non- GFR Calc Free Triiodothyronine (T3) pg/dL 3.0 pg/mL 2.18-3.98 [facility] Thyroid Stimulating Hormone (TSH) 0.07 uIU/mL 0.358-3.74 [facility] Urine Microalbumin/Creatinine Ratio 5.9 mg/g CRE <30 [facility] Vitamin D 25-Hydroxy 60.4 ng/mL [facility] Comment on above: Vitamin D 25(OH) Sta tus Range Deficiency <20 ng/mL (50nmol/L) Insufficiency 20 - 30 ng/mL (50 - 75 nmol/L) Sufficiency 30 - 100 ng/mL (75 - 250 nmol/L) Toxicity >100 ng/mL (>250 nmol/L) Platelets bldOrdered By: Dr. Moreno on 10-05-2022 Platelets (Bld) [#/Vol] 359 10*3/uL 150-450 [facility] Serum or plasma C reactive p rotein measurement (mass/volume)Ordered By: Dr. Moreno on 10-05-2022 CRP [Mass/Vol] mg/L 0.0-3.0 [facility] Comment on above: C-Reactive Protein ( CRP) provides useful information for thediagnosis, therapy and monitoring of inflammatory processesand associated diseases. For the evaluation of Relative Riskfor Cardiovascular Disease, a High Sensitivity CRP (HSCRP)should be ordered. Serum or plasma albumin amos urement (mass/volume)Ordered By: Dr. Moreno on 10-05-2022 Albumin [Mass/Vol] 3.8 g/dL 3.2-5.0 [facility] Serum or plasma albumin/glob ulin mass ratioOrdered By: Dr. Moreno on 10-05-2022 Albumin/Globulin [Mass ratio] 1.0 {ratio} 0.9-2.4 [facility] Serum or plasma calcium amos urement (mass/volume)Ordered By: Dr. Moreno on 10-05-2022 Calcium [Mass/Vol] 9.5 mg/dL 8.5-10.1 [facility] Serum or plasma creatinine m easurement (mass/volume)Ordered By: Dr. Moreno on 10-05-2022 Creatinine [Mass/Vol] 1.01 mg/dL 0.55-1.02 [facility] Comment on above: The validity of the calculated GFR & GFRAA in patients over 70 years has not been determined. Clinical correlation is essential. Serum or plasma urea nitroge n measurement (mass/volume)Ordered By: Dr. Moreno on 10-05-2022 Urea nitrogen [Mass/Vol] 24 mg/dL 7-18 [facility] Thin prep Papanicolaou smear with manual screeningOrdered By: Dr. Moreno on 10-05-2022 Thin prep Papanicolaou smear with manual screening 29 U/L 15-37 [facility] Thin prep Papanicolaou smear with manual screening 4 5-15 [facility] Thin prep Papanicolaou smear with manual screening 11.6 mg/L NO RANGE EST. [facility] Urine creatinine measurement (mass/volume)Ordered By: Dr. Moreno on 10-05-2022 Creatinine (U) [Mass/Vol] 195.00 mg/dL NO RANGE EST. [facility] Whole blood hemoglobin A1c/t otal hemoglobin ratio (mass fraction)Ordered By: Dr. Moreno on 10-05-2022 HbA1c (Bld) [Mass fraction] 5.5 % 3.8-5.6 [facility] Comment on above: Normal < 5.7 % Predi abetic 5.7 - 6.4 % Diabetic >or= 6.5 % Please note range changes. Glucose Glucometer (BldC) [M ass/Vol]Ordered By: Seng Mason on 07-10-2022 Glucose [Mass/Vol] 128 mg/dL 74-106 [facility] Comment on above: MANAGEMENT OF PATIEN T CARE PER NURSING PROTOCOL Absolute lymphocyte countOrd ered By: Dr. Moreno on 03-15-2022 Lymphocytes Auto (Unsp spec) [#/Vol] 3.15 10*3/uL 0.83-4.51 [facility] Basophil percentageOrdered B y: Dr. Moreno on 03-15-2022 Basophils/100 WBC (Bld) 1.3 % 0-1 [facility] Bilirubin [Mass/Vol] 0.40 mg/dL 0.20-1.00 [facility] Comment on above: For patients on eltr ombopag therapy, use of Dimension [place] TBIL is not recommended. Chloride [Moles/Vol] 108 mmol/L 98-107 [facility] Cholesterol [Mass/Vol] 217 mg/dL <200 [facility] Comment on above: <200 mg/dL Desirable 200-240 mg/dL Borderline >240 mg/dL High Risk Eosinophils/100 WBC (Bld) 2.6 % 0-5 [facility] Glucose [Mass/Vol] 108 mg/dL 74-106 [facility] Comment on above: Fasting Glucose resu lt from 100 to 125 mg/dL suggests IMPAIRED HOMEOSTASIS per A.D.A. criteria. Neutrophils (Bld) [#/Vol] 4.3 10*3/uL 2.0-7.7 [facility] Neutrophils/100 WBC (Bld) 50.9 % 47-70 [facility] Potassium [Moles/Vol] 5.1 mmol/L 3.5-5.1 [facility] Protein [Mass/Vol] 7.1 g/dL 6.4-8.2 [facility] Sodium [Moles/Vol] 140 mmol/L 136-145 [facility] Triglyceride [Mass/Vol] 183 mg/dL <199 [facility] Comment on above: The drugs N-Acetylcy steine and Metamizole may falsely depress this assay.Serum Triglycerides Reference Interval Normal <150 mg/dL Borderline high 150 - 199 mg/dL High 200 - 499 mg/dL Very High > or = 500 mg/dL WBC (Bld) [#/Vol] 8.5 10*3/uL 4.4-11.0 [facility] Blood erythrocytes count (nu mber/volume)Ordered By: Dr. Moreno on 03-15-2022 RBC (Bld) [#/Vol] 4.03 10*6/uL 4.2-5.4 [facility] Blood hemoglobin measurement (mass/volume)Ordered By: Dr. Moreno on 03-15-2022 Hemoglobin (Bld) [Mass/Vol] 12.1 g/dL 12.0-15. 0 [facility] Blood lymphocytes/100 leukoc ytesOrdered By: Dr. Moreno on 03-15-2022 Lymphocytes/100 WBC (Bld) 37.0 % 19-41 [facility] Blood monocytes/100 leukocyt esOrdered By: Dr. Moreno on 03-15-2022 Monocytes/100 WBC (Bld) 7.6 % 0-10 [facility] Blood platelet mean volumeOr dered By: Dr. Moreno on 03-15-2022 Platelet mean volume (Bld) [Entitic vol] 10.0 fL 6.2-12.0 [facility] Determination of erythrocyte mean corpuscular volume (MCV)Ordered By: Dr. Moreno on 03-15-2022 MCV (RBC) [Entitic vol] 89.6 fL 81-99 [facility] Erythrocyte sedimentation ra teOrdered By: Dr. Moreno on 03-15-2022 ESR (Bld) [Velocity] 3 mm/h 0-30 [facility] Hematocrit Auto (Bld) [Volum e fraction]Ordered By: Dr. Moreno on 03-15-2022 Hematocrit (Bld) [Volume fraction] 36.1 % 37-47 [facility] Laboratory - Chemistry and C hemistry - challengeOrdered By: Dr. Moreno on 03-15-2022 ALP [Catalytic activity/Vol] 65 U/L 45-117 [facility] ALT [Catalytic activity/Vol] 37 U/L 13-56 [facility] CO2 [Moles/Vol] 28.0 mmol/L 21.0-32.0 [facility] Free T4 [Mass/Vol] 1.13 ng/dL 0.76-1.46 [facility] Globulin (S) [Mass/Vol] 3.4 g/dL 2.2-4.2 [facility] Urea nitrogen/Creatinine [Mass ratio] 27.2 mg/mg 10-20 [facility] Laboratory - Hematology and Cell countsOrdered By: Dr. Moreno on 03-15-2022 Erythrocyte distribution width (RBC) [Entitic vol] 48.1 fL 35.1-43.9 [facility] Erythrocyte distribution width (RBC) [Ratio] 14.6 % 11.6-14.6 [facility] Immature granulocytes/100 WBC (Bld) 0.600 % 0.0-0.9 [facility] Comment on above: IG% - Immature Granu locytes (promyelocytes, myelocytes and metamyelocytes) > 1% indicates that a LEFT SHIFT is Present. MCH (RBC) [Entitic mass] 30.0 pg 27.0-32.0 [facility] Nucleated RBC/100 WBC (Bld) [Ratio] 0 % 0-5 [facility] MCHC Auto (RBC) [Mass/Vol]Or dered By: Dr. Moreno on 03-15-2022 MCHC (RBC) [Mass/Vol] 33.5 g/dL 32-36 [facility] No Panel InformationOrdered By: Dr. Moreno on 03-15-2022 Estimated GFR (MDRD) Amer 62 mL/min >60 [facility] Comment on above: GFR Calc Estimated GFR (MDRD) Non-Af Amer 51 mL/min >60 [facility] Comment on above: Non- GFR Calc Free Triiodothyronine (T3) pg/dL 2.1 pg/mL 2.18-3.98 [facility] Thyroid Stimulating Hormone (TSH) 6.35 uIU/mL 0.358-3.74 [facility] Vitamin D 25-Hydroxy 36.2 ng/mL [facility] Comment on above: Vitamin D 25(OH) Sta tus Range Deficiency <20 ng/mL (50nmol/L) Insufficiency 20 - 30 ng/mL (50 - 75 nmol/L) Sufficiency 30 - 100 ng/mL (75 - 250 nmol/L) Toxicity >100 ng/mL (>250 nmol/L) Platelets bldOrdered By: Dr. Moreno on 03-15-2022 Platelets (Bld) [#/Vol] 337 10*3/uL 150-450 [facility] Serum or plasma C reactive p rotein measurement (mass/volume)Ordered By: Dr. Moreno on 03-15-2022 CRP [Mass/Vol] mg/L 0.0-3.0 [facility] Comment on above: C-Reactive Protein ( CRP) provides useful information for thediagnosis, therapy and monitoring of inflammatory processesand associated diseases. For the evaluation of Relative Riskfor Cardiovascular Disease, a High Sensitivity CRP (HSCRP)should be ordered. Serum or plasma albumin amos urement (mass/volume)Ordered By: Dr. Moreno on 03-15-2022 Albumin [Mass/Vol] 3.7 g/dL 3.2-5.0 [facility] Serum or plasma albumin/glob ulin mass ratioOrdered By: Dr. Moreno on 03-15-2022 Albumin/Globulin [Mass ratio] 1.1 {ratio} 0.9-2.4 [facility] Serum or plasma calcium amos urement (mass/volume)Ordered By: Dr. Moreno on 03-15-2022 Calcium [Mass/Vol] 9.3 mg/dL 8.5-10.1 [facility] Serum or plasma cholesterol in HDL measurement (mass/volume)Ordered By: Dr. Moreno on 03-15-2022 Cholesterol in HDL [Mass/Vol] 58 mg/dL >40 [facility] Comment on above: The drugs N-Acetylcy steine and Metamizole may falsely depress this assay. Reference Range HDL <40 mg/dL Low HDL Cholesterol HDL >or= 60 mg/dL High HDL Cholesterol Serum or plasma cholesterol in VLDL measurement (mass/volume)Ordered By: Dr. Moreno on 03-15-2022 Cholesterol in VLDL [Mass/Vol] 37 mg/dL 5-40 [facility] Serum or plasma creatinine m easurement (mass/volume)Ordered By: Dr. Moreno on 03-15-2022 Creatinine [Mass/Vol] 1.14 mg/dL 0.55-1.02 [facility] Comment on above: The validity of the calculated GFR & GFRAA in patients over 70 years has not been determined. Clinical correlation is essential. Serum or plasma low density lipoprotein (LDL) cholesterol measurement (mass/volume)Ordered By: Dr. Moreno on 03-15-2022 Cholesterol in LDL [Mass/Vol] 122 mg/dL 0-130 [facility] Serum or plasma urea nitroge n measurement (mass/volume)Ordered By: Dr. Moreno on 03-15-2022 Urea nitrogen [Mass/Vol] 31 mg/dL 7-18 [facility] Thin prep Papanicolaou smear with manual screeningOrdered By: Dr. Moreno on 03-15-2022 Thin prep Papanicolaou smear with manual screening 25 U/L 15-37 [facility] Thin prep Papanicolaou smear with manual screening 4 5-15 [facility] Absolute lymphocyte counton 08-30-2021 Lymphocytes Auto (Unsp spec) [#/Vol] 1.07 10*3/uL 0.83-4.51 [facility] Work Phone: Basophil percentageon 2021 Basophils/100 WBC (Bld) 0.4 % 0-1 [facility] Work Phone: Chloride [Moles/Vol] 104 mmol/L 98-107 [facility] Work Phone: Eosinophils/100 WBC (Bld) 0.5 % 0-5 [facility] Work Phone: Glucose [Mass/Vol] 161 mg/dL 74-106 [facility] Work Phone: Comment on above: Fasting Glucose resu lt greater than or equal to 126 mg/dL suggests DIABETES MELLITUS per A.D.A. criteria. Neutrophils (Bld) [#/Vol] 13.2 10*3/uL 2.0-7.7 [facility] Work Phone: Neutrophils/100 WBC (Bld) 85.8 % 47-70 [facility] Work Phone: Potassium [Moles/Vol] 4.5 mmol/L 3.5-5.1 [facility] Work Phone: Sodium [Moles/Vol] 137 mmol/L 136-145 [facility] Work Phone: WBC (Bld) [#/Vol] 15.4 10*3/uL 4.4-11.0 [facility] Work Phone: Blood erythrocytes count (nu mber/volume)on 08-30-2021 RBC (Bld) [#/Vol] 4.48 10*6/uL 4.2-5.4 [facility] Work Phone: Blood hemoglobin measurement (mass/volume)on 08-30-2021 Hemoglobin (Bld) [Mass/Vol] 13.4 g/dL 12.0-15. 0 [facility] Work Phone: Blood lymphocytes/100 leukoc yteson 08-30-2021 Lymphocytes/100 WBC (Bld) 7.0 % 19-41 [facility] Work Phone: Blood monocytes/100 leukocyt eson 08-30-2021 Monocytes/100 WBC (Bld) 4.9 % 0-10 [facility] Work Phone: Blood platelet mean volumeon 08-30-2021 Platelet mean volume (Bld) [Entitic vol] 9.7 fL 6.2-12.0 [facility] Work Phone: Determination of erythrocyte mean corpuscular volume (MCV)on 08-30-2021 MCV (RBC) [Entitic vol] 89.1 fL 81-99 [facility] Work Phone: Erythrocyte sedimentation ra blanche 08-30-2021 ESR (Bld) [Velocity] 8 mm[facility]h [facility] Hematocrit Auto (Bld) [Volum e fraction]on 08-30-2021 Hematocrit (Bld) [Volume fraction] 39.9 % 37-47 [facility] Work Phone: Laboratory - Chemistry and C hemistry - challengeon 08-30-2021 CO2 [Moles/Vol] 29.0 mmol/L 21.0-32.0 [facility] Work Phone: Urea nitrogen/Creatinine [Mass ratio] 38.6 mg/mg 10-20 [facility] Work Phone: Laboratory - Hematology and Cell countson 08-30-2021 Erythrocyte distribution width (RBC) [Entitic vol] 44.7 fL 35.1-43.9 [facility] Work Phone: Erythrocyte distribution width (RBC) [Ratio] 13.7 % 11.6-14.6 [facility] Work Phone: Immature granulocytes/100 WBC (Bld) 1.400 % 0.0-0.9 [facility] Work Phone: Comment on above: IG% - Immature Granu locytes (promyelocytes, myelocytes and metamyelocytes) > 1% indicates that a LEFT SHIFT is Present. MCH (RBC) [Entitic mass] 29.9 pg 27.0-32.0 [facility] Work Phone: [phone] Nucleated RBC/100 WBC (Bld) [Ratio] 0 % 0-5 [facility] Work Phone: [phone] MCHC Auto (RBC) [Mass/Vol]on 08-30-2021 MCHC (RBC) [Mass/Vol] 33.6 g/dL 32-36 [facility] Work Phone: [phone] No Panel Informationon 08-30 Estimated GFR (MDRD) Amer 86 mL/min >60 [facility] Work Phone: [phone] Comment on above: GFR Calc Estimated GFR (MDRD) Non-Af Amer 71 mL/min >60 [facility] Work Phone: [phone] Comment on above: Non- GFR Calc Platelets bldon 08-30-2021 Platelets (Bld) [#/Vol] 349 10*3/uL 150-450 [facility] Work Phone: [phone] Serum or plasma C reactive p rotein measurement (mass/volume)on 08-30-2021 CRP [Mass/Vol] 7.90 mg/L 0.0-3.0 [facility] Work Phone: Comment on above: C-Reactive Protein ( CRP) provides useful information for thediagnosis, therapy and monitoring of inflammatory processesand associated diseases. For the evaluation of Relative Riskfor Cardiovascular Disease, a High Sensitivity CRP (HSCRP)should be ordered. Serum or plasma calcium amos urement (mass/volume)on 08-30-2021 Calcium [Mass/Vol] 9.2 mg/dL 8.5-10.1 [facility] Work Phone: [phone] Serum or plasma creatinine m easurement (mass/volume)on 08-30-2021 Creatinine [Mass/Vol] 0.86 mg/dL 0.55-1.02 [facility] Work Phone: Comment on above: The validity of the calculated GFR & GFRAA in patients over 70 years has not been determined. Clinical correlation is essential. Serum or plasma urea nitroge n measurement (mass/volume)on 08-30-2021 Urea nitrogen [Mass/Vol] 33 mg/dL 7-18 [facility] Work Phone: Thin prep Papanicolaou smear with manual screeningon 08-30-2021 Thin prep Papanicolaou smear with manual screening 4 5-15 [facility] Work Phone: Basophil percentageon 2021 Bilirubin [Mass/Vol] 0.40 mg/dL 0.20-1.00 [facility] Work Phone: Comment on above: For patients on eltr ombopag therapy, use of Dimension [place] TBIL is not recommended. Chloride [Moles/Vol] 106 mmol/L 98-107 [facility] Work Phone: Cholesterol [Mass/Vol] 238 mg/dL <200 [facility] Work Phone: Comment on above: <200 mg/dL Desirable 200-240 mg/dL Borderline >240 mg/dL High Risk Glucose [Mass/Vol] 107 mg/dL 74-106 [facility] Work Phone: Comment on above: Fasting Glucose resu lt from 100 to 125 mg/dL suggests IMPAIRED HOMEOSTASIS per A.D.A. criteria. Potassium [Moles/Vol] 4.0 mmol/L 3.5-5.1 [facility] Work Phone: Protein [Mass/Vol] 7.3 g/dL 6.4-8.2 [facility] Work Phone: Sodium [Moles/Vol] 141 mmol/L 136-145 [facility] Work Phone: [phone] Triglyceride [Mass/Vol] 125 mg/dL [facility] Work Phone: Comment on above: The drugs N-Acetylcy steine and Metamizole may falsely depress this assay.Serum Triglycerides Reference Interval Normal <150 mg/dL Borderline high 150 - 199 mg/dL High 200 - 499 mg/dL Very High > or = 500 mg/dL Direct bilirubinon 2 Bilirubin.direct [Mass/Vol] 0.07 mg/dL 0.00-0.3 0 [facility] Work Phone: Laboratory - Chemistry and C hemistry - challengeon 06-29-2021 ALP [Catalytic activity/Vol] 103 U/L 45-117 [facility] Work Phone: [phone] ALT [Catalytic activity/Vol] 42 U/L 13-56 [facility] Work Phone: [phone] CO2 [Moles/Vol] 31.0 mmol/L 21.0-32.0 [facility] Work Phone: Globulin (S) [Mass/Vol] 3.7 g/dL 2.2-4.2 [facility] Work Phone: Urea nitrogen/Creatinine [Mass ratio] 23.1 mg/mg 10-20 [facility] Work Phone: No Panel Informationon 06-29 Estimated GFR (MDRD) Amer 119 mL/min >60 [facility] Work Phone: Comment on above: GFR Calc Estimated GFR (MDRD) Non-Af Amer 98 mL/min >60 [facility] Work Phone: Comment on above: Non- GFR Calc Serum or plasma albumin amos urement (mass/volume)on 06-29-2021 Albumin [Mass/Vol] 3.6 g/dL 3.2-5.0 [facility] Work Phone: [phone] Serum or plasma calcium amos urement (mass/volume)on 06-29-2021 Calcium [Mass/Vol] 9.1 mg/dL 8.5-10.1 [facility] Work Phone: [phone] Serum or plasma cholesterol in HDL measurement (mass/volume)on 06-29-2021 Cholesterol in HDL [Mass/Vol] 58 mg/dL [facility] Work Phone: Comment on above: The drugs N-Acetylcy steine and Metamizole may falsely depress this assay. Reference Range HDL <40 mg/dL Low HDL Cholesterol HDL >or= 60 mg/dL High HDL Cholesterol Serum or plasma cholesterol in VLDL measurement (mass/volume)on 06-29-2021 Cholesterol in VLDL [Mass/Vol] 25 mg/dL 5-40 [facility] Work Phone: Serum or plasma creatinine m easurement (mass/volume)on 06-29-2021 Creatinine [Mass/Vol] 0.65 mg/dL 0.55-1.02 [facility] Work Phone: Comment on above: The validity of the calculated GFR & GFRAA in patients over 70 years has not been determined. Clinical correlation is essential. Serum or plasma low density lipoprotein (LDL) cholesterol measurement (mass/volume)on 06-29-2021 Cholesterol in LDL [Mass/Vol] 155 mg/dL 0-130 [facility] Work Phone: Serum or plasma urea nitroge n measurement (mass/volume)on 06-29-2021 Urea nitrogen [Mass/Vol] 15 mg/dL 7-18 [facility] Work Phone: Thin prep Papanicolaou smear with manual screeningon 06-29-2021 Thin prep Papanicolaou smear with manual screening 30 U/L 15-37 [facility] Work Phone: Thin prep Papanicolaou smear with manual screening 4 5-15 [facility] Work Phone: AOH MAIN OR Intraop Recordon 12-17-2017 AOH MAIN OR Intraop Record Normal [facility] (OR) XR FLUORO 1-2 HRS TECH TIMEo n 12-12-2017 XR FLUORO 1-2 HRS TECH TIME ORIGINAL Images acquired, not reported on this accession number. Normal [facility]) .Auto Diffon 12-11-2017 Ammonia mass conc (P) 0.90 10 3/mcL Normal 0.15-1.00 [facility] (OR) Comment on above: Performed By: #### C BC, ADIFF, ANEU, GFR, BMP ####[facility] [id number] [place], [place] [address] Basophils Auto #/vol (Bld) 0.00 10 3/mcL Normal 0.00-0 .19 [facility] (OR) Comment on above: Performed By: #### C BC, ADIFF, ANEU, GFR, BMP ####[facility] [address] [place], [place] [address] Basophils/100 WBC Auto (Bld) 0.3 % Normal 0.0-2.5 [facility] (OR) Comment on above: Performed By: #### C BC, ADIFF, ANEU, GFR, BMP ####[facility] [address] [place], [place] [address] Eosinophils Auto #/vol (Bld) 0.00 10 3/mcL Normal 0.00 -0.40 [facility] (OR) Comment on above: Performed By: #### C BC, ADIFF, ANEU, GFR, BMP ####[facility] [address] [place], [place] [address] Eosinophils/100 WBC Auto (Bld) 0.2 % Normal 0.0-7.0 [facility] ([place]) Comment on above: Performed By: #### C BC, ADIFF, ANEU, GFR, BMP ####[facility] [address] [place], [place] [address] Lymphocytes Auto #/vol (Bld) 1.40 10 3/mcL Normal 0.77 -3.85 [facility] ([place]) Comment on above: Performed By: #### C BC, ADIFF, ANEU, GFR, BMP ####[facility] [address] [place], [place] [address] Lymphocytes/100 WBC Auto (Bld) 14.5 % Normal 10.0-50.0 [facility] ([place]) Comment on above: Performed By: #### C BC, ADIFF, ANEU, GFR, BMP ####[facility] [address] [place], [place] [address] Monocytes/100 WBC Auto (Bld) 9.8 % Normal 1.7-13. 0 [facility] ([place]) Comment on above: Performed By: #### C BC, ADIFF, ANEU, GFR, BMP ####[facility] [address] [place], [place] [address] Neutrophils/100 WBC Auto (Bld) 75.2 % Normal 37.0-80.0 [facility] ([place]) Comment on above: Performed By: #### C BC, ADMICHEL, ANEU, GFR, BMP ####[facility] [address] [place], [place] [address] .GFRon 12-11-2017 GFR 120 ml/min/1.73sqm Normal [facility] ([place]) Comment on above: Result Comment: GFR Population mean for , Non- Americans Ages 20-29 = 116 mL/min/1.73 sq.m. Ages 30-39 = 107 mL/min/1.73 sq.m. Ages 40-49 = 99 mL/min/1.73 sq.m. Ages 50-59 = 93 mL/min/1.73 sq.m. Ages 60-69 = 85 mL/min/1.73 sq.m. Ages 70+ = 75 mL/min/1.73 sq.m.Chronic Kidney Disease: Less than 60 mL/min/1.73 square metersEnd Stage Renal Disease: Less than 15 mL/min/1.73 square meters Performed By: #### C BC, ADMICHEL, ANEU, GFR, BMP ####[address] [place], [place] [address] GFR Non- 99 ml/min/1.73sqm Normal [facility] ([place]) Comment on above: Result Comment: GFR Population mean for , Non- Americans Ages 20-29 = 116 mL/min/1.73 sq.m. Ages 30-39 = 107 mL/min/1.73 sq.m. Ages 40-49 = 99 mL/min/1.73 sq.m. Ages 50-59 = 93 mL/min/1.73 sq.m. Ages 60-69 = 85 mL/min/1.73 sq.m. Ages 70+ = 75 mL/min/1.73 sq.m.Chronic Kidney Disease: Less than 60 mL/min/1.73 square metersEnd Stage Renal Disease: Less than 15 mL/min/1.73 square meters Performed By: #### C BC, ADIFF, ANEU, GFR, BMP ####[address] [place], [place] [address] .NEUABSon 12-11-2017 Neutrophil, Absolute 7.30 10 3/mcL High 2.85-6.16 [facility] ([place]) Comment on above: Performed By: #### C BC, ADIFF, ANEU, GFR, BMP ####[address] [place], [place] [address] BMPon 12-11-2017 Calcium mass conc 8.4 mg/dL Normal 8.4-10.2 [facility] ([place]) Comment on above: Performed By: #### C BC, ADIFF, ANEU, GFR, BMP ####[address] [place], [place] [address] Chloride molar conc 106 mmol/L Normal 98-107 [facility] ([place]) Comment on above: Performed By: #### C BC, ADIFF, ANEU, GFR, BMP ####[address] [place] [phone] CO2 molar conc 27 mmol/L Normal 22-29 [facility] ([place]) Comment on above: Performed By: #### C BC, ADIFF, ANEU, GFR, BMP ####[address] [place], [place] [address] Creatinine mass conc 0.62 mg/dL Normal 0.55-1.02 [facility] ([place]) Comment on above: Performed By: #### C BC, ADIFF, ANEU, GFR, BMP ####[address] [place], [place] [address] Electrolyte Balance 9.0 mEq/L Normal [facility] ([place]) Comment on above: Performed By: #### C BC, ADIFF, ANEU, GFR, BMP ####[address] [place] [phone] Glucose mass conc 135 mg/dL High 70-105 [facility] ([place]) Comment on above: Performed By: #### C BC, ADIFF, ANEU, GFR, BMP ####[address] [place] [phone] Potassium molar conc 3.8 mmol/L Normal 3.5-5.1 [facility] ([place]) Comment on above: Performed By: #### C BC, ADIFF, ANEU, GFR, BMP ####[address] [place], [place] [address] Sodium molar conc 142 mmol/L Normal 136-145 [facility] ([place]) Comment on above: Performed By: #### C BC, ADIFF, ANEU, GFR, BMP ####[address] [place], [place] [address] Urea nitrogen mass conc 13 mg/dL Normal 7-18 [facility] ([place]) Comment on above: Performed By: #### C BC, ADIFF, ANEU, GFR, BMP ####[address] [place], [place] [address] Urea nitrogen/Creatinine mass ratio 21 ratio Normal 7-27 [facility] ([place]) Comment on above: Performed By: #### C BC, ADIFF, ANEU, GFR, BMP ####[address] [place], [place] [address] CBCon 12-11-2017 Erythrocyte distribution width Auto Ratio (RBC) 14.2 % Normal 11.5-14.5 [facility] ([place]) Comment on above: Performed By: #### C BC, ADIFF, ANEU, GFR, BMP ####[address] [place], [place] [address] Hematocrit Auto Volume Fraction (Bld) 24.7 % Low 37.0-47.0 [facility] ([place]) Comment on above: Performed By: #### C BC, ADIFF, ANEU, GFR, BMP ####[address] [place], [place] [address] Hemoglobin mass conc (Bld) 8.7 G/dL Low 12.0-16.0 [facility] ([place]) Comment on above: Performed By: #### C BC, ADIFF, ANEU, GFR, BMP ####[address] [place], [place] [address] MCH Auto Entitic mass (RBC) 30.5 pg Normal 27.0-31. 2 [facility] ([place]) Comment on above: Performed By: #### C BC, ADIFF, ANEU, GFR, BMP ####[address] [place], [place] [address] MCHC Auto mass conc (RBC) 35.2 G/dL Normal 33.0-37.0 [facility] ([place]) Comment on above: Performed By: #### C BC, ADIFF, ANEU, GFR, BMP ####[address] [place], [place] [address] MCV Auto Entitic volume (RBC) 86.6 fL Normal 80.0-94.0 [facility] ([place]) Comment on above: Performed By: #### C BC, ADIFF, ANEU, GFR, BMP ####[address] [place], [place] [address] Platelet mean volume Auto Entitic volume (Bld) 7.1 fL Low 7.4-10.4 [facility] ([place]) Comment on above: Performed By: #### C BC, ADIFF, ANEU, GFR, BMP ####[address] [place], [place] [address] Platelets Auto #/vol (Bld) 296 10 3/mcL Normal 130-400 [facility] ([place]) Comment on above: Performed By: #### C BC, ADIFF, ANEU, GFR, BMP ####[address] [place], [place] [address] RBC Auto #/vol (Bld) 2.85 10 6/mcL Low 4.20-5.40 [facility] ([place]) Comment on above: Performed By: #### C BC, ADIFF, ANEU, GFR, BMP ####[address] [place], [place] [address] WBC Auto #/vol (Bld) 9.70 10 3/mcL Normal 4.60-10.80 [facility] ([place]) Comment on above: Performed By: #### C BC, ADIFF, ANEU, GFR, BMP ####[address] [place], [place] [address] Depart Summaryon 12-11-2017 Depart Summary Normal [facility] ([place]) Discharge Note-Nursingon Discharge Note-Nursing Normal [facility]) [facility] Patient S marinayon 12-11-2017 [facility] [place] Inpatient Patient Summary Normal [facility]) [facility] Consultation Noteon 12-10-2017 [facility] Consultation Note Normal [facility]) [facility] Operative Reporton 12-10-2017 [facility] Operative Report Normal [facility] ([place]) XR HIP LEFT W/PELVIS 4 VIEWS on 12-10-2017 XR HIP LEFT W/PELVIS 4 VIEWS ORIGINALXR HIP LEFT W/PELVIS 4 VIEWS CLINICAL STATEMENT: Status Post Arthroplasty COMPARISON: None FINDINGS: AP view pelvis: The iliopectineal and ilioischial lines are intact. Bilateral hip arthroplasties noted. There is no fracture. 2 views LEFT hip: The arthroplasty is intact. No malalignment. No osseous abnormality is seen in the [place] LEFT hip. IMPRESSION: 1. Intact LEFT hip arthroplasty.2. No fracture Interpreted By: Margarito Grewalreliminary Report By: Margarito Grewal MDElectronically Signed By: Margarito Grewal MD Dictated Date: 12/10/2017 11:51:43 AM Prelim Date: 12/10/2017 11:51:43 AM Sign Date: 12/10/2017 11:53:16 AM Normal [facility] ([place]) .Auto Diffon 11-13-2017 Ammonia mass conc (P) 1.00 10 3/mcL Normal 0.15-1.00 [facility] ([place]) Comment on above: Performed By: #### C MARTA BUTLER ANEU, GFR, BMP ####[address] [place], [place] [address] Basophils Auto #/vol (Bld) 0.00 10 3/mcL Normal 0.00-0 .19 [facility] ([place]) Comment on above: Performed By: #### C MARTA BUTLER ANEU, GFR, BMP ####[address] [place], [place] [address] Basophils/100 WBC Auto (Bld) 0.1 % Normal 0.0-2.5 [facility] ([place]) Comment on above: Performed By: #### C BC, ADIFF, ANEU, GFR, BMP ####[address] [place], [place] [address] Eosinophils Auto #/vol (Bld) 0.00 10 3/mcL Normal 0.00 -0.40 [facility] ([place]) Comment on above: Performed By: #### C BC, ADIFF, ANEU, GFR, BMP ####[address] [place], [place] [address] Eosinophils/100 WBC Auto (Bld) 0.0 % Normal 0.0-7.0 [facility] ([place]) Comment on above: Performed By: #### C BC, ADIFF, ANEU, GFR, BMP ####[address] [place], [place] [address] Lymphocytes Auto #/vol (Bld) 1.20 10 3/mcL Normal 0.77 -3.85 [facility] ([place]) Comment on above: Performed By: #### C BC, ADIFF, ANEU, GFR, BMP ####[address] [place], [place] [address] Lymphocytes/100 WBC Auto (Bld) 9.7 % Low 10.0-50.0 [facility] ([place]) Comment on above: Performed By: #### C BC, ADIFF, ANEU, GFR, BMP ####[address] [place], [place] [address] Monocytes/100 WBC Auto (Bld) 8.6 % Normal 1.7-13. 0 [facility] ([place]) Comment on above: Performed By: #### C BC, ADIFF, ANEU, GFR, BMP ####[address] [place], [place] [address] Neutrophils/100 WBC Auto (Bld) 81.6 % High 37.0-80.0 [facility] ([place]) Comment on above: Performed By: #### C BC, ADIFF, ANEU, GFR, BMP ####[address] [place], [place] [address] .GFRon 11-13-2017 GFR Non- >60 Normal [facility] ([place]) Comment on above: Result Comment: GFR Population mean for , Non- Americans Ages 20-29 = 116 mL/min/1.73 sq.m. Ages 30-39 = 107 mL/min/1.73 sq.m. Ages 40-49 = 99 mL/min/1.73 sq.m. Ages 50-59 = 93 mL/min/1.73 sq.m. Ages 60-69 = 85 mL/min/1.73 sq.m. Ages 70+ = 75 mL/min/1.73 sq.m.Chronic Kidney Disease: Less than 60 mL/min/1.73 square metersEnd Stage Renal Disease: Less than 15 mL/min/1.73 square meters Performed By: #### C BC, ADIFF, ANEU, GFR, BMP ####[address] [place], [place] [address] GFR 135 ml/min/1.73sqm Normal [facility] ([place]) Comment on above: Result Comment: GFR Population mean for , Non- Americans Ages 20-29 = 116 mL/min/1.73 sq.m. Ages 30-39 = 107 mL/min/1.73 sq.m. Ages 40-49 = 99 mL/min/1.73 sq.m. Ages 50-59 = 93 mL/min/1.73 sq.m. Ages 60-69 = 85 mL/min/1.73 sq.m. Ages 70+ = 75 mL/min/1.73 sq.m.Chronic Kidney Disease: Less than 60 mL/min/1.73 square metersEnd Stage Renal Disease: Less than 15 mL/min/1.73 square meters Performed By: #### C BC, ADIFF, ANEU, GFR, BMP ####[address] [place], [place] [address] .NEUABSon 11-13-2017 Neutrophil, Absolute 9.70 10 3/mcL High 2.85-6.16 [facility] ([place]) Comment on above: Performed By: #### C BC, ADIFF, ANEU, GFR, BMP ####[address] [place], [place] [address] BMPon 11-13-2017 Glucose mass conc 161 mg/dL High 70-105 [facility] ([place]) Comment on above: Performed By: #### C BC, ADIFF, ANEU, GFR, BMP ####[address] [place], [place] [address] Calcium mass conc 8.6 mg/dL Normal 8.4-10.2 [facility] ([place]) Comment on above: Performed By: #### C BC, ADIFF, ANEU, GFR, BMP ####[address] [place], [place] [address] CO2 molar conc 29 mmol/L Normal 22-29 [facility] ([place]) Comment on above: Performed By: #### C BC, ADIFF, ANEU, GFR, BMP ####[address] [place], [place] [address] Creatinine mass conc 0.6 mg/dL Normal 0.6-1.2 [facility] ([place]) Comment on above: Performed By: #### C BC, ADIFF, ANEU, GFR, BMP ####[address] [place], [place] [address] Electrolyte Balance 6.0 mEq/L Normal [facility] ([place]) Comment on above: Performed By: #### C BC, ADIFF, ANEU, GFR, BMP ####[address] [place], [place] [address] Urea nitrogen/Creatinine mass ratio 20 ratio Normal 7-27 [facility] ([place]) Comment on above: Performed By: #### C BC, ADIFF, ANEU, GFR, BMP ####[address] [place], [place] [address] Chloride molar conc 108 mmol/L High 98-107 [facility] ([place]) Comment on above: Performed By: #### C BC, ADIFF, ANEU, GFR, BMP ####[address] [place], [place] [address] Potassium molar conc 4.3 mmol/L Normal 3.5-5.1 [facility] ([place]) Comment on above: Performed By: #### C BC, ADIFF, ANEU, GFR, BMP ####[address] [place], [place] [address] Sodium molar conc 143 mmol/L Normal 136-146 [facility] ([place]) Comment on above: Performed By: #### C BC, ADIFF, ANEU, GFR, BMP ####[address] [place], [place] [address] Urea nitrogen mass conc 12.1 mg/dL Normal 7.0-18.0 [facility] ([place]) Comment on above: Performed By: #### C BC, ADIFF, ANEU, GFR, BMP ####[address] [place], [place] [address] CBCon 11-13-2017 Erythrocyte distribution width Auto Ratio (RBC) 13.9 % Normal 11.5-14.5 [facility] ([place]) Comment on above: Performed By: #### C BC, ADIFF, ANEU, GFR, BMP ####[address] [place], [place] [address] Hematocrit Auto Volume Fraction (Bld) 28.6 % Low 37.0-47.0 [facility] ([place]) Comment on above: Performed By: #### C BC, ADIFF, ANEU, GFR, BMP ####[address] [place], [place] [address] Hemoglobin mass conc (Bld) 9.7 G/dL Low 12.0-16.0 [facility] ([place]) Comment on above: Performed By: #### C BC, ADIFF, ANEU, GFR, BMP ####[address] [place], [place] [address] MCH Auto Entitic mass (RBC) 29.8 pg Normal 27.0-31. 2 [facility] ([place]) Comment on above: Performed By: #### C BC, ADIFF, ANEU, GFR, BMP ####[address] [place], [place] [address] MCHC Auto mass conc (RBC) 34.1 G/dL Normal 33.0-37.0 [facility] ([place]) Comment on above: Performed By: #### C BC, ADIFF, ANEU, GFR, BMP ####[address] [place], [place] [address] MCV Auto Entitic volume (RBC) 87.3 fL Normal 80.0-94.0 [facility] ([place]) Comment on above: Performed By: #### C BC, ADIFF, ANEU, GFR, BMP ####[address] [place], [place] [address] Platelet mean volume Auto Entitic volume (Bld) 7.7 fL Normal 7.4-10.4 [facility] ([place]) Comment on above: Performed By: #### C BC, ADIFF, ANEU, GFR, BMP ####[address] [place], [place] [address] Platelets Auto #/vol (Bld) 285 10 3/mcL Normal 130-400 [facility] ([place]) Comment on above: Performed By: #### C BC, ADIFF, ANEU, GFR, BMP ####[address] [place], [place] [address] RBC Auto #/vol (Bld) 3.27 10 6/mcL Low 4.20-5.40 [facility] ([place]) Comment on above: Performed By: #### C BC, ADIFF, ANEU, GFR, BMP ####[address] [place], [place] [address] WBC Auto #/vol (Bld) 11.90 10 3/mcL High 4.60-10.80 [facility]) Comment on above: Performed By: #### C BC, ADIFF, ANEU, GFR, BMP ####[address] [place], [place] [address] Depart Summaryon 11-13-2017 Depart Summary Normal [facility]) Internal Medicine Progress N oteon 11-13-2017 Protein mass conc Normal [facility]) [facility] [place] In[facility] Patient S ummaryon 11-13-2017 [facility] [place] Inpatient Patient Summary Normal [facility]) XR FLUORO 1-2 HRS TECH TIMEo n 11-13-2017 XR FLUORO 1-2 HRS TECH TIME ORIGINAL Images acquired, not reported on this accession number. Normal [facility]) [facility] MAIN OR Intraop Recordon 11-12-2017 AO MAIN OR Intraop Record Normal [facility]) [place] Consultation Noteon 11-12-2017 [place] Consultation Note Normal [facility] ([place]) [place] Operative Reporton 11-12-2017 [place] Operative Report Normal [facility] ([place]) XR HIP RIGHT W/PELVIS 4 VIEW Son 11-12-2017 XR HIP RIGHT W/PELVIS 4 VIEWS ORIGINALXR HIP RIGHT W/PELVIS 4 VIEWS CLINICAL STATEMENT: Status Post Arthroplasty COMPARISON: None FINDINGS:There is a RIGHT hip prosthesis present. No acute fracture or dislocation is identified. There are postoperative changes to the soft tissues IMPRESSION:Post prosthesis placement Interpreted By: Kelsey Marinreliminary Report By: Kelsey Marin MDElectronically Signed By: Kelsey Marin MD Dictated Date: 11/12/2017 12:02:57 PM Prelim Date: 11/12/2017 12:02:57 PM Sign Date: 11/12/2017 12:03:15 PM Normal [facility]) [place] Pre-Surgical Histor y AND Physicalon 11-05-2017 [place] Pre-Surgical History AND Physical Normal [facility]) .Auto Diffon 10-30-2017 Ammonia mass conc (P) 0.50 10 3/mcL Normal 0.15-1.00 [facility] ([place]) Comment on above: Performed By: #### C SADIE BUTLERIFF, ANEU, GFR, BMP ####[address] [place], [place] [address] Basophils Auto #/vol (Bld) 0.10 10 3/mcL Normal 0.00-0 .19 [facility] ([place]) Comment on above: Performed By: #### C MARTA BUTLER ANEU, GFR, BMP ####[address] [place], [place] [address] Basophils/100 WBC Auto (Bld) 1.4 % Normal 0.0-2.5 [facility] ([place]) Comment on above: Performed By: #### C BCMARTA ANEU, GFR, BMP ####[address] [place], [place] [address] Eosinophils Auto #/vol (Bld) 0.10 10 3/mcL Normal 0.00 -0.40 [facility] ([place]) Comment on above: Performed By: #### C MARTA BUTLER, ANEU, GFR, BMP ####[address] [place], [place] [address] Eosinophils/100 WBC Auto (Bld) 1.1 % Normal 0.0-7.0 [facility] ([place]) Comment on above: Performed By: #### C BC, ADIFF, ANEU, GFR, BMP ####[address] [place], [place] [address] Lymphocytes Auto #/vol (Bld) 3.10 10 3/mcL Normal 0.77 -3.85 [facility] ([place]) Comment on above: Performed By: #### C BC, ADIFF, ANEU, GFR, BMP ####[address] [place], [place] [address] Lymphocytes/100 WBC Auto (Bld) 40.2 % Normal 10.0-50.0 [facility] ([place]) Comment on above: Performed By: #### C BC, ADIFF, ANEU, GFR, BMP ####[address] [place], [place] [address] Monocytes/100 WBC Auto (Bld) 7.1 % Normal 1.7-13. 0 [facility] ([place]) Comment on above: Performed By: #### C BC, ADIFF, ANEU, GFR, BMP ####[address] [place], [place] [address] Neutrophils/100 WBC Auto (Bld) 50.2 % Normal 37.0-80.0 [facility] ([place]) Comment on above: Performed By: #### C BC, ADIFF, ANEU, GFR, BMP ####[address] [place], [place] [address] .GFRon 10-30-2017 GFR 129 ml/min/1.73sqm Normal [facility] ([place]) Comment on above: Result Comment: GFR Population mean for , Non- Americans Ages 20-29 = 116 mL/min/1.73 sq.m. Ages 30-39 = 107 mL/min/1.73 sq.m. Ages 40-49 = 99 mL/min/1.73 sq.m. Ages 50-59 = 93 mL/min/1.73 sq.m. Ages 60-69 = 85 mL/min/1.73 sq.m. Ages 70+ = 75 mL/min/1.73 sq.m.Chronic Kidney Disease: Less than 60 mL/min/1.73 square metersEnd Stage Renal Disease: Less than 15 mL/min/1.73 square meters Performed By: #### C BC, ADIFF, ANEU, GFR, BMP ####[address] [place], [place] [address] GFR Non- >60 Normal [facility] ([place]) Comment on above: Result Comment: GFR Population mean for , Non- Americans Ages 20-29 = 116 mL/min/1.73 sq.m. Ages 30-39 = 107 mL/min/1.73 sq.m. Ages 40-49 = 99 mL/min/1.73 sq.m. Ages 50-59 = 93 mL/min/1.73 sq.m. Ages 60-69 = 85 mL/min/1.73 sq.m. Ages 70+ = 75 mL/min/1.73 sq.m.Chronic Kidney Disease: Less than 60 mL/min/1.73 square metersEnd Stage Renal Disease: Less than 15 mL/min/1.73 square meters Performed By: #### C BC, ADIFF, ANEU, GFR, BMP ####[address] [place], [place] [address] .NEUABSon 10-30-2017 Neutrophil, Absolute 3.90 10 3/mcL Normal 2.85-6.16 [facility] ([place]) Comment on above: Performed By: #### C BC, ADIFF, ANEU, GFR, BMP ####[address] [place], [place] [address] BMPon 10-30-2017 Chloride molar conc 102 mmol/L Normal 98-107 [facility] ([place]) Comment on above: Performed By: #### C BC, ADIFF, ANEU, GFR, BMP ####[address] [place], [place] [address] Electrolyte Balance 9.0 mEq/L Normal [facility] ([place]) Comment on above: Performed By: #### C BC, ADIFF, ANEU, GFR, BMP ####[address] [place], [place] [address] Potassium molar conc 3.8 mmol/L Normal 3.5-5.1 [facility] ([place]) Comment on above: Performed By: #### C BC, ADIFF, ANEU, GFR, BMP ####[address] [place], [place] [address] Sodium molar conc 138 mmol/L Normal 136-146 [facility] ([place]) Comment on above: Performed By: #### C BC, ADIFF, ANEU, GFR, BMP ####[address] [place], [place] [address] Calcium mass conc 9.5 mg/dL Normal 8.4-10.2 [facility] ([place]) Comment on above: Performed By: #### C BC, ADIFF, ANEU, GFR, BMP ####[address] [place], [place] [address] CO2 molar conc 27 mmol/L Normal 22-29 [facility] ([place]) Comment on above: Performed By: #### C BC, ADIFF, ANEU, GFR, BMP ####[address] [place], [place] [address] Creatinine mass conc 0.6 mg/dL Normal 0.6-1.2 [facility] ([place]) Comment on above: Performed By: #### C BC, ADIFF, ANEU, GFR, BMP ####[address] [place], [place] [address] Glucose mass conc 103 mg/dL Normal 70-105 [facility] ([place]) Comment on above: Performed By: #### C BC, ADIFF, ANEU, GFR, BMP ####[address] [place], [place] [address] Urea nitrogen mass conc 12.8 mg/dL Normal 7.0-18.0 [facility] ([place]) Comment on above: Performed By: #### C BC, ADIFF, ANEU, GFR, BMP ####[address] [place], [place] [address] Urea nitrogen/Creatinine mass ratio 21 ratio Normal 7-27 [facility] ([place]) Comment on above: Performed By: #### C BC, ADIFF, ANEU, GFR, BMP ####[address] [place], [place] [address] CBCon 10-30-2017 Erythrocyte distribution width Auto Ratio (RBC) 14.3 % Normal 11.5-14.5 [facility] ([place]) Comment on above: Performed By: #### C BC, ADIFF, ANEU, GFR, BMP ####[address] [place], [place] [address] Hematocrit Auto Volume Fraction (Bld) 38.1 % Normal 37.0-47.0 [facility] ([place]) Comment on above: Performed By: #### C BC, ADIFF, ANEU, GFR, BMP ####[address] [place], [place] [address] Hemoglobin mass conc (Bld) 12.9 G/dL Normal 12.0-16.0 [facility] ([place]) Comment on above: Performed By: #### C BC, ADIFF, ANEU, GFR, BMP ####[address] [place], [place] [address] MCH Auto Entitic mass (RBC) 29.6 pg Normal 27.0-31. 2 [facility] ([place]) Comment on above: Performed By: #### C BC, ADIFF, ANEU, GFR, BMP ####[address] [place], [place] [address] MCHC Auto mass conc (RBC) 33.9 G/dL Normal 33.0-37.0 [facility] ([place]) Comment on above: Performed By: #### C BC, ADIFF, ANEU, GFR, BMP ####[address] [place], [place] [address] MCV Auto Entitic volume (RBC) 87.4 fL Normal 80.0-94.0 [facility] ([place]) Comment on above: Performed By: #### C BC, ADIFF, ANEU, GFR, BMP ####[address] [place], [place] [address] Platelet mean volume Auto Entitic volume (Bld) 7.6 fL Normal 7.4-10.4 [facility] ([place]) Comment on above: Performed By: #### C BC, ADIFF, ANEU, GFR, BMP ####[address] [place], [place] [address] Platelets Auto #/vol (Bld) 334 10 3/mcL Normal 130-400 [facility] ([place]) Comment on above: Performed By: #### C BC, ADIFF, ANEU, GFR, BMP ####[address] [place], [place] [address] RBC Auto #/vol (Bld) 4.35 10 6/mcL Normal 4.20-5.40 [facility] ([place]) Comment on above: Performed By: #### C BC, ADIFF, ANEU, GFR, BMP ####[address] [place], [place] [address] WBC Auto #/vol (Bld) 7.70 10 3/mcL Normal 4.60-10.80 [facility] ([place]) Comment on above: Performed By: #### C BC, ADIFF, ANEU, GFR, BMP ####[address] [place], [place] [address] Office Visit: NATY and asthma on 07-26-2016 Documentation of current medications (procedure) Done Invalid Interpretation Code [facility] Work Phone: Protein mass conc Done [facility] Work Phone: Tobacco smoking status [facility] Never Inva lid Interpretation Code [facility] Work Phone: Tobacco smoking status [facility] Former smoker [facility] Work Phone: Tobacco use [facility] Former smoker Invalid Interpretation Code [facility] Work Phone: Vital Signs Date Time Vital Sign Value Performing Clinician Facility 03-29-2023 09:49-0500 Body height 158.[address] Nicole Moreno Work Phone: [facility] 03-29-2023 09:49-0500 Body mass index (BMI) [Ratio] 30.7 kg/m2 Dr. Nicole Moreno Work Phone: [facility] 03-29-2023 09:49-0500 Body weight 77.[address] Nicole Moreno Work Phone: [facility] 12-09-2022 13:36-0400 Body height 158.75 cm [facility] 12-09-2022 13:36-0400 Body mass index (BMI) [Ratio] 34 kg/m2 [facility] 12-09-2022 13:36-0400 Body temperature 101.2 [degF] [facility] 12-09-2022 13:36-0400 Body weight 85.68 kg [facility] 12-09-2022 13:36-0400 Diastolic blood pressure 78 mm[Hg] [facility] 12-09-2022 13:36-0400 Heart rate 135 /min [facility] 12-09-2022 13:36-0400 Respiratory rate 18 /min [facility] 12-09-2022 13:36-0400 SaO2% (BldA) [Mass fraction] 95 % [facility] 12-09-2022 13:36-0400 Systolic blood pressure 163 mm[Hg] [facility] 10-23-2022 14:54-0400 Body height 160.[address] Nicole Moreno Work Phone: [facility] 10-23-2022 14:54-0400 Body mass index (BMI) [Ratio] 33.6 kg/m2 Dr. Nicole Moreno Work Phone: [facility] 10-23-2022 14:54-0400 Body temperature 98.6 [degF] Dr. Nicole Moreno Work Phone: [facility] 10-23-2022 14:54-0400 Body weight 86.[address] Nicole Moreno Work Phone: [facility] 10-23-2022 14:54-0400 Diastolic blood pressure 61 mm[Hg] Dr. Nicole Moreno Work Phone: [facility] 10-23-2022 14:54-0400 Heart rate 71 /min Dr. Nicole Moreno Work Phone: [facility] 10-23-2022 14:54-0400 Respiratory rate 16 /min Dr. Nicole Moreno Work Phone: [facility] 10-23-2022 14:54-0400 SaO2% (BldA) [Mass fraction] 98 % Dr. Nicole Moreno Work Phone: [facility] 10-23-2022 14:54-0400 Systolic blood pressure 99 mm[Hg] Dr. Nicole Moreno Work Phone: [facility] 07-31-2022 13:08-0400 Body mass index (BMI) [Ratio] 35.4 kg/m2 Dr. Nicole Moreno Work Phone: [facility] 07-31-2022 13:08-0400 Body weight 90.[address] Nicole Moreno Work Phone: [facility] 07-31-2022 13:08-0400 Diastolic blood pressure 75 mm[Hg] Dr. Nicole Moreno Work Phone: [facility] 07-31-2022 13:08-0400 Heart rate 75 /min Dr. Nicole Moreno Work Phone: [facility] 07-31-2022 13:08-0400 SaO2% (BldA) [Mass fraction] 95 % Dr. Nicole Moreno Work Phone: [facility] 07-31-2022 13:08-0400 Systolic blood pressure 117 mm[Hg] Dr. Nicole Moreno Work Phone: [facility] 07-10-2022 07:30-0500 Body temperature 97.5 [degF] Dr. Nicole Moreno Work Phone: [facility] 07-10-2022 07:30-0500 Diastolic blood pressure 66 mm[Hg] Dr. Nicole Moreno Work Phone: [facility] 07-10-2022 07:30-0500 Heart rate 92 /min Dr. Nicole Moreno Work Phone: [facility] 07-10-2022 07:30-0500 Respiratory rate 16 /min Dr. Nicole Moreno Work Phone: [facility] 07-10-2022 07:30-0500 SaO2% (BldA) [Mass fraction] 97 % Dr. Nicole Moreno Work Phone: [facility] 07-10-2022 07:30-0500 Systolic blood pressure 112 mm[Hg] Dr. Nicole Moreno Work Phone: [facility] 07-10-2022 05:58-0500 Body height 160.[address] Nicole Moreno Work Phone: [facility] 07-10-2022 05:58-0500 Body mass index (BMI) [Ratio] 37.2 kg/m2 Dr. Nicole Moreno Work Phone: [facility] 07-10-2022 05:58-0500 Body weight 95.[address] Nicole Moreno Work Phone: [facility] 05-31-2022 09:08-0500 Body mass index (BMI) [Ratio] 40.4 kg/m2 Dr. Nicole Moreno Work Phone: [facility] 05-31-2022 09:08-0500 Body weight 100.[address] Nicole Moreno Work Phone: [facility] 05-31-2022 09:08-0500 Diastolic blood pressure 82 mm[Hg] Dr. Nicole Moreno Work Phone: [facility] 05-31-2022 09:08-0500 Heart rate 91 /min Dr. Nicole Moreno Work Phone: [facility] 05-31-2022 09:08-0500 SaO2% (BldA) [Mass fraction] 94 % Dr. Nicole Moreno Work Phone: [facility] 05-31-2022 09:08-0500 Systolic blood pressure 129 mm[Hg] Dr. Nicole Moreno Work Phone: [facility] 08-02-2021 14:50-0400 Diastolic blood pressure 68 mm[Hg] Dr. Nicole Moreno Work Phone: [facility] Work Phone: 08-02-2021 14:50-0400 Systolic blood pressure 130 mm[Hg] Dr. Nicole Moreno Work Phone: [facility] Work Phone: 08-02-2021 14:06-0400 Body height 157.[address] Nicole Moreno Work Phone: [facility] Work Phone: 08-02-2021 14:06-0400 Body mass index (BMI) [Ratio] 44.8 kg/m2 Dr. Nicole Moreno Work Phone: [facility] Work Phone: 08-02-2021 14:06-0400 Body weight 111.[address] Nicole Moreno Work Phone: [facility] Work Phone: 08-02-2021 14:06-0400 Heart rate 68 /min Dr. Nicole Moreno Work Phone: [facility] Work Phone: 08-02-2021 14:06-0400 Respiratory rate 18 /min Dr. Nicole Moreno Work Phone: [facility] Work Phone: 06-12-2021 14:07-0500 Body mass index (BMI) [Ratio] 45.1 kg/m2 Dr. Nicole Moreno Work Phone: [facility] Work Phone: 06-12-2021 14:07-0500 Body weight 112.[address] Nicole Moreno Work Phone: [facility] Work Phone: 06-12-2021 14:07-0500 Diastolic blood pressure 62 mm[Hg] Dr. Nicole Moreno Work Phone: [facility] Work Phone: 06-12-2021 14:07-0500 Heart rate 72 /min Dr. Nicole Moreno Work Phone: [facility] Work Phone: 06-12-2021 14:07-0500 Respiratory rate 16 /min Dr. Nicole Moreno Work Phone: [facility] Work Phone: 06-12-2021 14:07-0500 Systolic blood pressure 174 mm[Hg] Dr. Nicole Moreno Work Phone: [facility] Work Phone: 07-26-2016 14:09-0500 BMI (Body Mass Index) 34.87 kg/m2 Denise Au LPN [facility] Work Phone: 07-26-2016 14:09-0500 Body Temperature 99.4 [degF] Denise Mynorho EQUITY HOLDER [facility] [place] Work Phone: 07-26-2016 14:09-0500 BP Diastolic 71 mm[Hg] Denise Mynorho EQUITY HOLDER [facility] Work Phone: 07-26-2016 14:09-0500 BP Systolic 149 mm[Hg] Denise Yensho EQUITY HOLDER [facility] Work Phone: 07-26-2016 14:09-0500 Height 161.29 cm Denise Mynorho EQUITY HOLDER [facility] Work Phone: 07-26-2016 14:09-0500 Pulse (Heart Rate) 98 /min Denise Mynorho EQUITY HOLDER [facility] Work Phone: 07-26-2016 14:09-0500 Respiratory Rate 18 /min Denise Mynorho EQUITY HOLDER [facility] Work Phone: 07-26-2016 14:09-0500 Weight 90.72 kg Denise Mynorho EQUITY HOLDER [facility] Work Phone: 05-31-2016 13:39-0500 Body Temperature 98.06 [degF] Denise Mynorho EQUITY HOLDER [facility] Work Phone: 05-31-2016 13:39-0500 BSA (Body Surface Area) 2.01 m2 Denise Mynorho EQUITY HOLDER [facility] [employer] Phone: 05-31-2016 13:39-0500 Height 161.29 cm Denise Loweho EQUITY HOLDER [facility] Work Phone: Encounters Encounter Date Encounter Type Care Provider Facility Start: 09-22-2024 End: 09-22-[address] Nicole Moreno DO Work Phone: [facility] Work Phone: Start: 09-22-2024 End: 09-22-[address] Nicole Moreno DO -Outpatient Bone Densitometry Work Phone: Start: 09-22-2024 End: 09-22-2024 ambulatory Nicole Moreno Facility:[facility] Start: 07-29-2024 End: 07-29-[address] Nicole Moreno DO Work Phone: [facility] Work Phone: Start: 07-29-2024 End: 07-29-[address] Nicole Moreno DO -Laboratory, [place] Work Phone: Start: 07-29-2024 End: 07-29-2024 ambulatory Nicole Moreno Facility:[facility] Start: 03-06-2024 End: 03-06-2024 [facility] Start: 09-09-2023 End: 09-09-2023 ambulatory [facility] Work Phone: Start: 09-09-2023 End: 09-09-2023 Patient encounter procedure [facility] Work Phone: Start: 09-02-2023 End: 09-02-2023 ambulatory [facility] Work Phone: Start: 09-02-2023 End: 09-02-2023 Patient encounter procedure [facility] Start: 05-30-2023 End: 05-30-[address] Nicole Moreno Work Phone: [facility] Work Phone: Start: 05-30-2023 End: 05-30-[address] Nicole Moreno Work Phone: [facility] Start: 04-18-2023 End: 04-18-[address] Nicole Moreno Work Phone: [facility] Work Phone: Start: 04-18-2023 End: 04-18-[address] Nicole Moreno Work Phone: [facility] Scan, [facility] Work Phone: Start: 03-29-2023 End: 03-29-[address] Nicole Moreno Work Phone: [facility] Work Phone: Start: 03-20-2023 End: 03-20-2023 ambulatory [facility] Work Phone: Start: 03-20-2023 End: 03-20-2023 Patient encounter procedure [facility] Start: 12-09-2022 End: 12-09-2022 [facility] Start: 10-30-2022 End: 10-30-[address] Nicole Moreno Work Phone: [facility] Work Phone: Start: 10-30-2022 End: 10-30-[address] Nicole Moreno Work Phone: [facility]-Outpatient Breast Imaging Start: 10-23-2022 End: 10-23-[address] Nicole Moreno Work Phone: [facility] Start: 10-05-2022 End: 10-05-[address] Nicole Moreno Work Phone: [facility] Start: 07-31-2022 End: 07-31-[address] Nicole Moreno Work Phone: [facility] Start: 07-10-2022 Non-patient / Non-visit Dr. Nicole Moreno Work Phone: [facility] Start: 07-10-2022 End: 07-10-2022 Admission to same day surgery center Dr. Nicole Moreno Work Phone: [facility]-Endoscopy Start: 07-10-2022 End: 07-10-[address] Nicole Moreno Work Phone: [facility] Work Phone: Start: 05-31-2022 End: 05-31-[address] Nicole Moreno Work Phone: [facility] Start: 04-13-2022 End: 04-13-2022 ambulatory [facility] Work Phone: Start: 04-13-2022 End: 04-13-2022 Patient encounter procedure [facility] Start: 03-15-2022 End: 03-15-2022 ambulatory [facility] Work Phone: Start: 03-15-2022 End: 03-15-2022 [facility] Start: 08-30-2021 End: 08-30-[address] Nicole Moreno Work Phone: [facility]-Laboratory Start: 08-02-2021 End: 08-02-[address] Nicole Moreno Work Phone: [facility] Start: 08-01-2021 Non-patient / Non-visit Dr. Nicole Moreno Work Phone: [facility] Start: 08-01-2021 End: 08-01-[address] [facility] Start: 06-29-2021 Non-patient / Non-visit Dr. Nicole Moreno Work Phone: [facility] Start: 06-29-2021 End: 06-29-[address] [facility] Start: 06-12-2021 End: 06-12-[address] Nicole Moreno Work Phone: [facility] Start: 12-13-2017 End: 02-06-2018 Patient encounter MILAD ESCUDERO Facility:B Start: 12-10-2017 End: 12-11-2017 Evaluation and management of inpatient MILAD ESCUDERO Facility:[facility] Start: 11-12-2017 End: 11-13-2017 Evaluation and management of inpatient MILAD ESCUDERO Facility:[facility] Start: 10-30-2017 End: 10-31-2017 Patient encounter MILAD ESCUDERO Facility:[facility] Procedures Date Procedure Procedure Detail Performing Clinician Start: 09-22-2024 Dual energy X-ray absorptiometry Dr. Nicole Moreno DO Work Phone: Start: 09-22-2024 Screening mammography Sunita Moreno DO Work Phone: Start: 09-09-2023 Radiography of sacrococcygeal spine Start: 04-18-[address] Nicole arthur Work Phone: Start: 03-29-2023 Radiologic examinati on of knee Dr. Nicole Moreno Work Phone: Start: 12-09-2022 Plain chest X-ray Start: 12-09-2022 SARS-CoV-2 & FLU Ant igen (Rapid) Start: 12-09-2022 Streptococcus pyogen es antigen assay Start: 10-30-2022 Screening mammography Sunita Moreno Work Phone: Start: 07-10-[address] Nicole arthur Work Phone: Start: 04-13-2022 CT of chest Start: 08-01-2021 Cardiovascular stres s test using pharmacologic stress agent Dr. 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 spmtry w/admn agt Zana Hardwick DO Work Phone: Start: 05-31-2016 End: 07-24-2016 Cholesterol Zana Hadrwick DO Work Phone: Start: 05-31-2016 End: 07-24-2016 Ct thorax w/o dye Zana Hardwick DO Work Phone: Plan of Treatment Date Care Activity Detail Author Start: 12-09-2022 [facility] Start: 07-10-2022 Colsc flx w/rmvl of tumor polyp lesion snare tq COLONOSCOPY W/LESION REMOVAL [facility] Start: 07-10-2022 Egd transoral biopsy single/multiple EGD BIOPSY SINGLE/MULTIPLE [facility] Start: 07-10-2022 Patient discharge [facility] Start: 07-26-2016 End: 07-26-2016 DMB DMB [facility] Current Phone: Start: 07-26-2016 End: 07-26-2016 Follow Up Appt 2 months Follow Up Appt 2 months [facility] Phone: Start: 07-26-2016 End: 07-26-2016 Retitration with follow up (patient on CPAP currently) Retitration with follow up (patient on CPAP currently) [facility] Phone: Start: 05-31-2016 End: 07-24-2016 Cholesterol Methylcholine inhalation challenge [facility] Phone: Start: 05-31-2016 End: 07-24-2016 Ct thorax w/o dye CT Chest without contrast [facility] Phone: Start: 05-31-2016 End: 05-31-2016 DMB DMB [facility] Current Phone: Start: 05-31-2016 End: 05-31-2016 Follow Up Appt 2 months Follow Up Appt 2 months [facility] Current Phone: Patient Education ED Pneumonia (Adult) [facility] Work Phone: Patient referral [facility] Work Phone: Radionuclide gastric emptying study [facility] Immunizations Immunization Date Immunization Notes Care Provider Fa cility 03-19-2019 influenza, injectabl e, quadrivalent, preservative free [facility] 03-19-2019 influenza, seasonal, injectable Dr. Nicole Moreno Work Phone: [facility] 03-03-2018 influenza, injectabl e, quadrivalent, preservative free [facility] 03-03-2018 influenza, seasonal, injectable Dr. Nicole Moreno Work Phone: [facility] 09-27-2017 influenza, injectabl e, quadrivalent, preservative free [facility] 02-13-2017 influenza, seasonal, injectable Dr. Nicole Moreno Work Phone: [facility] Payers Date Payer Category Payer Private Health Insurance [id number] 2024 Self-pay [id number] Unknown [id number] 2017 Private Health Insurance [id number] Private Health Insurance [id number] Unknown [id number] Unknown [facility] [id number] Unknown [id number] Unknown [id number] Unknown [id number] Social History Date Type Detail Facility Start: 08-02-2021 End: 03-29-2023 Tobacco smoking status NHIS Unknown if ever smoked [facility] Start: 01-24-2020 Spouse/ Signif icant Other [facility] Start: 12-10-2019 Non-smoker [facility] Start: 1960 Sex Assigned At Female [facility] Start: 03-29-2023 Tobacco smoking status NHIS Ex-smoker (finding) [facility] Start: 08-07-2024 Sex Female (finding) [facility] NEGATED: Highlighted row [facility] Medical Equipment Procedure Code Equipment Code Equipment Origin al Text Equipment Identifier Dates Revision of uncemented total hip replacement CEMENTLESS LINER FDA Start: 12-16-2019 Revision of uncemented total hip replacement FEMORAL HEAD FDA Start: 12-16-2019 Revision of uncemented total hip replacement INSERT FOR MDM LINER FDA Start: 12-16-2019 Revision of uncemented total hip replacement MODULAR HIP SYSTEM FDA Start: 12-16-2019 Revision of uncemented total hip replacement modular hip system FDA Start: 12-16-2019 Revision of uncemented total hip replacement CEMENTLESS LINER FDA Start: 12-16-2019 Revision of uncemented total hip replacement FEMORAL HEAD FDA Start: 12-16-2019 Revision of uncemented total hip replacement INSERT FOR MDM LINER FDA Start: 12-16-2019 Revision of uncemented total hip replacement MODULAR HIP SYSTEM FDA Start: 12-16-2019 Revision of uncemented total hip replacement modular hip system FDA Start: 12-16-2019 Revision of uncemented total hip replacement CEMENTLESS LINER FDA Start: 12-16-2019 Revision of uncemented total hip replacement FEMORAL HEAD FDA Start: 12-16-2019 Revision of uncemented total hip replacement INSERT FOR MDM LINER FDA Start: 12-16-2019 Revision of uncemented total hip replacement MODULAR HIP SYSTEM FDA Start: 12-16-2019 Revision of uncemented total hip replacement modular hip system FDA Start: 12-16-2019 Revision of uncemented total hip replacement CEMENTLESS LINER FDA Start: 12-16-2019 Revision of uncemented total hip replacement FEMORAL HEAD FDA Start: 12-16-2019 Revision of uncemented total hip replacement INSERT FOR MDM LINER FDA Start: 12-16-2019 Revision of uncemented total hip replacement MODULAR HIP SYSTEM FDA Start: 12-16-2019 Revision of uncemented total hip replacement modular hip system FDA Start: 12-16-2019 Revision of uncemented total hip replacement CEMENTLESS LINER FDA Start: 12-16-2019 Revision of uncemented total hip replacement FEMORAL HEAD FDA Start: 12-16-2019 Revision of uncemented total hip replacement INSERT FOR MDM LINER FDA Start: 12-16-2019 Revision of uncemented total hip replacement MODULAR HIP SYSTEM FDA Start: 12-16-2019 Revision of uncemented total hip replacement modular hip system FDA Start: 12-16-2019 Revision of uncemented total hip replacement CEMENTLESS LINER FDA Start: 12-16-2019 Revision of uncemented total hip replacement FEMORAL HEAD FDA Start: 12-16-2019 Revision of uncemented total hip replacement INSERT FOR MDM LINER FDA Start: 12-16-2019 Revision of uncemented total hip replacement MODULAR HIP SYSTEM FDA Start: 12-16-2019 Revision of uncemented total hip replacement modular hip system FDA Start: 12-16-2019 Revision of uncemented total hip replacement CEMENTLESS LINER FDA Start: 12-16-2019 Revision of uncemented total hip replacement FEMORAL HEAD FDA Start: 12-16-2019 Revision of uncemented total hip replacement INSERT FOR MDM LINER FDA Start: 12-16-2019 Revision of uncemented total hip replacement MODULAR HIP SYSTEM FDA Start: 12-16-2019 Revision of uncemented total hip replacement modular hip system FDA Start: 12-16-2019 Revision of uncemented total hip replacement CEMENTLESS LINER FDA Start: 12-16-2019 Revision of uncemented total hip replacement FEMORAL HEAD FDA Start: 12-16-2019 Revision of uncemented total hip replacement INSERT FOR MDM LINER FDA Start: 12-16-2019 Revision of uncemented total hip replacement MODULAR HIP SYSTEM FDA Start: 12-16-2019 Revision of uncemented total hip replacement modular hip system FDA Start: 12-16-2019 Revision of uncemented total hip replacement CEMENTLESS LINER FDA Start: 12-16-2019 Revision of uncemented total hip replacement FEMORAL HEAD FDA Start: 12-16-2019 Revision of uncemented total hip replacement INSERT FOR MDM LINER FDA Start: 12-16-2019 Revision of uncemented total hip replacement MODULAR HIP SYSTEM FDA Start: 12-16-2019 Revision of uncemented total hip replacement modular hip system FDA Start: 12-16-2019 Revision of uncemented total hip replacement CEMENTLESS LINER FDA Start: 12-16-2019 Revision of uncemented total hip replacement FEMORAL HEAD FDA Start: 12-16-2019 Revision of uncemented total hip replacement INSERT FOR MDM LINER FDA Start: 12-16-2019 Revision of uncemented total hip replacement MODULAR HIP SYSTEM FDA Start: 12-16-2019 Revision of uncemented total hip replacement modular hip system FDA Start: 12-16-2019 Revision of uncemented total hip replacement CEMENTLESS LINER FDA Start: 12-16-2019 Revision of uncemented total hip replacement FEMORAL HEAD FDA Start: 12-16-2019 Revision of uncemented total hip replacement INSERT FOR MDM LINER FDA Start: 12-16-2019 Revision of uncemented total hip replacement MODULAR HIP SYSTEM FDA Start: 12-16-2019 Revision of uncemented total hip replacement modular hip system FDA Start: 12-16-2019 Revision of uncemented total hip replacement CEMENTLESS LINER FDA Start: 12-16-2019 Revision of uncemented total hip replacement FEMORAL HEAD FDA Start: 12-16-2019 Revision of uncemented total hip replacement INSERT FOR MDM LINER FDA Start: 12-16-2019 Revision of uncemented total hip replacement MODULAR HIP SYSTEM FDA Start: 12-16-2019 Revision of uncemented total hip replacement modular hip system FDA Start: 12-16-2019 Goals Date Patient Goal Desired Activity /State Mental Status Date Assessment Result Facility 12-09-2022 Cognitive function Level Of Cons ciousness Awake;Drowsy [facility] Work Phone: 07-10-2022 Cognitive function Touch/Shaking [facility] Work Phone: 07-10-2022 Cognitive function Patient Orien tation Person;Place;Time [facility] Work Phone: Clinical Notes 07-10-2022 Note Date & Type Note Facility 07-10-2022 Procedure note [facility] 07-10-2022 Procedure note [facility] 07-10-2022 Procedure note [facility] 07-10-2022 Procedure note [facility] Evaluation note Diagnosis Onset Date Essential hypertension acute LBBB (left bundle branch block) acute Mixed hyperlipidemia acute Palpitation acute Premature atrial contraction acute Premature ventricular contraction acute Essential hypertension acute Mixed hyperlipidemia acute Premature atrial contraction acute Premature ventricular contraction acute [facility] Work Phone: Evaluation noteNo assessment information available [facility] Work Phone: Evaluation note* Diagnosis Onset Date Resolution Status Colon polyp acute Constipation chronic Esophageal pain [facility] Work Phone: Evaluation note* Diagnosis Onset Date Resolution Status Retained food in stomach acu te Nausea chronic Esophageal pain [facility] Work Phone: Evaluation note* Diagnosis Onset Date Resolution Status Left knee DJD acute Left knee pain acute Chronic narcotic use chronic [facility] Work Phone: History and physical note Author Seng Mason [facility] July 10, 2022 7:07am Note Date/Time July 10, 2022 7:07am [facility] Medical Records Department [address] [place] [address] History & Physical Exam 07/10/22705 MR#: [id number] Acct: [id number] Name: SHIVA JHAVERI Rep #:[id number] : [id number] From: Seng Mason DO PCP: Dr. Nicole Moreno, DO Status:REG [facility] Location: [place] [id number] History and Physical Date of Admission: 07/10/22 SHIVA JHAVERI, is a 62 F who presents to the office today to establish with GIfor knifelike pain when swallowing food, doesn't matter what she eats, doesn't happen every time she eats, doesn't occur with liquids, occurs most days. May have started years ago but worse since Summer 2021. She is now taking pantoprazole but no relief of the esophageal pain. Doesn't feel like esophagus is spasming. Rarely has heartburn or acid reflux. No choking. Frequent nausea and dry heaves, good relief with ondansetron, thinks related to stress. Started before being on Ozempic, not worse on Ozempic, not better when not taking Ozempic (due to shortage). Always bloated, worse after eating. Currently having BM every 3 days. Doesn't take anything for constipation. Stool is hard, has to strain. No recent diarrhea. Wakes in night with pain across lower abd, feels need to have BM, has tenesmus. No melena or hematochezia. No prior EGD Hx colon polyp, says she's overdue for colonoscopy, at least 5 yrs ago ROS Const Constitutional: Positive for fatigue, frequent falls, headache(s) and weakness ENT ENT: Positive for headache(s) and difficulty swallowing Gastro GI: Positive for abdominal pain, bloating, change in bowel habits, constipation,diarrhea, heartburn, difficulty swallowing, excessive flatus, nausea/dyspepsia and vomiting; No belching, change in stool character, coffee ground emesis, cramping, feeling full early, incontinent of stools, Vomiting blood/hematemesis, Blood in stool, loose stools, Black,tarry stools, pain with swallowing or other Musc Musculoskeletal: Positive for abnormal gait, joint pain, joint swelling, muscle cramps, muscle weakness and stiffness Skin Skin: No yellowing of the eye or itchy eyes Neuro Neurology: Positive for abnormal gait, weakness, frequent falls and headache(s) Psych Psychiatric: Positive for anxiety and Positive for depression Endo Endocrine: Positive for fatigue Aller/Imm Allergy/Immunologic: No itchy eyes Kiet/Lymp Hematologic/Lymphatic: No easy bleeding or easy bruising Exam Const General: cooperative and comfortable Nutritional Appearance: obese Orientation: alert, awake and oriented x3 HENMT Head: normal to inspection Eyes Sclera: sclerae normal Resp Effort & Inspection: normal respiratory effort GI Inspection: obesity Palpation: soft and nontender Quality Reporting Tobacco Screening ([facility] 138) Smoking Status: Never smoker Assessment and Plan Assessment and Plan (1) Esophageal pain: ?Status:?Chronic ?Plan: 62 yr old female with esophageal pain with eating, chronic nausea, constipation DDx includes esophagitis, Javier's, esophageal dysmotility, gastroparesis Consider gastric emptying study Continue pantoprazole 40 mg daily Add sucralfate liquid Schedule EGD and colonoscopy, with office f/u 2 wks later (2) Colon polyp: ?Status:?Acute ?Plan: Colonoscopy (3) Constipation: ?Status:?Chronic ?Plan: We discussed a variety of options including miralax, fiber choice tablets, aloe vera gel capsules ? ? ? Medications: New sucralfate 10 mL? PO QAC 1,000 mL 0RF ? ? I have examined the patient and the H&P has been reviewed. There are no clinicalchanges since date of exam. 07/10/22 0707 <Electronically signed by Seng Mason DO> Cosigner Signature (if applicable): CC: Dr. Nicole Moreno DO; Seng Mason DO~ Signed [facility] Work Phone: Reason for referral (narrative)No reason for referral information availableWooChildren[facility] Work Phone: Summary Purpose Family History No Family History Records Found Relationship Condition Age at Onset Recorded Date/T susana sister Alcoholism Unknown father Arthritis Unknown Hemorrhagic disorder Unknown History of transfusion of whole blood Unk nown Diabetes mellitus Unknown Cardiac disease Unknown mother Disorder of thyroid Unknown grandfather Myocardial infarction 46 Advance Directives No Advanced Directives Records Found Advance Directive Response Recorded Date/ Time Advance Directives No March 9:53pm Living Will No January 23, 020 6:47pm Power of Second Baker No January 24, 2020 6:47pm Advance Directive Response Recorded Date/ Time Advance Directives No March 8:53pm Living Will No January 23, 2 020 5:47pm Power of Second Baker No January 24, 2020 5:47pm Advance Directive Response Recorded Date/ Time Advance Directives No March 8:53pm Living Will No July 05, 2 023 1:52pm Power of Second Baker No July 05, 2022 1:52pm Advance Directive Response Recorded Date/ Time Advance Directives No March 9:53pm Living Will No July 05, 2 023 2:52pm Power of Second Baker No July 05, 2022 2:52pm Advance Directive Response Recorded Date/ Time Advance Directives No March 8:53pm Living Will No December 09, 2022 12:56pm Power of Second Baker No December 09 12:56pm Advance Directive Response Recorded Date/ Time Advance Directives No March 9:53pm Living Will No December 09, 2022 1:56pm Power of Second Baker No December 09 1:56pm Advance Directive Response Recorded Date/ Time Advance Directives No March 9:53pm Chief Complaint and Reason for Visit Chief Complaint ELEVATED BP/PALPS (M BRANDY) PALP/LEFT BUNDLE BRANCH BLOCK/HTN/e orders for lab LBBB LBBB F/U, stress test on 08/01/21 Beatriz Reason for Visit Essential hypertensi on LBBB (left bundle branch block) Mixed hyperlipidemia Palpitation Premature atrial contraction Premature ventricular contraction Essential hypertension Mixed hyperlipidemia Premature atrial contraction Premature ventricular contraction Chief Complaint Encounter for screen ing for malignant neoplasm of Chief Complaint Encounter for screen ing for malignant neoplasm of Consult Reason for Visit Colon polyp Constipation Esophageal pain Chief Complaint 2 WK FU 3 MO FU SCREENING Reason for Visit Retained food in sto mach Nausea Esophageal pain Chief Complaint general illness Chief Complaint LEFT KNEE RM 1 Encounter for screening for malignant neoplasm of Reason for Visit Left knee DJD Left knee pain Chronic narcotic use Chief Complaint Admit Date SCREENING/OSTEO September 22, 2024 7:37am Additional Source Comments INFORMATION SOURCE (unrecogn ized section and content) DATE CREATED AUTHOR 03/06/2018 [facility] ([place]) DATE CREATED AUTHOR AUTHOR'S ORGANIZ ATION 09/29/2024 [facility] Care Teams (unrecognized sec tion and content) Team Status: Active Member Role Status Dates Dr. Nicole Moreno DO Family Provider Active Dr. Nicole Moreno DO Primary Care Provider Active Team Status: Inactive Member Role Status Dates Dr. Nicole Moreno DO Primary Care Provider, Referring P rovider Active Ruth Ann Rose MODELING ANALYST, MODELING ANALYST-C Attending Provider Active Team Status: Active Member Role Status Dates Dr. Nicole Moreno DO Primary Care Provider, Referring P rovider Active Dr. Seng Mason , Attending Provider, Other Prov ider Active Team Status: Inactive Member Role Status Dates Dr. Nicole Moreno DO Primary Care Provider, Attending P rovider Active Team Status: Inactive Member Role Status Dates Dr. Nicole Moreno DO Primary Care Provider, Referring P rovider Active Dr. Seng Mason DO Attending Provider Active Team Status: Inactive Member Role Status Dates Dr. Nicole Moreno DO Primary Care Provide r, Attending Provider, Referring Provider Active Team Status: Inactive Member Role Status Dates Dr. Nicole Moreno DO Primary Care Provider Active Dr. Timur Frost MD Attending Provider, Emergency Pro vider Active Team Status: Inactive Member Role Status Dates Dr. Nicole Moreno DO Primary Care Provider, Referring P rovider Active Dr. Rocky Yu DO Attending Provider Active Team Status: Inactive Member Role Status Dates Dr. Nicole Moreno DO Primary Care Provider Active Dr. Raheem Pettit MD Attending Provider Active Team Status: Active Member Role Status Dates Dr. Nicole Moreno DO Primary Care Provider Active Team Status: Inactive Member Role Status Dates Dr. Nicole Moreno DO Primary Care Provider Active Start: July 29, 2024 End: July 29, 2024 Dr. Nicole Moreno DO Attending Provider Active St art: July 29, 2024 End: July 29, 2024 Dr. Nicole Moreno DO Referring Provider Active St art: July 29, 2024 End: July 29, 2024 Team Status: Inactive Member Role Status Dates Dr. Nicole Moreno DO Primary Care Provider Active Start: September 22, 2024 End: September 22, 2024 Dr. Nicole Moreno DO Attending Provider Active St art: September 22, 2024 End: September 22, 2024 Dr. Nicole Moreno DO Referring Provider Active St art: September 22, 2024 End: September 22, 2024 FOR RECORDS PERTAINING TO PATIENTS WHO ARE [...] BE BASED ON THE PRIMARY CLINICAL RECORDS. [facility] [employer] provides no warranty or guarantee of the accuracy or completeness of information in this document.
--- OUTSIDE RECORDS SUMMARY | 2024-12-28 21:25 | XMS RPT_ITS | CCD ---
Author Organization [facility] [place] Care Team Providers Care Office Administrator Name Role Phone Yensho WATER PUMPER, Denise A Unavailable Unavailab le Yensho WATER PUMPER, Denise A Unavailable Unavailab le KENA, MILAD [...] W Unavailable Unavailable YOANAURELIA Unavailable Unavailable Yensho WATER PUMPER, Denise A Unavailable Unavailab le Yensho WATER PUMPER, Denise A Unavailable Unavailab le Dr. Nicole Moreno Primary Care Provider Dr. Nicole Moreno Referring Provider Dr. Tho Rodriguez Attending Provider [phone] Dr. Joel Cavanaugh Attending Provider Dr. Tho Rodriguez Referring Provider Dr. Tho Rodriguez Other Provider Adams TOLL LINE INSPECTOR, TOLL LINE INSPECTOR-C Viky Attending Provider Dr. Nicole Moreno Primary Care Provider [phone] Dr. Nicole Moreno Referring Provider Rose TOLL LINE INSPECTOR, TOLL LINE INSPECTOR-C Ruth Ann Galvan Attending Provider FriendDr. Ellsworth Attending Provider Dr. Celina Masonn Other Provider [phone] Josh, Dr. Rivera Primary Care Provider Josh, Dr. Rivera Referring Provider Friend, Dr. Ellsworth Attending Provider [phone] Friend, Dr. Ellsworth Other Provider [phone] Rose TOLL LINE INSPECTOR, TOLL LINE INSPECTORJuan ManuelC Ruth Ann Galvan Attending Provider [phone] Josh, Dr. Rivera Primary Care Provider Josh, Dr. Rivera Referring Provider Aimee, Dr. Hidalgo Attending Provider [phone] Hodan, Dr. Maciel Attending Provider Malys DO, Dr. Rivera Primary Care Provider Cedrickys DO, Dr. Rivera Attending Provider Josh DO, Dr. Rivera Referring Provider Malys, Nicole Primary Care Unavailable Malys, Nicole Attending Unavailable Malys, Nicole Attending Unavailable Malys, Nicole Primary Care Unavailable Malys, Nicole Referring Unavailable Malys, Nicole Primary Care Unavailable Malys, Nicole Referring Unavailable Malys, Nicole Attending Unavailable Allergies Allergy Classification Reported Allergen(s) Allergy Type Date of Onset Reaction(s) Facility (4 sources) acetaminophen / HYDROcodone drug allergy 05-10-20 16 [facility] Work Phone: (4 sources) gabapentin drug allergy 05-10-20 16 Hallucinations [facility] Work Phone: (4 sources) morphine drug allergy 05-31-19 17 Mental Status Change [facility] Work Phone: (12 sources) gabapentin Drug Allergy 08-03-19 22 Shortness of breath [facility] Comment on above: Disorientation (12 sources) HYDROcodone Drug Allergy 08-03-19 22 Nausea [facility] (12 sources) Morphine Drug Allergy 08-03-19 22 mental status changes [facility] Comment on above: MENTAL STATUS CHANGE S (9 sources) Codeine Drug Allergy 07-10-19 23 unknown [facility] (1 source) Codeine Drug Allergy 03-29-20 [facility] Repository (1 source) gabapentin Drug Allergy 03-29-20 [facility] (1 source) HYDROcodone Drug Allergy 03-29-20 [facility] (1 source) Morphine Drug Allergy 03-29-20 [facility] Medications Current Medications Medication Drug Class(es) [...] MCG TABS One tab daily LEVOTHYROXINE SODIUM 56283106025 Alexandra Lazcano lisinopril 10 mg oral tablet [...] 4:57pm mecobalamin (7 sources) Start: 04-17-2022 inject 76202 ug by intramuscular injection every month Mecobalamin (Vitamin B12) Active 68777 MCG IM MONTHLY April 17, 2022 1:00am Start: 04-17-2022 inject 41113 ug by i ntramuscular injection every month Mecobalamin (Vitamin B12) Active 30752 MCG IM MONTHLY April 17, 2022 12:00am Mecobalamin (Vitamin B12) 10,000 mcg recon soln (2 sources) Start: 04-17-2022 inject 86380 ug by intramuscular injection every month Mecobalamin (Vitamin B12) 10,000 mcg recon soln Active 66501 ug IM MONTHLY April 17, 2022 1:00am [...] One tab every twelve hours OXYCODONE HCL 28544925638 Alexandra Lazcano Start: 05-10-2016 OXYCONTIN 10 M G T12A One tab every twelve hours OXYCODONE HCL 33754270540 Alexandra Lazcano Start: 05-10-2016 End: 05-31-2016 OXYCONTIN 10 MG T12A One tab every twelve hours OXYCODONE HCL 26769423468 Denise Au LPN pantoprazole 40 mg delayed [...] times a day as needed OXYCODONE-ACETAMIN OPHEN 83288954889 Alexandra Lazcano Albuterol Sulfate (20 sources) beta2-Adrenergic [...] every four hours as needed ALBUTEROL SULFATE 63695543897 Zana Hardwick DO Start: 04-17-2015 VENTOLIN HFA 1 08 (90 Base) MCG/ACT AERS two puffs every four hours as needed ALBUTEROL SULFATE 79506275414 Zana Hardwick DO Start: 04-17-2015 VENTOLIN HFA 1 08 (90 Base) MCG/ACT AERS two puffs every four hours as needed ALBUTEROL SULFATE 65926029307 Alexandra Lazcano amphetamine aspartate 7.5 mg / [...] 05-10-2016 End: 05-31-2016 AMPHETAMINE-DEXTROAMPHET ER 15 MG [id number] One cap daily AMPHETAMINE-DEXTROAMPHETAMINE 34227169811 Alexandra Lazcano 24 hr amphetamine aspartate 3.75 mg / amphetamine sulfate 3.75 mg / dextroamphetamine saccharate 3.75 mg / dextroamphetamine sulfate 3.75 mg extended release oral capsule (4 sources) Central Nervous System Stimulant Start: 05-10-2016 End: 05-31-2016 AMPHETAMINE-DEXTROAMPHET ER 15 MG [id number] One cap daily AMPHETAMINE-DEXTROAMPHETAMINE 69543768842 Alexandra Lazcano BUDESONIDE-FORMOTEROL FUMARATE (8 sources) Corticosteroid , beta2-Adrenerg ic Agonist Start: 06-14-2015 End: 05-31-2016 SYMBICORT 80-4.5 MCG/ACT AER O Two puffs twice daily BUDESONIDE-FORMOTEROL FUMARATE 11991220272 Zana Hardwick DO Start: 06-14-2015 End: 05-31-2016 SYMBICORT 80-4.5 MCG/ACT AER O Two puffs twice daily BUDESONIDE-FORMOTEROL FUMARATE 65434373184 Zana Hardwick DO Start: 06-14-2015 SYMBICORT 80-4 .5 MCG/ACT AERO Two puffs twice daily BUDESONIDE-FORMOTEROL FUMARATE 18022127050 Alexandra Lazcano 12 hr buPROPion hydrochloride 150 [...] Cholecalciferol (Vitamin D3) 1,250 MCG capsule Discontinued 06665 U PO EVERY WEEK December 10, 2019 10:41am June 12, 2021 12:53pm Start: 06-11-2019 End: 06-12-2021 take 1 capsule by mouth every week Cholecalciferol (Vitamin D3) 1,250 mcg (50,000 unit) capsule Discontinued 58284 U PO EVERY WEEK June 11, 2019 [...] tab daily as needed for swelling FUROSEMIDE 44557541140 Alexandra Lazcano 2 ml sodium hyaluronate 10 [...] tab daily as needed for pain IBUPROFEN 45354759918 Denise Au WATER PUMPER levoFLOXacin 750 mg oral tablet (12 sources) [...] MEDROL 4 MG TB PK daily METHYLPREDNISOLONE 49804157362 Alexandra Sheldon Lazcano Start: 05-10-2016 MEDROL 4 MG TB PK daily METHYLPREDNISOLONE 47074545474 Alexandra Lazcano Start: 04-17-2015 End: 10-15-2018 take [...] tab daily in the morning PHENTERMINE HCL 86213327814 Alexandra Lazcano Problems Active Problems Problem Classification [...] on 09-22-2024 Study report Skeletal system DXA [facility] Imaging Services [address] [place] [address] Dexa Bone Density Study MR#: [id number] Acct: [id number] Name: SHIVA JHAVERI Rep #: [id number] : 1960 F 64 From: Marco Solis DO PCP: Dr. Nicole Moreno DO Status: REG CLI Study:Dexa Bone Density Study Date of Exam: 09/22/24 Exam# [id number] Ordering Dr: Brandy Moreno sa, DO PROCEDURE: DEXA BONE DENSITY STUDY 09/22/2024 REASON FOR EXAM: F, age 64 y/o . Postmenopausal. TECHNIQUE: DEXA scan of sites with data reported below. Scanner utilized: [employer] REFERENCE LINKS: [facility] Adult Positions COMPARISON: None FINDINGS: BMD and [...] Recommend follow-up as clinically warranted. Reading Location: [id number]-[id number]-AT CC: Dr. Nicole Moreno DO ~ Rail Switchman: Signed [facility] Breast imaging reportOrdered By: Rochelle Webb on 09-22-2024 Study report [facility] Imaging Services [address] [place], [place] [address] SCRN MAMM (CAD)W/NASRA BILAT MR#: [id number] Acct: [id number] Name: SHIVA JHAVERI Rep #: [id number] : 1960 F 64 From: Anthony Nichole MD PCP: Dr. Nicole Moreno DO Status: REG CLI Study:SCRN MAMM (CAD)W/NASRA BILAT Date of Exa m: 09/22/24 Exam# [id number] Ordering Dr: Brandy Moreno sa, DO EXAM: [...] be mailed to the patient. Reading Location: [id number] CC: Dr. Nicole Moreno DO ~ Rail Switchman: Signed [facility] Dexa Bone Density Studyon Dexa Bone Density Study [facility] Imaging Services [address] [place] [address] Dexa Bone Density Study MR#: [id number] Acct: [id number] Name: SHIVA JHAVERI Rep #: [id number] : 1960 F 64 From: Maye Sebastian PCP: Dr. Nicole Moreno DO Status: [facility] Study: Dexa Bone Density Study Date of Exam: 09/22/24 Exam# [id number] Ordering Dr: Nicole Moreno DO PROCEDURE: DEXA BONE DENSITY STUDY 09/22/2024 REASON FOR EXAM: F, age 64 y/o . Postmenopausal. TECHNIQUE: DEXA scan of sites with data reported below. Scanner utilized: [employer] REFERENCE [facility]KS: [facility] Adult Positions COMPARISON: None FINDINGS: [...] Recommend follow-up as clinically warranted. Reading Location: [id number] CC: Dr. Nicole Moreno DO Rail Switchman: Signed Normal [facility] SCRN MAMM (CAD)W/NASRA BILATo n 09-22-2024 SCRN MAMM (CAD)W/NASRA BILAT [facility] Imaging Services [address] [place], [place] [address] SCRN MAMM (CAD)W/NASRA BILAT MR#: [id number] Acct: [id number] Name: SHIVA JHAVERI Rep #: [id number] : 1960 F 64 From: Rochelle Post i, MD PCP: Dr. Nicole Moreno DO Status: [facility] CLI Study: SCRN MAMM (CAD)W/NASRA BILAT Date of Exam: 11/11 Exam# [id number] Ordering Dr: Nicole Moreno DO EXAM: SCRN [...] be mailed to the patient. Reading Location: [facility] CC: Dr. Nicole Moreno, Rail Switchman: Signed Normal [facility] Absolute lymphocyte countOrd ered By: Nicole Moreno on 07-29-2024 Lymphocytes Auto (Unsp spec) [#/Vol] 2.73 10*3/uL 0.83-4.51 [facility] Absolute neutrophil countOrd ered By: Nicole Moreno on 07-29-2024 Neutrophils (Bld) [#/Vol] 5.1 10*3/uL 2.0-7.7 [facility] Anion gap in Serum or Plasma Ordered By: Nicole Moreno on 07-29-2024 Anion gap [Moles/Vol] 11 mmol/L 5-[address] [facility] Automated lymphocyte count a s percentage of total leukocytesOrdered By: Nicole Moreno on 07-29-2024 Lymphocytes/100 WBC Auto (Unsp spec) 32.0 % 19-41 [facility] BUN/creatinine ratioOrdered By: Nicole Moreno on 07-29-2024 Urea nitrogen/Creatinine [Mass ratio] 20.2 mg/mg High 10-20 [facility] Basophil percentageOrdered B y: Nicole Moreno on 07-29-2024 Basophils/100 WBC (Bld) 0.9 % 0-1 [facility] Bilirubin, totalOrdered By: Nicole Moreno on 07-29-2024 Bilirubin [Mass/Vol] 0.24 mg/dL 0.00-1.[address] [facility] CBC W/Diff, Automatedon 07-18 Absolute Lymph 2.73 X10 3/uL Normal 0.83-4.51 [facility] Comment on above: Performed By: #### L 501.9520, L501.92842, L500.4050, L500.4100, L501.6710, L100.0100, L506.0400, L501.9985, L504.2610, L101.9900 #### [facility] [address] [place], [address] Absolute Neut 5.1 X10 3/uL Normal 2.0-7.7 [facility] Comment on above: Performed By: #### L 501.9520, L501.86202, L500.4050, L500.4100, L501.6710, L100.0100, L506.0400, L501.9985, L504.2610, L101.9900 #### [facility] [address] [place], [address] Basophils/100 WBC (Bld) 0.9 % Normal 0-1 [facility] Comment on above: Performed By: #### L 501.9520, L501.22061, L500.4050, L500.4100, L501.6710, L100.0100, L506.0400, L501.9985, L504.2610, L101.9900 #### [facility] [address] [place], [address] Eosinophils/100 WBC (Bld) 1.3 % Normal 0-5 [facility] Comment on above: Performed By: #### L 501.9520, L501.15133, L500.4050, L500.4100, L501.6710, L100.0100, L506.0400, L501.9985, L504.2610, L101.9900 #### [facility] [address] [place], [address] Erythrocyte distribution width (RBC) [Ratio] 14.0 % Normal 11.6-14.6 [facility] Comment on above: Performed By: #### L 501.9520, L501.00571, L500.4050, L500.4100, L501.6710, L100.0100, L506.0400, L501.9985, L504.2610, L101.9900 #### [facility] [address] [place], [address] Hematocrit (Bld) [Volume fraction] 35.7 % Low 37-47 [facility] Comment on above: Performed By: #### L 501.9520, L501.86913, L500.4050, L500.4100, L501.6710, L100.0100, L506.0400, L501.9985, L504.2610, L101.9900 #### [facility] [address] [place], [address] Hemoglobin (Bld) [Mass/Vol] 11.4 g/dL Low 12.0-15. 0 [facility] Comment on above: Performed By: #### L 501.9520, L501.24158, L500.4050, L500.4100, L501.6710, L100.0100, L506.0400, L501.9985, L504.2610, L101.9900 #### [facility] [address] [place], [address] IG% 0.400 Normal 0.0-0.9 [facility] Comment on above: Result Comment: IG% - Immature Granulocytes (promyelocytes, myelocytes and metamyelocytes) > 1% indicates that a LEFT SHIFT is Present. Performed By: #### L 501.9520, L501.11515, L500.4050, L500.4100, L501.6710, L100.0100, L506.0400, L501.9985, L504.2610, L101.9900 #### [facility] [address] [place], [address] Lymphocytes/100 WBC (Bld) 32.0 % Normal 19-41 [facility] Comment on above: Performed By: #### L 501.9520, L501.42164, L500.4050, L500.4100, L501.6710, L100.0100, L506.0400, L501.9985, L504.2610, L101.9900 #### [facility] [address] [place], [address] MCH (RBC) [Entitic mass] 29.1 pg Normal 27.0-32.0 [facility] Comment on above: Performed By: #### L 501.9520, L501.96661, L500.4050, L500.4100, L501.6710, L100.0100, L506.0400, L501.9985, L504.2610, L101.9900 #### [facility] [address] [place], [address] MCHC (RBC) [Mass/Vol] 31.9 g/dL Low 32-[address] [facility] Comment on above: Performed By: #### L 501.9520, L501.60568, L500.4050, L500.4100, L501.6710, L100.0100, L506.0400, L501.9985, L504.2610, L101.9900 #### [facility] [address] [facility] [place], [address] MCV (RBC) [Entitic vol] 91.1 fL Normal 81-99 [facility] Comment on above: Performed By: #### L 501.9520, L501.89061, L500.4050, L500.4100, L501.6710, L100.0100, L506.0400, L501.9985, L504.2610, L101.9900 #### [facility] [address] [facility] [place], [address] Monocytes/100 WBC (Bld) 5.9 % Normal 0-10 [facility] Comment on above: Performed By: #### L 501.9520, L501.81254, L500.4050, L500.4100, L501.6710, L100.0100, L506.0400, L501.9985, L504.2610, L101.9900 #### [facility] [address] [facility] [place], [address] Neutrophils/100 WBC (Bld) 59.5 % Normal 47-70 [facility] Comment on above: Performed By: #### L 501.9520, L501.87363, L500.4050, L500.4100, L501.6710, L100.0100, L506.0400, L501.9985, L504.2610, L101.9900 #### [facility] [address] [place], [address] ( Nucleated RBC (Bld) [#/Vol] 0 10*3/uL Normal 0-5 [facility] Comment on above: Performed By: #### L 501.9520, L501.35065, L500.4050, L500.4100, L501.6710, L100.0100, L506.0400, L501.9985, L504.2610, L101.9900 #### [facility] [address] [place], [address] Platelet mean volume (Bld) [Entitic vol] 9.6 fL Normal 6.2-12.0 [facility] Comment on above: Performed By: #### L 501.9520, L501.30218, L500.4050, L500.4100, L501.6710, L100.0100, L506.0400, L501.9985, L504.2610, L101.9900 #### [facility] [address] [facility] [place], [address] ( Platelets (Bld) [#/Vol] 405 10*3/uL Normal 150-450 [facility] Comment on above: Performed By: #### L 501.9520, L501.28717, L500.4050, L500.4100, L501.6710, L100.0100, L506.0400, L501.9985, L504.2610, L101.9900 #### [facility] [address] [facility] [place], [place], [address] (850) RBC (Bld) [#/Vol] 3.92 10*6/uL Low 4.2-5.4 [facility] Comment on above: Performed By: #### L 501.9520, L501.38849, L500.4050, L500.4100, L501.6710, L100.0100, L506.0400, L501.9985, L504.2610, L101.9900 #### [facility] [address] [facility] [place], [address] (273) RDW SD 46.1 fl High 35.1-43.9 [facility] Comment on above: Performed By: #### L 501.9520, L501.70360, L500.4050, L500.4100, L501.6710, L100.0100, L506.0400, L501.9985, L504.2610, L101.9900 #### [facility] [address] [facility] [place], [place], [id number] (594) WBC (Bld) [#/Vol] 8.5 10*3/uL Normal 4.4-11.0 [facility] Comment on above: Performed By: #### L 501.9520, L501.96223, L500.4050, L500.4100, L501.6710, L100.0100, L506.0400, L501.9985, L504.2610, L101.9900 #### [facility] [address] [facility] [place], [address] (673) CRPon 07-29-2024 C-REACTIVE PROT < 3.00 Normal 0.0-3.0 [facility] Comment on above: Performed By: #### L 100.0100, L501.63020, L500.4050, L501.9520, L506.0400 #### [facility] [address] [place], [place], [id number] CRP [Mass/Vol]Ordered By: Brandy Moreno on 07-29-2024 C-Reactive Protein Extended Range < 3.00 mg/L 0.0-3.0 [facility] Calculated very low density lipoprotein (VLDL) cholesterol measurementOrdered By: Nicole Moreno on 07-29-2024 Calculated very low density lipoprotein (VLDL) cholesterol measurement 16 mg/dL 5-40 [facility] VLDL Cholesterol 16 mg/dL -40 [facility] Carbon dioxide, total [Moles /volume] in Central venous bloodOrdered By: Nicole Moreno on 07-29-2024 CO2 [Moles/Vol] 25.9 mmol/L 21.0-32.0 [facility] Chloride assayOrdered By: Brandy Moreno on 07-29-2024 Chloride [Moles/Vol] 106 mmol/L 98-[address] [facility] Comprehensive Metabolic Prof ilon 07-29-2024 Albumin [Mass/Vol] 4.0 g/dL Normal 3.4-4.8 [facility] Comment on above: Performed By: #### L 501.9520, L501.42687, L500.4050, L500.4100, L501.6710, L100.0100, L506.0400, L501.9985, L504.2610, L101.9900 #### [facility] [address] [place], [place], [address] Albumin/Globulin [Mass ratio] 1.6 {ratio} Normal 0.9-2.4 [facility] Comment on above: Performed By: #### L 501.9520, L501.11242, L500.4050, L500.4100, L501.6710, L100.0100, L506.0400, L501.9985, L504.2610, L101.9900 #### [facility] [address] [place], [place], [address] ALK PHOS 58 U/L Normal 35-104 [facility] Comment on above: Performed By: #### L 501.9520, L501.41413, L500.4050, L500.4100, L501.6710, L100.0100, L506.0400, L501.9985, L504.2610, L101.9900 #### [facility] [address] [place], [address] ALT [Catalytic activity/Vol] 10 U/L Normal <=34 [facility] Comment on above: Performed By: #### L 501.9520, L501.77768, L500.4050, L500.4100, L501.6710, L100.0100, L506.0400, L501.9985, L504.2610, L101.9900 #### [facility] [address] [place], [address] AST [Catalytic activity/Vol] 18 U/L Normal <=31 [facility] Comment on above: Performed By: #### L 501.9520, L501.66461, L500.4050, L500.4100, L501.6710, L100.0100, L506.0400, L501.9985, L504.2610, L101.9900 #### [facility] [address] [place], [address] Bilirubin [Mass/Vol] 0.24 mg/dL Normal 0.00-1.[address] [facility] Comment on above: Performed By: #### L 501.9520, L501.22409, L500.4050, L500.4100, L501.6710, L100.0100, L506.0400, L501.9985, L504.2610, L101.9900 #### [facility] [address] [place], [address] BUN/CRE 20.2 RATIO High 10-20 [facility] Comment on above: Performed By: #### L 501.9520, L501.70784, L500.4050, L500.4100, L501.6710, L100.0100, L506.0400, L501.9985, L504.2610, L101.9900 #### [facility] [address] [place], [address] Calcium [Mass/Vol] 9.6 mg/dL Normal 7.6-11.0 [facility] Comment on above: Performed By: #### L 501.9520, L501.63726, L500.4050, L500.4100, L501.6710, L100.0100, L506.0400, L501.9985, L504.2610, L101.9900 #### [facility] [address] [place], [place], [address] (710) Chloride [Moles/Vol] 106 mmol/L Normal 98-[address] [facility] Comment on above: Performed By: #### L 501.9520, L501.42188, L500.4050, L500.4100, L501.6710, L100.0100, L506.0400, L501.9985, L504.2610, L101.9900 #### [facility] [address] [place], [address] CO2 [Moles/Vol] 25.9 mmol/L Normal 21.0-32.0 [facility] Comment on above: Performed By: #### L 501.9520, L501.58453, L500.4050, L500.4100, L501.6710, L100.0100, L506.0400, L501.9985, L504.2610, L101.9900 #### [facility] [address] [place], [place], [phone] (744) Creatinine [Mass/Vol] 0.88 mg/dL Normal 0.70-1.[address] [facility] Comment on above: Performed By: #### L 501.9520, L501.84076, L500.4050, L500.4100, L501.6710, L100.0100, L506.0400, L501.9985, L504.2610, L101.9900 #### [facility] [address] [place], [place], [id number] GAP 11 Normal 5-15 [facility] Comment on above: Performed By: #### L 501.9520, L501.34402, L500.4050, L500.4100, L501.6710, L100.0100, L506.0400, L501.9985, L504.2610, L101.9900 #### [facility] [address] [place], [address] GFR/1.73 sq M.predicted among non-blacks MDRD (S/P/Bld) [Vol rate/Area] 73 mL/min/{1.73_m2} Normal >60 [facility] Comment on above: Result Comment: mL/m in/1.73m2 CKD-EPI Creatinine Equation (2020) Performed By: #### L 501.9520, L501.50607, L500.4050, L500.4100, L501.6710, L100.0100, L506.0400, L501.9985, L504.2610, L101.9900 #### [facility] [address] [place], [place], [address] Globulin (S) [Mass/Vol] 2.6 g/dL Normal 2.2-4.2 [facility] Comment on above: Performed By: #### L 501.9520, L501.60657, L500.4050, L500.4100, L501.6710, L100.0100, L506.0400, L501.9985, L504.2610, L101.9900 #### [facility] [address] [place], [address] Glucose [Mass/Vol] 89 mg/dL Normal 70-99 [facility] Comment on above: Performed By: #### L 501.9520, L501.52241, L500.4050, L500.4100, L501.6710, L100.0100, L506.0400, L501.9985, L504.2610, L101.9900 #### [facility] [address] [place], [address] Potassium [Moles/Vol] 4.0 mmol/L Normal 3.3-5.[address] [facility] Comment on above: Performed By: #### L 501.9520, L501.00635, L500.4050, L500.4100, L501.6710, L100.0100, L506.0400, L501.9985, L504.2610, L101.9900 #### [facility] [address] [place], [address] Sodium [Moles/Vol] 143 mmol/L Normal 133-145 [facility] Comment on above: Performed By: #### L 501.9520, L501.40886, L500.4050, L500.4100, L501.6710, L100.0100, L506.0400, L501.9985, L504.2610, L101.9900 #### [facility] [address] [place], [address] T PROT 6.6 g/dL Normal 5.9-8.4 [facility] Comment on above: Performed By: #### L 501.9520, L501.71008, L500.4050, L500.4100, L501.6710, L100.0100, L506.0400, L501.9985, L504.2610, L101.9900 #### [facility] [address] [place], [place], [id number] Urea nitrogen [Mass/Vol] 18 mg/dL Normal 4-19 [facility] Comment on above: Performed By: #### L 501.9520, L501.29129, L500.4050, L500.4100, L501.6710, L100.0100, L506.0400, L501.9985, L504.2610, L101.9900 #### [facility] [address] [place], [place], [id number] Eosinophil percentageOrdered By: Nicole Moreno on 07-29-2024 Eosinophils/100 WBC (Bld) 1.3 % 0-5 [facility] Erythrocyte Sed Rateon 07-29 SED RATE 5 mm/hr Normal 0-30 [facility] Comment on above: Performed By: #### L 501.9520, L501.72256, L500.4050, L500.4100, L501.6710, L100.0100, L506.0400, L501.9985, L504.2610, L101.9900 #### [facility] [address] [facility] [place], [address] Erythrocyte distribution wid th ratioOrdered By: Nicole Moreno on 07-29-2024 Erythrocyte distribution width (RBC) [Ratio] 14.0 % 11.6-14.6 [facility] Erythrocyte distribution wid th standard deviationOrdered By: Nicole Moreno on 07-29-2024 Erythrocyte distribution width (RBC) [Entitic vol] 46.1 fL High 35.1-43.9 [facility] Erythrocyte distribution width (RBC) [Ratio] 46.1 fl High 35.1-43.9 [facility] Erythrocyte sedimentation ra teOrdered By: Nicole Moreno on 07-29-2024 ESR (Bld) [Velocity] 5 mm/h 0-[address] [facility] Free T3on 07-29-2024 Free T3 [Mass/Vol] 2.7 pg/mL Normal 2.18-3.98 [facility] Comment on above: Performed By: #### L 100.0100, L501.26205, L500.4050, L501.9520, L506.0400 #### [facility] [address] [place], [place], [id number] Free O7Iqmcsyq By: Nicole moya on 07-29-2024 Free T3 [Mass/Vol] 2.7 pg/mL 2.18-3.98 [facility] Free Triiodothyronine (T3) pg/dL 2.7 pg/mL 2.18-3.98 [facility] GFR/1.73 sq M.predicted char g non-blacks MDRD (S/P/Bld) [Vol rate/Area]Ordered By: Nicole Moreno on 07-29-2024 Estimated GFR (MDRD) Non-Af Amer 73 >60 [facility] Comment on above: mL/min/1.73m2 CKD-EP I Creatinine Equation (2020) Glomerular filtration rate ( GFR) estimation/1.73 sq m using serum, plasma, or whole bOrdered By: Nicole Moreno on 07-29-2024 GFR/1.73 sq M.predicted among non-blacks MDRD (S/P/Bld) [Vol rate/Area] 73 mL/min/{1.73_m2} >60 [facility] Comment on above: mL/min/1.73m2 CKD-EP I Creatinine Equation (2020) Hematocrit Auto (Bld) [Volum e fraction]Ordered By: Nicole Moreno on 07-29-2024 Hematocrit (Bld) [Volume fraction] 35.7 % Low 37-47 [facility] Hemoglobin A1con 07-29-2024 HbA1c (Bld) [Mass fraction] 5.5 % Low <=5.6 [facility] Comment on above: Performed By: #### L 501.9520, L501.21270, L500.4050, L500.4100, L501.6710, L100.0100, L506.0400, L501.9985, L504.2610, L101.9900 #### [facility] [address] [place], [place], [id number] Hemoglobin A1c percentageOrd ered By: Nicole Moreno on 07-29-2024 HbA1c (Bld) [Mass fraction] 5.5 % Low >5.7 [facility] Hemoglobin measurementOrdere d By: Nicole Moreno on 07-29-2024 Hemoglobin (Bld) [Mass/Vol] 11.4 g/dL Low 12.0-15. 0 [facility] Immature granulocytes/100 WB C Auto (Bld)Ordered By: Nicole Moreno on 07-29-2024 Immature granulocytes/100 WBC (Bld) 0.400 % 0.0-0.9 [facility] Comment on above: IG% - Immature Granu locytes (promyelocytes, myelocytes and metamyelocytes) > 1% indicates that a LEFT SHIFT is Present. LDHon 07-29-2024 LDH 149 U/L Normal 84-246 [facility] Comment on above: Order Comment: 1 Performed By: #### L 100.0100, L501.79154, L500.4050, L501.9520, L506.0400 #### [facility] [address] [place], [place], [id number] LDL calc ser/plasOrdered By: Nicole Moreno on 07-29-2024 Cholesterol in LDL [Mass/Vol] 124 mg/dL [facility] Comment on above: Yevnyalxvf=980-027 m g/dL & Higher Rcyj=917 mg/dL or greater LDL Cholesterol, Calculated 124 mg/dL [facility] Comment on above: Jesffenctt=599-052 m g/dL & Higher Zmrq=204 mg/dL or greater Laboratory - Chemistry and C hemistry - challengeOrdered By: Nicole Moreno on 07-29-2024 AST [Catalytic activity/Vol] 18 U/L <32 [facility] Lactate dehydrogenase (LDH) measurementOrdered By: Nicole Moreno on 07-29-2024 LDH [Catalytic activity/Vol] 149 U/L 84-246 [facility] Lipid Profileon 07-29-2024 CHOL:HDL 3.13 Normal [facility] Comment on above: Performed By: #### L 100.0100, L501.73889, L500.4050, L501.9520, L506.0400 #### [facility] [address] [place], [address] Cholesterol [Mass/Vol] 206 mg/dL High <=200 [facility] Comment on above: Result Comment: Chol esterol level, Desirable <200 mg/dL Borderline high cholesterol 200-239 mg/dL High cholesterol >=240 mg/dL Recommendations of the NCEP Adult Treatment Panel for the following risk-cutoff thresholds for the [place] population. Performed By: #### L 100.0100, L501.72610, L500.4050, L501.9520, L506.0400 #### [facility] [address] [place], [address] Cholesterol in HDL [Mass/Vol] 66 mg/dL Normal [facility] Comment on above: Result Comment: Leila onal Cholesterol Education Program (NCEP) guidelines: <40 mg/dL: Low HDL-cholesterol (major risk factor for CHD) >= 60 mg/dL: High HDL-cholesterol (negative risk factor for CHD) HDL-cholesterol is affected by a number of factors, e.g. smoking, exercise, hormones, sex and age. Performed By: #### L 100.0100, L501.78434, L500.4050, L501.9520, L506.0400 #### [facility] [address] [place], [address] Cholesterol in LDL [Mass/Vol] 124 mg/dL Normal [facility] Comment on above: Result Comment: Bord vmkmhh=170-069 mg/dL Higher Yjzq=232 mg/dL or greater Performed By: #### L 100.0100, L501.96349, L500.4050, L501.9520, L506.0400 #### [facility] [address] [place], [address] Cholesterol in VLDL [Mass/Vol] 16 mg/dL Normal 5-40 [facility] Comment on above: Performed By: #### L 100.0100, L501.14691, L500.4050, L501.9520, L506.0400 #### [facility] [address] [place], [address] Triglyceride [Mass/Vol] 82 mg/dL Normal [facility] Comment on above: Result Comment: The drugs N-Acetylcysteine and Metamizole may falsely depress this assay. Normal range: <150 mg/dL Borderline High: 150-199 mg/dL High: 200-499 mg/dL Very High: >500 mg/dL Performed By: #### L 100.0100, L501.49343, L500.4050, L501.9520, L506.0400 #### [facility] [address] [place], [address] Lymphocytes Auto (Unsp spec) [#/Vol]Ordered By: Nicole Moreno on 07-29-2024 Lymphocytes (Bld) [#/Vol] 2.73 10*3/uL 0.83-4.5 1 [facility] Lymphocytes/100 WBC Auto (Un sp spec)Ordered By: Nicole Moreno on 07-29-2024 Lymphocytes/100 WBC (Bld) 32.0 % 19-41 [facility] MCV (mean corpuscular volume ) determinationOrdered By: Nicole Moreno on 07-29-2024 MCV (RBC) [Entitic vol] 91.1 fL 81-99 [facility] Mean corpuscular hemoglobin (MCH) determinationOrdered By: Nicole Moreno on 07-29-2024 MCH (RBC) [Entitic mass] 29.1 pg 27.0-32.0 [facility] Mean corpuscular hemoglobin concentration (MCHC) determinationOrdered By: Nicole Moreno on 07-29-2024 MCHC (RBC) [Mass/Vol] 31.9 g/dL Low 32-[address] [facility] Mean platelet volume determi nationOrdered By: Nicole Moreno on 07-29-2024 Platelet mean volume (Bld) [Entitic vol] 9.6 fL 6.2-12.0 [facility] Monocyte percentageOrdered B y: Nicole Moreno on 07-29-2024 Monocytes/100 WBC (Bld) 5.9 % 0-10 [facility] Neutrophil percentageOrdered By: Nicole Moreno on 07-29-2024 Neutrophils/100 WBC (Bld) 59.5 % 47-70 [facility] Nucleated red blood cell per centageOrdered By: Nicole Moreno on 07-29-2024 Nucleated RBC/100 WBC (Bld) [Ratio] 0 % 0-5 [facility] Platelet countOrdered By: Brandy Moreno on 07-29-2024 Platelets (Bld) [#/Vol] 405 10*3/uL 150-450 [facility] Potassium (Unsp spec) [Mass/ Vol]Ordered By: Nicole Moreno on 07-29-2024 Potassium [Moles/Vol] 4.0 mmol/L 3.3-5.[address] [facility] Potassium measurement (mass/ volume)Ordered By: Nicole Moreno on 07-29-2024 Potassium (Unsp spec) [Mass/Vol] 4.0 mmol/L 3.3-5.1 [facility] RBC Auto (Bld) [#/Vol]Ordere d By: Nicole Moreno on 07-29-2024 RBC (Bld) [#/Vol] 3.92 10*6/uL Low 4.2-5.4 [facility] Screening total cholesterol/ high density lipoprotein (HDL) cholesterol ratioOrdered By: Nicole Moreno on 07-29-2024 Cholesterol.total/Cholestero l in HDL [Mass ratio] 3.13 {ratio} [facility] Serum creatinine measurement (mass/volume)Ordered By: Nicole Moreno on 07-29-2024 Creatinine [Mass/Vol] 0.88 mg/dL 0.70-1.[address] [facility] Serum globulin measurementOr dered By: Nicole Moreno on 07-29-2024 Globulin (S) [Mass/Vol] 2.6 g/dL 2.2-4.2 [facility] Serum glucose measurement (m ass/volume)Ordered By: Nicole Moreno on 07-29-2024 Glucose [Mass/Vol] 89 mg/dL 70-99 [facility] Serum or plasma C reactive p rotein measurement (mass/volume)Ordered By: Nicole Moreno on 07-29-2024 CRP [Mass/Vol] mg/L 0.0-3.0 [facility] Serum or plasma alanine mendoza otransferase (ALT) measurementOrdered By: Nicole Moreno on 07-29-2024 ALT [Catalytic activity/Vol] 10 U/L <35 [facility] Serum or plasma albumin amos urement (mass/volume)Ordered By: Nicole Moreno on 07-29-2024 Albumin [Mass/Vol] 4.0 g/dL 3.4-4.8 [facility] Serum or plasma albumin/glob ulin mass ratioOrdered By: Nicole Moreno on 07-29-2024 Albumin/Globulin [Mass ratio] 1.6 {ratio} 0.9-2.4 [facility] Serum or plasma alkaline yair sphatase measurementOrdered By: Nicole Moreno on 07-29-2024 ALP [Catalytic activity/Vol] 58 U/L 35-104 [facility] Serum or plasma calcium amos urement (mass/volume)Ordered By: Nicole Moreno on 07-29-2024 Calcium [Mass/Vol] 9.6 mg/dL 7.6-11.0 [facility] Serum or plasma cholesterol in HDL measurement (mass/volume)Ordered By: Nicole Moreno on 07-29-2024 Cholesterol in HDL [Mass/Vol] 66 mg/dL >40 [facility] Comment on above: National Cholesterol Education Program (NCEP) guidelines:<40 mg/dL: Low HDL-cholesterol (major risk factor for CHD)>= 60 mg/dL: High HDL-cholesterol (negative risk factor for CHD)HDL-cholesterol is affected by a number of factors, e.g. smoking, exercise, hormones, sex and age. Serum or plasma cholesterol measurement (mass/volume)Ordered By: Nicole Moreno on 07-29-2024 Cholesterol [Mass/Vol] 206 mg/dL High <201 [facility] Comment on above: Cholesterol level, D esirable <200 mg/dLBorderline high cholesterol 200-239 mg/dLHigh cholesterol >=240 mg/dLRecommendations of the NCEP Adult Treatment Panel for the following risk-cutoff thresholds for the [place] population. Serum or plasma urea nitroge n measurement (mass/volume)Ordered By: Nicole Moreno on 07-29-2024 Urea nitrogen [Mass/Vol] 18 mg/dL 4-19 [facility] Sodium levelOrdered By: Nicole Moreno on 07-29-2024 Sodium [Moles/Vol] 143 mmol/L 133-145 [facility] T4 Free Directon 07-29-2024 T4 FREE DIRECT 1.20 ng/dL Normal 0.76-1.46 [facility] Comment on above: Performed By: #### L 100.0100, L501.39092, L500.4050, L501.9520, L506.0400 #### [facility] [address] [place], [place], [id number] T4 freeOrdered By: Nicole Cordova s on 07-29-2024 Free T4 [Mass/Vol] 1.20 ng/dL 0.76-1.46 [facility] TSH DL <= 0.005 mIU/L QnOrde red By: Nicole Moreno on 07-29-2024 Thyroid Stimulating Hormone (TSH) 4.770 uIU/mL High 0.300-4.200 [facility] TSH Qn 4.770 uIU/mL High 0.300-4.200 [facility] Thyroid Stim Hormone (TSH)on 07-29-2024 TSH 4.770 uIU/mL High 0.300-4.200 [facility] Comment on above: Performed By: #### L 100.0100, L501.55340, L500.4050, L501.9520, L506.0400 #### [facility] [address] [place], [address] Total proteinOrdered By: Regina Moreno on 07-29-2024 Protein [Mass/Vol] 6.6 g/dL 5.9-8.4 [facility] Triglycerides measurementOrd ered By: Nicole Moreno on 07-29-2024 Triglyceride [Mass/Vol] 82 mg/dL <199 [facility] Comment on above: The drugs N-Acetylcy steine and Metamizole may falsely depress this assay. Normal range: <150 mg/dLBorderline High: 150-199 mg/dLHigh: 200-499 mg/dLVery High: >500 mg/dL White blood cell (WBC) count Ordered By: Nicole Moreno on 07-29-2024 WBC (Bld) [#/Vol] 8.5 10*3/uL 4.4-11.0 [facility] CBC W/Diff, Automatedon 02-17 Absolute Lymph 2.64 X10 3/uL Normal 0.83-4.51 [facility] Comment on above: Performed By: #### L 100.0100, L501.82875, L500.4050, L501.9520, L506.0400 #### [facility] [address] [place], [address] Absolute Neut 3.1 X10 3/uL Normal 2.0-7.7 [facility] Comment on above: Performed By: #### L 100.0100, L501.76031, L500.4050, L501.9520, L506.0400 #### [facility] [address] [place], [address] Basophils/100 WBC (Bld) 1.1 % High 0-1 [facility] Comment on above: Performed By: #### L 100.0100, L501.42357, L500.4050, L501.9520, L506.0400 #### [facility] [address] [place], [address] Eosinophils/100 WBC (Bld) 1.6 % Normal 0-5 [facility] Comment on above: Performed By: #### L 100.0100, L501.71992, L500.4050, L501.9520, L506.0400 #### [facility] [address] [place], [address] Erythrocyte distribution width (RBC) [Ratio] 13.2 % Normal 11.6-14.6 [facility] Comment on above: Performed By: #### L 100.0100, L501.25640, L500.4050, L501.9520, L506.0400 #### [facility] [address] [place], [address] Hematocrit (Bld) [Volume fraction] 35.5 % Low 37-47 [facility] Comment on above: Performed By: #### L 100.0100, L501.03893, L500.4050, L501.9520, L506.0400 #### [facility] [address] [place], [address] Hemoglobin (Bld) [Mass/Vol] 11.7 g/dL Low 12.0-15. 0 [facility] Comment on above: Performed By: #### L 100.0100, L501.93853, L500.4050, L501.9520, L506.0400 #### [facility] [address] [place], [address] IG% 0.200 Normal 0.0-0.9 [facility] Comment on above: Result Comment: IG% - Immature Granulocytes (promyelocytes, myelocytes and metamyelocytes) > 1% indicates that a LEFT SHIFT is Present. Performed By: #### L 100.0100, L501.60175, L500.4050, L501.9520, L506.0400 #### [facility] [address] [place], [address] Lymphocytes/100 WBC (Bld) 41.2 % High 19-41 [facility] Comment on above: Performed By: #### L 100.0100, L501.79943, L500.4050, L501.9520, L506.0400 #### [facility] [address] [place], [address] MCH (RBC) [Entitic mass] 29.9 pg Normal 27.0-32.0 [facility] Comment on above: Performed By: #### L 100.0100, L501.21098, L500.4050, L501.9520, L506.0400 #### [facility] [address] [place], [address] MCHC (RBC) [Mass/Vol] 33.0 g/dL Normal 32-[address] [facility] Comment on above: Performed By: #### L 100.0100, L501.29893, L500.4050, L501.9520, L506.0400 #### [facility] [address] [place], [address] MCV (RBC) [Entitic vol] 90.8 fL Normal 81-99 [facility] Comment on above: Performed By: #### L 100.0100, L501.28874, L500.4050, L501.9520, L506.0400 #### [facility] [address] [place], [address] Monocytes/100 WBC (Bld) 8.0 % Normal 0-10 [facility] Comment on above: Performed By: #### L 100.0100, L501.60810, L500.4050, L501.9520, L506.0400 #### [facility] [address] [place], [address] Neutrophils/100 WBC (Bld) 47.9 % Normal 47-70 [facility] Comment on above: Performed By: #### L 100.0100, L501.21923, L500.4050, L501.9520, L506.0400 #### [facility] [address] [place], [address] Nucleated RBC (Bld) [#/Vol] 0 10*3/uL Normal 0-5 [facility] Comment on above: Performed By: #### L 100.0100, L501.25270, L500.4050, L501.9520, L506.0400 #### [facility] [address] [place], [address] Platelet mean volume (Bld) [Entitic vol] 9.8 fL Normal 6.2-12.0 [facility] Comment on above: Performed By: #### L 100.0100, L501.89614, L500.4050, L501.9520, L506.0400 #### [facility] [address] [place], [address] Platelets (Bld) [#/Vol] 352 10*3/uL Normal 150-450 [facility] Comment on above: Performed By: #### L 100.0100, L501.99251, L500.4050, L501.9520, L506.0400 #### [facility] [address] [place], [address] RBC (Bld) [#/Vol] 3.91 10*6/uL Low 4.2-5.4 [facility] Comment on above: Performed By: #### L 100.0100, L501.25427, L500.4050, L501.9520, L506.0400 #### [facility] [address] [place], [address] RDW SD 43.4 fl Normal 35.1-43.9 [facility] Comment on above: Performed By: #### L 100.0100, L501.16872, L500.4050, L501.9520, L506.0400 #### [facility] [address] [place], [address] WBC (Bld) [#/Vol] 6.4 10*3/uL Normal 4.4-11.0 [facility] Comment on above: Performed By: #### L 100.0100, L501.03170, L500.4050, L501.9520, L506.0400 #### [facility] [address] [place], [address] Comprehensive Metabolic Prof ilon 03-06-2024 Albumin [Mass/Vol] 3.5 g/dL Normal 3.2-5.0 [facility] Comment on above: Performed By: #### L 100.0100, L501.48564, L500.4050, L501.9520, L506.0400 #### [facility] [address] [place], [address] Albumin/Globulin [Mass ratio] 1.1 {ratio} Normal 0.9-2.4 [facility] Comment on above: Performed By: #### L 100.0100, L501.06670, L500.4050, L501.9520, L506.0400 #### [facility] [address] [place], [address] ALK P 65 U/L Normal 45-117 [facility] Comment on above: Performed By: #### L 100.0100, L501.29325, L500.4050, L501.9520, L506.0400 #### [facility] [address] [place], [address] ALT [Catalytic activity/Vol] 24 U/L Normal 13-56 [facility] Comment on above: Performed By: #### L 100.0100, L501.07371, L500.4050, L501.9520, L506.0400 #### [facility] [address] [place], [address] AST [Catalytic activity/Vol] 19 U/L Normal 15-37 [facility] Comment on above: Performed By: #### L 100.0100, L501.75449, L500.4050, L501.9520, L506.0400 #### [facility] [address] [place], [address] Bilirubin [Mass/Vol] 0.50 mg/dL Normal 0.20-1.[address] [facility] Comment on above: Result Comment: For patients on eltrombopag therapy, use of Dimension [place] TBIL is not recommended. Performed By: #### L 100.0100, L501.46005, L500.4050, L501.9520, L506.0400 #### [facility] [address] [place], [address] BUN/CRE 20.5 RATIO High 10-20 [facility] Comment on above: Performed By: #### L 100.0100, L501.24683, L500.4050, L501.9520, L506.0400 #### [facility] [address] [place], [address] CA,Total 9.8 mg/dL Normal 8.5-10.1 [facility] Comment on above: Performed By: #### L 100.0100, L501.90813, L500.4050, L501.9520, L506.0400 #### [facility] [address] [place], [address] Chloride [Moles/Vol] 106 mmol/L Normal 98-[address] [facility] Comment on above: Performed By: #### L 100.0100, L501.03600, L500.4050, L501.9520, L506.0400 #### [facility] [address] [place], [address] CO2 [Moles/Vol] 29.0 mmol/L Normal 21.0-32.0 [facility] Comment on above: Performed By: #### L 100.0100, L501.43641, L500.4050, L501.9520, L506.0400 #### [facility] [address] [place], [address] Creatinine [Mass/Vol] 0.78 mg/dL Normal 0.55-1.[address] [facility] Comment on above: Result Comment: The validity of the calculated GFR GFRAA in patients over 70 years has not been determined. Clinical correlation is essential. Performed By: #### L 100.0100, L501.91971, L500.4050, L501.9520, L506.0400 #### [facility] [address] [place], [address] EST GFR - AA 95 mL/min Normal >60 [facility] Comment on above: Result Comment: Afri can [place] GFR Calc Performed By: #### L 100.0100, L501.91038, L500.4050, L501.9520, L506.0400 #### [facility] [address] [place], [address] GAP 4 Low 5-15 [facility] [facility] Comment on above: Performed By: #### L 100.0100, [id number], L500.4050, L501.9520, L506.0400 #### [facility] [address] [place], [address] GFR/1.73 sq M.predicted among non-blacks MDRD (S/P/Bld) [Vol rate/Area] 79 mL/min/{1.73_m2} Normal >60 [facility] Comment on above: Result Comment: Non- GFR Calc Performed By: #### L 100.0100, [id number], L500.4050, L501.9520, L506.0400 #### [facility] [address] [place], [address] Globulin (S) [Mass/Vol] 3.2 g/dL Normal 2.2-4.2 [facility] Comment on above: Performed By: #### L 100.0100, [id number], L500.4050, L501.9520, L506.0400 #### [facility] [address] [place], [address] Glucose [Mass/Vol] 97 mg/dL Normal 74-106 [facility] Comment on above: Performed By: #### L 100.0100, [id number], L500.4050, L501.9520, L506.0400 #### [facility] [address] [place], [address] Potassium [Moles/Vol] 4.5 mmol/L Normal 3.5-5.[address] [facility] Comment on above: Performed By: #### L 100.0100, [id number], L500.4050, L501.9520, L506.0400 #### [facility] [address] [place], [address] Sodium [Moles/Vol] 139 mmol/L Normal 136-145 [facility] Comment on above: Performed By: #### L 100.0100, [id number], L500.4050, L501.9520, L506.0400 #### [facility] [address] [place], [address] T PROT 6.7 g/dL Normal 6.4-8.2 [facility] Comment on above: Performed By: #### L 100.0100, [id number], L500.4050, L501.9520, L506.0400 #### [facility] [address] [place], [address] Urea nitrogen [Mass/Vol] 16 mg/dL Normal 7-18 [facility] Comment on above: Performed By: #### L 100.0100, [id number], L500.4050, [id number], [id number] #### [facility] [address] [place], [address] Free T3on 03-06-2024 Free T3 [Mass/Vol] 2.4 pg/mL Normal 2.18-3.98 [facility] Comment on above: Performed By: #### L 100.0100, [id number], L500.4050, [id number], [id number] #### [facility] [address] [facility] [place], [address] T4 Free Directon 03-06-2024 T4 FREE DIRECT 1.27 ng/dL Normal 0.76-1.46 [facility] Comment on above: Performed By: #### L 100.0100, [id number], L500.4050, [id number], [id number] #### [facility] [address] [place], [address] Thyroid Stim Hormone (TSH)on 03-06-2024 TSH 0.366 uIU/mL Normal 0.358-3.740 [facility] Comment on above: Performed By: #### L 100.0100, L501.01855, L500.4050, [id number], L506.0400 #### [facility] [address] [facility] [place], [address] Absolute lymphocyte countOrd ered By: Nicole Moreno on 09-02-2023 Lymphocytes Auto (Unsp spec) [#/Vol] 2.70 10*3/uL 0.83-4.51 [facility] Automated lymphocyte count a s percentage of total leukocytesOrdered By: Nicole Moreno on 09-02-2023 Lymphocytes/100 WBC Auto (Unsp spec) 45.5 % 19-41 [facility] Basophil percentageOrdered B y: Nicole Philipalberto on 09-02-2023 Basophils/100 WBC (Bld) 0.8 % 0-1 [facility] Bilirubin [Mass/Vol] 0.40 mg/dL 0.20-1.[address] [facility] Comment on above: For patients on eltr ombopag therapy, use of [place] TBIL is not recommended. Chloride [Moles/Vol] 107 mmol/L 98-[address] [facility] Eosinophils/100 WBC (Bld) 2.0 % 0-5 [facility] Glucose [Mass/Vol] 111 mg/dL 74-106 [facility] Comment on above: Fasting Glucose resu lt from 100 to 125 mg/dL suggests IMPAIRED HOMEOSTASIS per A.D.A. criteria. Hemoglobin (Bld) [Mass/Vol] 11.2 g/dL 12.0-15. 0 [facility] Monocytes/100 WBC (Bld) 8.6 % 0-10 [facility] Neutrophils (Bld) [#/Vol] 2.5 10*3/uL 2.0-7.7 [facility] Neutrophils/100 WBC (Bld) 42.8 % 47-70 [facility] Potassium [Moles/Vol] 3.6 mmol/L 3.5-5.[address] [facility] Protein [Mass/Vol] 6.6 g/dL 6.4-8.2 [facility] Sodium [Moles/Vol] 143 mmol/L 136-145 [facility] WBC (Bld) [#/Vol] 5.9 10*3/uL 4.4-11.0 [facility] Determination of erythrocyte mean corpuscular volume (MCV)Ordered By: Nicole Moreno on 09-02-2023 MCV (RBC) [Entitic vol] 88.3 fL 81-99 [facility] Erythrocyte distribution wid th ratioOrdered By: Nicole Moreno on 09-02-2023 Erythrocyte distribution width (RBC) [Ratio] 13.7 % 11.6-14.6 [facility] Erythrocyte distribution wid th standard deviationOrdered By: Nicole Moreno on 09-02-2023 Erythrocyte distribution width (RBC) [Entitic vol] 44.5 fL 35.1-43.9 [facility] Hematocrit Auto (Bld) [Volum e fraction]Ordered By: Nicloe Moreno on 09-02-2023 Hematocrit (Bld) [Volume fraction] 33.9 % 37-47 [facility] Immature granulocytes/100 WB C Auto (Bld)Ordered By: Nicole Moreno on 09-02-2023 Immature granulocytes/100 WBC (Bld) 0.300 % 0.0-0.9 [facility] Comment on above: IG% - Immature Granu locytes (promyelocytes, myelocytes and metamyelocytes) > 1% indicates that a LEFT SHIFT is Present. Laboratory - Chemistry and C hemistry - challengeOrdered By: Nicole Moreno on 09-02-2023 Albumin/Globulin [Mass ratio] 1.1 {ratio} 0.9-2.4 [facility] ALP [Catalytic activity/Vol] 65 U/L 45-117 [facility] ALT [Catalytic activity/Vol] 21 U/L 13-56 [facility] CO2 [Moles/Vol] 32.0 mmol/L 21.0-32.0 [facility] Globulin (S) [Mass/Vol] 3.1 g/dL 2.2-4.2 [facility] Urea nitrogen/Creatinine [Mass ratio] 21.8 mg/mg 10-20 [facility] - Hematology and Cell countsOrdered By: Nicole Moreno on 09-02-2023 MCH (RBC) [Entitic mass] 29.2 pg 27.0-32.0 [facility] MCHC (RBC) [Mass/Vol] 33.0 g/dL 32-[address] [facility] Nucleated RBC/100 WBC (Bld) [Ratio] 0 % 0-5 [facility] Platelet mean volume (Bld) [Entitic vol] 9.4 fL 6.2-12.0 [facility] Platelets (Bld) [#/Vol] 324 10*3/uL 150-450 [facility] No Panel InformationOrdered By: Nicole Moreno on 09-02-2023 Estimated GFR (MDRD) Amer 103 mL/min >60 [facility] Comment on above: GFR Calc Estimated GFR (MDRD) Non-Af Amer 85 mL/min >60 [facility] Comment on above: Non- GFR Calc Free Triiodothyronine (T3) pg/dL 2.9 pg/mL 2.18-3.98 [facility] RBC Auto (Bld) [#/Vol]Ordere d By: Nicole Moreno on 09-02-2023 RBC (Bld) [#/Vol] 3.84 10*6/uL 4.2-5.4 [facility] Serum or plasma calcium amos urement (mass/volume)Ordered By: Nicole Moreno on 09-02-2023 Calcium [Mass/Vol] 9.1 mg/dL 8.5-10.1 [facility] Serum or plasma creatinine m easurement (mass/volume)Ordered By: Nicole Moreno on 09-02-2023 Creatinine [Mass/Vol] 0.73 mg/dL 0.55-1.[address] [facility] Comment on above: The validity of the calculated GFR & GFRAA in patients over 70 years has not been determined. Clinical correlation is essential. Serum or plasma thyroid stim ulating hormone (TSH) measurement (units/volume)Ordered By: Nicole Moreno on 09-02-2023 TSH Qn 0.09 uIU/mL 0.358-3.74 [facility] Serum or plasma urea nitroge n measurement (mass/volume)Ordered By: Nicole Moreno on 09-02-2023 Urea nitrogen [Mass/Vol] 16 mg/dL 7-18 [facility] Thin prep Papanicolaou smear with manual screeningOrdered By: Nicole Moreno on 09-02-2023 Thin prep Papanicolaou smear with manual screening 3.5 g/dL 3.2-5.0 [facility] Thin prep Papanicolaou smear with manual screening 17 U/L 15-37 [facility] Thin prep Papanicolaou smear with manual screening 4 5-15 [facility] Thin prep Papanicolaou smear with manual screening 1.46 ng/dL 0.76-1.46 [facility] Absolute lymphocyte countOrd ered By: Nicole Moreno on 05-30-2023 Lymphocytes Auto (Unsp spec) [#/Vol] 3.38 10*3/uL 0.83-4.51 [facility] Basophil percentageOrdered B y: Nicole Moreno on 05-30-2023 Basophils/100 WBC (Bld) 0.8 % 0-1 [facility] Bilirubin [Mass/Vol] 0.20 mg/dL 0.20-1.[address] [facility] Comment on above: For patients on eltr ombopag therapy, use of [place] TBIL is not recommended. Chloride [Moles/Vol] 107 mmol/L 98-[address] [facility] Cholesterol [Mass/Vol] 190 mg/dL <200 [facility] Comment on above: <200 mg/dL Desirable 200-240 mg/dL Borderline >240 mg/dL High Risk Eosinophils/100 WBC (Bld) 0.9 % 0-5 [facility] Glucose [Mass/Vol] 94 mg/dL 74-106 [facility] Neutrophils (Bld) [#/Vol] 3.4 10*3/uL 2.0-7.7 [facility] Neutrophils/100 WBC (Bld) 45.4 % 47-70 [facility] Potassium [Moles/Vol] 4.0 mmol/L 3.5-5.[address] [facility] Protein [Mass/Vol] 6.6 g/dL 6.4-8.2 [facility] Sodium [Moles/Vol] 142 mmol/L 136-145 [facility] Triglyceride [Mass/Vol] 146 mg/dL <199 [facility] Comment on above: The drugs N-Acetylcy steine and Metamizole may falsely depress this assay.Serum Triglycerides Reference Interval Normal <150 mg/dL Borderline high 150 - 199 mg/dL High 200 - 499 mg/dL Very High > or = 500 mg/dL WBC (Bld) [#/Vol] 7.4 10*3/uL 4.4-11.0 [facility] Blood erythrocytes count (nu mber/volume)Ordered By: Nicole Moreno on 05-30-2023 RBC (Bld) [#/Vol] 3.94 10*6/uL 4.2-5.4 [facility] Blood hemoglobin measurement (mass/volume)Ordered By: Nicole Moreno on 05-30-2023 Hemoglobin (Bld) [Mass/Vol] 11.3 g/dL 12.0-15. 0 [facility] Blood lymphocytes/100 leukoc ytesOrdered By: Nicole Moreno on 05-30-2023 Lymphocytes/100 WBC (Bld) 45.6 % 19-41 [facility] Blood monocytes/100 leukocyt esOrdered By: Nicole Moreno on 05-30-2023 Monocytes/100 WBC (Bld) 6.9 % 0-10 [facility] Blood platelet mean volumeOr dered By: Nicole Moreno on 05-30-2023 Platelet mean volume (Bld) [Entitic vol] 9.6 fL 6.2-12.0 [facility] Determination of erythrocyte mean corpuscular volume (MCV)Ordered By: Nicole Moreno on 05-30-2023 MCV (RBC) [Entitic vol] 90.1 fL 81-99 [facility] Hematocrit Auto (Bld) [Volum e fraction]Ordered By: Nicole Moreno on 05-30-2023 Hematocrit (Bld) [Volume fraction] 35.5 % 37-47 [facility] - Chemistry and C hemistry - challengeOrdered By: Nicole Moreno on 05-30-2023 ALP [Catalytic activity/Vol] 62 U/L 45-117 [facility] ALT [Catalytic activity/Vol] 27 U/L 13-56 [facility] CO2 [Moles/Vol] 29.0 mmol/L 21.0-32.0 [facility] Free T4 [Mass/Vol] 1.46 ng/dL 0.76-1.46 [facility] Globulin (S) [Mass/Vol] 3.1 g/dL 2.2-4.2 [facility] Urea nitrogen/Creatinine [Mass ratio] 19.4 mg/mg 10-20 [facility] - Hematology and Cell countsOrdered By: Nicole Moreno on 05-30-2023 Erythrocyte distribution width (RBC) [Entitic vol] 44.8 fL 35.1-43.9 [facility] Erythrocyte distribution width (RBC) [Ratio] 13.5 % 11.6-14.6 [facility] Immature granulocytes/100 WBC (Bld) 0.400 % 0.0-0.9 [facility] Comment on above: IG% - Immature Granu locytes (promyelocytes, myelocytes and metamyelocytes) > 1% indicates that a LEFT SHIFT is Present. MCH (RBC) [Entitic mass] 28.7 pg 27.0-32.0 [facility] Nucleated RBC/100 WBC (Bld) [Ratio] 0 % 0-5 [facility] MCHC Auto (RBC) [Mass/Vol]Or dered By: Nicole Moreno on 05-30-2023 MCHC (RBC) [Mass/Vol] 31.8 g/dL 32-[address] [facility] No Panel InformationOrdered By: Nicole Moreno on 05-30-2023 Estimated GFR (MDRD) Amer 69 mL/min >60 [facility] Comment on above: GFR Calc Estimated GFR (MDRD) Non-Af Amer 57 mL/min >60 [facility] Comment on above: Non- GFR Calc Free Triiodothyronine (T3) pg/dL 2.3 pg/mL 2.18-3.98 [facility] Thyroid Stimulating Hormone (TSH) 0.06 uIU/mL 0.358-3.74 [facility] Platelets bldOrdered By: Regina Moreno on 05-30-2023 Platelets (Bld) [#/Vol] 357 10*3/uL 150-450 [facility] Serum or plasma albumin amos urement (mass/volume)Ordered By: Nicole Moreno on 05-30-2023 Albumin [Mass/Vol] 3.5 g/dL 3.2-5.0 [facility] Serum or plasma albumin/glob ulin mass ratioOrdered By: Nicole Moreno on 05-30-2023 Albumin/Globulin [Mass ratio] 1.1 {ratio} 0.9-2.4 [facility] Serum or plasma calcium amos urement (mass/volume)Ordered By: Nicole Moreno on 05-30-2023 Calcium [Mass/Vol] 8.8 mg/dL 8.5-10.1 [facility] Serum or plasma cholesterol in HDL measurement (mass/volume)Ordered By: Nicole Moreno on 05-30-2023 Cholesterol in HDL [Mass/Vol] 58 mg/dL >40 [facility] Comment on above: The drugs N-Acetylcy steine and Metamizole may falsely depress this assay. Reference Range HDL <40 mg/dL Low HDL Cholesterol HDL >or= 60 mg/dL High HDL Cholesterol Serum or plasma cholesterol in VLDL measurement (mass/volume)Ordered By: Nicole Moreno on 05-30-2023 Cholesterol in VLDL [Mass/Vol] 29 mg/dL 5-40 [facility] Serum or plasma creatinine m easurement (mass/volume)Ordered By: Nicole Moreno on 05-30-2023 Creatinine [Mass/Vol] 1.03 mg/dL 0.55-1.[address] [facility] Comment on above: The validity of the calculated GFR & GFRAA in patients over 70 years has not been determined. Clinical correlation is essential. Serum or plasma low density lipoprotein (LDL) cholesterol measurement (mass/volume)Ordered By: Nicole Moreno on 05-30-2023 Cholesterol in LDL [Mass/Vol] 103 mg/dL 0-130 [facility] Serum or plasma urea nitroge n measurement (mass/volume)Ordered By: Nicole Philipalberto on 05-30-2023 Urea nitrogen [Mass/Vol] 20 mg/dL 7-18 [facility] Thin prep Papanicolaou smear with manual screeningOrdered By: Nicole Moreno on 05-30-2023 Thin prep Papanicolaou smear with manual screening 24 U/L 15-37 [facility] Thin prep Papanicolaou smear with manual screening 6 5-15 [facility] Absolute lymphocyte countOrd ered By: Nicole Moreno on 03-20-2023 Lymphocytes Auto (Unsp spec) [#/Vol] 2.73 10*3/uL 0.83-4.51 [facility] Basophil percentageOrdered B y: Nicole Moreno on 03-20-2023 Basophils/100 WBC (Bld) 1.3 % 0-1 [facility] Bilirubin [Mass/Vol] 0.60 mg/dL 0.20-1.[address] [facility] Comment on above: For patients on eltr ombopag therapy, use of [place] TBIL is not recommended. Chloride [Moles/Vol] 107 mmol/L 98-[address] [facility] Cholesterol [Mass/Vol] 192 mg/dL <200 [facility] Comment on above: <200 mg/dL Desirable 200-240 mg/dL Borderline >240 mg/dL High Risk Eosinophils/100 WBC (Bld) 2.4 % 0-5 [facility] Glucose [Mass/Vol] 94 mg/dL 74-106 [facility] Neutrophils (Bld) [#/Vol] 2.6 10*3/uL 2.0-7.7 [facility] Neutrophils/100 WBC (Bld) 42.3 % 47-70 [facility] Potassium [Moles/Vol] 4.3 mmol/L 3.5-5.[address] [facility] Protein [Mass/Vol] 6.7 g/dL 6.4-8.2 [facility] Sodium [Moles/Vol] 141 mmol/L 136-145 [facility] Triglyceride [Mass/Vol] 85 mg/dL <199 [facility] Comment on above: The drugs N-Acetylcy steine and Metamizole may falsely depress this assay.Serum Triglycerides Reference Interval Normal <150 mg/dL Borderline high 150 - 199 mg/dL High 200 - 499 mg/dL Very High > or = 500 mg/dL WBC (Bld) [#/Vol] 6.2 10*3/uL 4.4-11.0 [facility] Blood erythrocytes count (nu mber/volume)Ordered By: Nicole Moreno on 03-20-2023 RBC (Bld) [#/Vol] 3.90 10*6/uL 4.2-5.4 [facility] Blood hemoglobin measurement (mass/volume)Ordered By: Nicole Moreno on 03-20-2023 Hemoglobin (Bld) [Mass/Vol] 11.1 g/dL 12.0-15. 0 [facility] Blood lymphocytes/100 leukoc ytesOrdered By: Nicole Moreno on 03-20-2023 Lymphocytes/100 WBC (Bld) 44.0 % 19-41 [facility] Blood monocytes/100 leukocyt esOrdered By: Nicole Moreno on 03-20-2023 Monocytes/100 WBC (Bld) 9.7 % 0-10 [facility] Blood platelet mean volumeOr dered By: Nicole Moreno on 03-20-2023 Platelet mean volume (Bld) [Entitic vol] 10.3 fL 6.2-12.0 [facility] Determination of erythrocyte mean corpuscular volume (MCV)Ordered By: Nicole Moreno on 03-20-2023 MCV (RBC) [Entitic vol] 90.0 fL 81-99 [facility] Erythrocyte sedimentation ra teOrdered By: Nicole Moreno on 03-20-2023 ESR (Bld) [Velocity] 3 mm/h 0-[address] [facility] Hematocrit Auto (Bld) [Volum e fraction]Ordered By: Nicole Moreno on 03-20-2023 Hematocrit (Bld) [Volume fraction] 35.1 % 37-47 [facility] Iron measurement (mass/mass) Ordered By: Nicole Moreno on 03-20-2023 Iron (Unsp spec) [Mass/Mass] 62 ug/dL 50-170 [facility] - Chemistry and C hemistry - challengeOrdered By: Nicole Moreno on 03-20-2023 ALP [Catalytic activity/Vol] 58 U/L 45-117 [facility] ALT [Catalytic activity/Vol] 23 U/L 13-56 [facility] CO2 [Moles/Vol] 31.0 mmol/L 21.0-32.0 [facility] Free T4 [Mass/Vol] 1.31 ng/dL 0.76-1.46 [facility] Globulin (S) [Mass/Vol] 3.1 g/dL 2.2-4.2 [facility] Urea nitrogen/Creatinine [Mass ratio] 17.5 mg/mg 10-20 [facility] - Hematology and Cell countsOrdered By: Nicole Moreno on 03-20-2023 Erythrocyte distribution width (RBC) [Entitic vol] 48.3 fL 35.1-43.9 [facility] Erythrocyte distribution width (RBC) [Ratio] 14.6 % 11.6-14.6 [facility] Immature granulocytes/100 WBC (Bld) 0.300 % 0.0-0.9 [facility] Comment on above: IG% - Immature Granu locytes (promyelocytes, myelocytes and metamyelocytes) > 1% indicates that a LEFT SHIFT is Present. MCH (RBC) [Entitic mass] 28.5 pg 27.0-32.0 [facility] Nucleated RBC/100 WBC (Bld) [Ratio] 0 % 0-5 [facility] MCHC Auto (RBC) [Mass/Vol]Or dered By: Nicole Moreno on 03-20-2023 MCHC (RBC) [Mass/Vol] 31.6 g/dL 32-[address] [facility] No Panel InformationOrdered By: Nicole Moreno on 03-20-2023 Estimated GFR (MDRD) Amer 74 mL/min >60 [facility] Comment on above: GFR Calc Estimated GFR (MDRD) Non-Af Amer 61 mL/min >60 [facility] Comment on above: Non- GFR Calc Free Triiodothyronine (T3) pg/dL 2.3 pg/mL 2.18-3.98 [facility] Thyroid Stimulating Hormone (TSH) 0.30 uIU/mL 0.358-3.74 [facility] Platelets bldOrdered By: Regina Moreno on 03-20-2023 Platelets (Bld) [#/Vol] 352 10*3/uL 150-450 [facility] Serum or plasma C reactive p rotein measurement (mass/volume)Ordered By: Nicole Moreno on 03-20-2023 CRP [Mass/Vol] mg/L 0.0-3.0 [facility] Comment on above: C-Reactive Protein ( CRP) provides useful information for thediagnosis, therapy and monitoring of inflammatory processesand associated diseases. For the evaluation of Relative Riskfor Cardiovascular Disease, a High Sensitivity CRP (HSCRP)should be ordered. Serum or plasma albumin amos urement (mass/volume)Ordered By: Nicole Moreno on 03-20-2023 Albumin [Mass/Vol] 3.6 g/dL 3.2-5.0 [facility] Serum or plasma albumin/glob ulin mass ratioOrdered By: Nicole Moreno on 03-20-2023 Albumin/Globulin [Mass ratio] 1.2 {ratio} 0.9-2.4 [facility] Serum or plasma calcium amos urement (mass/volume)Ordered By: Nicole Moreno on 03-20-2023 Calcium [Mass/Vol] 9.3 mg/dL 8.5-10.1 [facility] Serum or plasma cholesterol in HDL measurement (mass/volume)Ordered By: Nicole Moreno on 03-20-2023 Cholesterol in HDL [Mass/Vol] 64 mg/dL >40 [facility] Comment on above: The drugs N-Acetylcy steine and Metamizole may falsely depress this assay. Reference Range HDL <40 mg/dL Low HDL Cholesterol HDL >or= 60 mg/dL High HDL Cholesterol Serum or plasma cholesterol in VLDL measurement (mass/volume)Ordered By: Nicole Moreno on 03-20-2023 Cholesterol in VLDL [Mass/Vol] 17 mg/dL 5-40 [facility] Serum or plasma creatinine m easurement (mass/volume)Ordered By: Nicole Moreno on 03-20-2023 Creatinine [Mass/Vol] 0.97 mg/dL 0.55-1.[address] [facility] Comment on above: The validity of the calculated GFR & GFRAA in patients over 70 years has not been determined. Clinical correlation is essential. Serum or plasma ferritin mukesh surement (mass/volume)Ordered By: Nicole Moreno on 03-20-2023 Ferritin [Mass/Vol] 192 ng/mL 8-252 [facility] Serum or plasma low density lipoprotein (LDL) cholesterol measurement (mass/volume)Ordered By: Nicole Moreno on 03-20-2023 Cholesterol in LDL [Mass/Vol] 111 mg/dL 0-130 [facility] Serum or plasma urea nitroge n measurement (mass/volume)Ordered By: Nicole Moreno on 03-20-2023 Urea nitrogen [Mass/Vol] 17 mg/dL 7-18 [facility] Thin prep Papanicolaou smear with manual screeningOrdered By: Nicole Moreno on 03-20-2023 Thin prep Papanicolaou smear with manual screening 19 U/L 15-37 [facility] Thin prep Papanicolaou smear with manual screening 3 5-15 [facility] Influenza virus A and B and SARS-CoV-2 (COVID-19) Ag panel - Upper respiratory specimOrdered By: Timur Frost on 12-09-2022 SARS-CoV-2 (COVID-19) RNA DIMITRIS+probe Ql (Resp) [facility] Throat Streptococcus pyogene s antigen detection by immunofluorescenceOrdered By: Timur Frost on 12-09-2022 S. pyogenes Ag IF Ql (Throat) [facility] Absolute lymphocyte countOrd ered By: Dr. Moreno on 10-05-2022 Lymphocytes Auto (Unsp spec) [#/Vol] 4.00 10*3/uL 0.83-4.51 [facility] Basophil percentageOrdered B y: Dr. Moreno on 10-05-2022 Basophils/100 WBC (Bld) 0.7 % 0-1 [facility] Bilirubin [Mass/Vol] 0.50 mg/dL 0.20-1.[address] [facility] Comment on above: For patients on eltr ombopag therapy, use of Dimension [place] TBIL is not recommended. Chloride [Moles/Vol] 108 mmol/L 98-[address] [facility] Eosinophils/100 WBC (Bld) 2.2 % 0-5 [facility] Glucose [Mass/Vol] 103 mg/dL 74-106 [facility] Comment on above: Fasting Glucose resu lt from 100 to 125 mg/dL suggests IMPAIRED HOMEOSTASIS per A.D.A. criteria. Neutrophils (Bld) [#/Vol] 3.6 10*3/uL 2.0-7.7 [facility] Neutrophils/100 WBC (Bld) 41.8 % 47-70 [facility] Potassium [Moles/Vol] 4.1 mmol/L 3.5-5.[address] [facility] Protein [Mass/Vol] 7.5 g/dL 6.4-8.2 [facility] Sodium [Moles/Vol] 140 mmol/L 136-145 [facility] WBC (Bld) [#/Vol] 8.5 10*3/uL 4.4-11.0 [facility] Blood erythrocytes count (nu mber/volume)Ordered By: Dr. Moreno on 10-05-2022 RBC (Bld) [#/Vol] 3.90 10*6/uL 4.2-5.4 [facility] Blood hemoglobin measurement (mass/volume)Ordered By: Dr. Moreno on 10-05-2022 Hemoglobin (Bld) [Mass/Vol] 11.4 g/dL 12.0-15. 0 [facility] Blood lymphocytes/100 leukoc ytesOrdered By: Dr. Moreno on 10-05-2022 Lymphocytes/100 WBC (Bld) 47.1 % 19-41 [facility] Blood monocytes/100 leukocyt esOrdered By: Dr. Moreno on 10-05-2022 Monocytes/100 WBC (Bld) 7.7 % 0-10 [facility] Blood platelet mean volumeOr dered By: Dr. Moreno on 10-05-2022 Platelet mean volume (Bld) [Entitic vol] 10.2 fL 6.2-12.0 [facility] Determination of erythrocyte mean corpuscular volume (MCV)Ordered By: Dr. Moreno on 10-05-2022 MCV (RBC) [Entitic vol] 90.8 fL 81-99 [facility] Erythrocyte sedimentation ra teOrdered By: Dr. Moreno on 10-05-2022 ESR (Bld) [Velocity] 6 mm/h 0-[address] [facility] Hematocrit Auto (Bld) [Volum e fraction]Ordered By: Dr. Moreno on 10-05-2022 Hematocrit (Bld) [Volume fraction] 35.4 % 37-47 [facility] Laboratory - Chemistry and C hemistry - challengeOrdered By: Dr. Moreno on 10-05-2022 ALP [Catalytic activity/Vol] 44 U/L 45-117 [facility] ALT [Catalytic activity/Vol] 34 U/L 13-56 [facility] CO2 [Moles/Vol] 28.0 mmol/L 21.0-32.0 [facility] Free T4 [Mass/Vol] 1.89 ng/dL 0.76-1.46 [facility] Globulin (S) [Mass/Vol] 3.7 g/dL 2.2-4.2 [facility] Urea nitrogen/Creatinine [Mass ratio] 23.8 mg/mg 10-20 [facility] Laboratory - Hematology and Cell countsOrdered By: Dr. Moreno on 10-05-2022 Erythrocyte distribution width (RBC) [Entitic vol] 47.2 fL 35.1-43.9 [facility] Erythrocyte distribution width (RBC) [Ratio] 14.2 % 11.6-14.6 [facility] Immature granulocytes/100 WBC (Bld) 0.500 % 0.0-0.9 [facility] Comment on above: IG% - Immature Granu locytes (promyelocytes, myelocytes and metamyelocytes) > 1% indicates that a LEFT SHIFT is Present. MCH (RBC) [Entitic mass] 29.2 pg 27.0-32.0 [facility] Nucleated RBC/100 WBC (Bld) [Ratio] 0 % 0-5 [facility] MCHC Auto (RBC) [Mass/Vol]Or dered By: Dr. Moreno on 10-05-2022 MCHC (RBC) [Mass/Vol] 32.2 g/dL 32-[address] [facility] No Panel InformationOrdered By: Dr. Moreno on 10-05-2022 Estimated GFR (MDRD) Amer 71 mL/min >60 [facility] Comment on above: GFR Calc Estimated GFR (MDRD) Non-Af Amer 59 mL/min >60 [facility] Comment on above: Non- GFR Calc Free Triiodothyronine (T3) pg/dL 3.0 pg/mL 2.18-3.98 [facility] Thyroid Stimulating Hormone (TSH) 0.07 uIU/mL 0.358-3.74 [facility] Urine Microalbumin/Creatinine Ratio 5.9 mg/g CRE <30 [facility] Vitamin D 25-Hydroxy 60.4 ng/mL [facility] Comment on above: Vitamin D 25(OH) Sta tus Range Deficiency <20 ng/mL (50nmol/L) Insufficiency 20 - 30 ng/mL (50 - 75 nmol/L) Sufficiency 30 - 100 ng/mL (75 - 250 nmol/L) Toxicity >100 ng/mL (>250 nmol/L) Platelets bldOrdered By: Dr. Moreno on 10-05-2022 Platelets (Bld) [#/Vol] 359 10*3/uL 150-450 [facility] Serum or plasma C reactive p rotein measurement (mass/volume)Ordered By: Dr. Moreno on 10-05-2022 CRP [Mass/Vol] mg/L 0.0-3.0 [facility] Comment on above: C-Reactive Protein ( CRP) provides useful information for thediagnosis, therapy and monitoring of inflammatory processesand associated diseases. For the evaluation of Relative Riskfor Cardiovascular Disease, a High Sensitivity CRP (HSCRP)should be ordered. Serum or plasma albumin amos urement (mass/volume)Ordered By: Dr. Moreno on 10-05-2022 Albumin [Mass/Vol] 3.8 g/dL 3.2-5.0 [facility] Serum or plasma albumin/glob ulin mass ratioOrdered By: Dr. Moreno on 10-05-2022 Albumin/Globulin [Mass ratio] 1.0 {ratio} 0.9-2.4 [facility] Serum or plasma calcium amos urement (mass/volume)Ordered By: Dr. Moreno on 10-05-2022 Calcium [Mass/Vol] 9.5 mg/dL 8.5-10.1 [facility] Serum or plasma creatinine m easurement (mass/volume)Ordered By: Dr. Moreno on 10-05-2022 Creatinine [Mass/Vol] 1.01 mg/dL 0.55-1.[address] [facility] Comment on above: The validity of the calculated GFR & GFRAA in patients over 70 years has not been determined. Clinical correlation is essential. Serum or plasma urea nitroge n measurement (mass/volume)Ordered By: Dr. Moreno on 10-05-2022 Urea nitrogen [Mass/Vol] 24 mg/dL 7-18 [facility] Thin prep Papanicolaou smear with manual screeningOrdered By: Dr. Moreno on 10-05-2022 Thin prep Papanicolaou smear with manual screening 29 U/L 15-37 [facility] Thin prep Papanicolaou smear with manual screening 4 5-15 [facility] Thin prep Papanicolaou smear with manual screening 11.6 mg/L NO RANGE EST. [facility] Urine creatinine measurement (mass/volume)Ordered By: Dr. Moreno on 10-05-2022 Creatinine (U) [Mass/Vol] 195.00 mg/dL NO RANGE EST. [facility] Whole blood hemoglobin A1c/t otal hemoglobin ratio (mass fraction)Ordered By: Dr. Moreno on 10-05-2022 HbA1c (Bld) [Mass fraction] 5.5 % 3.8-5.6 [facility] Comment on above: Normal < 5.7 % Predi abetic 5.7 - 6.4 % Diabetic >or= 6.5 % Please note range changes. Glucose Glucometer (BldC) [M ass/Vol]Ordered By: Seng Mason on 07-10-2022 Glucose [Mass/Vol] 128 mg/dL 74-106 [facility] Comment on above: MANAGEMENT OF PATIEN T CARE PER NURSING PROTOCOL Absolute lymphocyte countOrd ered By: Dr. Moreno on 03-15-2022 Lymphocytes Auto (Unsp spec) [#/Vol] 3.15 10*3/uL 0.83-4.51 [facility] Basophil percentageOrdered B y: Dr. Moreno on 03-15-2022 Basophils/100 WBC (Bld) 1.3 % 0-1 [facility] Bilirubin [Mass/Vol] 0.40 mg/dL 0.20-1.[address] [facility] Comment on above: For patients on eltr ombopag therapy, use of Dimension [place] TBIL is not recommended. Chloride [Moles/Vol] 108 mmol/L 98-[address] [facility] Cholesterol [Mass/Vol] 217 mg/dL <200 [facility] Comment on above: <200 mg/dL Desirable 200-240 mg/dL Borderline >240 mg/dL High Risk Eosinophils/100 WBC (Bld) 2.6 % 0-5 [facility] Glucose [Mass/Vol] 108 mg/dL 74-106 [facility] Comment on above: Fasting Glucose resu lt from 100 to 125 mg/dL suggests IMPAIRED HOMEOSTASIS per A.D.A. criteria. Neutrophils (Bld) [#/Vol] 4.3 10*3/uL 2.0-7.7 [facility] Neutrophils/100 WBC (Bld) 50.9 % 47-70 [facility] Potassium [Moles/Vol] 5.1 mmol/L 3.5-5.[address] [facility] Protein [Mass/Vol] 7.1 g/dL 6.4-8.2 [facility] Sodium [Moles/Vol] 140 mmol/L 136-145 [facility] Triglyceride [Mass/Vol] 183 mg/dL <199 [facility] Comment on above: The drugs N-Acetylcy steine and Metamizole may falsely depress this assay.Serum Triglycerides Reference Interval Normal <150 mg/dL Borderline high 150 - 199 mg/dL High 200 - 499 mg/dL Very High > or = 500 mg/dL WBC (Bld) [#/Vol] 8.5 10*3/uL 4.4-11.0 [facility] Blood erythrocytes count (nu mber/volume)Ordered By: Dr. Moreno on 03-15-2022 RBC (Bld) [#/Vol] 4.03 10*6/uL 4.2-5.4 [facility] Blood hemoglobin measurement (mass/volume)Ordered By: Dr. Moreno on 03-15-2022 Hemoglobin (Bld) [Mass/Vol] 12.1 g/dL 12.0-15. 0 [facility] Blood lymphocytes/100 leukoc ytesOrdered By: Dr. Moreno on 03-15-2022 Lymphocytes/100 WBC (Bld) 37.0 % 19-41 [facility] Blood monocytes/100 leukocyt esOrdered By: Dr. Moreno on 03-15-2022 Monocytes/100 WBC (Bld) 7.6 % 0-10 [facility] Blood platelet mean volumeOr dered By: Dr. Moreno on 03-15-2022 Platelet mean volume (Bld) [Entitic vol] 10.0 fL 6.2-12.0 [facility] Determination of erythrocyte mean corpuscular volume (MCV)Ordered By: Dr. Moreno on 03-15-2022 MCV (RBC) [Entitic vol] 89.6 fL 81-99 [facility] Erythrocyte sedimentation ra teOrdered By: Dr. oMreno on 03-15-2022 ESR (Bld) [Velocity] 3 mm/h 0-[address] [facility] Hematocrit Auto (Bld) [Volum e fraction]Ordered By: Dr. Moreno on 03-15-2022 Hematocrit (Bld) [Volume fraction] 36.1 % 37-47 [facility] Laboratory - Chemistry and C hemistry - challengeOrdered By: Dr. Moreno on 03-15-2022 ALP [Catalytic activity/Vol] 65 U/L 45-117 [facility] ALT [Catalytic activity/Vol] 37 U/L 13-56 [facility] CO2 [Moles/Vol] 28.0 mmol/L 21.0-32.0 [facility] Free T4 [Mass/Vol] 1.13 ng/dL 0.76-1.46 [facility] Globulin (S) [Mass/Vol] 3.4 g/dL 2.2-4.2 [facility] Urea nitrogen/Creatinine [Mass ratio] 27.2 mg/mg 10-20 [facility] Laboratory - Hematology and Cell countsOrdered By: Dr. Moreno on 03-15-2022 Erythrocyte distribution width (RBC) [Entitic vol] 48.1 fL 35.1-43.9 [facility] Erythrocyte distribution width (RBC) [Ratio] 14.6 % 11.6-14.6 [facility] Immature granulocytes/100 WBC (Bld) 0.600 % 0.0-0.9 [facility] Comment on above: IG% - Immature Granu locytes (promyelocytes, myelocytes and metamyelocytes) > 1% indicates that a LEFT SHIFT is Present. MCH (RBC) [Entitic mass] 30.0 pg 27.0-32.0 [facility] Nucleated RBC/100 WBC (Bld) [Ratio] 0 % 0-5 [facility] MCHC Auto (RBC) [Mass/Vol]Or dered By: Dr. Moreno on 03-15-2022 MCHC (RBC) [Mass/Vol] 33.5 g/dL 32-[address] [facility] No Panel InformationOrdered By: Dr. Moreno on 03-15-2022 Estimated GFR (MDRD) Amer 62 mL/min >60 [facility] Comment on above: GFR Calc Estimated GFR (MDRD) Non-Af Amer 51 mL/min >60 [facility] Comment on above: Non- GFR Calc Free Triiodothyronine (T3) pg/dL 2.1 pg/mL 2.18-3.98 [facility] Thyroid Stimulating Hormone (TSH) 6.35 uIU/mL 0.358-3.74 [facility] Vitamin D 25-Hydroxy 36.2 ng/mL [facility] Comment on above: Vitamin D 25(OH) Sta tus Range Deficiency <20 ng/mL (50nmol/L) Insufficiency 20 - 30 ng/mL (50 - 75 nmol/L) Sufficiency 30 - 100 ng/mL (75 - 250 nmol/L) Toxicity >100 ng/mL (>250 nmol/L) Platelets bldOrdered By: Dr. Moreno on 03-15-2022 Platelets (Bld) [#/Vol] 337 10*3/uL 150-450 [facility] Serum or plasma C reactive p rotein measurement (mass/volume)Ordered By: Dr. Moreno on 03-15-2022 CRP [Mass/Vol] mg/L 0.0-3.0 [facility] Comment on above: C-Reactive Protein ( CRP) provides useful information for thediagnosis, therapy and monitoring of inflammatory processesand associated diseases. For the evaluation of Relative Riskfor Cardiovascular Disease, a High Sensitivity CRP (HSCRP)should be ordered. Serum or plasma albumin amos urement (mass/volume)Ordered By: Dr. Moreno on 03-15-2022 Albumin [Mass/Vol] 3.7 g/dL 3.2-5.0 [facility] Serum or plasma albumin/glob ulin mass ratioOrdered By: Dr. Moreno on 03-15-2022 Albumin/Globulin [Mass ratio] 1.1 {ratio} 0.9-2.4 [facility] Serum or plasma calcium amos urement (mass/volume)Ordered By: Dr. Moreno on 03-15-2022 Calcium [Mass/Vol] 9.3 mg/dL 8.5-10.1 [facility] Serum or plasma cholesterol in HDL measurement (mass/volume)Ordered By: Dr. Moreno on 03-15-2022 Cholesterol in HDL [Mass/Vol] 58 mg/dL >40 [facility] Comment on above: The drugs N-Acetylcy steine and Metamizole may falsely depress this assay. Reference Range HDL <40 mg/dL Low HDL Cholesterol HDL >or= 60 mg/dL High HDL Cholesterol Serum or plasma cholesterol in VLDL measurement (mass/volume)Ordered By: Dr. Moreno on 03-15-2022 Cholesterol in VLDL [Mass/Vol] 37 mg/dL 5-40 [facility] Serum or plasma creatinine m easurement (mass/volume)Ordered By: Dr. Moreno on 03-15-2022 Creatinine [Mass/Vol] 1.14 mg/dL 0.55-1.[address] [facility] Comment on above: The validity of the calculated GFR & GFRAA in patients over 70 years has not been determined. Clinical correlation is essential. Serum or plasma low density lipoprotein (LDL) cholesterol measurement (mass/volume)Ordered By: Dr. Moreno on 03-15-2022 Cholesterol in LDL [Mass/Vol] 122 mg/dL 0-130 [facility] Serum or plasma urea nitroge n measurement (mass/volume)Ordered By: Dr. Moreno on 03-15-2022 Urea nitrogen [Mass/Vol] 31 mg/dL 7-18 [facility] Thin prep Papanicolaou smear with manual screeningOrdered By: Dr. Moreno on 03-15-2022 Thin prep Papanicolaou smear with manual screening 25 U/L 15-37 [facility] Thin prep Papanicolaou smear with manual screening 4 5-15 [facility] Absolute lymphocyte counton 08-30-2021 Lymphocytes Auto (Unsp spec) [#/Vol] 1.07 10*3/uL 0.83-4.51 [facility] Work Phone: Basophil percentageon 2021 Basophils/100 WBC (Bld) 0.4 % 0-1 [facility] Work Phone: Chloride [Moles/Vol] 104 mmol/L 98-[address] [facility] Work Phone: Eosinophils/100 WBC (Bld) 0.5 % 0-5 [facility] Work Phone: Glucose [Mass/Vol] 161 mg/dL 74-106 [facility] Work Phone: Comment on above: Fasting Glucose resu lt greater than or equal to 126 mg/dL suggests DIABETES MELLITUS per A.D.A. criteria. Neutrophils (Bld) [#/Vol] 13.2 10*3/uL 2.0-7.7 [facility] Work Phone: Neutrophils/100 WBC (Bld) 85.8 % 47-70 [facility] Work Phone: Potassium [Moles/Vol] 4.5 mmol/L 3.5-5.[address] [facility] Work Phone: Sodium [Moles/Vol] 137 mmol/L 136-145 [facility] Work Phone: WBC (Bld) [#/Vol] 15.4 10*3/uL 4.4-11.0 [facility] Work Phone: Blood erythrocytes count (nu mber/volume)on 08-30-2021 RBC (Bld) [#/Vol] 4.48 10*6/uL 4.2-5.4 [facility] Work Phone: Blood hemoglobin measurement (mass/volume)on 08-30-2021 Hemoglobin (Bld) [Mass/Vol] 13.4 g/dL 12.0-15. 0 [facility] Work Phone: Blood lymphocytes/100 leukoc yteson 08-30-2021 Lymphocytes/100 WBC (Bld) 7.0 % 19-41 [facility] Work Phone: Blood monocytes/100 leukocyt eson 08-30-2021 Monocytes/100 WBC (Bld) 4.9 % 0-10 [facility] Work Phone: Blood platelet mean volumeon 08-30-2021 Platelet mean volume (Bld) [Entitic vol] 9.7 fL 6.2-12.0 [facility] Work Phone: Determination of erythrocyte mean corpuscular volume (MCV)on 08-30-2021 MCV (RBC) [Entitic vol] 89.1 fL 81-99 [facility] Work Phone: Erythrocyte sedimentation ra blanche 08-30-2021 ESR (Bld) [Velocity] 8 mm/h 0-30 [facility] Work Phone: Hematocrit Auto (Bld) [Volum e fraction]on 08-30-2021 Hematocrit (Bld) [Volume fraction] 39.9 % 37-47 [facility] Work Phone: Laboratory - Chemistry and C hemistry - challengeon 08-30-2021 CO2 [Moles/Vol] 29.0 mmol/L 21.0-32.0 [facility] Work Phone: Urea nitrogen/Creatinine [Mass ratio] 38.6 mg/mg 10-20 [facility] Work Phone: Laboratory - Hematology and Cell countson 08-30-2021 Erythrocyte distribution width (RBC) [Entitic vol] 44.7 fL 35.1-43.9 [facility] Work Phone: Erythrocyte distribution width (RBC) [Ratio] 13.7 % 11.6-14.6 [facility] Work Phone: Immature granulocytes/100 WBC (Bld) 1.400 % 0.0-0.9 [facility] Work Phone: Comment on above: IG% - Immature Granu locytes (promyelocytes, myelocytes and metamyelocytes) > 1% indicates that a LEFT SHIFT is Present. MCH (RBC) [Entitic mass] 29.9 pg 27.0-32.0 [facility] Work Phone: [phone] Nucleated RBC/100 WBC (Bld) [Ratio] 0 % 0-5 [facility] Work Phone: [phone] MCHC Auto (RBC) [Mass/Vol]on 08-30-2021 MCHC (RBC) [Mass/Vol] 33.6 g/dL 32-[address] [facility] Work Phone: [phone] No Panel Informationon 08-30 Estimated GFR (MDRD) Amer 86 mL/min >60 [facility] Work Phone: [phone] Comment on above: GFR Calc Estimated GFR (MDRD) Non-Af Amer 71 mL/min >60 [facility] Work Phone: [phone] Comment on above: Non- GFR Calc Platelets bldon 08-30-2021 Platelets (Bld) [#/Vol] 349 10*3/uL 150-450 [facility] Work Phone: [phone] Serum or plasma C reactive p rotein measurement (mass/volume)on 08-30-2021 CRP [Mass/Vol] 7.90 mg/L 0.0-3.0 [facility] Work Phone: Comment on above: C-Reactive Protein ( CRP) provides useful information for thediagnosis, therapy and monitoring of inflammatory processesand associated diseases. For the evaluation of Relative Riskfor Cardiovascular Disease, a High Sensitivity CRP (HSCRP)should be ordered. Serum or plasma calcium amos urement (mass/volume)on 08-30-2021 Calcium [Mass/Vol] 9.2 mg/dL 8.5-10.1 [facility] Work Phone: [phone] Serum or plasma creatinine m easurement (mass/volume)on 08-30-2021 Creatinine [Mass/Vol] 0.86 mg/dL 0.55-1.[address] [facility] Work Phone: Comment on above: The validity of the calculated GFR & GFRAA in patients over 70 years has not been determined. Clinical correlation is essential. Serum or plasma urea nitroge n measurement (mass/volume)on 08-30-2021 Urea nitrogen [Mass/Vol] 33 mg/dL 7-18 [facility] Work Phone: Thin prep Papanicolaou smear with manual screeningon 08-30-2021 Thin prep Papanicolaou smear with manual screening 4 5-15 [facility] Work Phone: Basophil percentageon 2021 Bilirubin [Mass/Vol] 0.40 mg/dL 0.20-1.[address] [facility] Work Phone: Comment on above: For patients on eltr ombopag therapy, use of Dimension [place] TBIL is not recommended. Chloride [Moles/Vol] 106 mmol/L 98-[address] [facility] Work Phone: Cholesterol [Mass/Vol] 238 mg/dL <200 [facility] Work Phone: Comment on above: <200 mg/dL Desirable 200-240 mg/dL Borderline >240 mg/dL High Risk Glucose [Mass/Vol] 107 mg/dL 74-106 [facility] Work Phone: Comment on above: Fasting Glucose resu lt from 100 to 125 mg/dL suggests IMPAIRED HOMEOSTASIS per A.D.A. criteria. Potassium [Moles/Vol] 4.0 mmol/L 3.5-5.[address] [facility] Work Phone: Protein [Mass/Vol] 7.3 g/dL 6.4-8.2 [facility] Work Phone: Sodium [Moles/Vol] 141 mmol/L 136-145 [facility] Work Phone: [phone] Triglyceride [Mass/Vol] 125 mg/dL [facility] Work Phone: Comment on above: The drugs N-Acetylcy steine and Metamizole may falsely depress this assay.Serum Triglycerides Reference Interval Normal <150 mg/dL Borderline high 150 - 199 mg/dL High 200 - 499 mg/dL Very High > or = 500 mg/dL Direct bilirubinon 2 Bilirubin.direct [Mass/Vol] 0.07 mg/dL 0.00-0.3 0 [facility] Work Phone: Laboratory - Chemistry and C hemistry - challengeon 06-29-2021 ALP [Catalytic activity/Vol] 103 U/L 45-117 [facility] Work Phone: [phone] ALT [Catalytic activity/Vol] 42 U/L 13-56 [facility] Work Phone: [phone] CO2 [Moles/Vol] 31.0 mmol/L 21.0-32.0 [facility] Work Phone: Globulin (S) [Mass/Vol] 3.7 g/dL 2.2-4.2 [facility] Work Phone: Urea nitrogen/Creatinine [Mass ratio] 23.1 mg/mg 10-20 [facility] Work Phone: No Panel Informationon 06-29 Estimated GFR (MDRD) Amer 119 mL/min >60 [facility] Work Phone: Comment on above: GFR Calc Estimated GFR (MDRD) Non-Af Amer 98 mL/min >60 [facility] Work Phone: Comment on above: Non- GFR Calc Serum or plasma albumin amos urement (mass/volume)on 06-29-2021 Albumin [Mass/Vol] 3.6 g/dL 3.2-5.0 [facility] Work Phone: [phone] Serum or plasma calcium amos urement (mass/volume)on 06-29-2021 Calcium [Mass/Vol] 9.1 mg/dL 8.5-10.1 [facility] Work Phone: [phone] Serum or plasma cholesterol in HDL measurement (mass/volume)on 06-29-2021 Cholesterol in HDL [Mass/Vol] 58 mg/dL [facility] Work Phone: Comment on above: The drugs N-Acetylcy steine and Metamizole may falsely depress this assay. Reference Range HDL <40 mg/dL Low HDL Cholesterol HDL >or= 60 mg/dL High HDL Cholesterol Serum or plasma cholesterol in VLDL measurement (mass/volume)on 06-29-2021 Cholesterol in VLDL [Mass/Vol] 25 mg/dL 5-40 [facility] Work Phone: Serum or plasma creatinine m easurement (mass/volume)on 06-29-2021 Creatinine [Mass/Vol] 0.65 mg/dL 0.55-1.[address] [facility] Work Phone: Comment on above: The validity of the calculated GFR & GFRAA in patients over 70 years has not been determined. Clinical correlation is essential. Serum or plasma low density lipoprotein (LDL) cholesterol measurement (mass/volume)on 06-29-2021 Cholesterol in LDL [Mass/Vol] 155 mg/dL 0-130 [facility] Work Phone: Serum or plasma urea nitroge n measurement (mass/volume)on 06-29-2021 Urea nitrogen [Mass/Vol] 15 mg/dL 7-18 [facility] Work Phone: Thin prep Papanicolaou smear with manual screeningon 06-29-2021 Thin prep Papanicolaou smear with manual screening 30 U/L 15-37 [facility] Work Phone: Thin prep Papanicolaou smear with manual screening 4 5-15 [facility] Work Phone: AOH MAIN OR Intraop Recordon 12-17-2017 AOH MAIN OR Intraop Record Normal [facility] ([place]) XR FLUORO 1-2 HRS TECH TIMEo n 12-12-2017 XR FLUORO 1-2 HRS TECH TIME ORIGINAL Images acquired, not reported on this accession number. Normal [facility] [facility]) .Auto Diffon 12-11-2017 Ammonia mass conc (P) 0.90 10 3/mcL Normal 0.15-1.00 [facility] ([place]) Comment on above: Performed By: #### C BC, ADIFF, ANEU, GFR, BMP ####[facility] [address] [place], [place] [address] Basophils Auto #/vol (Bld) 0.00 10 3/mcL Normal 0.00-0 .19 [facility] ([place]) Comment on above: Performed By: #### C BC, ADIFF, ANEU, GFR, BMP ####[facility] [address] [place], [place] [address] Basophils/100 WBC Auto (Bld) 0.3 % Normal 0.0-2.5 [facility] ([place]) Comment on above: Performed By: #### C BC, ADIFF, ANEU, GFR, BMP ####[facility] [address] [place], [place] [address] Eosinophils Auto #/vol (Bld) 0.00 10 3/mcL Normal 0.00 -0.40 [facility] ([place] Comment on above: Performed By: #### C BC, ADIFF, ANEU, GFR, BMP ####[facility] [address] [place], [place] [address] Eosinophils/100 WBC Auto (Bld) 0.2 % Normal 0.0-7.0 [facility] ([place] Comment on above: Performed By: #### C BC, ADIFF, ANEU, GFR, BMP ####[facility] [address] [place], [place] [address] Lymphocytes Auto #/vol (Bld) 1.40 10 3/mcL Normal 0.77 -3.85 [facility] ([place] Comment on above: Performed By: #### C BC, ADIFF, ANEU, GFR, BMP ####[facility] [place], [place] [address] Lymphocytes/100 WBC Auto (Bld) 14.5 % Normal 10.0-50.0 [facility] ([place] Comment on above: Performed By: #### C BC, ADIFF, ANEU, GFR, BMP ####[facility] [place], [place] [address] Monocytes/100 WBC Auto (Bld) 9.8 % Normal 1.7-13. 0 [facility] ([place] Comment on above: Performed By: #### C BC, ADIFF, ANEU, GFR, BMP ####[facility] [address] [place], [place] [address] Neutrophils/100 WBC Auto (Bld) 75.2 % Normal 37.0-80.0 [facility] ([place] Comment on above: Performed By: #### C BC, ADMICHEL, ANEU, GFR, BMP ####[facility] [address] [place], [place] [address] .GFRon 12-11-2017 GFR 120 ml/min/1.73sqm Normal [facility] ([place] Comment on above: Result Comment: GFR Population [...] BC, ADMICHEL, ANEU, GFR, BMP ####[facility] [place], [place] [address] GFR Non- 99 ml/min/1.73sqm Normal [facility] ([place] Comment on above: Result Comment: GFR Population [...] BC, ADIFF, ANEU, GFR, BMP ####[facility] [place], [place] [address] .NEUABSon 12-11-2017 Neutrophil, Absolute 7.30 10 3/mcL High 2.85-6.16 [facility] Comment on above: Performed By: #### C BC, ADIFF, ANEU, GFR, BMP ####[facility] [place], [place] [address] BMPon 12-11-2017 Calcium mass conc 8.4 mg/dL Normal 8.4-10.2 [facility] ([place] Comment on above: Performed By: #### C BC, ADIFF, ANEU, GFR, BMP ####[address] [place], [place] [address] Chloride molar conc 106 mmol/L Normal 98-107 [facility] ([place] Comment on above: Performed By: #### C BC, ADIFF, ANEU, GFR, BMP ####[address] [place] [id number] CO2 molar conc 27 mmol/L Normal 22-29 [facility] ([place] Comment on above: Performed By: #### C BC, ADIFF, ANEU, GFR, BMP ####[address] [place], [place] [address] Creatinine mass conc 0.62 mg/dL Normal 0.55-1.02 [facility] ([place]) Comment on above: Performed By: #### C BC, ADIFF, ANEU, GFR, BMP ####[facility] [place], [place] [address] Electrolyte Balance 9.0 mEq/L Normal [facility] ([place] Comment on above: Performed By: #### C BC, ADIFF, ANEU, GFR, BMP ####[facility] [place] [id number] Glucose mass conc 135 mg/dL High 70-105 [facility] ([place] Comment on above: Performed By: #### C BC, ADIFF, ANEU, GFR, BMP ####[facility] [place] [id number] Potassium molar conc 3.8 mmol/L Normal 3.5-5.1 [facility] ([place]) Comment on above: Performed By: #### C BC, ADIFF, ANEU, GFR, BMP ####[address] [place], [place] [address] Sodium molar conc 142 mmol/L Normal 136-145 [facility] ([place] Comment on above: Performed By: #### C BC, ADIFF, ANEU, GFR, BMP ####[address] [place], [place] [address] Urea nitrogen mass conc 13 mg/dL Normal 7-18 [facility] Comment on above: Performed By: #### C BC, ADIFF, ANEU, GFR, BMP ####[address] [place], [place] [address] Urea nitrogen/Creatinine mass ratio 21 ratio Normal 7-27 [facility] ([place] Comment on above: Performed By: #### C BC, ADIFF, ANEU, GFR, BMP ####[address] [place], [place] [address] CBCon 12-11-2017 Erythrocyte distribution width Auto Ratio (RBC) 14.2 % Normal 11.5-14.5 [facility] ([place] Comment on above: Performed By: #### C BC, ADIFF, ANEU, GFR, BMP ####[address] [place], [place] [address] Hematocrit Auto Volume Fraction (Bld) 24.7 % Low 37.0-47.0 [facility] ([place] Comment on above: Performed By: #### C BC, ADIFF, ANEU, GFR, BMP ####[address] [place], [place] [address] Hemoglobin mass conc (Bld) 8.7 G/dL Low 12.0-16.0 [facility] ([place] Comment on above: Performed By: #### C BC, ADIFF, ANEU, GFR, BMP ####[address] [place], [place] [address] MCH Auto Entitic mass (RBC) 30.5 pg Normal 27.0-31. 2 [facility] ([place] Comment on above: Performed By: #### C BC, ADIFF, ANEU, GFR, BMP ####[facility] [place], [place] [address] MCHC Auto mass conc (RBC) 35.2 G/dL Normal 33.0-37.0 [facility] ([place] Comment on above: Performed By: #### C BC, ADIFF, ANEU, GFR, BMP ####[facility] [place], [place] [address] MCV Auto Entitic volume (RBC) 86.6 fL Normal 80.0-94.0 [facility] ([place] Comment on above: Performed By: #### C BC, ADIFF, ANEU, GFR, BMP ####[facility] [place], [place] [address] Platelet mean volume Auto Entitic volume (Bld) 7.1 fL Low 7.4-10.4 [facility] ([place] Comment on above: Performed By: #### C BC, ADIFF, ANEU, GFR, BMP ####[facility] [place], [place] [address] Platelets Auto #/vol (Bld) 296 10 3/mcL Normal 130-400 [facility] ([place] Comment on above: Performed By: #### C BC, ADIFF, ANEU, GFR, BMP ####[facility] [address] [place], [place] [address] RBC Auto #/vol (Bld) 2.85 10 6/mcL Low 4.20-5.40 [facility] Comment on above: Performed By: #### C BC, ADIFF, ANEU, GFR, BMP ####[facility] [address] [place], [place] [address] WBC Auto #/vol (Bld) 9.70 10 3/mcL Normal 4.60-10.80 [facility] Comment on above: Performed By: #### C BC, ADIFF, ANEU, GFR, BMP ####[facility] [place], [place] [address] Depart Summaryon 12-11-2017 Depart Summary Normal [facility] ([place]) Discharge Note-Nursingon Discharge Note-Nursing Normal [facility]) [facility] marinayon 12-11-2017 [facility] Normal [facility]) [facility] Consultation Noteon 12-10-2017 [facility] Normal [facility]) [facility] Operative Reporton 12-10-2017 [facility] Oper[facility] Report Normal [facility] ([place]) XR HIP LEFT W/PELVIS 4 VIEWS on 12-10-2017 XR HIP LEFT W/PELVIS 4 VIEWS ORIGINALXR HIP LEFT W/PELVIS 4 VIEWS CLINICAL STATEMENT: Status Post Arthroplasty COMPARISON: None FINDINGS: AP view pelvis: The iliopectineal and ilioischial lines are intact. Bilateral hip arthroplasties noted. There is no fracture. 2 views LEFT hip: The arthroplasty is intact. No malalignment. No osseous abnormality is seen in the [place] LEFT hip. IMPRESSION: 1. Intact LEFT hip arthroplasty.2. No fracture Interpreted By: Margarito Grewalreliminary Report By: Margarito Grewal MDElectronically Signed By: Margarito Grewal MD Dictated Date: 12/10/2017 11:51:43 AM Prelim Date: 12/10/2017 11:51:43 AM Sign Date: 12/10/2017 11:53:16 AM Normal [facility] ([place]) .Auto Diffon 11-13-2017 Ammonia mass conc (P) 1.00 10 3/mcL Normal 0.15-1.00 [facility] ([place] Comment on above: Performed By: #### C MARTA BUTLER ANEU, GFR, BMP ####[facility] [address] [place], [place] [address] Basophils Auto #/vol (Bld) 0.00 10 3/mcL Normal 0.00-0 .19 [facility] ([place] Comment on above: Performed By: #### C MARTA BUTLER ANEU, GFR, BMP ####[facility] [address] [place], [place] [address] Basophils/100 WBC Auto (Bld) 0.1 % Normal 0.0-2.5 [facility] ([place] Comment on above: Performed By: #### C BC, ADIFF, ANEU, GFR, BMP ####[facility] [address] [place], [place] [address] Eosinophils Auto #/vol (Bld) 0.00 10 3/mcL Normal 0.00 -0.40 [facility] ([place]) Comment on above: Performed By: #### C BC, ADIFF, ANEU, GFR, BMP ####[facility] [address] [place], [place] [address] Eosinophils/100 WBC Auto (Bld) 0.0 % Normal 0.0-7.0 [facility] ([place] Comment on above: Performed By: #### C BC, ADIFF, ANEU, GFR, BMP ####[facility] [place], [place] [address] Lymphocytes Auto #/vol (Bld) 1.20 10 3/mcL Normal 0.77 -3.85 [facility] ([place] Comment on above: Performed By: #### C BC, ADIFF, ANEU, GFR, BMP ####[address] [place], [place] [address] Lymphocytes/100 WBC Auto (Bld) 9.7 % Low 10.0-50.0 [facility] ([place] Comment on above: Performed By: #### C BC, ADIFF, ANEU, GFR, BMP ####[address] [place], [place] [address] Monocytes/100 WBC Auto (Bld) 8.6 % Normal 1.7-13. 0 [facility] ([place] Comment on above: Performed By: #### C BC, ADIFF, ANEU, GFR, BMP ####[address] [place], [place] [address] Neutrophils/100 WBC Auto (Bld) 81.6 % High 37.0-80.0 [facility] ([place]) Comment on above: Performed By: #### C BC, ADIFF, ANEU, GFR, BMP ####[facility] [place], [place] [address] .GFRon 11-13-2017 GFR Non- >60 Normal [facility] ([place] Comment on above: Result Comment: GFR [...] BC, ADIFF, ANEU, GFR, BMP ####[address] [place], [place] [address] GFR 135 ml/min/1.73sqm Normal [facility] ([place]) Comment on above: Result Comment: GFR Population [...] BC, ADIFF, ANEU, GFR, BMP ####[facility] [place], [place] [address] .NEUABSon 11-13-2017 Neutrophil, Absolute 9.70 10 3/mcL High 2.85-6.16 [facility] Comment on above: Performed By: #### C BC, ADIFF, ANEU, GFR, BMP ####[address] [place], [place] [address] BMPon 11-13-2017 Glucose mass conc 161 mg/dL High 70-105 [facility] ([place] Comment on above: Performed By: #### C BC, ADIFF, ANEU, GFR, BMP ####[address] [place], [place] [address] Calcium mass conc 8.6 mg/dL Normal 8.4-10.2 [facility] ([place] Comment on above: Performed By: #### C BC, ADIFF, ANEU, GFR, BMP ####[address] [place], [place] [address] CO2 molar conc 29 mmol/L Normal 22-29 [facility] ([place] Comment on above: Performed By: #### C BC, ADIFF, ANEU, GFR, BMP ####[address] [place], [place] [address] Creatinine mass conc 0.6 mg/dL Normal 0.6-1.2 [facility] ([place]) Comment on above: Performed By: #### C BC, ADIFF, ANEU, GFR, BMP ####[address] [place], [place] [address] Electrolyte Balance 6.0 mEq/L Normal [facility] ([place]) Comment on above: Performed By: #### C BC, ADIFF, ANEU, GFR, BMP ####[address] [place], [place] [address] Urea nitrogen/Creatinine mass ratio 20 ratio Normal 7-27 [facility] ([place] Comment on above: Performed By: #### C BC, ADIFF, ANEU, GFR, BMP ####[address] [place], [place] [address] Chloride molar conc 108 mmol/L High 98-107 [facility] ([place] Comment on above: Performed By: #### C BC, ADIFF, ANEU, GFR, BMP ####[address] [place], [place] [address] Potassium molar conc 4.3 mmol/L Normal 3.5-5.1 [facility] ([place]) Comment on above: Performed By: #### C BC, ADIFF, ANEU, GFR, BMP ####[address] [place], [place] [address] Sodium molar conc 143 mmol/L Normal 136-146 [facility] ([place] Comment on above: Performed By: #### C BC, ADIFF, ANEU, GFR, BMP ####[address] [place], [place] [address] Urea nitrogen mass conc 12.1 mg/dL Normal 7.0-18.0 [facility] Comment on above: Performed By: #### C BC, ADIFF, ANEU, GFR, BMP ####[facility] [place], [place] [address] CBCon 11-13-2017 Erythrocyte distribution width Auto Ratio (RBC) 13.9 % Normal 11.5-14.5 [facility] ([place] Comment on above: Performed By: #### C BC, ADIFF, ANEU, GFR, BMP ####[address] [place], [place] [address] Hematocrit Auto Volume Fraction (Bld) 28.6 % Low 37.0-47.0 [facility] ([place] Comment on above: Performed By: #### C BC, ADIFF, ANEU, GFR, BMP ####[address] [place], [place] [address] Hemoglobin mass conc (Bld) 9.7 G/dL Low 12.0-16.0 [facility] ([place] Comment on above: Performed By: #### C BC, ADIFF, ANEU, GFR, BMP ####[facility] [place], [place] [address] MCH Auto Entitic mass (RBC) 29.8 pg Normal 27.0-31. 2 [facility] ([place] Comment on above: Performed By: #### C BC, ADIFF, ANEU, GFR, BMP ####[address] [place], [place] [address] MCHC Auto mass conc (RBC) 34.1 G/dL Normal 33.0-37.0 [facility] ([place] Comment on above: Performed By: #### C BC, ADIFF, ANEU, GFR, BMP ####[facility] [place], [place] [address] MCV Auto Entitic volume (RBC) 87.3 fL Normal 80.0-94.0 [facility] ([place] Comment on above: Performed By: #### C BC, ADIFF, ANEU, GFR, BMP ####[facility] [address] [place], [place] [address] Platelet mean volume Auto Entitic volume (Bld) 7.7 fL Normal 7.4-10.4 [facility] ([place] Comment on above: Performed By: #### C BC, ADIFF, ANEU, GFR, BMP ####[facility] [address] [place], [place] [address] Platelets Auto #/vol (Bld) 285 10 3/mcL Normal 130-400 [facility] ([place] Comment on above: Performed By: #### C BC, ADIFF, ANEU, GFR, BMP ####[facility] [address] [place], [place] [address] RBC Auto #/vol (Bld) 3.27 10 6/mcL Low 4.20-5.40 [facility] Comment on above: Performed By: #### C BC, ADIFF, ANEU, GFR, BMP ####[facility] [address] [place], [place] [address] WBC Auto #/vol (Bld) 11.90 10 3/mcL High 4.60-10.80 [facility]) Comment on above: Performed By: #### C BC, ADIFF, ANEU, GFR, BMP ####[facility] [address] [place], [place] [address] Depart Summaryon 11-13-2017 Depart Summary Normal [facility]) Internal Medicine Progress N oteon 11-13-2017 Protein mass conc Normal [facility]) [facility] ummaryon 11-13-2017 [facility] Summary Normal [facility]) XR FLUORO 1-2 HRS TECH TIMEo n 11-13-2017 XR FLUORO 1-2 HRS TECH TIME ORIGINAL Images acquired, not reported on this accession number. Normal [facility]) [facility] MAIN OR Intraop Recordon 11-12-2017 AO MAIN OR Intraop Record Normal [facility]) [facility] Consultation Noteon 11-12-2017 [facility] Consultation Note Normal [facility] ([place]) [facility] Operative Reporton 11-12-2017 [facility] Operative Report Normal [facility] ([place]) XR HIP RIGHT W/PELVIS 4 VIEW Son [...] PM Sign Date: 11/12/2017 12:03:15 PM Normal [facility]) [facility] Pre-Surgical Histor y AND Physicalon 11-05-2017 [facility] Pre-Surgical History AND Physical Normal [facility]) .Auto Diffon 10-30-2017 Ammonia mass conc (P) 0.50 10 3/mcL Normal 0.15-1.00 [facility] ([place]) Comment on above: Performed By: #### C SADIE BUTLERIFF, ANEU, GFR, BMP ####[facility] [place], [place] [address] Basophils Auto #/vol (Bld) 0.10 10 3/mcL Normal 0.00-0 .19 [facility] ([place]) Comment on above: Performed By: #### C MARTA BUTLER ANEU, GFR, BMP ####[address] [place], [place] [address] Basophils/100 WBC Auto (Bld) 1.4 % Normal 0.0-2.5 [facility] ([place]) Comment on above: Performed By: #### C BCMARTA ANEU, GFR, BMP ####[address] [place], [place] [address] Eosinophils Auto #/vol (Bld) 0.10 10 3/mcL Normal 0.00 -0.40 [facility] ([place]) Comment on above: Performed By: #### C MARTA BUTLER, ANEU, GFR, BMP ####[facility] [address] [place], [place] [address] Eosinophils/100 WBC Auto (Bld) 1.1 % Normal 0.0-7.0 [facility] ([place] Comment on above: Performed By: #### C BC, ADIFF, ANEU, GFR, BMP ####[facility] [place], [place] [address] Lymphocytes Auto #/vol (Bld) 3.10 10 3/mcL Normal 0.77 -3.85 [facility] ([place]) Comment on above: Performed By: #### C BC, ADIFF, ANEU, GFR, BMP ####[facility] [place], [place] [address] Lymphocytes/100 WBC Auto (Bld) 40.2 % Normal 10.0-50.0 [facility] ([place] Comment on above: Performed By: #### C BC, ADIFF, ANEU, GFR, BMP ####[facility] [place], [place] [address] Monocytes/100 WBC Auto (Bld) 7.1 % Normal 1.7-13. 0 [facility] ([place] Comment on above: Performed By: #### C BC, ADIFF, ANEU, GFR, BMP ####[facility] [place], [place] [address] Neutrophils/100 WBC Auto (Bld) 50.2 % Normal 37.0-80.0 [facility] ([place] Comment on above: Performed By: #### C BC, ADIFF, ANEU, GFR, BMP ####[address] [place], [place] [address] .GFRon 10-30-2017 GFR 129 ml/min/1.73sqm Normal [facility] ([place] Comment on above: Result Comment: GFR [...] BC, ADIFF, ANEU, GFR, BMP ####[address] [place], [place] [address] GFR Non- >60 Normal [facility] ([place]) Comment on above: Result Comment: GFR Population [...] BC, ADIFF, ANEU, GFR, BMP ####[facility] [place], [place] [address] .NEUABSon 10-30-2017 Neutrophil, Absolute 3.90 10 3/mcL Normal 2.85-6.16 [facility] Comment on above: Performed By: #### C BC, ADIFF, ANEU, GFR, BMP ####[address] [place], [place] [address] BMPon 10-30-2017 Chloride molar conc 102 mmol/L Normal 98-107 [facility] ([place] Comment on above: Performed By: #### C BC, ADIFF, ANEU, GFR, BMP ####[address] [place], [place] [address] Electrolyte Balance 9.0 mEq/L Normal [facility] ([place] Comment on above: Performed By: #### C BC, ADIFF, ANEU, GFR, BMP ####[address] [place], [place] [address] Potassium molar conc 3.8 mmol/L Normal 3.5-5.1 [facility] ([place]) Comment on above: Performed By: #### C BC, ADIFF, ANEU, GFR, BMP ####[address] [place], [place] [address] Sodium molar conc 138 mmol/L Normal 136-146 [facility] ([place] Comment on above: Performed By: #### C BC, ADIFF, ANEU, GFR, BMP ####[address] [place], [place] [address] Calcium mass conc 9.5 mg/dL Normal 8.4-10.2 [facility] ([place] Comment on above: Performed By: #### C BC, ADIFF, ANEU, GFR, BMP ####[address] [place], [place] [address] CO2 molar conc 27 mmol/L Normal 22-29 [facility] ([place] Comment on above: Performed By: #### C BC, ADIFF, ANEU, GFR, BMP ####[address] [place], [place] [address] Creatinine mass conc 0.6 mg/dL Normal 0.6-1.2 [facility] ([place]) Comment on above: Performed By: #### C BC, ADIFF, ANEU, GFR, BMP ####[address] [place], [place] [address] Glucose mass conc 103 mg/dL Normal 70-105 [facility] ([place] Comment on above: Performed By: #### C BC, ADIFF, ANEU, GFR, BMP ####[address] [place], [place] [address] Urea nitrogen mass conc 12.8 mg/dL Normal 7.0-18.0 [facility] Comment on above: Performed By: #### C BC, ADIFF, ANEU, GFR, BMP ####[address] [place], [place] [address] Urea nitrogen/Creatinine mass ratio 21 ratio Normal 7-27 [facility] ([place] Comment on above: Performed By: #### C BC, ADIFF, ANEU, GFR, BMP ####[address] [place], [place] [address] CBCon 10-30-2017 Erythrocyte distribution width Auto Ratio (RBC) 14.3 % Normal 11.5-14.5 [facility] ([place] Comment on above: Performed By: #### C BC, ADIFF, ANEU, GFR, BMP ####[address] [place], [place] [address] Hematocrit Auto Volume Fraction (Bld) 38.1 % Normal 37.0-47.0 [facility] ([place] Comment on above: Performed By: #### C BC, ADIFF, ANEU, GFR, BMP ####[address] [place], [place] [address] Hemoglobin mass conc (Bld) 12.9 G/dL Normal 12.0-16.0 [facility] ([place] Comment on above: Performed By: #### C BC, ADIFF, ANEU, GFR, BMP ####[address] [place], [place] [address] MCH Auto Entitic mass (RBC) 29.6 pg Normal 27.0-31. 2 [facility] ([place] Comment on above: Performed By: #### C BC, ADIFF, ANEU, GFR, BMP ####[address] [place], [place] [address] MCHC Auto mass conc (RBC) 33.9 G/dL Normal 33.0-37.0 [facility] ([place] Comment on above: Performed By: #### C BC, ADIFF, ANEU, GFR, BMP ####[address] [place], [place] [address] MCV Auto Entitic volume (RBC) 87.4 fL Normal 80.0-94.0 [facility] ([place] Comment on above: Performed By: #### C BC, ADIFF, ANEU, GFR, BMP ####[address] [place], [place] [address] Platelet mean volume Auto Entitic volume (Bld) 7.6 fL Normal 7.4-10.4 [facility] ([place] Comment on above: Performed By: #### C BC, ADIFF, ANEU, GFR, BMP ####[facility] [address] [place], [place] [address] Platelets Auto #/vol (Bld) 334 10 3/mcL Normal 130-400 [facility] ([place] Comment on above: Performed By: #### C BC, ADIFF, ANEU, GFR, BMP ####[facility] [place], [place] [address] RBC Auto #/vol (Bld) 4.35 10 6/mcL Normal 4.20-5.40 [facility] Comment on above: Performed By: #### C BC, ADIFF, ANEU, GFR, BMP ####[facility] [place], [place] [address] WBC Auto #/vol (Bld) 7.70 10 3/mcL Normal 4.60-10.80 [facility] Comment on above: Performed By: #### C BC, ADIFF, ANEU, GFR, BMP ####[facility] [address] [place], [place] [address] Office Visit: NATY and asthma on 07-26-2016 Documentation of current medications (procedure) Done Invalid Interpretation Code [facility] Work Phone: Protein mass conc Done [facility] Work Phone: Tobacco smoking status [facility] Never Inva lid Interpretation Code [facility] Work Phone: Tobacco smoking status [facility] Former smoker [facility] Work Phone: Tobacco use [facility] Former smoker Invalid Interpretation Code [facility] Work Phone: Vital Signs Date Time Vital Sign Value Performing Clinician Facility 03-29-2023 09:49-0500 Body height 158.[address] Nicole Moreno Work Phone: [facility] 03-29-2023 09:49-0500 Body mass index (BMI) [Ratio] 30.7 kg/m2 Dr. Nicole Moreno Work Phone: [facility] 03-29-2023 09:49-0500 Body weight 77.[address] Nicole Moreno Work Phone: [facility] 12-09-2022 13:36-0400 Body height 158.75 cm [facility] 12-09-2022 13:36-0400 Body mass index (BMI) [Ratio] 34 kg/m2 [facility] 12-09-2022 13:36-0400 Body temperature 101.2 [degF] [facility] 12-09-2022 13:36-0400 Body weight 85.68 kg [facility] 12-09-2022 13:36-0400 Diastolic blood pressure 78 mm[Hg] [facility] 12-09-2022 13:36-0400 Heart rate 135 /min [facility] 12-09-2022 13:36-0400 Respiratory rate 18 /min [facility] 12-09-2022 13:36-0400 SaO2% (BldA) [Mass fraction] 95 % [facility] 12-09-2022 13:36-0400 Systolic blood pressure 163 mm[Hg] [facility] 10-23-2022 14:54-0400 Body height 160.[address] Nicole Moreno Work Phone: [facility] 10-23-2022 14:54-0400 Body mass index (BMI) [Ratio] 33.6 kg/m2 Dr. Nicole Moreno Work Phone: [facility] 10-23-2022 14:54-0400 Body temperature 98.6 [degF] Dr. Nicole Moreno Work Phone: [facility] 10-23-2022 14:54-0400 Body weight 86.[address] Nicole Moreno Work Phone: [facility] 10-23-2022 14:54-0400 Diastolic blood pressure 61 mm[Hg] Dr. Nicole Moreno Work Phone: [facility] 10-23-2022 14:54-0400 Heart rate 71 /min Dr. Nicole Moreno Work Phone: [facility] 10-23-2022 14:54-0400 Respiratory rate 16 /min Dr. Nicole Moreno Work Phone: [facility] 10-23-2022 14:54-0400 SaO2% (BldA) [Mass fraction] 98 % Dr. Nicole Moreno Work Phone: [facility] 10-23-2022 14:54-0400 Systolic blood pressure 99 mm[Hg] Dr. Nicole Moreno Work Phone: [facility] 07-31-2022 13:08-0400 Body mass index (BMI) [Ratio] 35.4 kg/m2 Dr. Nicole Moreno Work Phone: [facility] 07-31-2022 13:08-0400 Body weight 90.[address] Nicole Moreno Work Phone: [facility] 07-31-2022 13:08-0400 Diastolic blood pressure 75 mm[Hg] Dr. Nicole Moreno Work Phone: [facility] 07-31-2022 13:08-0400 Heart rate 75 /min Dr. Nicole Moreno Work Phone: [facility] 07-31-2022 13:08-0400 SaO2% (BldA) [Mass fraction] 95 % Dr. Nicole Moreno Work Phone: [facility] 07-31-2022 13:08-0400 Systolic blood pressure 117 mm[Hg] Dr. Nicole Moreno Work Phone: [facility] 07-10-2022 07:30-0500 Body temperature 97.5 [degF] Dr. Nicole Moreno Work Phone: [facility] 07-10-2022 07:30-0500 Diastolic blood pressure 66 mm[Hg] Dr. Nicole Moreno Work Phone: [facility] 07-10-2022 07:30-0500 Heart rate 92 /min Dr. Nicole Moreno Work Phone: [facility] 07-10-2022 07:30-0500 Respiratory rate 16 /min Dr. Nicole Moreno Work Phone: [facility] 07-10-2022 07:30-0500 SaO2% (BldA) [Mass fraction] 97 % Dr. Nicole Moreno Work Phone: [facility] 07-10-2022 07:30-0500 Systolic blood pressure 112 mm[Hg] Dr. Nicole Moreno Work Phone: [facility] 07-10-2022 05:58-0500 Body height 160.[address] Nicole Moreno Work Phone: [facility] 07-10-2022 05:58-0500 Body mass index (BMI) [Ratio] 37.2 kg/m2 Dr. Nicole Moreno Work Phone: [facility] 07-10-2022 05:58-0500 Body weight 95.[address] Nicole Moreno Work Phone: [facility] 05-31-2022 09:08-0500 Body mass index (BMI) [Ratio] 40.4 kg/m2 Dr. Nicole Moreno Work Phone: [facility] 05-31-2022 09:08-0500 Body weight 100.[address] Nicole Moreno Work Phone: [facility] 05-31-2022 09:08-0500 Diastolic blood pressure 82 mm[Hg] Dr. Nicole Moreno Work Phone: [facility] 05-31-2022 09:08-0500 Heart rate 91 /min Dr. Nicole Moreno Work Phone: [facility] 05-31-2022 09:08-0500 SaO2% (BldA) [Mass fraction] 94 % Dr. Nicole Moreno Work Phone: [facility] 05-31-2022 09:08-0500 Systolic blood pressure 129 mm[Hg] Dr. Nicole Moreno Work Phone: [facility] 08-02-2021 14:50-0400 Diastolic blood pressure 68 mm[Hg] Dr. Nicole Moreno Work Phone: [facility] Work Phone: 08-02-2021 14:50-0400 Systolic blood pressure 130 mm[Hg] Dr. Nicole Moreno Work Phone: [facility] Work Phone: 08-02-2021 14:06-0400 Body height 157.[address] Nicole Moreno Work Phone: [facility] Work Phone: 08-02-2021 14:06-0400 Body mass index (BMI) [Ratio] 44.8 kg/m2 Dr. Nicole Moreno Work Phone: [facility] Work Phone: 08-02-2021 14:06-0400 Body weight 111.[address] Nicole Moreno Work Phone: [facility] Work Phone: 08-02-2021 14:06-0400 Heart rate 68 /min Dr. Nicole Moreno Work Phone: [facility] Work Phone: 08-02-2021 14:06-0400 Respiratory rate 18 /min Dr. Nicole Moreno Work Phone: [facility] Work Phone: 06-12-2021 14:07-0500 Body mass index (BMI) [Ratio] 45.1 kg/m2 Dr. Nicole Moreno Work Phone: [facility] Work Phone: 06-12-2021 14:07-0500 Body weight 112.[address] Nicole Moreno Work Phone: [facility] Work Phone: 06-12-2021 14:07-0500 Diastolic blood pressure 62 mm[Hg] Dr. Nicole Moreno Work Phone: [facility] Work Phone: 06-12-2021 14:07-0500 Heart rate 72 /min Dr. Nicole Moreno Work Phone: [facility] Work Phone: 06-12-2021 14:07-0500 Respiratory rate 16 /min Dr. Nicole Moreno Work Phone: [facility] Work Phone: 06-12-2021 14:07-0500 Systolic blood pressure 174 mm[Hg] Dr. Nicole Moreno Work Phone: [facility] Work Phone: 07-26-2016 14:09-0500 BMI (Body Mass Index) 34.87 kg/m2 Denise Au LPN [facility] Work Phone: 07-26-2016 14:09-0500 Body Temperature 99.4 [degF] Denise Mynorho WATER PUMPER [facility] [place] Work Phone: 07-26-2016 14:09-0500 BP Diastolic 71 mm[Hg] Denise Mynorho WATER PUMPER [facility] Work Phone: 07-26-2016 14:09-0500 BP Systolic 149 mm[Hg] Denise Yensho WATER PUMPER [facility] Work Phone: 07-26-2016 14:09-0500 Height 161.29 cm Denise Mynorho WATER PUMPER [facility] Work Phone: 07-26-2016 14:09-0500 Pulse (Heart Rate) 98 /min Denise Mynorho WATER PUMPER [facility] Work Phone: 07-26-2016 14:09-0500 Respiratory Rate 18 /min Denise Mynorho WATER PUMPER [facility] Work Phone: 07-26-2016 14:09-0500 Weight 90.72 kg Denise Mynorho WATER PUMPER [facility] Work Phone: 05-31-2016 13:39-0500 Body Temperature 98.06 [degF] Denise Mynorho WATER PUMPER [facility] Work Phone: 05-31-2016 13:39-0500 BSA (Body Surface Area) 2.01 m2 Denise Mynorho WATER PUMPER [facility] Phone: 05-31-2016 13:39-0500 Height 161.29 cm Denise Loweho WATER PUMPER [facility] Work Phone: Encounters Encounter Date Encounter Type Care Provider Facility Start: 09-22-2024 End: 09-22-[address] Nicole Moreno DO Work Phone: [facility] Work Phone: Start: 09-22-2024 End: 09-22-[address] Nicole Moreno DO -Outpatient Bone Densitometry Work Phone: Start: 09-22-2024 End: 09-22-2024 ambulatory Nicole Moreno Facility:[facility] Start: 07-29-2024 End: 07-29-[address] Nicole Moreno DO Work Phone: [facility] Work Phone: Start: 07-29-2024 End: 07-29-[address] Nicole Moreno DO -Laboratory, [place] Work Phone: Start: 07-29-2024 End: 07-29-2024 ambulatory Nicole Moreno Facility:[facility] Start: 03-06-2024 End: 03-06-2024 [facility] Start: 09-09-2023 End: 09-09-2023 ambulatory [facility] Work Phone: Start: 09-09-2023 End: 09-09-2023 Patient encounter procedure [facility] Work Phone: Start: 09-02-2023 End: 09-02-2023 ambulatory [facility] Work Phone: Start: 09-02-2023 End: 09-02-2023 Patient encounter procedure [facility] Start: 05-30-2023 End: 05-30-[address] Nicole Moreno Work Phone: [facility] Work Phone: Start: 05-30-2023 End: 05-30-[address] Nicole Moreno Work Phone: [facility] Start: 04-18-2023 End: 04-18-[address] Nicole Moreno Work Phone: [facility] Work Phone: Start: 04-18-2023 End: 04-18-[address] Nicole Moreno Work Phone: [facility] Scan, [facility] Work Phone: Start: 03-29-2023 End: 03-29-[address] Nicole Moreno Work Phone: [facility] Work Phone: Start: 03-20-2023 End: 03-20-2023 ambulatory [facility] Work Phone: Start: 03-20-2023 End: 03-20-2023 Patient encounter procedure [facility] Start: 12-09-2022 End: 12-09-2022 [facility] Start: 10-30-2022 End: 10-30-[address] Nicole Moreno Work Phone: [facility] Work Phone: Start: 10-30-2022 End: 10-30-[address] Nicole Moreno Work Phone: [facility]-Outpatient Breast Imaging Start: 10-23-2022 End: 10-23-[address] Nicole Moreno Work Phone: [facility] Start: 10-05-2022 End: 10-05-[address] Nicole Moreno Work Phone: [facility] Start: 07-31-2022 End: 07-31-[address] Nicole Moreno Work Phone: [facility] Start: 07-10-2022 Non-patient / Non-visit Dr. Nicole Moreno Work Phone: [facility] Start: 07-10-2022 End: 07-10-2022 Admission to same day surgery center Dr. Nicole Moreno Work Phone: [facility]-Endoscopy Start: 07-10-2022 End: 07-10-[address] Nicole Moreno Work Phone: [facility] Work Phone: Start: 05-31-2022 End: 05-31-[address] Nicole Moreno Work Phone: [facility] Start: 04-13-2022 End: 04-13-2022 ambulatory [facility] Work Phone: Start: 04-13-2022 End: 04-13-2022 Patient encounter procedure [facility] Start: 03-15-2022 End: 03-15-2022 ambulatory [facility] Work Phone: Start: 03-15-2022 End: 03-15-2022 [facility] Start: 08-30-2021 End: 08-30-[address] Nicole Moreno Work Phone: [facility]-Laboratory Start: 08-02-2021 End: 08-02-[address] Nicole Moreno Work Phone: [facility] Start: 08-01-2021 Non-patient / Non-visit Dr. Nicole Moreno Work Phone: [place] [facility] Start: 08-01-2021 End: 08-01-[address] [facility] More[facility] Start: 06-29-2021 Non-patient / Non-visit Dr. Nicole Moreno Work Phone: [place] [facility] Start: 06-29-2021 End: 06-29-[address] [facility] More[facility] Start: 06-12-2021 End: 06-12-[address] Nicole Moreno Work Phone: [facility] Start: 12-13-2017 End: 02-06-2018 Patient encounter MILDA ESCUDERO Facility:[facility] Start: 12-10-2017 End: 12-11-2017 Evaluation and management of inpatient MILAD ESCUDERO Facility:[facility] Start: 11-12-2017 End: 11-13-2017 Evaluation and management of inpatient MILAD ESCUDERO Facility:[facility] Start: 10-30-2017 End: 10-31-2017 Patient encounter MILAD ESCUDERO Facility:[facility] Procedures Date Procedure Procedure Detail [...] Start: 05-31-2016 End: 07-24-2016 Brncspsm provocation eval [place] farmer spmtry w/admn agt Zana Hardwick DO Work Phone: Start: 05-31-2016 End: 07-24-2016 Cholesterol Zana Hardwick DO Work Phone: Start: 05-31-2016 End: 07-24-2016 Ct thorax w/o dye Zana Hardwick DO Work Phone: Plan of Treatment Date Care Activity Detail Author Start: 12-09-2022 [facility] Start: 07-10-2022 Colsc flx w/rmvl of tumor polyp lesion snare tq COLONOSCOPY W/LESION REMOVAL [facility] Start: 07-10-2022 Egd transoral biopsy single/multiple EGD BIOPSY SINGLE/MULTIPLE [facility] Start: 07-10-2022 Patient discharge [facility] Start: 07-26-2016 End: 07-26-2016 DMB DMB [facility] [employer] Phone: Start: 07-26-2016 End: 07-26-2016 Follow Up Appt 2 months Follow Up Appt 2 months [facility] [employer] Phone: Start: 07-26-2016 End: 07-26-2016 Retitration with follow up (patient on CPAP currently) Retitration with follow up (patient on CPAP currently) [facility] [employer] Phone: Start: 05-31-2016 End: 07-24-2016 Cholesterol Methylcholine inhalation challenge [facility] [employer] Phone: Start: 05-31-2016 End: 07-24-2016 Ct thorax w/o dye CT Chest without contrast [facility] [employer] Phone: Start: 05-31-2016 End: 05-31-2016 DMB DMB [facility] [employer] Phone: Start: 05-31-2016 End: 05-31-2016 Follow Up Appt 2 months Follow Up Appt 2 months [facility] [employer] Phone: Patient Education ED Pneumonia (Adult) [facility] Work Phone: Patient referral [facility] Work Phone: Radionuclide gastric emptying study [facility] Immunizations Immunization Date Immunization Notes Care Provider Fa cility 03-19-2019 influenza, injectabl e, quadrivalent, preservative free [facility] 03-19-2019 influenza, seasonal, injectable Dr. Nicole Moreno Work Phone: [facility] 03-03-2018 influenza, injectabl e, quadrivalent, preservative free [facility] 03-03-2018 influenza, seasonal, injectable Dr. Nicole Moreno Work Phone: [facility] 09-27-2017 influenza, injectabl e, quadrivalent, preservative free [facility] 02-13-2017 influenza, seasonal, injectable Dr. Nicole Moreno Work Phone: [facility] Payers Date Payer Category Payer Private Health Insurance [id number] 2024 Self-pay [id number] 2024 Unknown [id number] 2017 Private Health Insurance [id number] Private Health Insurance [id number] Unknown [id number] Unknown [facility] [id number] Unknown [id number] Unknown [id number] Social History Date Type Detail Facility Start: 08-02-2021 End: 03-29-2023 Tobacco smoking status NHIS Unknown if ever smoked [facility] Start: 01-24-2020 Spouse/ Signif icant Other [facility] Start: 12-10-2019 Non-smoker [facility] Start: 1960 Sex Assigned At Female [facility] Start: 03-29-2023 Tobacco smoking status NHIS Ex-smoker (finding) [facility] Start: 08-07-2024 Sex Female (finding) [facility] NEGATED: Highlighted row [facility] Medical Equipment Procedure Code Equipment Code Equipment [...] Cognitive function Level Of Cons ciousness Awake;Drowsy [facility] Work Phone: 07-10-2022 Cognitive function Touch/Shaking [facility] Work Phone: 07-10-2022 Cognitive function Patient Orien tation Person;Place;Time [facility] Work Phone: Clinical Notes 07-10-2022 Note Date & Type Note Facility 07-10-2022 Procedure note [facility] 07-10-2022 Procedure note [facility] 07-10-2022 Procedure note [facility] 07-10-2022 Procedure note [facility] Evaluation note Diagnosis Onset Date Essential hypertension acute LBBB (left bundle branch block) acute Mixed hyperlipidemia acute Palpitation acute Premature atrial contraction acute Premature ventricular contraction acute Essential hypertension acute Mixed hyperlipidemia acute Premature atrial contraction acute Premature ventricular contraction acute [facility] Work Phone: Evaluation noteNo assessment information available [facility] Work Phone: Evaluation note* Diagnosis Onset Date Resolution Status Colon polyp acute Constipation chronic Esophageal pain [facility] Work Phone: Evaluation note* Diagnosis Onset Date Resolution Status Retained food in stomach acu te Nausea chronic Esophageal pain [facility] Work Phone: Evaluation note* Diagnosis Onset Date Resolution Status Left knee DJD acute Left knee pain acute Chronic narcotic use chronic [facility] Work Phone: History and physical note Author Seng Mason [facility] July 10, 2022 7:07am Note Date/Time July 10, 2022 7:07am [facility] Medical Records Department [address] [place] [address] History & Physical Exam 07/10/22705 MR#: [id number] Acct: [id number] Name: SHIVA JHAVERI Rep #:[id number] : 1960 62 From: Seng Mason DO PCP: Dr. Nicole Moreno, DO Status:[facility] Location: [place] [address] History and Physical Date of Admission: 07/10/22 [...] soft and nontender Quality Reporting Tobacco Screening ([facility] 138) Smoking Status: Never smoker Assessment and [...] Nicole Moreno DO; Seng Mason DO~ Signed [facility] Work Phone: Reason for referral (narrative)No reason for referral [facility] Work Phone: Summary Purpose Family History No [...] No January 23, 020 6:47pm Power of Pharmacy Technologist No January 24, 2020 6:47pm Advance Directive Response Recorded Date/ Time Advance Directives No March 8:53pm Living Will No January 23, 2 020 5:47pm Power of Pharmacy Technologist No January 24, 2020 5:47pm Advance Directive Response Recorded Date/ Time Advance Directives No March 8:53pm Living Will No July 05, 2 023 1:52pm Power of Pharmacy Technologist No July 05, 2022 1:52pm Advance Directive Response Recorded Date/ Time Advance Directives No March 9:53pm Living Will No July 05, 2 023 2:52pm Power of Pharmacy Technologist No July 05, 2022 2:52pm Advance Directive Response Recorded Date/ Time Advance Directives No March 8:53pm Living Will No December 09, 2022 12:56pm Power of Pharmacy Technologist No December 09 12:56pm Advance Directive Response Recorded Date/ Time Advance Directives No March 9:53pm Living Will No December 09, 2022 1:56pm Power of Pharmacy Technologist No December 09 1:56pm Advance Directive Response [...] section and content) DATE CREATED AUTHOR 03/06/2018 [facility] ([place]) DATE CREATED AUTHOR AUTHOR'S ORGANIZ ATION 09/29/2024 [facility] Care Teams (unrecognized sec tion and content) Team Status: Active Member Role Status Dates Dr. Nicole Moreno DO Family Provider Active Dr. Nicole Moreno DO Primary Care Provider Active Team Status: Inactive Member Role Status Dates Dr. Nicole Moreno DO Primary Care Provider, Referring P rovider Active Ruth Ann Rose TOLL LINE INSPECTOR, TOLL LINE INSPECTOR-C Attending Provider Active Team Status: Active Member [...] 2024 End: September 22, 2024 Dr. Nicole Moreon DO Attending Provider Active St art: September [...] BE BASED ON THE PRIMARY CLINICAL RECORDS. [facility] [employer] provides no warranty or guarantee of the accuracy or completeness of information in this document.
== END | disposition home or self-care (01) ==
LOC: BFHLAB 16:13
PROVIDERS: PCP Family Medicine; Visit Provider Family Medicine
DX: E03.9 Hypothyroidism, unspecified (principal)
CPT/HCPCS: 36415; 84439; 84443; 84481

== ENCOUNTER → 2025-03-24 | Outpatient (CLI) | payer OTHER, SELFPAY ==
--- NOTE | 2025-03-24 18:17 | CT_ITS ---
PROCEDURE: LOW DOSE CT LUNG SCREENING 03/24/2025 REASON FOR EXAM: SMOKER Former smoker. Patient has smoked half a pack per day for 20 years. TECHNIQUE: Procedure Code: CTLUNGSCREEN Modality: CT Procedure: LOW DOSE CT LUNG SCREENING Coronal and Sagittal reconstruction series were provided. One or more dose reduction techniques were used (e.g., Automated exposure control, adjustment of the mA and/or kV according to patient size, use of iterative reconstruction technique). REFERENCE LINK: [employer] Lung-RADS RADIATION DOSE SUMMARY: CTDlvol: 2.01 mGy DLP: 68.49 mGycm COMPARISON: April 18, 2023. FINDINGS: PULMONARY NODULES: (Only nodules >3mm are reported) Nodules described below are on series 1 unless otherwise specified. Pulmonary Nodules: Stable faint noncalcified pulmonary nodule in the posterior apex of the left upper lobe. This is best seen on axial image number 38. Stable calcified granuloma in the left lower lobe and right upper lobe. Stable 3 mm noncalcified nodule in the right upper lobe. Hardware:None Lymph Nodes:Small benign-appearing mediastinal lymph nodes. Heart and Vasculature:The heart is nonenlarged. Coronary Artery Calcifications: Absent Lungs and Airways: Minimal emphysematous changes. Pleura:No pleural effusion. Upper Abdomen:Unremarkable Bones:Degenerative changes of the thoracic spine. CT/Low Dose CT Lung Screening IMPRESSION: Stable examination. Coronary artery calcification (CAC) is is absent Lung-RADS Category: 2 BENIGN (BASED ON IMAGING FEATURES OR INDOLENT BEHAVIOR). RECOMMEND 12-MONTH SCREENING LDCT. Other Significant Findings: Reading Location: [facility]
--- OUTSIDE RECORDS SUMMARY | 2025-03-24 18:33 | XMS RPT_ITS | CCD ---
Author Organization [facility] Care Team Providers Care Skin Former Name Role Phone Yensho COATER, Denise A Unavailable Unavailab le Yensho COATER, Denise A Unavailable Unavailab le KENA, MILAD [...] Unavailable Unavailable SABOTA, JOEL W Unavailable Unavailable AURELIA MILTON Unavailable Unavailable Yensho COATER, Denise A Unavailable Unavailab le Yensho COATER, Denise A Unavailable Unavailab le Dr. Nicole Moreno Primary Care Provider [phone] Dr. Nicole Moreno Referring Provider Dr. Tho Rodriguez Attending Provider [phone] Dr. Joel Cavanaugh Attending Provider [phone] Dr. Tho Rodriguez Referring Provider [phone] Dr. Tho Rodriguez Other Provider [phone] Adams ENGRAVER AUTOMATIC, ENGRAVER AUTOMATIC-C Viky Attending Provider Dr. Nicole Moreno Primary Care Provider [phone] Dr. Nicole Moreno Referring Provider Rose PONCE, ENGRAVER AUTOMATIC-C Ruth Ann Galvan Attending Provider [phone] Friend, Dr. Ellsworth Attending Provider [phone] Friend, Dr. Ellsworth Other Provider [phone] Josh, Dr. Rivera Primary Care Provider Josh, Dr. Rivera Referring Provider Friend, Dr. Ellsworth Attending Provider [phone] Friend, Dr. Ellsworth Other Provider [phone] Rose ENGRAVER AUTOMATIC, ENGRAVER AUTOMATIC-Melony Galvan Attending Provider [phone] Josh, Dr. Rivera Primary Care Provider [phone] Josh, Dr. Rivera Referring Provider Aimee, Dr. Hidalgo Attending Provider Hodan, Dr. Maciel Attending Provider Josh DO, Dr. Rivera Primary Care Provider Josh DO, Dr. Rivera Attending Provider Josh DO, Dr. Rivera Referring Provider [phone] Josh DO, Dr. Rivera Primary Care Provider Josh DO, Dr. Rivera Attending Provider Josh DO, Dr. Rivera Referring Provider Malys, Nicole Attending Unavailable Malys, Nicole Referring Unavailable Malys, Nicole Primary Care Unavailable Malys, Nicole Attending Unavailable Malys, Nicole Primary Care Unavailable Malys, Nicole Attending Unavailable Malys, Nicole Referring Unavailable Malys, Nicole Primary Care Unavailable Malys, Nicole Attending Unavailable Malys, Nicole Primary Care Unavailable Malys, Nicole Referring Unavailable Allergies Allergy Classification Reported Allergen(s) Allergy Type Date of Onset Reaction(s) Facility (4 sources) acetaminophen / HYDROcodone drug allergy 05-10-20 16 [facility] Work Phone: (4 sources) gabapentin drug allergy 05-10-20 16 Hallucinations [facility] Work Phone: (4 sources) morphine drug allergy 05-31-19 17 Mental Status Change [facility] Work Phone: (13 sources) gabapentin Drug Allergy 08-03-19 Shortness of breath [facility] Comment on above: Disorientation (13 sources) HYDROcodone Drug Allergy 08-03-19 22 Nausea [facility] (13 sources) Morphine Drug Allergy 08-03-19 22 mental status changes [facility] Comment on above: MENTAL STATUS CHANGE S (10 sources) Codeine Drug Allergy 07-10-19 23 unknown [facility] (1 source) Codeine Drug Allergy 03-29-20 23 [facility] (1 source) gabapentin Drug Allergy 03-29-20 23 [facility] (1 source) HYDROcodone Drug Allergy 03-29-20 [facility] (1 source) Morphine Drug Allergy 03-29-20 [facility] Medications Current Medications Medication Drug Class(es) Dates Sig (Normalized) Sig (Original) azithromycin 250 mg oral tablet (17 sources) Macrolide Antimicrobial Start: 12-09-2022 take 2 tablets by mouth once daily Azithromycin (Zithromax) 250 mg tablet Active 250 mg PO DAILY 4 4 0 December 09, 2022 12:00am start on day 2 of therapy Start: 07-31-2022 End: 08-07-2022 take 1 tablet by mouth once daily Azithromycin 250 mg tablet Discontinued 250 mg PO DAILY 7 7 0 July 31, 2022 12:00am August 06, 2022 12:00am August 07, 2022 12:04am hydroCHLOROthiazide 25 mg oral tablet (20 sources) Thiazide Diuretic Start: 04-17-2022 take 1 tablet by mouth once daily Hydrochlorothiazide 25 mg tablet Active 25 mg PO DAILY April 17, 2022 1:00am Start: 06-12-2021 End: 08-30-2021 take 1 tablet by mouth once daily Hydrochlorothiazide 25 mg tablet Discontinued 25 mg PO DAILY 30 July 06, 2021 4:58pm August 30, 2021 [...] 11, 2019 5:21pm June 12, 2021 12:53pm ASTHMA Start: 01-07-2019 End: 06-12-2021 take 1 puff(s) [...] 16, 2019 12:00am June 12, 2021 12:52pm THYROID Start: 06-11-2019 End: 11-16-2019 take 1 tablet by mouth once daily Levothyroxine 150 mcg tablet Discontinued 150 ug PO DAILY 90 3 June 11, 2019 1:00am November 16, 2019 10:26am Start: 01-07-2019 End: 11-16-2019 take 1 tablet by mouth once daily Levothyroxine 137 MCG tablet Discontinued 137 ug PO DAILY January 07, 2019 12:00am November 16, 2019 10:25am Start: 03-07-2016 LEVOTHYROXINE SODIUM 125 MCG TABS One tab daily LEVOTHYROXINE SODIUM [id number] Alexandra Lazcano lisinopril 10 mg oral tablet [...] mg tablet Discontinued 10 mg PO DAILY 30 June 30, 2021 5:20pm July 12, 2021 4:57pm mecobalamin (7 sources) Start: 04-17-2022 inject 66593 ug by intramuscular injection every month Mecobalamin (Vitamin B12) Active 73612 MCG IM MONTHLY April 17, 2022 1:00am Start: 04-17-2022 inject 38543 ug by i ntramuscular injection every month Mecobalamin (Vitamin B12) Active 10821 MCG IM MONTHLY April 17, 2022 12:00am Mecobalamin (Vitamin B12) 10,000 mcg recon soln (3 sources) Start: 04-17-2022 inject 87547 ug by intramuscular injection every month Mecobalamin (Vitamin B12) 10,000 mcg recon soln Active 17200 ug IM MONTHLY April 17, 2022 1:00am 24 hr metFORMIN hydrochloride 500 mg extended release oral tablet (10 sources) Biguanide Start: 04-17-2022 take 1 tablet [...] 5:32pm ondansetron 4 mg disintegrating oral tablet (8 sources) Serotonin-3 Receptor Antagonist Start: 12-09-2022 take 1 tablet by mouth every eight hours as needed for nausea and vomiting Ondansetron 4 mg tablet,disintegr ating Active 4 mg PO Q8H as needed for nausea and vomiting 7 0 December 09, 2022 12:00am oxyCODONE hydrochloride 10 mg oral tablet (20 sources) Opioid Agonist Start: 06-12-2021 take 1 tablet by mouth every four hours as needed for pain Oxycodone 10 mg tablet Active 10 mg PO Q4H as needed for Pain 0 June 12, 2021 1:00am Start: 12-17-2019 End: 12-24-2019 take 2 tablets by mouth every four hours as needed for pain Oxycodone 5 MG tablet Discontinued 10 mg PO EVERY 4 HOURS NEEDED as needed for Pain Score 6-10/10 56 7 0 December 17, 2019 December 23, 2019 12:00am December 24, 2019 12:02am Acute postoperative pain of left hip Other acute postprocedural pain Start: 12-17-2019 End: 12-24-2019 take 10 mg by mouth every four hours as needed Oxycodone Discontinued 10 MG PO EVERY 4 HOURS NEEDED 56 7 December 17, 2019 December 24, 2019 12:02am Start: 12-31-2018 End: 12-17-2019 Oxycodone 10 mg tablet Disco ntinued 10 mg PO NEEDED as needed for Pain 0 December 31, 2018 12:00am December 17, 2019 7:42am Start: 10-15-2018 End: 12-31-2018 take 1 tablet by mouth every six hours as needed Oxycodone 10 mg tablet Discontinued 10 mg PO EVERY 6 HOURS as needed 0 October 15, 2018 12:00am December 31, 2018 3:21pm Start: 05-10-2016 End: 05-31-2016 OXYCONTIN 10 MG T12A One tab every twelve hours OXYCODONE HCL [id number] Alexandra Lazcano Start: 05-10-2016 OXYCONTIN 10 M G T12A One tab every twelve hours OXYCODONE HCL 88375950141 Alexandra Lazcano Start: 05-10-2016 End: 05-31-2016 OXYCONTIN 10 MG T12A One tab every twelve hours OXYCODONE HCL 70960309561 Denise Au LPN pantoprazole 40 mg delayed release oral tablet (10 sources) Proton Pump Inhibitor Start: 04-17-2022 take [...] 1 mg/dose (2 mg/1.5 mL) pen injector (3 sources) Start: 04-17-2022 Semaglutide (Ozempic) 1 mg/dose (2 mg/1.5 mL) pen injector Active 0.5 mg SC FR April 17, 2022 1:00am Completed/Discontinued Medications Medication Drug Class(es) Dates Sig (Normalized) Sig (Original) acetaminophen 325 mg / oxyCODONE hydrochloride 5 mg oral tablet (4 sources) Opioid Agonist Start: 05-10-2016 OXYCODONE-ACETAMIN OPHEN 5-325 MG TABS One tab three times a day as needed OXYCODONE-ACETAMIN OPHEN [id number] Alexandra Lazcano Albuterol Sulfate (20 sources) beta2-Adrenergic [...] 4 HOURS NEEDED as needed for Wheezing 1 3 April 17, 2015 1:00am June 12, 2021 [...] every four hours as needed ALBUTEROL SULFATE [id number] Zana Hardwick DO Start: 04-17-2015 VENTOLIN HFA 1 08 (90 Base) MCG/ACT AERS two puffs every four hours as needed ALBUTEROL SULFATE [id number] Zana Hardwick DO Start: 04-17-2015 VENTOLIN HFA 1 08 (90 Base) MCG/ACT AERS two puffs every four hours as needed ALBUTEROL SULFATE 16307470880 Alexandra Lazcano amphetamine aspartate 7.5 mg / amphetamine sulfate 7.5 mg / dextroamphetamine saccharate 7.5 mg / dextroamphetamine sulfate 7.5 mg oral tablet (20 sources) Central Nervous System Stimulant Start: 01-07-2019 End: 06-12-2021 take 1 tablet by mouth once daily Dextroamphetamine-Amphetamine 30 mg tablet Discontinued 30 mg PO DAILY June 11, 2019 5:21pm June 12, 2021 12:53pm ADHD Start: 05-10-2016 End: 05-31-2016 AMPHETAMINE-DEXTROAMPHET ER 15 MG [id number] One cap daily AMPHETAMINE-DEXTROAMPHETAMINE [id number] Alexandra Lazcano 24 hr amphetamine aspartate 3.75 mg / amphetamine sulfate 3.75 mg / dextroamphetamine saccharate 3.75 mg / dextroamphetamine sulfate 3.75 mg extended release oral capsule (4 sources) Central Nervous System Stimulant Start: 05-10-2016 End: 05-31-2016 AMPHETAMINE-DEXTROAMPHET ER 15 MG [id number] One cap daily AMPHETAMINE-DEXTROAMPHETAMINE 89754810455 Alexandra Lazcano BUDESONIDE-FORMOTEROL FUMARATE (8 sources) Corticosteroid , beta2-Adrenerg ic Agonist Start: 06-14-2015 End: 05-31-2016 SYMBICORT 80-4.5 MCG/ACT AER O Two puffs twice daily BUDESONIDE-FORMOTEROL FUMARATE 97088027487 Zana Hardwick DO Start: 06-14-2015 End: 05-31-2016 SYMBICORT 80-4.5 MCG/ACT AER O Two puffs twice daily BUDESONIDE-FORMOTEROL FUMARATE 33802747219 Zana Hardwick DO Start: 06-14-2015 SYMBICORT 80-4 .5 MCG/ACT AERO Two puffs twice daily BUDESONIDE-FORMOTEROL FUMARATE 93606576623 Alexandra Lazcano 12 hr buPROPion hydrochloride 150 mg extended release oral tablet (13 sources) Aminoketone Start: 10-15-2018 End: 06-11-2019 take 1 tablet by mouth twice daily Bupropion Hcl (Wellbutrin Sr) 150 mg tablet sustained-release 12 hr Discontinued 150 mg PO TWICE A DAY October 15, 2018 12:00am June 11, 2019 5:21pm celecoxib 200 mg oral capsule (13 sources) Nonsteroidal Anti-inflammatory Drug Start: 02-18-2019 End: 06-11-2019 take 1 capsule by mouth once daily Celecoxib (Celebrex) 200 mg capsule Discontinued 200 mg PO DAILY February 18, 2019 12:00am June 11, 2019 5:21pm Do not take with other NSAID cholecalciferol 1.25 mg oral capsule (20 sources) Vitamin D Start: 12-10-2019 End: 06-12-2021 Cholecalciferol (Vitamin D3) 1,250 MCG capsule Discontinued 72914 U PO EVERY WEEK December 10, 2019 10:41am June 12, 2021 12:53pm SUPPLEMENT Start: 06-11-2019 End: 06-12-2021 take 1 capsule by mouth every week Cholecalciferol (Vitamin D3) 1,250 mcg (50,000 unit) capsule Discontinued 40163 U PO EVERY WEEK 90 June 11, 2019 1:00am December 10, 2019 10:41am codeine phosphate 2 mg/ml / guaiFENesin 20 mg/ml oral solution (13 sources) Opioid Agonist Start: 04-17-2015 End: 10-15-2018 take 1 mL by mouth every six hours as needed for cough Codeine-Guaifenesin 5 ML liquid Discontinued 10 mL PO EVERY 6 HOURS NEEDED as needed for WHEEZING OR COUGH 200 0 April 17, 2015 1:00am October 15, 2018 8:57am Start: 04-17-2015 End: 10-15-2018 take 1 mL by mouth every six hours as needed Codeine-Guaifenesin Discontinued 10 ML PO EVERY 6 HOURS NEEDED 200 April 17, 2015 1:00am October 15, 2018 8:57am diclofenac sodium 0.01 mg/mg topical gel (13 sources) Nonsteroidal Anti-inflammatory Drug Start: 12-10-2019 End: 12-17-2019 Diclofenac Sodium 100 GM gel Discontinued 100 g TP DAILY December 10, 2019 12:00am December 17, 2019 7:42am PAIN 24 hr dilTIAZem hydrochloride 120 mg extended [...] 2021 4:08pm FLUoxetine 40 mg oral capsule (13 sources) Serotonin Reuptake Inhibitor Start: 12-10-2019 End: 06-12-2021 take 1 capsule by mouth twice daily Fluoxetine 40 MG capsule Discontinued 40 mg PO TWICE A DAY December 10, 2019 12:00am June 12, 2021 12:53pm ANXIETY furosemide 20 mg oral tablet (8 sources) Loop Diuretic Start: 02-21-2016 End: 05-31-2016 FUROSEMIDE 20 MG TABS One tab daily as needed for swelling FUROSEMIDE [id number] Alexandra Lazcano 2 ml sodium hyaluronate 10 [...] tab daily as needed for pain IBUPROFEN [id number] Denise Au LPN levoFLOXacin 750 mg oral tablet (13 sources) Quinolone Antimicrobial Start: 04-17-2015 End: 10-15-2018 take 1 tablet by mouth once daily in the morning Levofloxacin 750 MG tablet Discontinued 750 mg PO DAILY 2 April 17, 2015 1:00am October 15, 2018 8:58am next dose 04/18/15 am methylPREDNISolone acetate 40 mg/ml injectable suspension (19 sources) Corticosteroid Start: 05-22-2019 End: 05-22-2019 Depo-Medrol (methylprednisol one acetate) 40 mg/mL suspension for injection Discontinued 40 MG INTRAARTIC ONCE May 22, 2019 10:29am May 22, 2019 11:16am Start: 02-18-2019 End: 02-18-2019 Depo-Medrol (methylprednisol one acetate) 40 mg/mL suspension for injection Discontinued 40 MG INTRAARTIC ONCE February 18, 2019 4:03pm February 18, 2019 4:28pm Start: 05-10-2016 MEDROL 4 MG TB PK daily METHYLPREDNISOLONE 35118821132 Alexandra Lazcano Start: 05-10-2016 MEDROL 4 MG TB PK daily METHYLPREDNISOLONE 40878544907 Alexandra Lazcano Start: 04-17-2015 End: 10-15-2018 take [...] 15, 2018 8:58am Multivitamin 1 EACH tablet (3 sources) Start: 01-07-2019 End: 06-12-2021 Multivitamin 1 EACH tablet Discontinued 1 NMA PO DAILY January 07, 2019 12:00am June 12, 2021 12:53pm SUPPLEMENT Start: 01-07-2019 End: 06-12-2021 Multivitamin 1 EACH tablet D iscontinued 1 NMA PO DAILY January 07, 2019 [...] tab daily in the morning PHENTERMINE HCL 77594717334 Alexandra Sheldon Lazcano Problems Active Problems Problem Classification Problem Date Documented Da te Episodic/Chronic Asthma (4 sources) Asthma; Translations: [Unspecified asthma, uncomplicated] Onset: 05-31-2016 05-31-2016 Chronic Cardiac dysrhythmias (20 sources) Ventricular premature beats; Translations: [Ventricular premature depolarization] Chronic Cardiac dysrhythmias (14 sources) Palpitations; Translations: [Palpitations] Episodic Conduction disorders (14 sources) Left bundle branch block; Translations: [Left bundle-branch block, unspecified] Chronic Disorders of lipid metabolism (15 sources) Mixed hyperlipidemia; Translations: [Mixed hyperlipidemia] Chronic E Codes: Fall (13 sources) Fall on same level from slipping, tripping or stumbling ; Translations: [Fall on same level from slipping, tripping and stumbling without subsequent striking against object, initial encounter] 01-25-2020 Episodic Esophageal disorders (12 sources) Pain in esophagus; Translations: [Pain of esophagus] 05-31-2022 Episodic Essential hypertension (15 sources) Essential hypertension; Translations: [Essential (primary) hypertension] Chronic Genitourinary symptoms and ill-defined conditions (13 sources) Decreased urine output; Translations: [Anuria and oliguria] 08-30-2021 Episodic Miscellaneous mental health disorders (4 sources) Psychogenic vocal cord dysfunction; Translations: [Other somatoform disorders] Onset: 05-31-2016 05-31-2016 Chronic Nausea and vomiting (14 sources) Nausea; Translations: [Nausea] 08-30-2021 Episodic Osteoarthritis (9 sources) Osteoarthritis of left knee joint; Translations: [Unilateral primary osteoarthritis, left knee] 03-29-2023 Chronic Other and unspecified benign neoplasm (10 sources) Polyp of colon; Translations: [Polyp of colon] 05-31-2022 Episodic Other and unspecified benign neoplasm (1 source) Polyp of colon; Translations: [Benign neoplasm of colon] 05-31-2022 Episodic Other bone disease and musculoskeletal deformities (20 sources) Segmental and somatic dysfunction; Translations: [Segmental and somatic dysfunction of cervical region] 03-29-2020 Episodic Other circulatory disease (13 sources) Low blood pressure; Translations: [Hypotension, unspecified] 08-30-2021 Episodic Other disorders of stomach and duodenum (9 sources) Disorder of function of stomach; Translations: [Other diseases of stomach and duodenum] 07-31-2022 Episodic Other disorders of stomach and duodenum (1 source) Other diseases of stomach and duodenum; Translations: [Dyspepsia and other specified disorders of function of stomach] 07-31-2022 Episodic Other gastrointestinal disorders (10 sources) Constipation; Translations: [Constipation, unspecified] 05-31-2022 Episodic Other gastrointestinal disorders (1 source) Constipation, unspecified; Translations: [Constipation, unspecified] 05-31-2022 Episodic Other lower respiratory disease (13 sources) Dyspnea; Translations: [Shortness of breath] 08-30-2021 Episodic Other lower respiratory disease (1 source) Solitary pulmonary nodule; Translations: [Solitary pulmonary nodule] Onset: 03-22-2025 Episodic Other non-traumatic joint disorders (9 sources) Pain in left knee; Translations: [Left knee pain] 03-29-2023 Episodic Antoinette-; endo-; and myocarditis; cardiomyopathy (except that caused by tuberculosis or sexually transmitted disease) (9 sources) Cardiomyopathy; Translations: [Cardiomyopathy, unspecified] 10-30-2022 Chronic Comment on above: 45% Pneumonia (except that caused by tuberculosis or sexually transmitted disease) (13 sources) Pneumonia; Translations: [Pneumonia, unspecified organism] 01-08-2019 Episodic Residual codes; unclassified (17 sources) Obstructive sleep apnea syndrome; Translations: [Obstructive sleep apnea (adult) (pediatric)] Onset: 05-31-2016 05-31-2016 Chronic Spondylosis; intervertebral disc disorders; other back problems (13 sources) Backache; Translations: [Dorsalgia, unspecified] 03-29-2020 Episodic Substance-related disorders (9 sources) Narcotic drug user; Translations: [Opioid use, unspecified, uncomplicated] 03-29-2023 Episodic Superficial injury; contusion (13 sources) Contusion of hip; Translations: [Contusion of left hip, initial encounter] 01-25-2020 Episodic Thyroid disorders (14 sources) Hypothyroidism; Translations: [Hypothyroidism, unspecified] Onset: 01-01-2025 06-12-2021 Chronic Past or Other Problems Problem Classification Problem Date Documented Date Episodic/Chronic Other lower respiratory disease (4 sources) Solitary nodule of lung; Translations: [Solitary pulmonary nodule] Onset: 05-31-2016 05-31-2016 Episodic Other screening for suspected conditions (not mental disorders or infectious disease) (1 source) Encounter for screening mammogram for malignant neoplasm of breast; Translations: [Encounter for screening mammogram for malignant neoplasm of breast] Onset: 09-28-2024 Episodic Residual codes; unclassified (13 sources) History of cardiac catheterization; Translations: [Other specified postprocedural states] Onset: 09-17-2013 06-15-2021 Episodic Comment on above: Left main coronary l arge-no disease reported; LAD large wraparound vessel which was reported as normal; LCx large nondominant vessel which was reported as normal, and RCA large dominant vessel reported as normal per cardiac cath 09/24/14 @ [facility] Unclassified (12 sources) plantar fasciotomy 12-15-2021 Results Test Name Value Interpretation Reference Range Facility Free T3on 12-28-2024 Free T3 [Mass/Vol] 3.2 pg/mL Normal 2.18-3.98 [facility] Comment on above: Performed By: #### L [id number], L506.0400, L501.9520 #### [facility] [address], [place], [id number] Free [id number] By: Nicole moya on 12-28-2024 Free T3 [Mass/Vol] 3.2 pg/mL 2.18-3.98 [facility] T4 Free Directon 12-28-2024 T4 FREE DIRECT 1.70 ng/dL High 0.76-1.46 [facility] Comment on above: Performed By: #### L [id number], L506.0400, L501.9520 #### [facility] [address], [place], [id number] T4 freeOrdered By: Nicole moya on 12-28-2024 Free T4 [Mass/Vol] 1.70 ng/dL High 0.76-1.46 [facility] TSH DL <= 0.005 mIU/L QnOrde red By: Nicole Moreno on 12-28-2024 TSH Qn 0.231 uIU/mL Low 0.300-4.200 [facility] Thyroid Stim Hormone (TSH)on 12-28-2024 TSH 0.231 uIU/mL Low 0.300-4.200 [facility] Comment on above: Performed By: #### L 501.29131, L506.0400, L501.9520 #### [facility] [address], [place], [id number] Bone density reportOrdered B y: Maye Solis on 09-22-2024 Study report Skeletal system DXA [facility] [address] [place], [place] [id number] Dexa Bone Density Study MR#: [id number] Acct: [id number] Name: SHIVA JHAVERI Rep #: [id number] : 1960 F 64 From: Marco Solis DO PCP: Dr. Nicole Moreno DO Status: REG CLI Study:Dexa Bone Density Study Date of Exam: 09/22/24 Exam# [id number] Ordering Dr: Brandy Moreno sa, DO PROCEDURE: DEXA BONE DENSITY STUDY 09/22/2024 REASON FOR EXAM: F, age 64 y/o . Postmenopausal. TECHNIQUE: DEXA scan of sites with data reported below. Scanner utilized: [employer] REFERENCE LINKS: [facility] Adult Positions COMPARISON: None FINDINGS: [...] Recommend follow-up as clinically warranted. Reading Location: [id number] CC: Dr. Nicole Moreno DO ~ Facility Examiner: Signed [facility] Breast imaging reportOrdered By: Rochelle Webb on 09-22-2024 Study report [facility] [address] [place] [address] SCRN MAMM (CAD)W/NASRA BILAT MR#: [id number] Acct: [id number] Name: SHIVA JHAVERI Rep #: [id number] : 1960 F 64 From: Anthony Nichole MD PCP: Dr. Nicole Moreno DO Status: REG CLI Study:SCRN MAMM (CAD)W/NASRA BILAT Date of Exa m: 09/22/24 Exam# [id number] Ordering Dr: Brandy Moreno sa, DO EXAM: [...] be mailed to the patient. Reading Location: [id number] CC: Dr. Nicole Moreno DO ~ Facility Examiner: Signed [facility] Dexa Bone Density Studyon Dexa Bone Density Study [facility] [address] [place], [place] [address] Dexa Bone Density Study MR#: [id number] Acct: [id number] Name: SHIVA JHAVERI Rep #: [id number] : 1960 F 64 From: Maye Sebastian PCP: Dr. Nicole Moreno DO Status: REG CLI Study: Dexa Bone Density Study Date of Exam: 09/22/24 Exam# [id number] Ordering Dr: Nicole Moreno DO PROCEDURE: DEXA BONE DENSITY STUDY 09/22/2024 REASON FOR EXAM: F, age 64 y/o . Postmenopausal. TECHNIQUE: DEXA scan of sites with data reported below. Scanner utilized: [employer] REFERENCE LINKS: [facility] Adult Positions COMPARISON: None FINDINGS: BMD and [...] Recommend follow-up as clinically warranted. Reading Location: [id number] CC: Dr. Nicole Moreno DO Facility Examiner: Signed Normal [facility] SCRN MAMM (CAD)W/NASRA BILATo n 09-22-2024 SCRN MAMM (CAD)W/NASRA BILAT [facility] [address] [place] [address] SCRN MAMM (CAD)W/NASRA BILAT MR#: [id number] Acct: [id number] Name: SHIVA JHAVERI Rep #: [id number] : 1960 F 64 From: Rochelle Post i, MD PCP: Dr. Nicole Moreno, Status: REG CLI Study: SCRN MAMM (CAD)W/NASRA BILAT Date of Exam: 11/11 Exam# [id number] Ordering Dr: Nicole Moreno DO EXAM: SCRN [...] be mailed to the patient. Reading Location: [facility] CC: Dr. Nicole Moreno DO Facility Examiner: Signed Normal [facility] Absolute lymphocyte countOrd ered By: Nicole Moreno on 07-29-2024 Lymphocytes Auto (Unsp spec) [#/Vol] 2.73 10*3/uL 0.83-4.51 [facility] Absolute neutrophil countOrd ered By: Nicole Moreno on 07-29-2024 Neutrophils (Bld) [#/Vol] 5.1 10*3/uL 2.0-7.7 [facility] Anion gap in Serum or Plasma Ordered By: Nicole Moreno on 07-29-2024 Anion gap [Moles/Vol] 11 mmol/L 5-15 [facility] Automated lymphocyte count a s percentage of total leukocytesOrdered By: Nicole Moreno on 07-29-2024 Lymphocytes/100 WBC Auto (Unsp spec) 32.0 % 19-41 [facility] BUN/creatinine ratioOrdered By: Nicole Moreno on 07-29-2024 Urea nitrogen/Creatinine [Mass ratio] 20.2 mg/mg High 10-20 [facility] Basophil percentageOrdered B y: Nicole Moreno on 07-29-2024 Basophils/100 WBC (Bld) 0.9 % 0-1 [facility] Bilirubin, totalOrdered By: Nicole Moreno on 07-29-2024 Bilirubin [Mass/Vol] 0.24 mg/dL 0.00-1.30 [facility] CBC W/Diff, Automatedon 07-18 Absolute Lymph 2.73 X10 3/uL Normal 0.83-4.51 [facility] Comment on above: Performed By: #### L 501.6710, L100.0100, L506.0400, L501.9985, L504.2610, L101.9900, L501.9520, L501.37981, L500.4050, L500.4100 #### [facility] [address] [place], [place], [phone] (895) Absolute Neut 5.1 X10 3/uL Normal 2.0-7.7 [facility] Comment on above: Performed By: #### L 501.6710, L100.0100, L506.0400, L501.9985, L504.2610, L101.9900, L501.9520, L501.29257, L500.4050, L500.4100 #### [facility] [address] [place], [place], [phone] (510) Basophils/100 WBC (Bld) 0.9 % Normal 0-1 [facility] Comment on above: Performed By: #### L 501.6710, L100.0100, L506.0400, L501.9985, L504.2610, L101.9900, L501.9520, L501.58298, L500.4050, L500.4100 #### [facility] [address] [place], [place], [phone] (141) Eosinophils/100 WBC (Bld) 1.3 % Normal 0-5 [facility] Comment on above: Performed By: #### L 501.6710, L100.0100, L506.0400, L501.9985, L504.2610, L101.9900, L501.9520, L501.42495, L500.4050, L500.4100 #### [facility] [address] [place], [address] Erythrocyte distribution width (RBC) [Ratio] 14.0 % Normal 11.6-14.6 [facility] Comment on above: Performed By: #### L 501.6710, L100.0100, L506.0400, L501.9985, L504.2610, L101.9900, L501.9520, L501.32872, L500.4050, L500.4100 #### [facility] [address] [facility] [place], [place], [phone] (606) Hematocrit (Bld) [Volume fraction] 35.7 % Low 37-47 [facility] Comment on above: Performed By: #### L 501.6710, L100.0100, L506.0400, L501.9985, L504.2610, L101.9900, L501.9520, L501.62022, L500.4050, L500.4100 #### [facility] [address] [facility] [place], [place], [phone] (016) Hemoglobin (Bld) [Mass/Vol] 11.4 g/dL Low 12.0-15. 0 [facility] Comment on above: Performed By: #### L 501.6710, L100.0100, L506.0400, L501.9985, L504.2610, L101.9900, L501.9520, L501.41321, L500.4050, L500.4100 #### [facility] [address] [facility] [place], [place], [phone] (518) IG% 0.400 Normal 0.0-0.9 [facility] Comment on above: Result Comment: IG% - Immature Granulocytes (promyelocytes, myelocytes and metamyelocytes) > 1% indicates that a LEFT SHIFT is Present. Performed By: #### L 501.6710, L100.0100, L506.0400, L501.9985, L504.2610, L101.9900, L501.9520, L501.80437, L500.4050, L500.4100 #### [facility] [address] [place], [address] Lymphocytes/100 WBC (Bld) 32.0 % Normal 19-41 [facility] Comment on above: Performed By: #### L 501.6710, L100.0100, L506.0400, L501.9985, L504.2610, L101.9900, L501.9520, L501.24854, L500.4050, L500.4100 #### [facility] [address] [facility] [place] [place], [address] MCH (RBC) [Entitic mass] 29.1 pg Normal 27.0-32.0 [facility] Comment on above: Performed By: #### L 501.6710, L100.0100, L506.0400, L501.9985, L504.2610, L101.9900, L501.9520, L501.59075, L500.4050, L500.4100 #### [facility] [address] [facility] [place] [place], [address] MCHC (RBC) [Mass/Vol] 31.9 g/dL Low 32-36 [facility] Comment on above: Performed By: #### L 501.6710, L100.0100, L506.0400, L501.9985, L504.2610, L101.9900, L501.9520, L501.29653, L500.4050, L500.4100 #### [facility] [address] [facility] [place], [address] MCV (RBC) [Entitic vol] 91.1 fL Normal 81-99 [facility] Comment on above: Performed By: #### L 501.6710, L100.0100, L506.0400, L501.9985, L504.2610, L101.9900, L501.9520, L501.77848, L500.4050, L500.4100 #### [facility] [address] [place], [address] Monocytes/100 WBC (Bld) 5.9 % Normal 0-10 [facility] Comment on above: Performed By: #### L 501.6710, L100.0100, L506.0400, L501.9985, L504.2610, L101.9900, L501.9520, L501.48821, L500.4050, L500.4100 #### [facility] [address], [place], [phone] ([phone] Neutrophils/100 WBC (Bld) 59.5 % Normal 47-70 [facility] Comment on above: Performed By: #### L 501.6710, L100.0100, L506.0400, L501.9985, L504.2610, L101.9900, L501.9520, L501.68920, L500.4050, L500.4100 #### [facility] [address], [place], [phone] ([phone] Nucleated RBC (Bld) [#/Vol] 0 10*3/uL Normal 0-5 [facility] Comment on above: Performed By: #### L 501.6710, L100.0100, L506.0400, L501.9985, L504.2610, L101.9900, L501.9520, L501.83426, L500.4050, L500.4100 #### [facility] [address] [facility] [place] [place], [address] Platelet mean volume (Bld) [Entitic vol] 9.6 fL Normal 6.2-12.0 [facility] Comment on above: Performed By: #### L 501.6710, L100.0100, L506.0400, L501.9985, L504.2610, L101.9900, L501.9520, L501.52453, L500.4050, L500.4100 #### [facility] [address] [place], [address] Platelets (Bld) [#/Vol] 405 10*3/uL Normal 150-450 [facility] Comment on above: Performed By: #### L 501.6710, L100.0100, L506.0400, L501.9985, L504.2610, L101.9900, L501.9520, L501.82131, L500.4050, L500.4100 #### [facility] [address] [place], [address] RBC (Bld) [#/Vol] 3.92 10*6/uL Low 4.2-5.4 [facility] Comment on above: Performed By: #### L 501.6710, L100.0100, L506.0400, L501.9985, L504.2610, L101.9900, L501.9520, L501.37350, L500.4050, L500.4100 #### [facility] [address] [place], [address] RDW SD 46.1 fl High 35.1-43.9 [facility] Comment on above: Performed By: #### L 501.6710, L100.0100, L506.0400, L501.9985, L504.2610, L101.9900, L501.9520, L501.73976, L500.4050, L500.4100 #### [facility] [address] [place], [address] WBC (Bld) [#/Vol] 8.5 10*3/uL Normal 4.4-11.0 [facility] Comment on above: Performed By: #### L 501.6710, L100.0100, L506.0400, L501.9985, L504.2610, L101.9900, L501.9520, L501.93617, L500.4050, L500.4100 #### [facility] [address] [place], [place], [phone] CRPon 07-29-2024 C-REACTIVE PROT < 3.00 Normal 0.0-3.0 [facility] Comment on above: Performed By: #### L 501.50260, L506.0400, L501.9520 #### [facility] [address] [place], [place], [phone] CRP [Mass/Vol]Ordered By: Brandy Moreno on 07-29-2024 C-Reactive Protein Extended Range < 3.00 mg/L 0.0-3.0 [facility] Calculated very low density lipoprotein (VLDL) cholesterol measurementOrdered By: Nicole Moreno on 07-29-2024 Calculated very low density lipoprotein (VLDL) cholesterol measurement 16 mg/dL 5-40 [facility] VLDL Cholesterol 16 mg/dL 5-40 [facility] Carbon dioxide, total [Moles /volume] in Central venous bloodOrdered By: Nicole Moreno on 07-29-2024 CO2 [Moles/Vol] 25.9 mmol/L 21.0-32.0 [facility] Chloride assayOrdered By: Brandy Moreno on 07-29-2024 Chloride [Moles/Vol] 106 mmol/L 98-108 [facility] Comprehensive Metabolic Prof ilon 07-29-2024 Albumin [Mass/Vol] 4.0 g/dL Normal 3.4-4.8 [facility] Comment on above: Performed By: #### L 501.6710, L100.0100, L506.0400, L501.9985, L504.2610, L101.9900, L501.9520, L501.82597, L500.4050, L500.4100 #### [facility] [address] [place], [place], [phone] Albumin/Globulin [Mass ratio] 1.6 {ratio} Normal 0.9-2.4 [facility] Comment on above: Performed By: #### L 501.6710, L100.0100, L506.0400, L501.9985, L504.2610, L101.9900, L501.9520, L501.32128, L500.4050, L500.4100 #### [facility] [address] [place], [address] (579) ALK PHOS 58 U/L Normal 35-104 [facility] Comment on above: Performed By: #### L 501.6710, L100.0100, L506.0400, L501.9985, L504.2610, L101.9900, L501.9520, L501.51154, L500.4050, L500.4100 #### [facility] [address] [place], [address] ALT [Catalytic activity/Vol] 10 U/L Normal <=34 [facility] Comment on above: Performed By: #### L 501.6710, L100.0100, L506.0400, L501.9985, L504.2610, L101.9900, L501.9520, L501.37936, L500.4050, L500.4100 #### [facility] [address] [place], [address] AST [Catalytic activity/Vol] 18 U/L Normal <=31 [facility] Comment on above: Performed By: #### L 501.6710, L100.0100, L506.0400, L501.9985, L504.2610, L101.9900, L501.9520, L501.87582, L500.4050, L500.4100 #### [facility] [address] [place], [address] Bilirubin [Mass/Vol] 0.24 mg/dL Normal 0.00-1.30 [facility] Comment on above: Performed By: #### L 501.6710, L100.0100, L506.0400, L501.9985, L504.2610, L101.9900, L501.9520, L501.22212, L500.4050, L500.4100 #### [facility] [address] [place], [place], [phone] (496) BUN/CRE 20.2 RATIO High 10-20 [facility] Comment on above: Performed By: #### L 501.6710, L100.0100, L506.0400, L501.9985, L504.2610, L101.9900, L501.9520, L501.50029, L500.4050, L500.4100 #### [facility] [address] [place], [place], [phone] (955) Calcium [Mass/Vol] 9.6 mg/dL Normal 7.6-11.0 [facility] Comment on above: Performed By: #### L 501.6710, L100.0100, L506.0400, L501.9985, L504.2610, L101.9900, L501.9520, L501.24630, L500.4050, L500.4100 #### [facility] [address] [place], [place], [phone] (804) Chloride [Moles/Vol] 106 mmol/L Normal 98-108 [facility] Comment on above: Performed By: #### L 501.6710, L100.0100, L506.0400, L501.9985, L504.2610, L101.9900, L501.9520, L501.94584, L500.4050, L500.4100 #### [facility] [address] [place], [place], [phone] (986) CO2 [Moles/Vol] 25.9 mmol/L Normal 21.0-32.0 [facility] Comment on above: Performed By: #### L 501.6710, L100.0100, L506.0400, L501.9985, L504.2610, L101.9900, L501.9520, L501.64422, L500.4050, L500.4100 #### [facility] [address] [place], [place], [phone] (603) Creatinine [Mass/Vol] 0.88 mg/dL Normal 0.70-1.20 [facility] Comment on above: Performed By: #### L 501.6710, L100.0100, L506.0400, L501.9985, L504.2610, L101.9900, L501.9520, L501.54955, L500.4050, L500.4100 #### [facility] [address] [place], [place], [phone] GAP 11 Normal 5-15 [facility] Comment on above: Performed By: #### L 501.6710, L100.0100, L506.0400, L501.9985, L504.2610, L101.9900, L501.9520, L501.42499, L500.4050, L500.4100 #### [facility] [address] [place], [place], [id number] GFR/1.73 sq M.predicted among non-blacks MDRD (S/P/Bld) [Vol rate/Area] 73 mL/min/{1.73_m2} Normal >60 [facility] Comment on above: Result Comment: mL/m in/1.73m2 CKD-EPI Creatinine Equation (2020) Performed By: #### L 501.6710, L100.0100, L506.0400, L501.9985, L504.2610, L101.9900, L501.9520, L501.43624, L500.4050, L500.4100 #### [facility] [address] [place], [address] Globulin (S) [Mass/Vol] 2.6 g/dL Normal 2.2-4.2 [facility] Comment on above: Performed By: #### L 501.6710, L100.0100, L506.0400, L501.9985, L504.2610, L101.9900, L501.9520, L501.72240, L500.4050, L500.4100 #### [facility] [address] [place], [address] Glucose [Mass/Vol] 89 mg/dL Normal 70-99 [facility] Comment on above: Performed By: #### L 501.6710, L100.0100, L506.0400, L501.9985, L504.2610, L101.9900, L501.9520, L501.25403, L500.4050, L500.4100 #### [facility] [address] [place], [address] Potassium [Moles/Vol] 4.0 mmol/L Normal 3.3-5.1 [facility] Comment on above: Performed By: #### L 501.6710, L100.0100, L506.0400, L501.9985, L504.2610, L101.9900, L501.9520, L501.60774, L500.4050, L500.4100 #### [facility] [address] [place], [address] Sodium [Moles/Vol] 143 mmol/L Normal 133-145 [facility] Comment on above: Performed By: #### L 501.6710, L100.0100, L506.0400, L501.9985, L504.2610, L101.9900, L501.9520, L501.23653, L500.4050, L500.4100 #### [facility] [address] [facility] [place], [place], [phone] T PROT 6.6 g/dL Normal 5.9-8.4 [facility] Comment on above: Performed By: #### L 501.6710, L100.0100, L506.0400, L501.9985, L504.2610, L101.9900, L501.9520, L501.95488, L500.4050, L500.4100 #### [facility] [address] [place], [place], [phone] Urea nitrogen [Mass/Vol] 18 mg/dL Normal 4-19 [facility] Comment on above: Performed By: #### L 501.6710, L100.0100, L506.0400, L501.9985, L504.2610, L101.9900, L501.9520, L501.32397, L500.4050, L500.4100 #### [facility] [address] [facility] [place] [place], [address] Eosinophil percentageOrdered By: Nicole Moreno on 07-29-2024 Eosinophils/100 WBC (Bld) 1.3 % 0-5 [facility] Erythrocyte Sed Rateon 07-29 SED RATE 5 mm/hr Normal 0-30 [facility] Comment on above: Performed By: #### L 501.6710, L100.0100, L506.0400, L501.9985, L504.2610, L101.9900, L501.9520, L501.86568, L500.4050, L500.4100 #### [facility] [address] [place], [address] Erythrocyte distribution wid th ratioOrdered By: Nicole Moreno on 07-29-2024 Erythrocyte distribution width (RBC) [Ratio] 14.0 % 11.6-14.6 [facility] Erythrocyte distribution wid th standard deviationOrdered By: Nicole Moreno on 07-29-2024 Erythrocyte distribution width (RBC) [Entitic vol] 46.1 fL High 35.1-43.9 [facility] Erythrocyte distribution width (RBC) [Ratio] 46.1 fl High 35.1-43.9 [facility] Erythrocyte sedimentation ra teOrdered By: Nicole Moreno on 07-29-2024 ESR (Bld) [Velocity] 5 mm/h 0-30 [facility] Free T3on 07-29-2024 Free T3 [Mass/Vol] 2.7 pg/mL Normal 2.18-3.98 [facility] Comment on above: Performed By: #### L 501.6710, L100.0100, L506.0400, L501.9985, L504.2610, L101.9900, L501.9520, L501.02912, L500.4050, L500.4100 #### [facility] [address] [place], [address] Free D9Mduowzz By: Nicole moya on 07-29-2024 Free T3 [Mass/Vol] 2.7 pg/mL 2.18-3.98 [facility] Free Triiodothyronine (T3) pg/dL 2.7 pg/mL 2.18-3.98 [facility] GFR/1.73 sq M.predicted char g non-blacks MDRD (S/P/Bld) [Vol rate/Area]Ordered By: Nicole Moreno on 07-29-2024 Estimated GFR (MDRD) Non-Af Amer 73 >60 [facility] Comment on above: mL/min/1.73m2 CKD-EP I Creatinine Equation (2020) Glomerular filtration rate ( GFR) estimation/1.73 sq m using serum, plasma, or whole bOrdered By: Nicole Moreno on 07-29-2024 GFR/1.73 sq M.predicted among non-blacks MDRD (S/P/Bld) [Vol rate/Area] 73 mL/min/{1.73_m2} >60 [facility] Comment on above: mL/min/1.73m2 CKD-EP I Creatinine Equation (2020) Hematocrit Auto (Bld) [Volum e fraction]Ordered By: Nicole Moreno on 07-29-2024 Hematocrit (Bld) [Volume fraction] 35.7 % Low 37-47 [facility] Hemoglobin A1con 07-29-2024 HbA1c (Bld) [Mass fraction] 5.5 % Low <=5.6 [facility] Comment on above: Performed By: #### L 501.6710, L100.0100, L506.0400, L501.9985, L504.2610, L101.9900, L501.9520, L501.58665, L500.4050, L500.4100 #### [facility] [address] [place], [place], [id number] Hemoglobin A1c percentageOrd ered By: Nicole Moreno on 07-29-2024 HbA1c (Bld) [Mass fraction] 5.5 % Low >5.7 [facility] Hemoglobin measurementOrdere d By: Nicole Moreno on 07-29-2024 Hemoglobin (Bld) [Mass/Vol] 11.4 g/dL Low 12.0-15. 0 [facility] Immature granulocytes/100 WB C Auto (Bld)Ordered By: Nicole Moreno on 07-29-2024 Immature granulocytes/100 WBC (Bld) 0.400 % 0.0-0.9 [facility] Comment on above: IG% - Immature Granu locytes (promyelocytes, myelocytes and metamyelocytes) > 1% indicates that a LEFT SHIFT is Present. LDHon 07-29-2024 LDH 149 U/L Normal 84-246 [facility] Comment on above: Order Comment: 1 Performed By: #### L 501.02281, L506.0400, L501.9520 #### [facility] [address] [place], [address] LDL calc ser/plasOrdered By: Nicole Moreno on 07-29-2024 Cholesterol in LDL [Mass/Vol] 124 mg/dL [facility] Comment on above: Huyhysglay=809-967 m g/dL & Higher Kgto=443 mg/dL or greater LDL Cholesterol, Calculated 124 mg/dL [facility] Comment on above: Uyxypojoil=715-540 m g/dL & Higher Ppoj=692 mg/dL or greater Laboratory - Chemistry and C hemistry - challengeOrdered By: Nicole Cedrickalberto on 07-29-2024 AST [Catalytic activity/Vol] 18 U/L <32 [facility] Lactate dehydrogenase (LDH) measurementOrdered By: Nicole Moreno on 07-29-2024 LDH [Catalytic activity/Vol] 149 U/L 84-246 [facility] Lipid Profileon 07-29-2024 CHOL:HDL 3.13 Normal [facility] Comment on above: Performed By: #### L 501.6710, L100.0100, L506.0400, L501.9985, L504.2610, L101.9900, L501.9520, L501.42472, L500.4050, L500.4100 #### [facility] [address] [place], [place], [phone] (059) Cholesterol [Mass/Vol] 206 mg/dL High <=200 [facility] Comment on above: Result Comment: Chol esterol level, Desirable <200 mg/dL Borderline high cholesterol 200-239 mg/dL High cholesterol >=240 mg/dL Recommendations of the NCEP Adult Treatment Panel for the following risk-cutoff thresholds for the [place] population. Performed By: #### L 501.6710, L100.0100, L506.0400, L501.9985, L504.2610, L101.9900, L501.9520, L501.65691, L500.4050, L500.4100 #### [facility] [address] [place], [place], [id number] Cholesterol in HDL [Mass/Vol] 66 mg/dL Normal [facility] Comment on above: Result Comment: Leila onal Cholesterol Education Program (NCEP) guidelines: <40 mg/dL: Low HDL-cholesterol (major risk factor for CHD) >= 60 mg/dL: High HDL-cholesterol (negative risk factor for CHD) HDL-cholesterol is affected by a number of factors, e.g. smoking, exercise, hormones, sex and age. Performed By: #### L 501.6710, L100.0100, L506.0400, L501.9985, L504.2610, L101.9900, L501.9520, L501.57402, L500.4050, L500.4100 #### [facility] [address] [place], [address] Cholesterol in LDL [Mass/Vol] 124 mg/dL Normal [facility] Comment on above: Result Comment: Bord rczywi=235-054 mg/dL Higher Abjx=102 mg/dL or greater Performed By: #### L 501.6710, L100.0100, L506.0400, L501.9985, L504.2610, L101.9900, L501.9520, L501.83542, L500.4050, L500.4100 #### [facility] [address] [place], [place], [phone] (291) Cholesterol in VLDL [Mass/Vol] 16 mg/dL Normal 5-40 [facility] Comment on above: Performed By: #### L 501.6710, L100.0100, L506.0400, L501.9985, L504.2610, L101.9900, L501.9520, L501.48441, L500.4050, L500.4100 #### [facility] [address] [place], [address] Triglyceride [Mass/Vol] 82 mg/dL Normal [facility] Comment on above: Result Comment: The drugs N-Acetylcysteine and Metamizole may falsely depress this assay. Normal range: <150 mg/dL Borderline High: 150-199 mg/dL High: 200-499 mg/dL Very High: >500 mg/dL Performed By: #### L 501.6710, L100.0100, L506.0400, L501.9985, L504.2610, L101.9900, L501.9520, L501.02378, L500.4050, L500.4100 #### [facility] [address] [facility] [address] Lymphocytes Auto (Unsp spec) [#/Vol]Ordered By: Nicole Moreno on 07-29-2024 Lymphocytes (Bld) [#/Vol] 2.73 10*3/uL 0.83-4.5 1 [facility] Lymphocytes/100 WBC Auto (Un sp spec)Ordered By: Nicole Moreno on 07-29-2024 Lymphocytes/100 WBC (Bld) 32.0 % 19-41 [facility] MCV (mean corpuscular volume ) determinationOrdered By: Nicole Moreno on 07-29-2024 MCV (RBC) [Entitic vol] 91.1 fL 81-99 [facility] Mean corpuscular hemoglobin (MCH) determinationOrdered By: Nicole Moreno on 07-29-2024 MCH (RBC) [Entitic mass] 29.1 pg 27.0-32.0 [facility] Mean corpuscular hemoglobin concentration (MCHC) determinationOrdered By: Nicole Moreno on 07-29-2024 MCHC (RBC) [Mass/Vol] 31.9 g/dL Low 32-36 [facility] Mean platelet volume determi nationOrdered By: Nicole Moreno on 07-29-2024 Platelet mean volume (Bld) [Entitic vol] 9.6 fL 6.2-12.0 [facility] Monocyte percentageOrdered B y: Nicole Moreno on 07-29-2024 Monocytes/100 WBC (Bld) 5.9 % 0-10 [facility] Neutrophil percentageOrdered By: Nicole Moreno on 07-29-2024 Neutrophils/100 WBC (Bld) 59.5 % 47-70 [facility] Nucleated red blood cell per centageOrdered By: Nicole Moreno on 07-29-2024 Nucleated RBC/100 WBC (Bld) [Ratio] 0 % 0-5 [facility] Platelet countOrdered By: Brandy Moreno on 07-29-2024 Platelets (Bld) [#/Vol] 405 10*3/uL 150-450 [facility] Potassium (Unsp spec) [Mass/ Vol]Ordered By: Nicole Moreno on 07-29-2024 Potassium [Moles/Vol] 4.0 mmol/L 3.3-5.1 [facility] Potassium measurement (mass/ volume)Ordered By: Nicole Moreno on 07-29-2024 Potassium (Unsp spec) [Mass/Vol] 4.0 mmol/L 3.3-5.1 [facility] RBC Auto (Bld) [#/Vol]Ordere d By: Nicole Moreno on 07-29-2024 RBC (Bld) [#/Vol] 3.92 10*6/uL Low 4.2-5.4 [facility] Screening total cholesterol/ high density lipoprotein (HDL) cholesterol ratioOrdered By: Nicole Moreno on 07-29-2024 Cholesterol.total/Cholestero l in HDL [Mass ratio] 3.13 {ratio} [facility] Serum creatinine measurement (mass/volume)Ordered By: Nicole Moreno on 07-29-2024 Creatinine [Mass/Vol] 0.88 mg/dL 0.70-1.20 [facility] Serum globulin measurementOr dered By: Nicole Moreno on 07-29-2024 Globulin (S) [Mass/Vol] 2.6 g/dL 2.2-4.2 [facility] Serum glucose measurement (m ass/volume)Ordered By: Nicole Moreno on 07-29-2024 Glucose [Mass/Vol] 89 mg/dL 70-99 [facility] Serum or plasma C reactive p rotein measurement (mass/volume)Ordered By: Nicole Moreno on 07-29-2024 CRP [Mass/Vol] mg/L 0.0-3.0 [facility] Serum or plasma alanine mendoza otransferase (ALT) measurementOrdered By: Nicole Moreno on 07-29-2024 ALT [Catalytic activity/Vol] 10 U/L <35 [facility] Serum or plasma albumin amos urement (mass/volume)Ordered By: Nicole Moreno on 07-29-2024 Albumin [Mass/Vol] 4.0 g/dL 3.4-4.8 [facility] Serum or plasma albumin/glob ulin mass ratioOrdered By: Nicole Moreno on 07-29-2024 Albumin/Globulin [Mass ratio] 1.6 {ratio} 0.9-2.4 [facility] Serum or plasma alkaline yair sphatase measurementOrdered By: Nicole Moreno on 07-29-2024 ALP [Catalytic activity/Vol] 58 U/L 35-104 [facility] Serum or plasma calcium amos urement (mass/volume)Ordered By: Nicole Moreno on 07-29-2024 Calcium [Mass/Vol] 9.6 mg/dL 7.6-11.0 [facility] Serum or plasma cholesterol in HDL measurement (mass/volume)Ordered By: Nicole Moreno on 07-29-2024 Cholesterol in HDL [Mass/Vol] 66 mg/dL >40 [facility] Comment on above: National Cholesterol Education Program (NCEP) guidelines:<40 mg/dL: Low HDL-cholesterol (major risk factor for CHD)>= 60 mg/dL: High HDL-cholesterol (negative risk factor for CHD)HDL-cholesterol is affected by a number of factors, e.g. smoking, exercise, hormones, sex and age. Serum or plasma cholesterol measurement (mass/volume)Ordered By: Nicole Moreno on 07-29-2024 Cholesterol [Mass/Vol] 206 mg/dL High <201 [facility] Comment on above: Cholesterol level, D esirable <200 mg/dLBorderline high cholesterol 200-239 mg/dLHigh cholesterol >=240 mg/dLRecommendations of the NCEP Adult Treatment Panel for the following risk-cutoff thresholds for the [place] population. Serum or plasma urea nitroge n measurement (mass/volume)Ordered By: Nicole Moreno on 07-29-2024 Urea nitrogen [Mass/Vol] 18 mg/dL 4-19 [facility] Sodium levelOrdered By: Nicole Moreno on 07-29-2024 Sodium [Moles/Vol] 143 mmol/L 133-145 [facility] T4 Free Directon 07-29-2024 T4 FREE DIRECT 1.20 ng/dL Normal 0.76-1.46 [facility] Comment on above: Performed By: #### L [id number], [id number], [id number] #### [facility] [address] [place], [address] T4 freeOrdered By: Nicole moya on 07-29-2024 Free T4 [Mass/Vol] 1.20 ng/dL 0.76-1.46 [facility] TSH DL <= 0.005 mIU/L QnOrde red By: Nicole Philipalberto on 07-29-2024 Thyroid Stimulating Hormone (TSH) 4.770 uIU/mL High 0.300-4.200 [facility] TSH Qn 4.770 uIU/mL High 0.300-4.200 [facility] Thyroid Stim Hormone (TSH)on 07-29-2024 TSH 4.770 uIU/mL High 0.300-4.200 [facility] Comment on above: Performed By: #### L [id number], [id number], [id number] #### [facility] [address] [place], [address] Total proteinOrdered By: Regina brandon Josh on 07-29-2024 Protein [Mass/Vol] 6.6 g/dL 5.9-8.4 [facility] Triglycerides measurementOrd ered By: Nicole Moreno on 07-29-2024 Triglyceride [Mass/Vol] 82 mg/dL <199 [facility] [place] Comment on above: The drugs N-Acetylcy steine and Metamizole may falsely depress this assay. Normal range: <150 mg/dLBorderline High: 150-199 mg/dLHigh: 200-499 mg/dLVery High: >500 mg/dL White blood cell (WBC) count Ordered By: Nicole Moreno on 07-29-2024 WBC (Bld) [#/Vol] 8.5 10*3/uL 4.4-11.0 [facility] Absolute lymphocyte countOrd ered By: Nicole Moreno on 09-02-2023 Lymphocytes Auto (Unsp spec) [#/Vol] 2.70 10*3/uL 0.83-4.51 [facility] Automated lymphocyte count a s percentage of total leukocytesOrdered By: Nicole Moreno on 09-02-2023 Lymphocytes/100 WBC Auto (Unsp spec) 45.5 % 19-41 [facility] Basophil percentageOrdered B y: Nicole Moreno on 09-02-2023 Basophils/100 WBC (Bld) 0.8 % 0-1 [facility] [place] Bilirubin [Mass/Vol] 0.40 mg/dL 0.20-1.00 [facility] Comment on above: For patients on eltr ombopag therapy, use of Dimension [place] TBIL is not recommended. Chloride [Moles/Vol] 107 mmol/L 98-107 [facility] Eosinophils/100 WBC (Bld) 2.0 % 0-5 [facility] Glucose [Mass/Vol] 111 mg/dL 74-106 [facility] Comment on above: Fasting Glucose resu lt from 100 to 125 mg/dL suggests IMPAIRED HOMEOSTASIS per A.D.A. criteria. Hemoglobin (Bld) [Mass/Vol] 11.2 g/dL 12.0-15. 0 [facility] Monocytes/100 WBC (Bld) 8.6 % 0-10 [facility] Neutrophils (Bld) [#/Vol] 2.5 10*3/uL 2.0-7.7 [facility] Neutrophils/100 WBC (Bld) 42.8 % 47-70 [facility] Potassium [Moles/Vol] 3.6 mmol/L 3.5-5.1 [facility] Protein [Mass/Vol] 6.6 g/dL 6.4-8.2 [facility] Sodium [Moles/Vol] 143 mmol/L 136-145 [facility] WBC (Bld) [#/Vol] 5.9 10*3/uL 4.4-11.0 [facility] Determination of erythrocyte mean corpuscular volume (MCV)Ordered By: Nicole Moreno on 09-02-2023 MCV (RBC) [Entitic vol] 88.3 fL 81-99 [facility] Erythrocyte distribution wid th ratioOrdered By: Nicole Moreno on 09-02-2023 Erythrocyte distribution width (RBC) [Ratio] 13.7 % 11.6-14.6 [facility] Erythrocyte distribution wid th standard deviationOrdered By: Nicole Moreno on 09-02-2023 Erythrocyte distribution width (RBC) [Entitic vol] 44.5 fL 35.1-43.9 [facility] Hematocrit Auto (Bld) [Volum e fraction]Ordered By: Nicole Moreno on 09-02-2023 Hematocrit (Bld) [Volume fraction] 33.9 % 37-47 [facility] Immature granulocytes/100 WB C Auto (Bld)Ordered By: Nicole Moreno on 09-02-2023 Immature granulocytes/100 WBC (Bld) 0.300 % 0.0-0.9 [facility] Comment on above: IG% - Immature Granu locytes (promyelocytes, myelocytes and metamyelocytes) > 1% indicates that a LEFT SHIFT is Present. Laboratory - Chemistry and C hemistry - challengeOrdered By: Nicole Moreno on 09-02-2023 Albumin/Globulin [Mass ratio] 1.1 {ratio} 0.9-2.4 [facility] ALP [Catalytic activity/Vol] 65 U/L 45-117 [facility] ALT [Catalytic activity/Vol] 21 U/L 13-56 [facility] CO2 [Moles/Vol] 32.0 mmol/L 21.0-32.0 [facility] Globulin (S) [Mass/Vol] 3.1 g/dL 2.2-4.2 [facility] [place] Urea nitrogen/Creatinine [Mass ratio] 21.8 mg/mg 10-20 [facility] - Hematology and Cell countsOrdered By: Nicole Moreno on 09-02-2023 MCH (RBC) [Entitic mass] 29.2 pg 27.0-32.0 [facility] MCHC (RBC) [Mass/Vol] 33.0 g/dL 32-36 [facility] Nucleated RBC/100 WBC (Bld) [Ratio] 0 % 0-5 [facility] Platelet mean volume (Bld) [Entitic vol] 9.4 fL 6.2-12.0 [facility] Platelets (Bld) [#/Vol] 324 10*3/uL 150-450 [facility] No Panel InformationOrdered By: Nicole Moreno on 09-02-2023 Estimated GFR (MDRD) Amer 103 mL/min >60 [facility] Comment on above: GFR Calc Estimated GFR (MDRD) Non-Af Amer 85 mL/min >60 [facility] Comment on above: Non- GFR Calc Free Triiodothyronine (T3) pg/dL 2.9 pg/mL 2.18-3.98 [facility] RBC Auto (Bld) [#/Vol]Ordere d By: Nicole Moreno on 09-02-2023 RBC (Bld) [#/Vol] 3.84 10*6/uL 4.2-5.4 [facility] Serum or plasma calcium amos urement (mass/volume)Ordered By: Nicole Moreno on 09-02-2023 Calcium [Mass/Vol] 9.1 mg/dL 8.5-10.1 [facility] Serum or plasma creatinine m easurement (mass/volume)Ordered By: Nicole Moreno on 09-02-2023 Creatinine [Mass/Vol] 0.73 mg/dL 0.55-1.02 [facility] Comment on above: The validity of the calculated GFR & GFRAA in patients over 70 years has not been determined. Clinical correlation is essential. Serum or plasma thyroid stim ulating hormone (TSH) measurement (units/volume)Ordered By: Nicole Moreno on 09-02-2023 TSH Qn 0.09 uIU/mL 0.358-3.74 [facility] Serum or plasma urea nitroge n measurement (mass/volume)Ordered By: Nicole Moreno on 09-02-2023 Urea nitrogen [Mass/Vol] 16 mg/dL 7-18 [facility] Thin prep Papanicolaou smear with manual screeningOrdered By: Nicole Moreno on 09-02-2023 Thin prep Papanicolaou smear with manual screening 3.5 g/dL 3.2-5.0 [facility] Thin prep Papanicolaou smear with manual screening 17 U/L 15-37 [facility] Thin prep Papanicolaou smear with manual screening 4 5-15 [facility] Thin prep Papanicolaou smear with manual screening 1.46 ng/dL 0.76-1.46 [facility] Absolute lymphocyte countOrd ered By: Nicole Moreno on 05-30-2023 Lymphocytes Auto (Unsp spec) [#/Vol] 3.38 10*3/uL 0.83-4.51 [facility] Basophil percentageOrdered B y: Nicole Moreno on 05-30-2023 Basophils/100 WBC (Bld) 0.8 % 0-1 [facility] Bilirubin [Mass/Vol] 0.20 mg/dL 0.20-1.00 [facility] Comment on above: For patients on eltr ombopag therapy, use of Dimension [place] TBIL is not recommended. Chloride [Moles/Vol] 107 mmol/L 98-107 [facility] Cholesterol [Mass/Vol] 190 mg/dL <200 [facility] Comment on above: <200 mg/dL Desirable 200-240 mg/dL Borderline >240 mg/dL High Risk Eosinophils/100 WBC (Bld) 0.9 % 0-5 [facility] Glucose [Mass/Vol] 94 mg/dL 74-106 [facility] Neutrophils (Bld) [#/Vol] 3.4 10*3/uL 2.0-7.7 [facility] Neutrophils/100 WBC (Bld) 45.4 % 47-70 [facility] Potassium [Moles/Vol] 4.0 mmol/L 3.5-5.1 [facility] Protein [Mass/Vol] 6.6 g/dL 6.4-8.2 [facility] Sodium [Moles/Vol] 142 mmol/L 136-145 [facility] Triglyceride [Mass/Vol] 146 mg/dL <199 [facility] [place] Comment on above: The drugs N-Acetylcy steine and Metamizole may falsely depress this assay.Serum Triglycerides Reference Interval Normal <150 mg/dL Borderline high 150 - 199 mg/dL High 200 - 499 mg/dL Very High > or = 500 mg/dL WBC (Bld) [#/Vol] 7.4 10*3/uL 4.4-11.0 [facility] Blood erythrocytes count (nu mber/volume)Ordered By: Nicole Moreno on 05-30-2023 RBC (Bld) [#/Vol] 3.94 10*6/uL 4.2-5.4 [facility] Blood hemoglobin measurement (mass/volume)Ordered By: Nicole Moreno on 05-30-2023 Hemoglobin (Bld) [Mass/Vol] 11.3 g/dL 12.0-15. 0 [facility] Blood lymphocytes/100 leukoc ytesOrdered By: Nicole Moreno on 05-30-2023 Lymphocytes/100 WBC (Bld) 45.6 % 19-41 [facility] Blood monocytes/100 leukocyt esOrdered By: Nicole Moreno on 05-30-2023 Monocytes/100 WBC (Bld) 6.9 % 0-10 [facility] Blood platelet mean volumeOr dered By: Nicole Moreno on 05-30-2023 Platelet mean volume (Bld) [Entitic vol] 9.6 fL 6.2-12.0 [facility] Determination of erythrocyte mean corpuscular volume (MCV)Ordered By: Nicole Moreno on 05-30-2023 MCV (RBC) [Entitic vol] 90.1 fL 81-99 [facility] Hematocrit Auto (Bld) [Volum e fraction]Ordered By: Nicole Moreno on 05-30-2023 Hematocrit (Bld) [Volume fraction] 35.5 % 37-47 [facility] - Chemistry and C hemistry - challengeOrdered By: Nicole Moreno on 05-30-2023 ALP [Catalytic activity/Vol] 62 U/L 45-117 [facility] ALT [Catalytic activity/Vol] 27 U/L 13-56 [facility] CO2 [Moles/Vol] 29.0 mmol/L 21.0-32.0 [facility] Free T4 [Mass/Vol] 1.46 ng/dL 0.76-1.46 [facility] Globulin (S) [Mass/Vol] 3.1 g/dL 2.2-4.2 [facility] [place] Urea nitrogen/Creatinine [Mass ratio] 19.4 mg/mg 10-20 [facility] - Hematology and Cell countsOrdered By: Nicole Moreno on 05-30-2023 Erythrocyte distribution width (RBC) [Entitic vol] 44.8 fL 35.1-43.9 [facility] Erythrocyte distribution width (RBC) [Ratio] 13.5 % 11.6-14.6 [facility] Immature granulocytes/100 WBC (Bld) 0.400 % 0.0-0.9 [facility] Comment on above: IG% - Immature Granu locytes (promyelocytes, myelocytes and metamyelocytes) > 1% indicates that a LEFT SHIFT is Present. MCH (RBC) [Entitic mass] 28.7 pg 27.0-32.0 [facility] Nucleated RBC/100 WBC (Bld) [Ratio] 0 % 0-5 [facility] ([facility] [Mass/Vol]Or dered By: Nicole Moreno on 05-30-2023 MCHC (RBC) [Mass/Vol] 31.8 g/dL 32-36 [facility] No Panel InformationOrdered By: Nicole Moreno on 05-30-2023 Estimated GFR (MDRD) Amer 69 mL/min >60 [facility] Comment on above: GFR Calc Estimated GFR (MDRD) Non-Af Amer 57 mL/min >60 [facility] Comment on above: Non- GFR Calc Free Triiodothyronine (T3) pg/dL 2.3 pg/mL 2.18-3.98 [facility] Thyroid Stimulating Hormone (TSH) 0.06 uIU/mL 0.358-3.74 [facility] Platelets bldOrdered By: Regina Moreno on 05-30-2023 Platelets (Bld) [#/Vol] 357 10*3/uL 150-450 [facility] Serum or plasma albumin amos urement (mass/volume)Ordered By: Nicole Moreno on 05-30-2023 Albumin [Mass/Vol] 3.5 g/dL 3.2-5.0 [facility] Serum or plasma albumin/glob ulin mass ratioOrdered By: Nicole Moreno on 05-30-2023 Albumin/Globulin [Mass ratio] 1.1 {ratio} 0.9-2.4 [facility] Serum or plasma calcium amos urement (mass/volume)Ordered By: Nicole Moreno on 05-30-2023 Calcium [Mass/Vol] 8.8 mg/dL 8.5-10.1 [facility] Serum or plasma cholesterol in HDL measurement (mass/volume)Ordered By: Nicole Moreno on 05-30-2023 Cholesterol in HDL [Mass/Vol] 58 mg/dL >40 [facility] Comment on above: The drugs N-Acetylcy steine and Metamizole may falsely depress this assay. Reference Range HDL <40 mg/dL Low HDL Cholesterol HDL >or= 60 mg/dL High HDL Cholesterol Serum or plasma cholesterol in VLDL measurement (mass/volume)Ordered By: Nicole Moreno on 05-30-2023 Cholesterol in VLDL [Mass/Vol] 29 mg/dL 5-40 [facility] Serum or plasma creatinine m easurement (mass/volume)Ordered By: Nicole Moreno on 05-30-2023 Creatinine [Mass/Vol] 1.03 mg/dL 0.55-1.02 [facility] Comment on above: The validity of the calculated GFR & GFRAA in patients over 70 years has not been determined. Clinical correlation is essential. Serum or plasma low density lipoprotein (LDL) cholesterol measurement (mass/volume)Ordered By: Nicole Philipalberto on 05-30-2023 Cholesterol in LDL [Mass/Vol] 103 mg/dL 0-130 [facility] Serum or plasma urea nitroge n measurement (mass/volume)Ordered By: Nicole Philipalberto on 05-30-2023 Urea nitrogen [Mass/Vol] 20 mg/dL 7-18 [facility] Thin prep Papanicolaou smear with manual screeningOrdered By: Nicole Moreno on 05-30-2023 Thin prep Papanicolaou smear with manual screening 24 U/L 15-37 [facility] Thin prep Papanicolaou smear with manual screening 6 5-15 [facility] Absolute lymphocyte countOrd ered By: Nicole Moreno on 03-20-2023 Lymphocytes Auto (Unsp spec) [#/Vol] 2.73 10*3/uL 0.83-4.51 [facility] Basophil percentageOrdered B y: Nicole Moreno on 03-20-2023 Basophils/100 WBC (Bld) 1.3 % 0-1 [facility] Bilirubin [Mass/Vol] 0.60 mg/dL 0.20-1.00 [facility] Comment on above: For patients on eltr ombopag therapy, use of Dimension [place] TBIL is not recommended. Chloride [Moles/Vol] 107 mmol/L 98-107 [facility] Cholesterol [Mass/Vol] 192 mg/dL <200 [facility] Comment on above: <200 mg/dL Desirable 200-240 mg/dL Borderline >240 mg/dL High Risk Eosinophils/100 WBC (Bld) 2.4 % 0-5 [facility] Glucose [Mass/Vol] 94 mg/dL 74-106 [facility] Neutrophils (Bld) [#/Vol] 2.6 10*3/uL 2.0-7.7 [facility] Neutrophils/100 WBC (Bld) 42.3 % 47-70 [facility] Potassium [Moles/Vol] 4.3 mmol/L 3.5-5.1 [facility] Protein [Mass/Vol] 6.7 g/dL 6.4-8.2 [facility] Sodium [Moles/Vol] 141 mmol/L 136-145 [facility] Triglyceride [Mass/Vol] 85 mg/dL <199 [facility] Comment on above: The drugs N-Acetylcy steine and Metamizole may falsely depress this assay.Serum Triglycerides Reference Interval Normal <150 mg/dL Borderline high 150 - 199 mg/dL High 200 - 499 mg/dL Very High > or = 500 mg/dL WBC (Bld) [#/Vol] 6.2 10*3/uL 4.4-11.0 [facility] Blood erythrocytes count (nu mber/volume)Ordered By: Nicole Moreno on 03-20-2023 RBC (Bld) [#/Vol] 3.90 10*6/uL 4.2-5.4 [facility] Blood hemoglobin measurement (mass/volume)Ordered By: Nicole Moreno on 03-20-2023 Hemoglobin (Bld) [Mass/Vol] 11.1 g/dL 12.0-15. 0 [facility] Blood lymphocytes/100 leukoc ytesOrdered By: Nicole Moreno on 03-20-2023 Lymphocytes/100 WBC (Bld) 44.0 % 19-41 [facility] Blood monocytes/100 leukocyt esOrdered By: Nicole Moreno on 03-20-2023 Monocytes/100 WBC (Bld) 9.7 % 0-10 [facility] Blood platelet mean volumeOr dered By: Nicole Moreno on 03-20-2023 Platelet mean volume (Bld) [Entitic vol] 10.3 fL 6.2-12.0 [facility] Determination of erythrocyte mean corpuscular volume (MCV)Ordered By: Nicole Moreno on 03-20-2023 MCV (RBC) [Entitic vol] 90.0 fL 81-99 [facility] Erythrocyte sedimentation ra teOrdered By: Nicole Moreon on 03-20-2023 ESR (Bld) [Velocity] 3 mm/h 0-30 [facility] Hematocrit Auto (Bld) [Volum e fraction]Ordered By: Nicole Moreno on 03-20-2023 Hematocrit (Bld) [Volume fraction] 35.1 % 37-47 [facility] Iron measurement (mass/mass) Ordered By: Nicole Moreno on 03-20-2023 Iron (Unsp spec) [Mass/Mass] 62 ug/dL 50-170 [facility] - Chemistry and C hemistry - challengeOrdered By: Nicole Moreno on 03-20-2023 ALP [Catalytic activity/Vol] 58 U/L 45-117 [facility] ALT [Catalytic activity/Vol] 23 U/L 13-56 [facility] CO2 [Moles/Vol] 31.0 mmol/L 21.0-32.0 [facility] Free T4 [Mass/Vol] 1.31 ng/dL 0.76-1.46 [facility] Globulin (S) [Mass/Vol] 3.1 g/dL 2.2-4.2 [facility] Urea nitrogen/Creatinine [Mass ratio] 17.5 mg/mg 10-20 [facility] - Hematology and Cell countsOrdered By: Nicole Moreno on 03-20-2023 Erythrocyte distribution width (RBC) [Entitic vol] 48.3 fL 35.1-43.9 [facility] Erythrocyte distribution width (RBC) [Ratio] 14.6 % 11.6-14.6 [facility] Immature granulocytes/100 WBC (Bld) 0.300 % 0.0-0.9 [facility] Comment on above: IG% - Immature Granu locytes (promyelocytes, myelocytes and metamyelocytes) > 1% indicates that a LEFT SHIFT is Present. MCH (RBC) [Entitic mass] 28.5 pg 27.0-32.0 [facility] Nucleated RBC/100 WBC (Bld) [Ratio] 0 % 0-5 [facility] MCHC Auto (RBC) [Mass/Vol]Or dered By: Nicole Moreno on 03-20-2023 MCHC (RBC) [Mass/Vol] 31.6 g/dL 32-36 [facility] No Panel InformationOrdered By: Nicole Moreno on 03-20-2023 Estimated GFR (MDRD) Amer 74 mL/min >60 [facility] Comment on above: GFR Calc Estimated GFR (MDRD) Non-Af Amer 61 mL/min >60 [facility] Comment on above: Non- GFR Calc Free Triiodothyronine (T3) pg/dL 2.3 pg/mL 2.18-3.98 [facility] Thyroid Stimulating Hormone (TSH) 0.30 uIU/mL 0.358-3.74 [facility] Platelets bldOrdered By: Regina Moreno on 03-20-2023 Platelets (Bld) [#/Vol] 352 10*3/uL 150-450 [facility] Serum or plasma C reactive p rotein measurement (mass/volume)Ordered By: Nicole Moreno on 03-20-2023 CRP [Mass/Vol] mg/L 0.0-3.0 [facility] Comment on above: C-Reactive Protein ( CRP) provides useful information for thediagnosis, therapy and monitoring of inflammatory processesand associated diseases. For the evaluation of Relative Riskfor Cardiovascular Disease, a High Sensitivity CRP (HSCRP)should be ordered. Serum or plasma albumin amos urement (mass/volume)Ordered By: Nicole Moreno on 03-20-2023 Albumin [Mass/Vol] 3.6 g/dL 3.2-5.0 [facility] Serum or plasma albumin/glob ulin mass ratioOrdered By: Nicole Moreno on 03-20-2023 Albumin/Globulin [Mass ratio] 1.2 {ratio} 0.9-2.4 [facility] Serum or plasma calcium amos urement (mass/volume)Ordered By: Nicole Moreno on 03-20-2023 Calcium [Mass/Vol] 9.3 mg/dL 8.5-10.1 [facility] Serum or plasma cholesterol in HDL measurement (mass/volume)Ordered By: Nicole Moreno on 03-20-2023 Cholesterol in HDL [Mass/Vol] 64 mg/dL >40 [facility] Comment on above: The drugs N-Acetylcy steine and Metamizole may falsely depress this assay. Reference Range HDL <40 mg/dL Low HDL Cholesterol HDL >or= 60 mg/dL High HDL Cholesterol Serum or plasma cholesterol in VLDL measurement (mass/volume)Ordered By: Nicole Moreno on 03-20-2023 Cholesterol in VLDL [Mass/Vol] 17 mg/dL 5-40 [facility] Serum or plasma creatinine m easurement (mass/volume)Ordered By: Nicole Moreno on 03-20-2023 Creatinine [Mass/Vol] 0.97 mg/dL 0.55-1.02 [facility] Comment on above: The validity of the calculated GFR & GFRAA in patients over 70 years has not been determined. Clinical correlation is essential. Serum or plasma ferritin mukesh surement (mass/volume)Ordered By: Nicole Moreno on 03-20-2023 Ferritin [Mass/Vol] 192 ng/mL 8-252 [facility] Serum or plasma low density lipoprotein (LDL) cholesterol measurement (mass/volume)Ordered By: Nicole Moreno on 03-20-2023 Cholesterol in LDL [Mass/Vol] 111 mg/dL 0-130 [facility] Serum or plasma urea nitroge n measurement (mass/volume)Ordered By: Nicole Moreno on 03-20-2023 Urea nitrogen [Mass/Vol] 17 mg/dL 7-18 [facility] Thin prep Papanicolaou smear with manual screeningOrdered By: Nicole Moreno on 03-20-2023 Thin prep Papanicolaou smear with manual screening 19 U/L 15-37 [facility] Thin prep Papanicolaou smear with manual screening 3 5-15 [facility] Influenza virus A and B and SARS-CoV-2 (COVID-19) Ag panel - Upper respiratory specimOrdered By: Timur Frost on 12-09-2022 SARS-CoV-2 (COVID-19) RNA DIMITRIS+probe Ql (Resp) [facility] Throat Streptococcus pyogene s antigen detection by immunofluorescenceOrdered By: Timur Frost on 12-09-2022 S. pyogenes Ag IF Ql (Throat) [facility] Absolute lymphocyte countOrd ered By: Dr. Moreno on 10-05-2022 Lymphocytes Auto (Unsp spec) [#/Vol] 4.00 10*3/uL 0.83-4.51 [facility] Basophil percentageOrdered B y: Dr. Moreno on 10-05-2022 Basophils/100 WBC (Bld) 0.7 % 0-1 [facility] Bilirubin [Mass/Vol] 0.50 mg/dL 0.20-1.00 [facility] Comment on above: For patients on eltr ombopag therapy, use of Dimension [place] TBIL is not recommended. Chloride [Moles/Vol] 108 mmol/L 98-107 [facility] Eosinophils/100 WBC (Bld) 2.2 % 0-5 [facility] Glucose [Mass/Vol] 103 mg/dL 74-106 [facility] Comment on above: Fasting Glucose resu lt from 100 to 125 mg/dL suggests IMPAIRED HOMEOSTASIS per A.D.A. criteria. Neutrophils (Bld) [#/Vol] 3.6 10*3/uL 2.0-7.7 [facility] Neutrophils/100 WBC (Bld) 41.8 % 47-70 [facility] Potassium [Moles/Vol] 4.1 mmol/L 3.5-5.1 [facility] Protein [Mass/Vol] 7.5 g/dL 6.4-8.2 [facility] Sodium [Moles/Vol] 140 mmol/L 136-145 [facility] WBC (Bld) [#/Vol] 8.5 10*3/uL 4.4-11.0 [facility] Blood erythrocytes count (nu mber/volume)Ordered By: Dr. Moreno on 10-05-2022 RBC (Bld) [#/Vol] 3.90 10*6/uL 4.2-5.4 [facility] Blood hemoglobin measurement (mass/volume)Ordered By: Dr. Moreno on 10-05-2022 Hemoglobin (Bld) [Mass/Vol] 11.4 g/dL 12.0-15. 0 [facility] Blood lymphocytes/100 leukoc ytesOrdered By: Dr. Moreno on 10-05-2022 Lymphocytes/100 WBC (Bld) 47.1 % 19-41 [facility] Blood monocytes/100 leukocyt esOrdered By: Dr. Moreno on 10-05-2022 Monocytes/100 WBC (Bld) 7.7 % 0-10 [facility] Blood platelet mean volumeOr dered By: Dr. Moreno on 10-05-2022 Platelet mean volume (Bld) [Entitic vol] 10.2 fL 6.2-12.0 [facility] Determination of erythrocyte mean corpuscular volume (MCV)Ordered By: Dr. Moreno on 10-05-2022 MCV (RBC) [Entitic vol] 90.8 fL 81-99 [facility] Erythrocyte sedimentation ra teOrdered By: Dr. Moreno on 10-05-2022 ESR (Bld) [Velocity] 6 mm/h 0-30 [facility] Hematocrit Auto (Bld) [Volum e fraction]Ordered By: Dr. Moreno on 10-05-2022 Hematocrit (Bld) [Volume fraction] 35.4 % 37-47 [facility] - Chemistry and C hemistry - challengeOrdered By: Dr. Moreno on 10-05-2022 ALP [Catalytic activity/Vol] 44 U/L 45-117 [facility] ALT [Catalytic activity/Vol] 34 U/L 13-56 [facility] CO2 [Moles/Vol] 28.0 mmol/L 21.0-32.0 [facility] Free T4 [Mass/Vol] 1.89 ng/dL 0.76-1.46 [facility] Globulin (S) [Mass/Vol] 3.7 g/dL 2.2-4.2 [facility] Urea nitrogen/Creatinine [Mass ratio] 23.8 mg/mg 10-20 [facility] - Hematology and Cell countsOrdered By: Dr. Moreno on 10-05-2022 Erythrocyte distribution width (RBC) [Entitic vol] 47.2 fL 35.1-43.9 [facility] Erythrocyte distribution width (RBC) [Ratio] 14.2 % 11.6-14.6 [facility] Immature granulocytes/100 WBC (Bld) 0.500 % 0.0-0.9 [facility] Comment on above: IG% - Immature Granu locytes (promyelocytes, myelocytes and metamyelocytes) > 1% indicates that a LEFT SHIFT is Present. MCH (RBC) [Entitic mass] 29.2 pg 27.0-32.0 [facility] Nucleated RBC/100 WBC (Bld) [Ratio] 0 % 0-5 [facility] Auto (RBC) [Mass/Vol]Or dered By: Dr. Moreno on 10-05-2022 MCHC (RBC) [Mass/Vol] 32.2 g/dL 32-36 [facility] No Panel InformationOrdered By: Dr. Moreno on 10-05-2022 Estimated GFR (MDRD) Amer 71 mL/min >60 [facility] Comment on above: GFR Calc Estimated GFR (MDRD) Non-Af Amer 59 mL/min >60 [facility] Comment on above: Non- GFR Calc Free Triiodothyronine (T3) pg/dL 3.0 pg/mL 2.18-3.98 [facility] Thyroid Stimulating Hormone (TSH) 0.07 uIU/mL 0.358-3.74 [facility] Urine Microalbumin/Creatinine Ratio 5.9 mg/g CRE <30 [facility] Vitamin D 25-Hydroxy 60.4 ng/mL [facility] Comment on above: Vitamin D 25(OH) Sta tus Range Deficiency <20 ng/mL (50nmol/L) Insufficiency 20 - 30 ng/mL (50 - 75 nmol/L) Sufficiency 30 - 100 ng/mL (75 - 250 nmol/L) Toxicity >100 ng/mL (>250 nmol/L) Platelets bldOrdered By: Dr. Moreno on 10-05-2022 Platelets (Bld) [#/Vol] 359 10*3/uL 150-450 [facility] Serum or plasma C reactive p rotein measurement (mass/volume)Ordered By: Dr. Moreno on 10-05-2022 CRP [Mass/Vol] mg/L 0.0-3.0 [facility] Comment on above: C-Reactive Protein ( CRP) provides useful information for thediagnosis, therapy and monitoring of inflammatory processesand associated diseases. For the evaluation of Relative Riskfor Cardiovascular Disease, a High Sensitivity CRP (HSCRP)should be ordered. Serum or plasma albumin amos urement (mass/volume)Ordered By: Dr. Moreno on 10-05-2022 Albumin [Mass/Vol] 3.8 g/dL 3.2-5.0 [facility] Serum or plasma albumin/glob ulin mass ratioOrdered By: Dr. Moreno on 10-05-2022 Albumin/Globulin [Mass ratio] 1.0 {ratio} 0.9-2.4 [facility] Serum or plasma calcium amos urement (mass/volume)Ordered By: Dr. Moreno on 10-05-2022 Calcium [Mass/Vol] 9.5 mg/dL 8.5-10.1 [facility] Serum or plasma creatinine m easurement (mass/volume)Ordered By: Dr. Moreno on 10-05-2022 Creatinine [Mass/Vol] 1.01 mg/dL 0.55-1.02 [facility] Comment on above: The validity of the calculated GFR & GFRAA in patients over 70 years has not been determined. Clinical correlation is essential. Serum or plasma urea nitroge n measurement (mass/volume)Ordered By: Dr. Moreno on 10-05-2022 Urea nitrogen [Mass/Vol] 24 mg/dL 7-18 [facility] Thin prep Papanicolaou smear with manual screeningOrdered By: Dr. Moreno on 10-05-2022 Thin prep Papanicolaou smear with manual screening 29 U/L 15-37 [facility] Thin prep Papanicolaou smear with manual screening 4 5-15 [facility] Thin prep Papanicolaou smear with manual screening 11.6 mg/L NO RANGE EST. [facility] Urine creatinine measurement (mass/volume)Ordered By: Dr. Moreno on 10-05-2022 Creatinine (U) [Mass/Vol] 195.00 mg/dL NO RANGE EST. [facility] Whole blood hemoglobin A1c/t otal hemoglobin ratio (mass fraction)Ordered By: Dr. Moreno on 10-05-2022 HbA1c (Bld) [Mass fraction] 5.5 % 3.8-5.6 [facility] Comment on above: Normal < 5.7 % Predi abetic 5.7 - 6.4 % Diabetic >or= 6.5 % Please note range changes. Glucose Glucometer (BldC) [M ass/Vol]Ordered By: Seng Mason on 07-10-2022 Glucose [Mass/Vol] 128 mg/dL 74-106 [facility] Comment on above: MANAGEMENT OF PATIEN T CARE PER NURSING PROTOCOL Absolute lymphocyte countOrd ered By: Dr. Moreno on 03-15-2022 Lymphocytes Auto (Unsp spec) [#/Vol] 3.15 10*3/uL 0.83-4.51 [facility] Basophil percentageOrdered B y: Dr. Moreno on 03-15-2022 Basophils/100 WBC (Bld) 1.3 % 0-1 [facility] [place] Bilirubin [Mass/Vol] 0.40 mg/dL 0.20-1.00 [facility] Comment on above: For patients on eltr ombopag therapy, use of Dimension [place] TBIL is not recommended. Chloride [Moles/Vol] 108 mmol/L 98-107 [facility] Cholesterol [Mass/Vol] 217 mg/dL <200 [facility] [place] [facility] Comment on above: <200 mg/dL Desirable 200-240 mg/dL Borderline >240 mg/dL High Risk Eosinophils/100 WBC (Bld) 2.6 % 0-5 [facility] Glucose [Mass/Vol] 108 mg/dL 74-106 [facility] Comment on above: Fasting Glucose resu lt from 100 to 125 mg/dL suggests IMPAIRED HOMEOSTASIS per A.D.A. criteria. Neutrophils (Bld) [#/Vol] 4.3 10*3/uL 2.0-7.7 [facility] Neutrophils/100 WBC (Bld) 50.9 % 47-70 [facility] Potassium [Moles/Vol] 5.1 mmol/L 3.5-5.1 [facility] Protein [Mass/Vol] 7.1 g/dL 6.4-8.2 [facility] Sodium [Moles/Vol] 140 mmol/L 136-145 [facility] Triglyceride [Mass/Vol] 183 mg/dL <199 [facility] [place] Comment on above: The drugs N-Acetylcy steine and Metamizole may falsely depress this assay.Serum Triglycerides Reference Interval Normal <150 mg/dL Borderline high 150 - 199 mg/dL High 200 - 499 mg/dL Very High > or = 500 mg/dL WBC (Bld) [#/Vol] 8.5 10*3/uL 4.4-11.0 [facility] Blood erythrocytes count (nu mber/volume)Ordered By: Dr. Moreno on 03-15-2022 RBC (Bld) [#/Vol] 4.03 10*6/uL 4.2-5.4 [facility] Blood hemoglobin measurement (mass/volume)Ordered By: Dr. Moreno on 03-15-2022 Hemoglobin (Bld) [Mass/Vol] 12.1 g/dL 12.0-15. 0 [facility] Blood lymphocytes/100 leukoc ytesOrdered By: Dr. Moreno on 03-15-2022 Lymphocytes/100 WBC (Bld) 37.0 % 19-41 [facility] Blood monocytes/100 leukocyt esOrdered By: Dr. Moreno on 03-15-2022 Monocytes/100 WBC (Bld) 7.6 % 0-10 [facility] [place] Blood platelet mean volumeOr dered By: Dr. Moreno on 03-15-2022 Platelet mean volume (Bld) [Entitic vol] 10.0 fL 6.2-12.0 [facility] Determination of erythrocyte mean corpuscular volume (MCV)Ordered By: Dr. Moreno on 03-15-2022 MCV (RBC) [Entitic vol] 89.6 fL 81-99 [facility] Erythrocyte sedimentation ra teOrdered By: Dr. Moreno on 03-15-2022 ESR (Bld) [Velocity] 3 mm/h 0-30 [facility] Hematocrit Auto (Bld) [Volum e fraction]Ordered By: Dr. Moreno on 03-15-2022 Hematocrit (Bld) [Volume fraction] 36.1 % 37-47 [facility] Laboratory - Chemistry and C hemistry - challengeOrdered By: Dr. Moreno on 03-15-2022 ALP [Catalytic activity/Vol] 65 U/L 45-117 [facility] ALT [Catalytic activity/Vol] 37 U/L 13-56 [facility] CO2 [Moles/Vol] 28.0 mmol/L 21.0-32.0 [facility] Free T4 [Mass/Vol] 1.13 ng/dL 0.76-1.46 [facility] Globulin (S) [Mass/Vol] 3.4 g/dL 2.2-4.2 [facility] [place] Urea nitrogen/Creatinine [Mass ratio] 27.2 mg/mg 10-20 [facility] Laboratory - Hematology and Cell countsOrdered By: Dr. Moreno on 03-15-2022 Erythrocyte distribution width (RBC) [Entitic vol] 48.1 fL 35.1-43.9 [facility] Erythrocyte distribution width (RBC) [Ratio] 14.6 % 11.6-14.6 [facility] Immature granulocytes/100 WBC (Bld) 0.600 % 0.0-0.9 [facility] Comment on above: IG% - Immature Granu locytes (promyelocytes, myelocytes and metamyelocytes) > 1% indicates that a LEFT SHIFT is Present. MCH (RBC) [Entitic mass] 30.0 pg 27.0-32.0 [facility] Nucleated RBC/100 WBC (Bld) [Ratio] 0 % 0-5 [facility] MCHC Auto (RBC) [Mass/Vol]Or dered By: Dr. Moreno on 03-15-2022 MCHC (RBC) [Mass/Vol] 33.5 g/dL 32-36 [facility] No Panel InformationOrdered By: Dr. Moreno on 03-15-2022 Estimated GFR (MDRD) Amer 62 mL/min >60 [facility] Comment on above: GFR Calc Estimated GFR (MDRD) Non-Af Amer 51 mL/min >60 [facility] Comment on above: Non- GFR Calc Free Triiodothyronine (T3) pg/dL 2.1 pg/mL 2.18-3.98 [facility] Thyroid Stimulating Hormone (TSH) 6.35 uIU/mL 0.358-3.74 [facility] Vitamin D 25-Hydroxy 36.2 ng/mL [facility] Comment on above: Vitamin D 25(OH) Sta tus Range Deficiency <20 ng/mL (50nmol/L) Insufficiency 20 - 30 ng/mL (50 - 75 nmol/L) Sufficiency 30 - 100 ng/mL (75 - 250 nmol/L) Toxicity >100 ng/mL (>250 nmol/L) Platelets bldOrdered By: Dr. Moreno on 03-15-2022 Platelets (Bld) [#/Vol] 337 10*3/uL 150-450 [facility] Serum or plasma C reactive p rotein measurement (mass/volume)Ordered By: Dr. Moreno on 10-27-2022 CRP [Mass/Vol] mg/L 0.0-3.0 [facility] Comment on above: C-Reactive Protein ( CRP) provides useful information for thediagnosis, therapy and monitoring of inflammatory processesand associated diseases. For the evaluation of Relative Riskfor Cardiovascular Disease, a High Sensitivity CRP (HSCRP)should be ordered. Serum or plasma albumin amos urement (mass/volume)Ordered By: Dr. Moreno on 03-15-2022 Albumin [Mass/Vol] 3.7 g/dL 3.2-5.0 [facility] Serum or plasma albumin/glob ulin mass ratioOrdered By: Dr. Moreno on 03-15-2022 Albumin/Globulin [Mass ratio] 1.1 {ratio} 0.9-2.4 [facility] Serum or plasma calcium amos urement (mass/volume)Ordered By: Dr. Moreno on 03-15-2022 Calcium [Mass/Vol] 9.3 mg/dL 8.5-10.1 [facility] Serum or plasma cholesterol in HDL measurement (mass/volume)Ordered By: Dr. Moreno on 03-15-2022 Cholesterol in HDL [Mass/Vol] 58 mg/dL >40 [facility] Comment on above: The drugs N-Acetylcy steine and Metamizole may falsely depress this assay. Reference Range HDL <40 mg/dL Low HDL Cholesterol HDL >or= 60 mg/dL High HDL Cholesterol Serum or plasma cholesterol in VLDL measurement (mass/volume)Ordered By: Dr. Moreno on 03-15-2022 Cholesterol in VLDL [Mass/Vol] 37 mg/dL 5-40 [facility] Serum or plasma creatinine m easurement (mass/volume)Ordered By: Dr. Moreno on 03-15-2022 Creatinine [Mass/Vol] 1.14 mg/dL 0.55-1.02 [facility] Comment on above: The validity of the calculated GFR & GFRAA in patients over 70 years has not been determined. Clinical correlation is essential. Serum or plasma low density lipoprotein (LDL) cholesterol measurement (mass/volume)Ordered By: Dr. Moreno on 03-15-2022 Cholesterol in LDL [Mass/Vol] 122 mg/dL 0-130 [facility] Serum or plasma urea nitroge n measurement (mass/volume)Ordered By: Dr. Moreno on 03-15-2022 Urea nitrogen [Mass/Vol] 31 mg/dL 7-18 [facility] Thin prep Papanicolaou smear with manual screeningOrdered By: Dr. Moreno on 03-15-2022 Thin prep Papanicolaou smear with manual screening 25 U/L 15-37 [facility] Thin prep Papanicolaou smear with manual screening 4 5-15 [facility] Absolute lymphocyte counton 08-30-2021 Lymphocytes Auto (Unsp spec) [#/Vol] 1.07 10*3/uL 0.83-4.51 [facility] Work Phone: Basophil percentageon 2021 Basophils/100 WBC (Bld) 0.4 % 0-1 [facility] [place] Work Phone: Chloride [Moles/Vol] 104 mmol/L 98-107 [facility] Work Phone: Eosinophils/100 WBC (Bld) 0.5 % 0-5 [facility] Work Phone: Glucose [Mass/Vol] 161 mg/dL 74-106 [facility] Work Phone: Comment on above: Fasting Glucose resu lt greater than or equal to 126 mg/dL suggests DIABETES MELLITUS per A.D.A. criteria. Neutrophils (Bld) [#/Vol] 13.2 10*3/uL 2.0-7.7 [facility] Work Phone: Neutrophils/100 WBC (Bld) 85.8 % 47-70 [facility] Work Phone: Potassium [Moles/Vol] 4.5 mmol/L 3.5-5.1 [facility] Work Phone: Sodium [Moles/Vol] 137 mmol/L 136-145 [facility] Work Phone: WBC (Bld) [#/Vol] 15.4 10*3/uL 4.4-11.0 [facility] Work Phone: Blood erythrocytes count (nu mber/volume)on 08-30-2021 RBC (Bld) [#/Vol] 4.48 10*6/uL 4.2-5.4 [facility] Work Phone: Blood hemoglobin measurement (mass/volume)on 08-30-2021 Hemoglobin (Bld) [Mass/Vol] 13.4 g/dL 12.0-15. 0 [facility] Work Phone: Blood lymphocytes/100 leukoc yteson 08-30-2021 Lymphocytes/100 WBC (Bld) 7.0 % 19-41 [facility] Work Phone: [phone] Blood monocytes/100 leukocyt eson 08-30-2021 Monocytes/100 WBC (Bld) 4.9 % 0-10 [facility] [place] Work Phone: Blood platelet mean volumeon 08-30-2021 Platelet mean volume (Bld) [Entitic vol] 9.7 fL 6.2-12.0 [facility] Work Phone: Determination of erythrocyte mean corpuscular volume (MCV)on 08-30-2021 MCV (RBC) [Entitic vol] 89.1 fL 81-99 [facility] [place] Work Phone: Erythrocyte sedimentation ra blanche 08-30-2021 ESR (Bld) [Velocity] 8 mm/h 0-30 [facility] Work Phone: Hematocrit Auto (Bld) [Volum e fraction]on 08-30-2021 Hematocrit (Bld) [Volume fraction] 39.9 % 37-47 [facility] Work Phone: Laboratory - Chemistry and C hemistry - challengeon 08-30-2021 CO2 [Moles/Vol] 29.0 mmol/L 21.0-32.0 [facility] Work Phone: Urea nitrogen/Creatinine [Mass ratio] 38.6 mg/mg 10-20 [facility] Work Phone: Laboratory - Hematology and Cell countson 08-30-2021 Erythrocyte distribution width (RBC) [Entitic vol] 44.7 fL 35.1-43.9 [facility] Work Phone: Erythrocyte distribution width (RBC) [Ratio] 13.7 % 11.6-14.6 [facility] Work Phone: [phone] Immature granulocytes/100 WBC (Bld) 1.400 % 0.0-0.9 [facility] Work Phone: [phone] Comment on above: IG% - Immature Granu locytes (promyelocytes, myelocytes and metamyelocytes) > 1% indicates that a LEFT SHIFT is Present. MCH (RBC) [Entitic mass] 29.9 pg 27.0-32.0 [facility] Work Phone: Nucleated RBC/100 WBC (Bld) [Ratio] 0 % 0-5 [facility] Work Phone: [phone] MCHC Auto (RBC) [Mass/Vol]on 08-30-2021 MCHC (RBC) [Mass/Vol] 33.6 g/dL 32-36 [facility] Work Phone: No Panel Informationon 08-30 Estimated GFR (MDRD) Amer 86 mL/min >60 [facility] Work Phone: Comment on above: GFR Calc Estimated GFR (MDRD) Non-Af Amer 71 mL/min >60 [facility] Work Phone: [phone] Comment on above: Non- GFR Calc Platelets bldon 08-30-2021 Platelets (Bld) [#/Vol] 349 10*3/uL 150-450 [facility] Work Phone: [phone] Serum or plasma C reactive p rotein measurement (mass/volume)on 08-30-2021 CRP [Mass/Vol] 7.90 mg/L 0.0-3.0 [facility] Work Phone: [phone] Comment on above: C-Reactive Protein ( CRP) provides useful information for thediagnosis, therapy and monitoring of inflammatory processesand associated diseases. For the evaluation of Relative Riskfor Cardiovascular Disease, a High Sensitivity CRP (HSCRP)should be ordered. Serum or plasma calcium amos urement (mass/volume)on 08-30-2021 Calcium [Mass/Vol] 9.2 mg/dL 8.5-10.1 [facility] Work Phone: Serum or plasma creatinine m easurement (mass/volume)on 08-30-2021 Creatinine [Mass/Vol] 0.86 mg/dL 0.55-1.02 [facility] Work Phone: Comment on above: The validity of the calculated GFR & GFRAA in patients over 70 years has not been determined. Clinical correlation is essential. Serum or plasma urea nitroge n measurement (mass/volume)on 08-30-2021 Urea nitrogen [Mass/Vol] 33 mg/dL 7-18 [facility] Work Phone: Thin prep Papanicolaou smear with manual screeningon 08-30-2021 Thin prep Papanicolaou smear with manual screening 4 5-15 [facility] Work Phone: Basophil percentageon 2021 Bilirubin [Mass/Vol] 0.40 mg/dL 0.20-1.00 [facility] Work Phone: [phone] Comment on above: For patients on eltr ombopag therapy, use of Dimension [place] TBIL is not recommended. Chloride [Moles/Vol] 106 mmol/L 98-107 [facility] Work Phone: Cholesterol [Mass/Vol] 238 mg/dL <200 [facility] Work Phone: [phone] Comment on above: <200 mg/dL Desirable 200-240 mg/dL Borderline >240 mg/dL High Risk Glucose [Mass/Vol] 107 mg/dL 74-106 [facility] Work Phone: [phone] Comment on above: Fasting Glucose resu lt from 100 to 125 mg/dL suggests IMPAIRED HOMEOSTASIS per A.D.A. criteria. Potassium [Moles/Vol] 4.0 mmol/L 3.5-5.1 [facility] Work Phone: [phone] Protein [Mass/Vol] 7.3 g/dL 6.4-8.2 [facility] Work Phone: [phone] Sodium [Moles/Vol] 141 mmol/L 136-145 [facility] Work Phone: [phone] Triglyceride [Mass/Vol] 125 mg/dL [facility] Work Phone: Comment on above: The drugs N-Acetylcy steine and Metamizole may falsely depress this assay.Serum Triglycerides Reference Interval Normal <150 mg/dL Borderline high 150 - 199 mg/dL High 200 - 499 mg/dL Very High > or = 500 mg/dL Direct bilirubinon Bilirubin.direct [Mass/Vol] 0.07 mg/dL 0.00-0.3 0 [facility] Work Phone: [phone] Laboratory - Chemistry and C hemistry - challengeon 06-29-2021 ALP [Catalytic activity/Vol] 103 U/L 45-117 [facility] Work Phone: [phone] ALT [Catalytic activity/Vol] 42 U/L 13-56 [facility] Work Phone: CO2 [Moles/Vol] 31.0 mmol/L 21.0-32.0 [facility] Work Phone: [phone] Globulin (S) [Mass/Vol] 3.7 g/dL 2.2-4.2 [facility] [place] Work Phone: [phone] Urea nitrogen/Creatinine [Mass ratio] 23.1 mg/mg 10-20 [facility] Work Phone: [phone] No Panel Informationon 06-29 Estimated GFR (MDRD) Amer 119 mL/min >60 [facility] Work Phone: Comment on above: GFR Calc Estimated GFR (MDRD) Non-Af Amer 98 mL/min >60 [facility] Work Phone: [phone] Comment on above: Non- GFR Calc Serum or plasma albumin amos urement (mass/volume)on 06-29-2021 Albumin [Mass/Vol] 3.6 g/dL 3.2-5.0 [facility] Work Phone: [phone] Serum or plasma calcium amos urement (mass/volume)on 06-29-2021 Calcium [Mass/Vol] 9.1 mg/dL 8.5-10.1 [facility] Work Phone: Serum or plasma cholesterol in HDL measurement (mass/volume)on 06-29-2021 Cholesterol in HDL [Mass/Vol] 58 mg/dL [facility] Work Phone: Comment on above: The drugs N-Acetylcy steine and Metamizole may falsely depress this assay. Reference Range HDL <40 mg/dL Low HDL Cholesterol HDL >or= 60 mg/dL High HDL Cholesterol Serum or plasma cholesterol in VLDL measurement (mass/volume)on 06-29-2021 Cholesterol in VLDL [Mass/Vol] 25 mg/dL 5-40 [facility] Work Phone: Serum or plasma creatinine m easurement (mass/volume)on 06-29-2021 Creatinine [Mass/Vol] 0.65 mg/dL 0.55-1.02 [facility] Work Phone: Comment on above: The validity of the calculated GFR & GFRAA in patients over 70 years has not been determined. Clinical correlation is essential. Serum or plasma low density lipoprotein (LDL) cholesterol measurement (mass/volume)on 06-29-2021 Cholesterol in LDL [Mass/Vol] 155 mg/dL 0-130 [facility] Work Phone: Serum or plasma urea nitroge n measurement (mass/volume)on 06-29-2021 Urea nitrogen [Mass/Vol] 15 mg/dL 7-18 [facility] Work Phone: Thin prep Papanicolaou smear with manual screeningon 06-29-2021 Thin prep Papanicolaou smear with manual screening 30 U/L 15-37 [facility] Work Phone: [phone] Thin prep Papanicolaou smear with manual screening 4 5-15 [facility] Work Phone: [phone] [facility] MAIN OR Intraop Recordon 12-17-2017 [facility] MAIN OR Intraop Record Normal [facility] [place] XR FLUORO 1-2 HRS TECH TIMEo n 12-12-2017 XR FLUORO 1-2 HRS TECH TIME ORIGINAL Images acquired, not reported on this accession number. Normal [facility] ([place]) .Auto Diffon 12-11-2017 Ammonia mass conc (P) 0.90 10 3/mcL Normal 0.15-1.00 [facility] ([place]) Comment on above: Performed By: #### C BC, ADIFF, ANEU, GFR, BMP ####[address] [place], [place] [address] Basophils Auto #/vol (Bld) 0.00 10 3/mcL Normal 0.00-0 .19 [facility] ([place]) Comment on above: Performed By: #### C BC, ADIFF, ANEU, GFR, BMP ####[address] [place], [place] [address] Basophils/100 WBC Auto (Bld) 0.3 % Normal 0.0-2.5 [facility] ([place] Comment on above: Performed By: #### C BC, ADIFF, ANEU, GFR, BMP ####[address] [place], [place] [address] Eosinophils Auto #/vol (Bld) 0.00 10 3/mcL Normal 0.00 -0.40 [facility] ([place]) Comment on above: Performed By: #### C BC, ADIFF, ANEU, GFR, BMP ####[address] [place], [place] [address] Eosinophils/100 WBC Auto (Bld) 0.2 % Normal 0.0-7.0 [facility] ([place] Comment on above: Performed By: #### C BC, ADIFF, ANEU, GFR, BMP ####[address] [place], [place] [address] Lymphocytes Auto #/vol (Bld) 1.40 10 3/mcL Normal 0.77 -3.85 [facility] ([place]) Comment on above: Performed By: #### C BC, ADIFF, ANEU, GFR, BMP ####[address] [place], [place] [address] Lymphocytes/100 WBC Auto (Bld) 14.5 % Normal 10.0-50.0 [facility] ([place]) Comment on above: Performed By: #### C BC, ADIFF, ANEU, GFR, BMP ####[address] [place], [place] [address] Monocytes/100 WBC Auto (Bld) 9.8 % Normal 1.7-13. 0 [facility] ([place]) Comment on above: Performed By: #### C BC, ADIFF, ANEU, GFR, BMP ####[address] [place], [place] [address] Neutrophils/100 WBC Auto (Bld) 75.2 % Normal 37.0-80.0 [facility] ([place]) Comment on above: Performed By: #### C BC, ADIFF, ANEU, GFR, BMP ####[address] [place], [place] [address] .GFRon 12-11-2017 GFR 120 ml/min/1.73sqm Normal [facility] ([place]) Comment on above: Result Comment: [...] C BC, ADIFF, ANEU, GFR, BMP ####[address] [place], [place] [address] GFR Non- 99 ml/min/1.73sqm Normal [facility] ([place]) Comment on above: Result Comment: [...] BC, ADIFF, ANEU, GFR, BMP ####[address] [place], [place] [address] .NEUABSon 12-11-2017 Neutrophil, Absolute 7.30 10 3/mcL High 2.85-6.16 [facility] Comment on above: Performed By: #### C BC, ADIFF, ANEU, GFR, BMP ####[address] [place], [place] [address] BMPon 12-11-2017 Calcium mass conc 8.4 mg/dL Normal 8.4-10.2 [facility] [place] Comment on above: Performed By: #### C BC, ADIFF, ANEU, GFR, BMP ####[address] [place], [place] [address] Chloride molar conc 106 mmol/L Normal 98-107 [facility] ([place] Comment on above: Performed By: #### C BC, ADIFF, ANEU, GFR, BMP ####[address] [place], [place] [address] CO2 molar conc 27 mmol/L Normal 22-29 [facility] ([place] Comment on above: Performed By: #### C BC, ADIFF, ANEU, GFR, BMP ####[address] [place], [place] [address] Creatinine mass conc 0.62 mg/dL Normal 0.55-1.02 [facility] ([place] Comment on above: Performed By: #### C BC, ADIFF, ANEU, GFR, BMP ####[address] [place], [place] [address] Electrolyte Balance 9.0 mEq/L Normal [facility] ([place] Comment on above: Performed By: #### C BC, ADIFF, ANEU, GFR, BMP ####[address] [place], [place] [address] Glucose mass conc 135 mg/dL High 70-105 [facility] ([place] Comment on above: Performed By: #### C BC, ADIFF, ANEU, GFR, BMP ####[address] [place], [place] [address] Potassium molar conc 3.8 mmol/L Normal 3.5-5.1 [facility] ([place] Comment on above: Performed By: #### C BC, ADIFF, ANEU, GFR, BMP ####[address] [place], [place] [address] Sodium molar conc 142 mmol/L Normal 136-145 [facility] ([place] Comment on above: Performed By: #### C BC, ADIFF, ANEU, GFR, BMP ####[address] [place], [place] [address] Urea nitrogen mass conc 13 mg/dL Normal 7-18 [facility] ([place] Comment on above: Performed By: #### C BC, ADIFF, ANEU, GFR, BMP ####[address] [place], [place] [address] Urea nitrogen/Creatinine mass ratio 21 ratio Normal 7-27 [facility] ([place] Comment on above: Performed By: #### C BC, ADIFF, ANEU, GFR, BMP ####[address] [place], [place] [address] CBCon 12-11-2017 Erythrocyte distribution width Auto Ratio (RBC) 14.2 % Normal 11.5-14.5 [facility] ([place] Comment on above: Performed By: #### C BC, ADIFF, ANEU, GFR, BMP ####[address] [place], [place] [address] Hematocrit Auto Volume Fraction (Bld) 24.7 % Low 37.0-47.0 [facility] ([place] Comment on above: Performed By: #### C BC, ADIFF, ANEU, GFR, BMP ####[address] [place], [place] [address] Hemoglobin mass conc (Bld) 8.7 G/dL Low 12.0-16.0 [facility] ([place] Comment on above: Performed By: #### C BC, ADIFF, ANEU, GFR, BMP ####[address] [place], [place] [address] MCH Auto Entitic mass (RBC) 30.5 pg Normal 27.0-31. 2 [facility] ([place] Comment on above: Performed By: #### C BC, ADIFF, ANEU, GFR, BMP ####[address] [place], [place] [address] MCHC Auto mass conc (RBC) 35.2 G/dL Normal 33.0-37.0 [facility] ([place]) Comment on above: Performed By: #### C BC, ADIFF, ANEU, GFR, BMP ####[address] [place], [place] [address] MCV Auto Entitic volume (RBC) 86.6 fL Normal 80.0-94.0 [facility] ([place] Comment on above: Performed By: #### C BC, ADIFF, ANEU, GFR, BMP ####[address] [place], [place] [address] Platelet mean volume Auto Entitic volume (Bld) 7.1 fL Low 7.4-10.4 [facility] ([place] Comment on above: Performed By: #### C BC, ADIFF, ANEU, GFR, BMP ####[address] [place], [place] [address] Platelets Auto #/vol (Bld) 296 10 3/mcL Normal 130-400 [facility] ([place] Comment on above: Performed By: #### C BC, ADIFF, ANEU, GFR, BMP ####[address] [place], [place] [address] RBC Auto #/vol (Bld) 2.85 10 6/mcL Low 4.20-5.40 [facility] ([place] Comment on above: Performed By: #### C BC, ADIFF, ANEU, GFR, BMP ####[address] [place], [place] [address] WBC Auto #/vol (Bld) 9.70 10 3/mcL Normal 4.60-10.80 [facility] [place] Comment on above: Performed By: #### C BC, ADIFF, ANEU, GFR, BMP ####[address] [place], [place] [address] Depart Summaryon 12-11-2017 Depart Summary Normal [facility]) Discharge Note-Nursingon Discharge Note-Nursing Normal [facility]) [facility] Patient S ummaryon 12-11-2017 [facility] Patient Summary Normal [facility]) [facility] Consultation Noteon 12-10-2017 [facility] Consultation Note Normal [facility]) [facility] Operative Reporton 12-10-2017 [facility] Operative Report Normal [facility] [place] XR HIP LEFT W/PELVIS 4 VIEWS on 12-10-2017 XR HIP LEFT W/PELVIS 4 VIEWS ORIGINALXR HIP LEFT W/PELVIS 4 VIEWS CLINICAL STATEMENT: Status Post Arthroplasty COMPARISON: None FINDINGS: AP view pelvis: The iliopectineal and ilioischial lines are intact. Bilateral hip arthroplasties noted. There is no fracture. 2 views LEFT hip: The arthroplasty is intact. No malalignment. No osseous abnormality is seen in the eagle LEFT hip. IMPRESSION: 1. Intact LEFT hip arthroplasty.2. No fracture Interpreted By: Margarito Grewalreliminary Report By: Margarito Grewal MDElectronically Signed By: Margarito Grewal MD Dictated Date: 12/10/2017 11:51:43 AM Prelim Date: 12/10/2017 11:51:43 AM Sign Date: 12/10/2017 11:53:16 AM Normal [facility] [place]) .Auto Diffon 11-13-2017 Ammonia mass conc (P) 1.00 10 3/mcL Normal 0.15-1.00 [facility] [place] Comment on above: Performed By: #### C BC, SADIEIFF, ANEU, GFR, BMP ####[address] [place], [place] [address] Basophils Auto #/vol (Bld) 0.00 10 3/mcL Normal 0.00-0 .19 [facility] ([place] Comment on above: Performed By: #### C BC, ADIFF, ANEU, GFR, BMP ####[address] [place], [place] [address] Basophils/100 WBC Auto (Bld) 0.1 % Normal 0.0-2.5 [facility] ([place]) Comment on above: Performed By: #### C BC, ADIFF, ANEU, GFR, BMP ####[address] [place], [place] [address] Eosinophils Auto #/vol (Bld) 0.00 10 3/mcL Normal 0.00 -0.40 [facility] ([place]) Comment on above: Performed By: #### C BC, ADIFF, ANEU, GFR, BMP ####[address] [place], [place] [address] Eosinophils/100 WBC Auto (Bld) 0.0 % Normal 0.0-7.0 [facility] ([place]) Comment on above: Performed By: #### C BC, ADIFF, ANEU, GFR, BMP ####[address] [place], [place] [address] Lymphocytes Auto #/vol (Bld) 1.20 10 3/mcL Normal 0.77 -3.85 [facility] ([place]) Comment on above: Performed By: #### C BC, ADIFF, ANEU, GFR, BMP ####[address] [place], [place] [address] Lymphocytes/100 WBC Auto (Bld) 9.7 % Low 10.0-50.0 [facility] ([place]) Comment on above: Performed By: #### C BC, ADIFF, ANEU, GFR, BMP ####[address] [place], [place] [address] Monocytes/100 WBC Auto (Bld) 8.6 % Normal 1.7-13. 0 [facility] ([place]) Comment on above: Performed By: #### C BC, ADIFF, ANEU, GFR, BMP ####[address] [place], [place] [address] Neutrophils/100 WBC Auto (Bld) 81.6 % High 37.0-80.0 [facility] ([place]) Comment on above: Performed By: #### C BC, ADIFF, ANEU, GFR, BMP ####[address] [place], [place] [address] .GFRon 11-13-2017 GFR Non- >60 Normal [facility] ([place] Comment on above: Result Comment: GFR Population [...] mL/min/1.73 square meters Performed By: #### C MARTA BUTLER ANEU, GFR, BMP ####[address] [place], [place] [address] GFR 135 ml/min/1.73sqm Normal [facility] ([place] Comment on above: Result Comment: GFR Population [...] mL/min/1.73 square meters Performed By: #### C MARTA BUTLER ANEU, GFR, BMP ####[address] [place], [place] [address] .NEUABSon 11-13-2017 Neutrophil, Absolute 9.70 10 3/mcL High 2.85-6.16 [facility] [place] Comment on above: Performed By: #### C BC, ADIFF, ANEU, GFR, BMP ####[address] [place], [place] [address] BMPon 11-13-2017 Glucose mass conc 161 mg/dL High 70-105 [facility] [place] Comment on above: Performed By: #### C BC, ADIFF, ANEU, GFR, BMP ####[address] [place], [place] [address] Calcium mass conc 8.6 mg/dL Normal 8.4-10.2 [facility] [place] Comment on above: Performed By: #### C BC, ADIFF, ANEU, GFR, BMP ####[address] [place], [place] [address] CO2 molar conc 29 mmol/L Normal 22-29 [facility] [place] Comment on above: Performed By: #### C BC, ADIFF, ANEU, GFR, BMP ####[address] [place], [place] [address] Creatinine mass conc 0.6 mg/dL Normal 0.6-1.2 [facility] [place] Comment on above: Performed By: #### C BC, ADIFF, ANEU, GFR, BMP ####[address] [place], [place] [address] Electrolyte Balance 6.0 mEq/L Normal [facility] [place] Comment on above: Performed By: #### C BC, ADIFF, ANEU, GFR, BMP ####[address] [place], [place] [address] Urea nitrogen/Creatinine mass ratio 20 ratio Normal 7-27 [facility] [place] Comment on above: Performed By: #### C BC, ADIFF, ANEU, GFR, BMP ####[address] [place], [place] [address] Chloride molar conc 108 mmol/L High 98-107 [facility] [place] Comment on above: Performed By: #### C BC, ADIFF, ANEU, GFR, BMP ####[address] [place], [place] [address] Potassium molar conc 4.3 mmol/L Normal 3.5-5.1 [facility] [place] Comment on above: Performed By: #### C BC, ADIFF, ANEU, GFR, BMP ####[address] [place], [place] [address] Sodium molar conc 143 mmol/L Normal 136-146 [facility] ([place]) Comment on above: Performed By: #### C BC, ADIFF, ANEU, GFR, BMP ####[address] [place], [place] [address] Urea nitrogen mass conc 12.1 mg/dL Normal 7.0-18.0 [facility] ([place]) Comment on above: Performed By: #### C BC, ADIFF, ANEU, GFR, BMP ####[address] [place], [place] [address] CBCon 11-13-2017 Erythrocyte distribution width Auto Ratio (RBC) 13.9 % Normal 11.5-14.5 [facility] [place] Comment on above: Performed By: #### C BC, ADIFF, ANEU, GFR, BMP ####[address] [place], [place] [address] Hematocrit Auto Volume Fraction (Bld) 28.6 % Low 37.0-47.0 [facility] [place] Comment on above: Performed By: #### C BC, ADIFF, ANEU, GFR, BMP ####[address] [place], [place] [address] Hemoglobin mass conc (Bld) 9.7 G/dL Low 12.0-16.0 [facility] [place] Comment on above: Performed By: #### C BC, ADIFF, ANEU, GFR, BMP ####[address] [place], [place] [address] MCH Auto Entitic mass (RBC) 29.8 pg Normal 27.0-31. 2 [facility] ([place]) Comment on above: Performed By: #### C BC, ADIFF, ANEU, GFR, BMP ####[address] [place], [place] [address] MCHC Auto mass conc (RBC) 34.1 G/dL Normal 33.0-37.0 [facility] [place] Comment on above: Performed By: #### C BC, ADIFF, ANEU, GFR, BMP ####[address] [place], [place] [address] MCV Auto Entitic volume (RBC) 87.3 fL Normal 80.0-94.0 [facility] [place] Comment on above: Performed By: #### C BC, ADIFF, ANEU, GFR, BMP ####[address] [place], [place] [address] Platelet mean volume Auto Entitic volume (Bld) 7.7 fL Normal 7.4-10.4 [facility] [place] Comment on above: Performed By: #### C BC, ADIFF, ANEU, GFR, BMP ####[address] [place], [place] [address] Platelets Auto #/vol (Bld) 285 10 3/mcL Normal 130-400 [facility]) Comment on above: Performed By: #### C BC, ADIFF, ANEU, GFR, BMP ####[address] [place], [place] [address] RBC Auto #/vol (Bld) 3.27 10 6/mcL Low 4.20-5.40 [facility] [place] Comment on above: Performed By: #### C BC, ADIFF, ANEU, GFR, BMP ####[address] [place], [place] [address] WBC Auto #/vol (Bld) 11.90 10 3/mcL High 4.60-10.80 [facility] ([place] Comment on above: Performed By: #### C BC, ADIFF, ANEU, GFR, BMP ####[address] [place], [place] [address] Depart Summaryon 11-13-2017 Depart Summary Normal [facility]) Internal Medicine Progress N oteon 11-13-2017 Protein mass conc Normal [facility]) [facility] Patient S ummaryon 11-13-2017 [facility] Patient Summary Normal [facility]) XR FLUORO 1-2 HRS TECH TIMEo n 11-13-2017 XR FLUORO 1-2 HRS TECH TIME ORIGINAL Images acquired, not reported on this accession number. Normal [facility] [place] AO MAIN OR Intraop Recordon 11-12-2017 AO MAIN OR Intraop Record Normal [facility] [place]) [place] Consultation Noteon 11-12-2017 [facility] Consultation Note Normal [facility] [place]) [place] Operative Reporton 11-12-2017 [facility] Operative Report Normal [facility] [place] XR HIP RIGHT W/PELVIS 4 VIEW Son 11-12-2017 XR HIP RIGHT W/PELVIS 4 VIEWS ORIGINALXR HIP RIGHT W/PELVIS 4 VIEWS CLINICAL STATEMENT: Status Post Arthroplasty COMPARISON: None FINDINGS:There is a RIGHT hip prosthesis present. No acute fracture or dislocation is identified. There are postoperative changes to the soft tissues IMPRESSION:Post prosthesis placement Interpreted By: Kelsey Marin MDPreliminary Report By: Kelsey Marin MDElectronically Signed By: Kelsey Marin MD Dictated Date: 11/12/2017 12:02:57 PM Prelim Date: 11/12/2017 12:02:57 PM Sign Date: 11/12/2017 12:03:15 PM Normal [facility]) [facility] Pre-Surgical Histor y AND Physicalon 11-05-2017 [place] Pre-Surgical History AND Physical Normal [facility]) .Auto Diffon 10-30-2017 Ammonia mass conc (P) 0.50 10 3/mcL Normal 0.15-1.00 [facility] [place] Comment on above: Performed By: #### C MARTA BUTLER, ANEU, GFR, BMP ####[address] [place], [place] [address] Basophils Auto #/vol (Bld) 0.10 10 3/mcL Normal 0.00-0 .19 [facility] [place] Comment on above: Performed By: #### C MARTA BUTLER ANEU, GFR, BMP ####[address] [place], [place] [address] Basophils/100 WBC Auto (Bld) 1.4 % Normal 0.0-2.5 [facility]) Comment on above: Performed By: #### C BC, ADIFF, ANEU, GFR, BMP ####[address] [place], [place] [address] Eosinophils Auto #/vol (Bld) 0.10 10 3/mcL Normal 0.00 -0.40 [facility] ([place]) Comment on above: Performed By: #### C BC, ADIFF, ANEU, GFR, BMP ####[address] [place], [place] [address] Eosinophils/100 WBC Auto (Bld) 1.1 % Normal 0.0-7.0 [facility] ([place] Comment on above: Performed By: #### C BC, ADIFF, ANEU, GFR, BMP ####[address] [place], [place] [address] Lymphocytes Auto #/vol (Bld) 3.10 10 3/mcL Normal 0.77 -3.85 [facility] ([place]) Comment on above: Performed By: #### C BC, ADIFF, ANEU, GFR, BMP ####[address] [place], [place] [address] Lymphocytes/100 WBC Auto (Bld) 40.2 % Normal 10.0-50.0 [facility] ([place] Comment on above: Performed By: #### C BC, ADIFF, ANEU, GFR, BMP ####[address] [place], [place] [address] Monocytes/100 WBC Auto (Bld) 7.1 % Normal 1.7-13. 0 [facility] ([place] Comment on above: Performed By: #### C BC, ADIFF, ANEU, GFR, BMP ####[address] [place], [place] [address] Neutrophils/100 WBC Auto (Bld) 50.2 % Normal 37.0-80.0 [facility] ([place] Comment on above: Performed By: #### C BC, ADIFF, ANEU, GFR, BMP ####[address] [place], [place] [address] .GFRon 10-30-2017 GFR 129 ml/min/1.73sqm Normal [facility] ([place]) Comment on above: Result Comment: [...] BC, ADIFF, ANEU, GFR, BMP ####[address] [place], [place] [address] GFR Non- >60 Normal [facility] [place] Comment on above: Result Comment: GFR Population [...] mL/min/1.73 square meters Performed By: #### C BC ADIFF ANEU, GFR, BMP ####[address] [place], [place] [address] .NEUABSon 10-30-2017 Neutrophil, Absolute 3.90 10 3/mcL Normal 2.85-6.16 [facility] [place] Comment on above: Performed By: #### C BC, ADIFF, ANEU, GFR, BMP ####[address] [place], [place] [address] BMPon 10-30-2017 Chloride molar conc 102 mmol/L Normal 98-107 [facility] [place] Comment on above: Performed By: #### C BC, ADIFF, ANEU, GFR, BMP ####[address] [place], [place] [address] Electrolyte Balance 9.0 mEq/L Normal [facility] [place] Comment on above: Performed By: #### C BC, ADIFF, ANEU, GFR, BMP ####[address] [place], [place] [address] Potassium molar conc 3.8 mmol/L Normal 3.5-5.1 [facility] [place] Comment on above: Performed By: #### C BC, ADIFF, ANEU, GFR, BMP ####[address] [place], [place] [address] Sodium molar conc 138 mmol/L Normal 136-146 [facility] [place] Comment on above: Performed By: #### C BC, ADIFF, ANEU, GFR, BMP ####[address] [place], [place] [address] Calcium mass conc 9.5 mg/dL Normal 8.4-10.2 [facility] [place] Comment on above: Performed By: #### C BC, ADIFF, ANEU, GFR, BMP ####[address] [place], [place] [address] CO2 molar conc 27 mmol/L Normal 22-29 [facility] [place] Comment on above: Performed By: #### C BC, ADIFF, ANEU, GFR, BMP ####[address] [place], [place] [address] Creatinine mass conc 0.6 mg/dL Normal 0.6-1.2 [facility] [place] Comment on above: Performed By: #### C BC, ADIFF, ANEU, GFR, BMP ####[address] [place], [place] [address] Glucose mass conc 103 mg/dL Normal 70-105 [facility] [place] Comment on above: Performed By: #### C BC, ADIFF, ANEU, GFR, BMP ####[address] [place], [place] [address] Urea nitrogen mass conc 12.8 mg/dL Normal 7.0-18.0 [facility] [place] Comment on above: Performed By: #### C BC, ADIFF, ANEU, GFR, BMP ####[address] [place], [place] [address] Urea nitrogen/Creatinine mass ratio 21 ratio Normal 7-27 [facility] [place] Comment on above: Performed By: #### C BC, ADIFF, ANEU, GFR, BMP ####[address] [place], [place] [address] CBCon 10-30-2017 Erythrocyte distribution width Auto Ratio (RBC) 14.3 % Normal 11.5-14.5 [facility] [place] Comment on above: Performed By: #### C BC, ADIFF, ANEU, GFR, BMP ####[address] [place], [place] [address] Hematocrit Auto Volume Fraction (Bld) 38.1 % Normal 37.0-47.0 [facility] [place] Comment on above: Performed By: #### C BC, ADIFF, ANEU, GFR, BMP ####[address] [place], [place] [address] Hemoglobin mass conc (Bld) 12.9 G/dL Normal 12.0-16.0 [facility] [place] Comment on above: Performed By: #### C BC, ADIFF, ANEU, GFR, BMP ####[address] [place], [place] [address] MCH Auto Entitic mass (RBC) 29.6 pg Normal 27.0-31. 2 [facility] ([place] Comment on above: Performed By: #### C BC, ADIFF, ANEU, GFR, BMP ####[address] [place], [place] [address] MCHC Auto mass conc (RBC) 33.9 G/dL Normal 33.0-37.0 [facility] [place] Comment on above: Performed By: #### C BC, ADIFF, ANEU, GFR, BMP ####[address] [place], [place] [address] MCV Auto Entitic volume (RBC) 87.4 fL Normal 80.0-94.0 [facility] [place] Comment on above: Performed By: #### C BC, ADIFF, ANEU, GFR, BMP ####[address] [place], [place] [address] Platelet mean volume Auto Entitic volume (Bld) 7.6 fL Normal 7.4-10.4 [facility] [place] Comment on above: Performed By: #### C BC, ADIFF, ANEU, GFR, BMP ####[address] [place], [place] [address] Platelets Auto #/vol (Bld) 334 10 3/mcL Normal 130-400 [facility] [place] Comment on above: Performed By: #### C BC, ADIFF, ANEU, GFR, BMP ####[address] [place], [place] [address] RBC Auto #/vol (Bld) 4.35 10 6/mcL Normal 4.20-5.40 [facility] [place] Comment on above: Performed By: #### C BC, ADIFF, ANEU, GFR, BMP ####[address] [place], [place] [address] WBC Auto #/vol (Bld) 7.70 10 3/mcL Normal 4.60-10.80 [facility] [place] Comment on above: Performed By: #### C BC, ADIFF, ANEU, GFR, BMP ####[address] [place], [place] [address] Office Visit: NATY and asthma on 07-26-2016 Documentation of current medications (procedure) Done Invalid Interpretation Code [facility] Work Phone: Protein mass conc Done [facility] Work Phone: Tobacco smoking status [facility] Never Inva lid Interpretation Code [facility] Work Phone: Tobacco smoking status [facility] Former smoker [facility] Work Phone: Tobacco use [facility] Former smoker Invalid Interpretation Code [facility] Work Phone: Vital Signs Date Time Vital Sign Value Performing Clinician Facility 03-29-2023 09:49-0500 Body height 158.[address] Nicole Moreno Work Phone: [facility] 03-29-2023 09:49-0500 Body mass index (BMI) [Ratio] 30.7 kg/m2 Dr. Nicole Moreno Work Phone: [facility] 03-29-2023 09:49-0500 Body weight 77.[address] Nicole Moreno Work Phone: [facility] 12-09-2022 13:36-0400 Body height 158.75 cm [facility] 12-09-2022 13:36-0400 Body mass index (BMI) [Ratio] 34 kg/m2 [facility] 12-09-2022 13:36-0400 Body temperature 101.2 [degF] [facility] 12-09-2022 13:36-0400 Body weight 85.68 kg [facility] 12-09-2022 13:36-0400 Diastolic blood pressure 78 mm[Hg] [facility] 12-09-2022 13:36-0400 Heart rate 135 /min [facility] 12-09-2022 13:36-0400 Respiratory rate 18 /min [facility] 12-09-2022 13:36-0400 SaO2% (BldA) [Mass fraction] 95 % [facility] 12-09-2022 13:36-0400 Systolic blood pressure 163 mm[Hg] [facility] 10-23-2022 14:54-0400 Body height 160.[address] Niocle Moreno Work Phone: [facility] 10-23-2022 14:54-0400 Body mass index (BMI) [Ratio] 33.6 kg/m2 Dr. Nicole Moreno Work Phone: [facility] 10-23-2022 14:54-0400 Body temperature 98.6 [degF] Dr. Nicole Moreno Work Phone: [facility] 10-23-2022 14:54-0400 Body weight 86.[address] Nicole Moreno Work Phone: [facility] 10-23-2022 14:54-0400 Diastolic blood pressure 61 mm[Hg] Dr. Nicole Moreno Work Phone: [facility] 10-23-2022 14:54-0400 Heart rate 71 /min Dr. Nicole Moreno Work Phone: [facility] 10-23-2022 14:54-0400 Respiratory rate 16 /min Dr. Nicole Moreno Work Phone: [facility] 10-23-2022 14:54-0400 SaO2% (BldA) [Mass fraction] 98 % Dr. Nicole Moreno Work Phone: [facility] 10-23-2022 14:54-0400 Systolic blood pressure 99 mm[Hg] Dr. Nicole Moreno Work Phone: [facility] 07-31-2022 13:08-0400 Body mass index (BMI) [Ratio] 35.4 kg/m2 Dr. Nicole Moreno Work Phone: [facility] 07-31-2022 13:08-0400 Body weight 90.[address] Nicole Moreno Work Phone: [facility] 07-31-2022 13:08-0400 Diastolic blood pressure 75 mm[Hg] Dr. Nicole Moreno Work Phone: [facility] 07-31-2022 13:08-0400 Heart rate 75 /min Dr. Nicole Moreno Work Phone: [facility] 07-31-2022 13:08-0400 SaO2% (BldA) [Mass fraction] 95 % Dr. Nicole Moreno Work Phone: [facility] 07-31-2022 13:08-0400 Systolic blood pressure 117 mm[Hg] Dr. Nicole Moreno Work Phone: [facility] 07-10-2022 07:30-0500 Body temperature 97.5 [degF] Dr. Nicole Moreno Work Phone: [facility] 07-10-2022 07:30-0500 Diastolic blood pressure 66 mm[Hg] Dr. Nicole Moreno Work Phone: [facility] 07-10-2022 07:30-0500 Heart rate 92 /min Dr. Nicole Moreno Work Phone: [facility] 07-10-2022 07:30-0500 Respiratory rate 16 /min Dr. Nicole Moreno Work Phone: [facility] 07-10-2022 07:30-0500 SaO2% (BldA) [Mass fraction] 97 % Dr. Nicole Moreno Work Phone: [facility] 07-10-2022 07:30-0500 Systolic blood pressure 112 mm[Hg] Dr. Nicole Moreno Work Phone: [facility] 07-10-2022 05:58-0500 Body height 160.[address] Nicole Moreno Work Phone: [facility] 07-10-2022 05:58-0500 Body mass index (BMI) [Ratio] 37.2 kg/m2 Dr. Nicole Moreno Work Phone: [facility] 07-10-2022 05:58-0500 Body weight 95.[address] Nicole Moreno Work Phone: [facility] 05-31-2022 09:08-0500 Body mass index (BMI) [Ratio] 40.4 kg/m2 Dr. Nicole Moreno Work Phone: [facility] 05-31-2022 09:08-0500 Body weight 100.[address] Nicole Moreno Work Phone: [facility] 05-31-2022 09:08-0500 Diastolic blood pressure 82 mm[Hg] Dr. Nicole Moreno Work Phone: [facility] 05-31-2022 09:08-0500 Heart rate 91 /min Dr. Nicole Moreno Work Phone: [facility] 05-31-2022 09:08-0500 SaO2% (BldA) [Mass fraction] 94 % Dr. Nicole Moreno Work Phone: [facility] 05-31-2022 09:08-0500 Systolic blood pressure 129 mm[Hg] Dr. Nicole Moreno Work Phone: [facility] 08-02-2021 14:50-0400 Diastolic blood pressure 68 mm[Hg] Dr. Nicole Moreno Work Phone: [facility] Work Phone: 08-02-2021 14:50-0400 Systolic blood pressure 130 mm[Hg] Dr. Nicole Moreno Work Phone: [facility] Work Phone: 08-02-2021 14:06-0400 Body height 157.[address] Nicole Moreno Work Phone: [facility] Work Phone: 08-02-2021 14:06-0400 Body mass index (BMI) [Ratio] 44.8 kg/m2 Dr. Nicole Moreno Work Phone: [facility] Work Phone: 08-02-2021 14:06-0400 Body weight 111.[address] Nicole Moreno Work Phone: [facility] Work Phone: 08-02-2021 14:06-0400 Heart rate 68 /min Dr. Nicole Moreno Work Phone: [facility] Work Phone: 08-02-2021 14:06-0400 Respiratory rate 18 /min Dr. Nicole Moreno Work Phone: [facility] Work Phone: 06-12-2021 14:07-0500 Body mass index (BMI) [Ratio] 45.1 kg/m2 Dr. Nicole Moreno Work Phone: [facility] Work Phone: 06-12-2021 14:07-0500 Body weight 112.[address] Nicole Moreno Work Phone: [facility] Work Phone: 06-12-2021 14:07-0500 Diastolic blood pressure 62 mm[Hg] Dr. Nicole Moreno Work Phone: [facility] Work Phone: 06-12-2021 14:07-0500 Heart rate 72 /min Dr. Nicole Moreno Work Phone: [facility] Work Phone: 06-12-2021 14:07-0500 Respiratory rate 16 /min Dr. Nicole Moreno Work Phone: [facility] Work Phone: 06-12-2021 14:07-0500 Systolic blood pressure 174 mm[Hg] Dr. Nicole Moreno Work Phone: [facility] Work Phone: 07-26-2016 14:09-0500 BMI (Body Mass Index) 34.87 kg/m2 Denise Au LPN [facility] Work Phone: 07-26-2016 14:09-0500 Body Temperature 99.4 [degF] Denise Au LPN [facility] Work Phone: 07-26-2016 14:09-0500 BP Diastolic 71 mm[Hg] Denise Au LPN [facility] Work Phone: 07-26-2016 14:09-0500 BP Systolic 149 mm[Hg] Denise Yensho COATER [facility] [facility] Phone: 07-26-2016 14:09-0500 Height 161.29 cm Denise Mynorho COATER [facility] Work Phone: 07-26-2016 14:09-0500 Pulse (Heart Rate) 98 /min Denise Fritznsho COATER [facility] Work Phone: 07-26-2016 14:09-0500 Respiratory Rate 18 /min Denise Fritznsho COATER [facility] Work Phone: 07-26-2016 14:09-0500 Weight 90.72 kg Denise Fritznsho COATER [facility] Work Phone: 05-31-2016 13:39-0500 Body Temperature 98.06 [degF] Denise Loweho COATER [facility] Work Phone: 05-31-2016 13:39-0500 BSA (Body Surface Area) 2.01 m2 Denise Fritznsho COATER [facility] Work Phone: 05-31-2016 13:39-0500 Height 161.29 cm Denise Mynorho COATER [facility] [facility] Phone: Encounters Encounter Date Encounter Type Care Provider Facility Start: 03-24-2025 ambulatory Nicole Moreno Facility:[facility] Start: 12-28-2024 End: 12-28-[address] Nicole Moreno DO Work Phone: -Chen Hunt [facility] Start: 12-28-2024 End: 12-28-[address] Nicole Moreno DO -Laboratory Robert Hunt [facility] Start: 12-28-2024 End: 12-28-2024 ambulatory Nicole Moreno Facility:[facility] Start: 09-22-2024 End: 09-22-[address] Nicole Moreno DO Work Phone: [facility] Work Phone: Start: 09-22-2024 End: 09-22-[address] Nicole Moreno DO -Outpatient Bone Densitometry Work Phone: Start: 09-22-2024 End: 09-22-2024 ambulatory Nicole Moreno Facility:[facility] Start: 07-29-2024 End: 07-29-[address] Nicole Moreno DO Work Phone: [facility] Work Phone: Start: 07-29-2024 End: 07-29-[address] Nicole Moreno DO -Laboratory, [place] Work Phone: Start: 07-29-2024 End: 07-29-2024 ambulatory Nicole Moreno Facility:[facility] Start: 09-09-2023 End: 09-09-2023 ambulatory [facility] Work Phone: Start: 09-09-2023 End: 09-09-2023 Patient encounter procedure [facility], [place] Work Phone: Start: 09-02-2023 End: 09-02-2023 ambulatory [facility] Work Phone: Start: 09-02-2023 End: 09-02-2023 [facility] Start: 05-30-2023 End: 05-30-[address] Nicole Moreno Work Phone: [facility] Work Phone: Start: 05-30-2023 End: 05-30-[address] [facility] Start: 04-18-2023 End: 04-18-[address] Nicole Moreno Work Phone: [facility] Work Phone: Start: 04-18-2023 End: 04-18-[address] Nicole Moreno Work Phone: [facility], [facility] Work Phone: Start: 03-29-2023 End: 03-29-[address] Nicole Moreno Work Phone: [facility] Work Phone: Start: 03-20-2023 End: 03-20-2023 ambulatory [facility] Work Phone: Start: 03-20-2023 End: 03-20-2023 [facility] Start: 12-09-2022 End: 12-09-2022 Emergency department patient visit [facility] Work Phone: Start: 10-30-2022 End: 10-30-[address] Nicole Moreno Work Phone: [facility] Work Phone: Start: 10-30-2022 End: 10-30-[address] Nicole Moreno Work Phone: [facility] Start: 10-23-2022 End: 10-23-[address] Nicole Moreno Work Phone: [facility] Start: 10-05-2022 End: 10-05-[address] [facility] Start: 07-31-2022 End: 07-31-[address] Nicole Moreno Work Phone: [facility] Start: 07-10-2022 Non-patient / Non-visit Dr. iNcole Moreno Work Phone: [facility] Start: 07-10-2022 End: 07-10-2022 Admission to same day surgery center Dr. Nicole Moreno Work Phone: [facility] Start: 07-10-2022 End: 07-10-[address] Nicole Moreno Work Phone: [facility] Work Phone: Start: 05-31-2022 End: 05-31-[address] Nicole Moreno Work Phone: [facility] Start: 04-13-2022 End: 04-13-2022 ambulatory [facility] Work Phone: Start: 04-13-2022 End: 04-13-2022 Patient encounter procedure [facility] Start: 03-15-2022 End: 03-15-2022 ambulatory [facility] Work Phone: Start: 03-15-2022 End: 03-15-2022 [facility] Start: 08-30-2021 End: 08-30-[address] Nicole Moreno Work Phone: [facility] Start: 08-02-2021 End: 08-02-[address] Nicole Moreno Work Phone: [facility] Start: 08-01-2021 Non-patient / Non-visit Dr. Nicole Moreno Work Phone: [facility] Start: 08-01-2021 End: 08-01-[address] Nicole Moreno Work Phone: [facility] Start: 06-29-2021 Non-patient / Non-visit Dr. Nicole Moreno Work Phone: [facility] Start: 06-29-2021 End: 06-29-[address] Nicole Moreno Work Phone: [facility] Start: 06-12-2021 End: 06-12-[address] Nicole Moreno Work Phone: [facility] Start: 12-13-2017 End: 02-06-2018 Patient encounter MILAD ESCUDERO Facility:B Start: 12-10-2017 End: 12-11-2017 Evaluation and management of inpatient MILAD Jeff KENA Facility:[facility] Start: 11-12-2017 End: 11-13-2017 Evaluation and management of inpatient MILAD Jeff KENA Facility:[facility] Start: 10-30-2017 End: 10-31-2017 Patient encounter MILAD ESCUDERO Facility:[facility] Procedures Date Procedure Procedure Detail Performing Clinician Start: 09-22-2024 Dual energy X-ray absorptiometry Dr. Nicole Moreno DO Work Phone: Start: 09-22-2024 Screening mammography D nely Moreno DO Work Phone: Start: 09-09-2023 Radiography of sacrococcygeal spine Start: 04-18-[address] Nicole arthur Work Phone: Start: 03-29-2023 Radiologic examinati on of knee Dr. Nicole Moreno Work Phone: Start: 12-09-2022 Plain chest X-ray Start: 12-09-2022 SARS-CoV-2 & FLU Ant igen (Rapid) Start: 12-09-2022 Streptococcus pyogen es antigen assay Start: 10-30-2022 Screening mammography D nely Moreno Work Phone: Start: 07-10-[address] Nicole arthur Work Phone: Start: 04-13-2022 CT of chest Start: 08-01-2021 Cardiovascular stres s test using pharmacologic stress agent Dr. 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 eval home care specialist spmtry w/admn agt Zana Hardwick travayl Work Phone: Start: 05-31-2016 End: 07-24-2016 Cholesterol Zana Hardwick travayl Work Phone: Start: 05-31-2016 End: 07-24-2016 Ct thorax w/o dye Zana Hardwick travayl Work Phone: Plan of Treatment Date Care Activity Detail Author Start: 12-09-2022 [facility] Start: 07-10-2022 Colsc flx w/rmvl of tumor polyp lesion snare tq COLONOSCOPY W/LESION REMOVAL [facility] Start: 07-10-2022 Egd transoral biopsy single/multiple EGD BIOPSY SINGLE/MULTIPLE [facility] Start: 07-10-2022 Patient discharge [facility] Start: 07-26-2016 End: 07-26-2016 DMValeriano DMB [facility] Phone: Start: 07-26-2016 End: 07-26-2016 Follow Up Appt 2 months Follow Up Appt 2 months [facility] Phone: Start: 07-26-2016 End: 07-26-2016 Retitration with follow up (patient on CPAP currently) Retitration with follow up (patient on CPAP currently) [facility] Phone: Start: 05-31-2016 End: 07-24-2016 Cholesterol Methylcholine inhalation challenge [facility] Phone: Start: 05-31-2016 End: 07-24-2016 Ct thorax w/o dye CT Chest without contrast [facility] Phone: Start: 05-31-2016 End: 05-31-2016 SAMUEL DMValeriano [facility] Phone: Start: 05-31-2016 End: 05-31-2016 Follow Up Appt 2 months Follow Up Appt 2 months [facility] Phone: Patient Education ED Pneumonia (Adult) [facility] Work Phone: Patient referral [facility] Work Phone: Radionuclide gastric emptying study [facility] Immunizations Immunization Date Immunization Notes Care Provider Kan andrea 03-19-2019 influenza, injectabl e, quadrivalent, preservative free [facility] 03-19-2019 influenza, seasonal, injectable Dr. Nicole Moreno Work Phone: [facility] 03-03-2018 influenza, injectabl e, quadrivalent, preservative free [facility] 03-03-2018 influenza, seasonal, injectable Dr. Nicole Moreno Work Phone: [facility] 02-13-2017 influenza, injectabl e, quadrivalent, preservative free [facility] 02-13-2017 influenza, seasonal, injectable Dr. Nicole Moreno Work Phone: [facility] Payers Date Payer Category Payer Private Health Insurance [id number] 2024 Self-pay [id number] 2017 Private Health Insurance [id number] Private Health Insurance [id number] Unknown [id number] Unknown [facility] [id number] Unknown [id number] Unknown [id number] Social History Date Type Detail Facility Start: 08-02-2021 End: 03-29-2023 Tobacco smoking status NHIS Unknown if ever smoked [facility] Start: 01-24-2020 Spouse/ Signif icant Other [facility] Start: 12-10-2019 Non-smoker [facility] Start: 1960 Sex Assigned At Female [facility] Start: 03-29-2023 Tobacco smoking status NHIS Ex-smoker (finding) [facility] Start: 08-07-2024 Sex Female (finding) [facility] NEGATED: Highlighted row [facility] Medical Equipment Procedure Code Equipment Code Equipment [...] Cognitive function Level Of Cons ciousness Awake;Drowsy [facility] Work Phone: 07-10-2022 Cognitive function Touch/Shaking [facility] Work Phone: 07-10-2022 Cognitive function Patient Orien tation Person;Place;Time [facility] Work Phone: Clinical Notes 07-10-2022 Note Date & Type Note Facility 07-10-2022 Procedure note [facility] 07-10-2022 Procedure note [facility] 07-10-2022 Procedure note [facility] 07-10-2022 Procedure note [facility] Evaluation note Diagnosis Onset Date Essential hypertension acute LBBB (left bundle branch block) acute Mixed hyperlipidemia acute Palpitation acute Premature atrial contraction acute Premature ventricular contraction acute Essential hypertension acute Mixed hyperlipidemia acute Premature atrial contraction acute Premature ventricular contraction acute [facility] Work Phone: Evaluation noteNo assessment information available [facility] Work Phone: Evaluation note* Diagnosis Onset Date Resolution Status Colon polyp acute Constipation chronic Esophageal pain chronic [facility] Work Phone: Evaluation note* Diagnosis Onset Date Resolution Status Retained food in stomach acu te Nausea chronic Esophageal pain chronic [facility] Work Phone: Evaluation note* Diagnosis Onset Date Resolution Status Left knee DJD acute Left knee pain acute Chronic narcotic use chronic [facility] Work Phone: History and physical note Author Seng Friend [facility] July 10, 2022 7:07am Note Date/Time July 10, 2022 7:07am [facility] Medical Records Department [address] [place] [id number] History & Physical Exam 07/10/2206 MR#: [id number] Acct: [id number] Name: SHIVA JHAVERI Rep #:[id number] : 1960 62 From: Seng Friend PCP: Dr. Nicole Moreno DO Status:[facility] Location: [place] [address] History and Physical Date of Admission: 07/10/22 [...] soft and nontender Quality Reporting Tobacco Screening ([facility] 138) Smoking Status: Never smoker Assessment and [...] Cosigner Signature (if applicable): CC: Dr. Nicole Moreno, DO; Seng Mason, DO~ Signed [facility] Work Phone: Reason for referral (narrative)No reason for referral information [facility] [place] Work Phone: Summary Purpose Family History No [...] No March 9:53pm Living Will No January 23 020 6:47pm Power of Combine Mechanic No January 24, 2020 6:47pm Advance Directive Response Recorded Date/ Time Advance Directives No March 8:53pm Living Will No January 23 020 5:47pm Power of Combine Mechanic No January 24, 2020 5:47pm Advance Directive Response Recorded Date/ Time Advance Directives No March 8:53pm Living Will No July 05, 2 023 1:52pm Power of Combine Mechanic No July 05, 2022 1:52pm Advance Directive Response Recorded Date/ Time Advance Directives No March 9:53pm Living Will No July 05, 2 023 2:52pm Power of Combine Mechanic No July 05, 2022 2:52pm Advance Directive Response Recorded Date/ Time Advance Directives No March 8:53pm Living Will No December 09, 2022 12:56pm Power of Combine Mechanic No December 09 12:56pm Advance Directive Response Recorded Date/ Time Advance Directives No March 9:53pm Living Will No December 09, 2022 1:56pm 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 Nicole Moreno , Family Provider Active Dr. Nicole Moreno , DO Primary Care Provider Active Team Status: Inactive Member Role Status Dates Dr. Nicole Moreno , DO Primary Care Provider, Referring P rovider Active Ruth Ann Rose ENGRAVER AUTOMATIC, ENGRAVER AUTOMATIC-C Attending Provider Active Team Status: Active Member Role Status Dates Dr. Nicole Moreno , DO Primary Care Provider, Referring P rovider Active Dr. Ellsworth Friend , DO Attending Provider, Other Prov ider Active Team [...] Referring P rovider Active Dr. Rocky Yu , DO Attending Provider Active Team Status: Inactive [...] September 22, 2024 End: September 22, 2024 Team Status: Active Member Role/Relationship Status Dates Dr. Nicole Moreno DO Primary Care Provider Active Team Status: Inactive Member Role/Relationship Status Dates Dr. Nicole Moreno DO Primary Care Provider Active Start: September 22, 2024 End: September 22, 2024 Dr. Nicole Moreno DO Attending Provider Active St art: September 22, 2024 End: September 22, 2024 Dr. Nicole Moreno DO Referring Provider Active St art: September 22, 2024 End: September 22, 2024 Team Status: Inactive Member Role/Relationship Status Dates Dr. Nicole Moreno DO Primary Care Provider Active Start: December 28, 2024 End: December 28, 2024 Dr. Nicole Moreno DO Attending Provider Active St art: December 28, 2024 End: December 28, 2024 FOR RECORDS PERTAINING TO PATIENTS WHO [...] BE BASED ON THE PRIMARY CLINICAL RECORDS. [facility] [employer] provides no warranty or guarantee of the accuracy or completeness of information in this document.
== END | disposition home or self-care (01) ==
PROVIDERS: PCP Family Medicine; Referring Provider Family Medicine; Visit Provider Family Medicine
DX: Z12.2 Encounter for screening for malignant neoplasm of respiratory organs (principal); R91.1 Solitary pulmonary nodule
CPT/HCPCS: 71271

== ENCOUNTER → 2025-05-17 | Outpatient (CLI) | payer OTHER, SELFPAY ==
[2025-05-17 17:40] LABS: Hematocrit 34.5 % (37-47); Hemoglobin 11.1 g/dL (12.0-15.0); Immature Granulocytes Count 0.030 X10^3/uL (0.0-0.0); Mean Corp Hgb Conc 32.2 g/dL (32-36); Mean Corpuscular Volume 91.5 fL (81-99); Mean Platelet Vol. 9.7 fl (6.2-12.0); NRBC Flagged by Analyzer 0 % (0-5); Platelet Count 316 K/mm3 (150-450); RBC Distribution Width CV 13.7 % (11.6-14.6); RBC Distribution Width SD 46.5 fl (35.1-43.9); Red Blood Count 3.77 M/mm3 (4.2-5.4); White Blood Count 8.4 K/mm3 (4.4-11.0)
[2025-05-17 18:18] LABS: Cholesterol 231 mg/dL (<=200); Free T3 3.2 pg/mL (2.18-3.98); Low Density Lipoprotein Calc. 131 mg/dL; Triglycerides 91 mg/dL; Very Low Density Lipoprotein 18 mg/dL (5-40); cholesterol:hdl ratio screen 2.75
[2025-05-17 19:10] LABS: AST(SGOT) 27 U/L (<=31); Alanine Aminotransfer ALT/SGPT 22 U/L (<=34); Albumin, Serum 4.4 g/dL (3.4-4.8); Alkaline Phosphatase 63 U/L (35-104); BUN 16 mg/dL (4-19); BUN/Creat Ratio 23.7 RATIO (10-20); CRP < 3.00 mg/L (0.0-3.0); Calcium,Total 9.8 mg/dL (7.6-11.0); Carbon Dioxide 28.3 mmol/L (20.0-29.0); Globulin 2.6 g/dL (2.2-4.2); Glucose 90 mg/dL (70-99)
[2025-05-17 19:28] LABS: Anion Gap 11 (7-18); Chloride 102 mmol/L (96-106); LDH 202 U/L (84-246); Potassium 4.3 mmol/L (3.5-5.1)
== END | disposition home or self-care (01) ==
LOC: BFHLAB 15:35
PROVIDERS: PCP Family Medicine; Visit Provider Family Medicine
DX: E03.9 Hypothyroidism, unspecified (principal); E11.9 Type 2 diabetes mellitus without complications; G89.4 Chronic pain syndrome; E78.5 Hyperlipidemia, unspecified; Z51.81 Encounter for therapeutic drug level monitoring; M25.50 Pain in unspecified joint; M79.10 Myalgia, unspecified site
CPT/HCPCS: 36415; 80053; 80061; 83036; 83615; 84439; 84443; 84481; 85025; 85652; 86140